=== PATIENT | male | born 1990 | race African-American/Black ===

== ENCOUNTER 2016-10-06 14:27 | Inpatient (IN) | payer MEDICARE ==
--- NOTE | 2016-10-06 14:56 | PDOC ---
Rapid Medical Evaluation Chief Complaint: Blood Sugar Problem Medical Evaluation: Allergies Allergy/AdvReac Type Severity Reaction Status Date / Time No Known Allergies Allergy Verified 10/06/16 14:33 Vital Signs Temp Pulse Resp BP Pulse Ox 98.0 F 121 H 18 121/54 100 10/06/16 14:33 10/06/16 14:33 10/06/16 14:33 10/06/16 14:33 10/06/16 14:33 10/06/16 14:54I have performed a brief in-person evaluation of this patient. The patient presents with a chief complaint of: Pertinent physical exam findings: Fruity breath, L/S CTAB The patient will proceed to the ED for further evaluation. 25 yo IDDM c/o abd pain with weakness. Pt reports his glucose was in the high 300's last evening. Today, he c/o weakness, n/v, dry. abd pain. Pt took insulin 15u (Novolog regular) @~1415hrs. Obtained and sent to the lab by me at 1451 hours are the following: IV NS 1 liter CBC/DIFF UA Cmp BVG
[2016-10-06 15:10] LABS: VENOUS PH 7.41 (7.32-7.42)
[2016-10-06 15:11] LABS: VENOUS BLOOD GAS HCO3 13.7 meq/L (19-25)
[2016-10-06 15:14] LABS: MCHC 32.8 g/dl (32.0-35.9); MEAN CELL VOLUME 91.6 fl (80-96); MEAN PLT VOLUME 8.7 fl (7.5-11.1); PLATELET COUNT 494 K/MM3 (134-434); RDW 12.9 % (11.9-15.9); WHITE BLOOD COUNT 21.5 K/mm3 (4.0-10.0)
[2016-10-06] MEDS ORDERED: SODIUM CHLORIDE 1,000 ML IV STA ×2 (15:15→15:18)
[2016-10-06 15:23] LABS: URINE APPEARANCE CLEAR; URINE BILIRUBIN NEGATIVE (NEGATIVE); URINE COLOR YELLOW; URINE GLUCOSE (UA) 3+ (NEGATIVE); URINE KETONE 2+ (NEGATIVE); URINE LEUK ESTERASE NEGATIVE (NEGATIVE); URINE NITRITE NEGATIVE (NEGATIVE); URINE UROBILINOGEN NEGATIVE E.U./dl (0.2-1.0)
[2016-10-06 15:25] VITALS: BMI 24.2
[2016-10-06 15:32] LABS: URINE BLOOD 2+ (NEGATIVE); URINE PROTEIN 3+ (NEGATIVE)
[2016-10-06] MEDS ORDERED: PIPERACILLIN/TAZOB 3.375 GM/50 ML PRE-DOCKED IV ONE (15:33)
--- NOTE | 2016-10-06 15:33 | PDOC ---
History of Present Illness - General History Source: Patient, Old Records Exam Limitations: No Limitations <Tasneem Hayesfany - Last Filed: 10/06/16 15:30> - General History Source: Patient, Old Records Exam Limitations: No Limitations - History of Present Illness Initial Comments: 10/06/16 15:40 The patient is a 25 year old male with a significant past medical history of diabetes, who presents to the emergency department with elevated blood sugar for 3 days. The patient states that his symptoms are similar to his previous episodes of DKA. The patient reports associated nausea, vomiting, epigastric pain, and subjective fever Tmax 101. The patient denies chest pain, cough, and shortness of breath. PCP: Dr. Jennings [phone] PAST MEDICAL HISTORY: Diabetes PAST SURGICAL HISTORY: No significant history reported FAMILY HISTORY: No pertinent history reported SOCIAL HISTORY: None reported ALLERGIES: NKDA MEDICATIONS: Reviewed <Jermaine Mcadams - Last Filed: 10/06/16 19:01> <Marilyn Ruby - Last Filed: 10/06/16 20:13> - General Chief Complaint: Blood Sugar Problem Stated Complaint: Vomiting Time Seen by Provider: 10/06/16 15:08 Past History - Past Medical History Anemia: No Asthma: No Cancer: No Cardiac Disorders: No CVA: No COPD: No CHF: No Dementia: No Diabetes: Yes (type 1; HAS BEEN IN DKA) GI Disorders: No Disorders: No HTN: No Hypercholesterolemia: No Liver Disease: No Seizures: No Thyroid Disease: No - Surgical History Abdominal Surgery: No Appendectomy: No Cardiac Surgery: No Cholecystectomy: No Lung Surgery: No Neurologic Surgery: No Orthopedic Surgery: No - Immunization History Immunization Up to Date: Yes - Psycho/Social/Smoking Cessation Hx Anxiety: No Suicidal Ideation: No Smoking Status: No Smoking History: Never smoked Have you smoked in the past 12 months: No Number of Cigarettes Smoked Daily: 0 Information on smoking cessation initiated: No Hx Alcohol Use: No Drug/Substance Use Hx: No Substance Use Type: None Hx Substance Use Treatment: No <Maddy Hayes - Last Filed: 10/06/16 15:30> <Jermaine Mcadams - Last Filed: 10/06/16 19:01> <Marilyn Ruby - Last Filed: 10/06/16 20:13> - Past Medical History Allergies/Adverse Reactions: Allergies Allergy/AdvReac Type Severity Reaction Status Date / Time No Known Allergies Allergy Verified 10/06/16 14:33 Home Medications: Ambulatory Orders Insulin (Levemir) [Levemir Flexpen -] 42 units SQ AM 05/07/16 Insulin (LOG) Aspart [NovoLOG -] 0 units SQ TID 10/06/16 Review of Systems - Review of Systems Able to Perform ROS?: Yes Comments:: 10/06/16 15:40 CONSTITUTIONAL: Present: Fever Absent: Chills, diaphoresis, generalized weakness, malaise, loss of appetite HEENT: Absent: rhinorrhea, nasal congestion, throat pain, throat swelling, difficulty swallowing, mouth swelling, ear pain, eye pain, visual Changes CARDIOVASCULAR: Absent: chest pain, syncope, palpitations, irregular heart rate, lightheadedness , peripheral edema RESPIRATORY: Absent: cough, shortness of breath, dyspnea with exertion, orthopnea, wheezing, stridor, hemoptysis GASTROINTESTINAL: Present: Nausea, vomiting, abdominal pain Absent: Abdominal distension, diarrhea, constipation, melena, hematochezia GENITOURINARY: Absent: dysuria, frequency, urgency, hesitancy, hematuria, flank pain, genital pain MUSCULOSKELETAL: Absent: myalgia, arthralgia, joint swelling SKIN: Absent: rash, itching, pallor HEMATOLOGIC/IMMUNOLOGIC: Absent: easy bleeding, easy bruising, lymphadenopathy, frequent infections ENDOCRINE: Absent: unexplained weight gain, unexplained weight loss, heat intolerance, cold intolerance NEUROLOGIC: Absent: headache, focal weakness or paresthesias, dizziness, unsteady gait, seizure, mental status changes, bladder or bowel incontinence PSYCHIATRIC: Absent: anxiety, depression, suicidal or homicidal ideation, hallucinations <Jermaine Mcadams - Last Filed: 10/06/16 19:01> *Physical Exam - Vital Signs Last Vital Signs Temp Pulse Resp BP Pulse Ox 98.0 F 121 H 18 121/54 100 10/06/16 14:33 10/06/16 14:33 10/06/16 14:33 10/06/16 14:33 10/06/16 14:33 <Mdady Hayes - Last Filed: 10/06/16 15:30> - Vital Signs Last Vital Signs Temp Pulse Resp BP Pulse Ox 98.0 F 121 H 18 121/54 100 10/06/16 14:33 10/06/16 14:33 10/06/16 14:33 10/06/16 14:33 10/06/16 14:33 - Physical Exam Comments: 10/06/16 15:40 GENERAL: Well developed, well nourished. Awake and alert. In no acute distress. HEENT: Normocephalic, atraumatic. PERRLA, EOMI. No conjunctival pallor. Sclera are non- icteric. Moist mucous membranes. Oropharynx is clear. NECK: Supple. Full ROM. No JVD. Carotid pulses 2+ and symmetric, without bruits. No thyromegaly. No lymphadenopathy. CARDIOVASCULAR: Tachycardic regular rhythm. No murmurs, rubs, or gallops. Distal pulses are 2+ and symmetric. PULMONARY: No evidence of respiratory distress. Lungs clear to auscultation bilaterally. No wheezing, rales or rhonchi. ABDOMINAL: (+) upper abdominal pain. Soft. Non-distended. No rebound or guarding. No organomegaly. Normoactive bowel sounds. MUSCULOSKELETAL Normal range of motion at all joints. No bony deformities or tenderness. No CVA tenderness. EXTREMITIES: No cyanosis. No clubbing. No edema. No calf tenderness. SKIN: Warm and dry. Normal capillary refill. No rashes. No jaundice. NEUROLOGICAL: Alert, awake, appropriate. Cranial nerves 2-12 intact. No deficits to light touch and temperature in face, upper extremities and lower extremities. No motor deficits in the in face, upper extremities and lower extremities. Normoreflexic in the upper and lower extremities. Normal speech. Toes are downgoing bilaterally. Gait is normal without ataxia. PSYCHIATRIC: Cooperative. Good eye contact. Appropriate mood and affect. <Jermaine Mcadams - Last Filed: 10/06/16 19:01> - Vital Signs Last Vital Signs Temp Pulse Resp BP Pulse Ox 99.4 F 88 18 155/88 100 10/06/16 19:20 10/06/16 19:20 10/06/16 19:20 10/06/16 19:20 10/06/16 19:20 <Marilyn Ruby - Last Filed: 10/06/16 20:13> ED Treatment Course - LABORATORY CBC & Chemistry Diagram: 10/06/16 14:49 10/06/16 14:49 - ADDITIONAL ORDERS Additional order review: Laboratory Results 10/06/16 14:49 VBG pH 7.41 D POC VBG pCO2 22.1 L D POC VBG pO2 35.8 D Mixed VBG HCO3 13.7 L* 10/06/16 14:49 RBC 5.36 D MCV 91.6 MCHC 32.8 RDW 12.9 MPV 8.7 D Neutrophils % Y Lymphocytes % Y - RADIOLOGY Radiology Studies Ordered: Category Date Time Status CHEST X-RAY PORTABLE* [RAD] Stat Radiology 10/06/16 15:16 Ordered <Maddy Hayes - Last Filed: 10/06/16 15:30> - LABORATORY CBC & Chemistry Diagram: 10/06/16 14:49 10/06/16 16:36 - ADDITIONAL ORDERS Additional order review: Laboratory Results 10/06/16 10/06/16 14:49 14:49 VBG pH 7.41 D POC VBG pCO2 22.1 L D POC VBG pO2 35.8 D Mixed VBG HCO3 13.7 L* Urine Color Yellow Urine Appearance Clear Urine pH 6.0 Urine Protein 3+ H Urine Glucose (UA) 3+ H Urine Ketones 2+ H Urine Blood 2+ H Urine Nitrite Negative Urine Bilirubin Negative Urine Urobilinogen Negative Ur Leukocyte Esterase Negative 10/06/16 14:49 RBC 5.36 D MCV 91.6 MCHC 32.8 RDW 12.9 MPV 8.7 D Neutrophils % Y Lymphocytes % Y - RADIOLOGY Radiograph Interpretation: 10/06/16 17:04 EXAM#: TYPE/EXAM: RESULT: [id number] RAD/CHEST X-RAY PORTABLE* Diabetic ketoacidosis. Portable chest x-ray semierect. Since prior chest x-ray dated 05/07, the cardiac silhouette remains within normal limits in size and the lung is clear. Mediastinum and visualized osseous structures appear intact Impression No significant interval change or acute lung disease is present Reported By: Reginaldo Coleman MD 10/06/16 [id number] <Jermaine Mcadams - Last Filed: 10/06/16 19:01> - LABORATORY CBC & Chemistry Diagram: 10/06/16 14:49 10/06/16 16:36 - ADDITIONAL ORDERS Additional order review: Laboratory Results 06/10/06/16 10/06/16 17:00 16:36 16:36 VBG pH POC VBG pCO2 POC VBG pO2 Mixed VBG HCO3 Sodium Cancelled 139 Potassium Cancelled 4.4 Chloride Cancelled 103 Carbon Dioxide Cancelled 17 L D Anion Gap Cancelled 19 H BUN Cancelled 20 H D Creatinine Cancelled 1.5 H D Creat Clearance w eGFR Cancelled 56.57 Random Glucose Cancelled 126 H Lactic Acid Calcium Cancelled 10.3 H D Phosphorus 1.3 L D Magnesium 1.8 Total Bilirubin Cancelled 1.7 H AST Cancelled 29 ALT Cancelled 37 D Alkaline Phosphatase Cancelled 66 Creatine Kinase 246 D Creatine Kinase Index Y CK-MB (CK-2) < 1.000 Troponin I < 0.02 D Total Protein Cancelled 7.9 D Albumin Cancelled 4.5 D Lipase 83 Urine Color Urine Appearance Urine pH Ur Specific [place] Urine Protein Urine Glucose (UA) Urine Ketones Urine Blood Urine Nitrite Urine Bilirubin Urine Urobilinogen Ur Leukocyte Esterase Urine RBC Urine WBC Ur Epithelial Cells Hyaline Casts Granular Casts Urine Mucus Acetone, Qual Cancelled Positive small 1+ 10/06/16 10/06/16 10/06/16 15:55 15:30 14:49 VBG pH 7.41 D POC VBG pCO2 22.1 L D POC VBG pO2 35.8 D Mixed VBG HCO3 13.7 L* Sodium Potassium Chloride Carbon Dioxide Anion Gap BUN Creatinine Creat Clearance w eGFR Random Glucose Lactic Acid 2.0 Calcium Phosphorus Cancelled Magnesium Cancelled Total Bilirubin AST ALT Alkaline Phosphatase Creatine Kinase Creatine Kinase Index CK-MB (CK-2) Troponin I Total Protein Albumin Lipase Cancelled Urine Color Urine Appearance Urine pH Ur Specific [place] Urine Protein Urine Glucose (UA) Urine Ketones Urine Blood Urine Nitrite Urine Bilirubin Urine Urobilinogen Ur Leukocyte Esterase Urine RBC Urine WBC Ur Epithelial Cells Hyaline Casts Granular Casts Urine Mucus Acetone, Qual Cancelled 10/06/16 10/06/16 14:49 14:49 VBG pH POC VBG pCO2 POC VBG pO2 Mixed VBG HCO3 Sodium Cancelled Potassium Cancelled Chloride Cancelled Carbon Dioxide Cancelled Anion Gap Cancelled BUN Cancelled Creatinine Cancelled Creat Clearance w eGFR Cancelled Random Glucose Cancelled Lactic Acid Calcium Cancelled Phosphorus Magnesium Total Bilirubin Cancelled AST Cancelled ALT Cancelled Alkaline Phosphatase Cancelled Creatine Kinase Creatine Kinase Index CK-MB (CK-2) Troponin I Total Protein Cancelled Albumin Cancelled Lipase Urine Color Yellow Urine Appearance Clear Urine pH 6.0 Ur Specific [place] >= 1.030 H Urine Protein 3+ H Urine Glucose (UA) 3+ H Urine Ketones 2+ H Urine Blood 2+ H Urine Nitrite Negative Urine Bilirubin Negative Urine Urobilinogen Negative Ur Leukocyte Esterase Negative Urine RBC 2 Urine WBC 5 Ur Epithelial Cells Rare Hyaline Casts 15 Granular Casts 37 Urine Mucus Rare Acetone, Qual 10/06/16 14:49 RBC 5.36 D MCV 91.6 MCHC 32.8 RDW 12.9 MPV 8.7 D Neutrophils % Y Lymphocytes % Y - Medications Given in the ED: ED Medications Discontinued Medications Generic Name Dose Route Start Last Admin Trade Name Freq PRN Reason Stop Dose Admin Sodium Chloride 1,000 mls @ 1,000 mls/hr 10/06/16 15:15 10/06/16 15:20 Normal Saline - IV 10/06/16 16:14 1,000 mls/hr ASDIR STA Administration Sodium Chloride 1,000 mls @ 1,000 mls/hr 10/06/16 15:18 10/06/16 16:25 Normal Saline - IV 10/06/16 16:17 1,000 mls/hr ASDIR STA Administration Sodium Chloride 2,000 mls @ 1,000 mls/hr 10/06/16 16:33 10/06/16 17:20 Normal Saline - IV 10/06/16 18:32 1,000 mls/hr ASDIR STA Administration Ondansetron HCl 4 mg 10/06/16 17:36 10/06/16 17:38 Zofran Injection IVPUSH 10/06/16 17:37 4 mg ONCE ONE Administration Ondansetron HCl 4 mg 10/06/16 19:36 10/06/16 19:43 Zofran Injection IVPUSH 10/06/16 19:37 4 mg ONCE STA Administration Piperacillin Sod/Tazobactam Sod 3.375 gm 10/06/16 15:33 10/06/16 17:20 Zosyn 3.375gm Ivpb (Pre-Docked) IV 10/06/16 15:34 3.375 gm ONCE ONE Administration Protocol <Marilyn Ruby - Last Filed: 10/06/16 20:13> Medical Decision Making - Medical Decision Making 10/06/16 15:31 25-year-old male with history of diabetes and DKA presents the emergency department with three-day history of nausea, vomiting and abdominal pain and elevated sugar at home. Differential diagnosis includes but is not limited to: DKA, uncontrolled diabetes, electrolyte abnormality, infection, dehydration, toxic/metabolic derangement. Plan: 1. Labs 2. EKG 3. IV fluids for hydration 4. Glycemic control 5. Septic workup 6. Observe and reevaluate <Maddy Hayes - Last Filed: 10/06/16 15:30> - Medical Decision Making 10/06/16 18:[address] Jennings placed. Awaiting call back. 10/06/16 18:[address] Jennings placed. Awaiting call back. 10/06/16 18:[address] Jennings's cell phone. Case discussed. Said to call Dr. Chacon 10/06/16 19:[address] Chacon placed. Awaiting call back. <Jermaine Mcadams - Last Filed: 10/06/16 19:01> - Medical Decision Making 10/06/16 20:06 Second call placed to Dr. Chacon (via answering service) at 20:06 Awaiting call back 10/06/16 20:12 Patient's case discussed with Dr. Chacon <Marilyn Ruby - Last Filed: 10/06/16 20:13> *DC/Admit/Observation/Transfer - Attestations Physician Attestion: 10/06/16 15:32 I, Dr. Maddy Hayes, attest that the scribes documentation that appears above has been prepared under my direction and personally reviewed by me in its entirety. I confirmed that the note above accurately reflects all work, treatment, procedures, and medical decision-making performed by me. <Maddy Hayes - Last Filed: 10/06/16 15:30> - Attestations Scribe Attestion: 10/06/16 15:40 Documentation prepared by Jermaine Mcadams, acting as neuropsychology medical consultant for Maddy Hayes MD. <Jermaine Mcadams - Last Filed: 10/06/16 19:01> <Marilyn Ruby - Last Filed: 10/06/16 20:13> Diagnosis at time of Disposition: Nausea and vomiting, Abdominal pain - Referrals
[2016-10-06 15:50] LABS: GRANULAR CASTS 37 /lpf; URINE HYALINE CAST 15 /lpf; URINE MUCUS RARE; URINE RBC 2 /hpf (0-3); URINE WBC 5 /hpf (3-5)
[2016-10-06] MEDS ORDERED: SODIUM CHLORIDE 2,000 ML IV STA (16:33)
[2016-10-06] MEDS ORDERED: ONDANSETRON 4 MG/2 ML VIAL IVPUSH ONE (17:36)
[2016-10-06] MEDS ORDERED: ONDANSETRON 4 MG/2 ML VIAL ONE ×2 (17:39→19:37)
[2016-10-06 18:04] LABS: ALBUMIN 4.5 g/dl (3.4-5.0); ALK PHOS 66 U/L (45-117); ANION GAP 19 (8-16); BILIRUBIN,TOTAL 1.7 mg/dL (0.2-1.0); CALCIUM 10.3 mg/dL (8.5-10.1); CO2 17 mmol/L (21-32); CREATININE 1.5 mg/dL (0.7-1.3); GLUCOSE,RANDOM 126 mg/dL (74-106); SGOT/AST 29 U/L (15-37); SGPT/ALT 37 U/L (12-78); TOT PROT 7.9 g/dl (6.4-8.2)
[2016-10-06 18:35] LABS: MAGNESIUM 1.8 mg/dL (1.8-2.4); PHOSPHOROUS 1.3 mg/dL (2.5-4.9)
[2016-10-06 18:36] LABS: TROPONIN I < 0.02 ng/ml (0.00-0.05)
[2016-10-06 18:43] LABS: ACETONE SERUM POSITIVE SMALL 1+ (NEGATIVE)
[2016-10-06] MEDS ORDERED: ONDANSETRON 4 MG/2 ML VIAL IVPUSH STA (19:36)
[2016-10-06 20:31] LABS: PLATELET ESTIMATE ADEQUATE (NORMAL)
[2016-10-06] MEDS ORDERED: METOCLOPRAMIDE HCL INJECTION 10 MG/2 ML VIAL ONE (21:40)
[2016-10-06] MEDS ORDERED: METOCLOPRAMIDE HCL INJECTION 10 MG/2 ML VIAL IVPUSH ONE (21:40)
[2016-10-06] MEDS ORDERED: SODIUM CHLORIDE 1,000 ML IV SCH (23:30)
[2016-10-07] LABS: URINE APPEARANCE CLEAR; URINE BILIRUBIN NEGATIVE (NEGATIVE); URINE COLOR STRAW; URINE GLUCOSE (UA) 3+ (NEGATIVE); URINE KETONE 2+ (NEGATIVE); URINE LEUK ESTERASE NEGATIVE (NEGATIVE); URINE NITRITE NEGATIVE (NEGATIVE); URINE UROBILINOGEN NEGATIVE E.U./dl (0.2-1.0)
[2016-10-07 00:10] LABS: URINE BLOOD 1+ (NEGATIVE); URINE PROTEIN 1+ (NEGATIVE)
[2016-10-07 00:15] LABS: URINE MUCUS RARE; URINE RBC <1 /hpf (0-3); URINE WBC 4 /hpf (3-5)
--- NOTE | 2016-10-07 01:32 | CONSULT ---
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) Cardio/Vascular: Yes: Other (tachycardia and lethargy with frequent urination) Pulmonary: Yes: Other (bronchitis) Gastrointestinal: Yes: GERD Hepatobiliary: Yes: Other (none) Renal/: Yes: UTI Infectious Disease: Yes: Other (none) Psych: Yes: Depression Musculoskeletal: Yes: Other (none) Rheumatology: Yes: Other (none) ENT: Yes: Allergic Rhinitis Endocrine: Yes: Diabetes Mellitus Dermatology: Yes: Other (none) - Past Surgical History Past Surgical History: Yes: None - Alcohol/Substance Use Hx Alcohol Use: No History of Substance Use: reports: None - Smoking History Smoking history: Never smoked Have you smoked in the past 12 months: No Aproximately how many cigarettes per day: 0 - Social History History of Recent Travel: No Home Medications - Allergies Allergies/Adverse Reactions: Allergies Allergy/AdvReac Type Severity Reaction Status Date / Time No Known Allergies Allergy Verified 10/06/16 14:33 - Home Medications Home Medications: Ambulatory Orders Insulin (Levemir) [Levemir Flexpen -] 42 units SQ AM 05/07/16 Insulin (LOG) Aspart [NovoLOG -] 0 units SQ TID 10/06/16 Family Disease History - Family Disease History Family Disease History: Diabetes: Mother Review of Systems - Review of Systems Constitutional: reports: Lethargy, Weakness Eyes: reports: Blurred Vision HENT: reports: No Symptoms Neck: reports: No Symptoms Cardiovascular: reports: No Symptoms Respiratory: reports: No Symptoms Gastrointestinal: reports: No Symptoms Genitourinary: reports: No Symptoms Breasts: reports: No Symptoms Reported Musculoskeletal: reports: No Symptoms Integumentary: reports: No Symptoms Neurological: reports: No Symptoms Endocrine: reports: Unexplained Weight Gain Hematology/Lymphatic: reports: No Symptoms Physical Exam Vital Signs: Vital Signs Temperature 98.2 F 10/07/16 00:05 Pulse Rate 93 H 10/07/16 00:05 Respiratory Rate 18 10/07/16 00:05 Blood Pressure 133/71 10/07/16 00:05 O2 Sat by Pulse Oximetry (%) 100 10/07/16 00:05 Constitutional: Yes: Anxious Eyes: Yes: EOM Intact HENT: Yes: Normocephalic, Pharyngeal Erythema Neck: Yes: Trachea Midline Cardiovascular: Yes: Regular Rate and Rhythm Respiratory: Yes: CTA Bilaterally Gastrointestinal: Yes: Hypoactive Bowel Sounds, Tenderness, Epigastrium ...Rectal Exam: Yes: Deferred Renal/: Yes: WNL Breast(s): Yes: WNL Musculoskeletal: Yes: WNL Extremities: Yes: WNL Edema: No Peripheral Pulses WNL: Yes Integumentary: Yes: WNL Wound/Incision: Yes: Clean/Dry Neurological: Yes: WNL, Alert, Oriented ...Motor Strength: WNL Problem List - Problems (1) Abdominal pain Code(s): R10.9 - UNSPECIFIED ABDOMINAL PAIN (2) Nausea and vomiting Code(s): R11.2 - NAUSEA WITH VOMITING, UNSPECIFIED (3) Acute renal failure Code(s): N17.9 - ACUTE KIDNEY FAILURE, UNSPECIFIED (4) DKA (diabetic ketoacidoses) Code(s): E13.10 - OTH DIABETES MELLITUS WITH KETOACIDOSIS WITHOUT COMA Qualifiers: (5) Hyperglycemia Code(s): R73.9 - HYPERGLYCEMIA, UNSPECIFIED Assessment/Plan Current Active Problems Abdominal pain (Acute) Nausea and vomiting (Acute) dka hyperglycemia,uncontrolled diabetes mellitus diet non compliance Abnormal Lab Results 10/06/16 10/06/16 10/06/16 14:49 14:49 14:49 WBC 21.5 H D Hct 49.1 H D Plt Count 494 H D Neutrophils % 87.0 H POC VBG pCO2 22.1 L D Mixed VBG HCO3 13.7 L* Carbon Dioxide Anion Gap BUN Creatinine Random Glucose Calcium Phosphorus Total Bilirubin Ur Specific [place] >= 1.030 H Urine Protein 3+ H Urine Glucose (UA) 3+ H Urine Ketones 2+ H Urine Blood 2+ H 10/06/16 10/06/16 10/06/16 16:36 16:36 23:45 WBC Hct Plt Count Neutrophils % POC VBG pCO2 Mixed VBG HCO3 Carbon Dioxide 17 L D Anion Gap 19 H BUN 20 H D Creatinine 1.5 H D Random Glucose 126 H Calcium 10.3 H D Phosphorus 1.3 L D Total Bilirubin 1.7 H Ur Specific [place] Urine Protein 1+ H D Urine Glucose (UA) 3+ H Urine Ketones 2+ H Urine Blood 1+ H Laboratory Results - last 24 hr 10/06/16 10/06/16 10/06/16 14:49 14:49 14:49 WBC 21.5 H D RBC 5.36 D Hgb 16.1 D Hct 49.1 H D MCV 91.6 MCHC 32.8 RDW 12.9 Plt Count 494 H D MPV 8.7 D Neutrophils % 87.0 H Lymphocytes % 8.0 D Monocytes % 5.0 Platelet Estimate Adequate RBC Morphology Appears normal VBG pH POC VBG pCO2 POC VBG pO2 Mixed VBG HCO3 Sodium Cancelled Potassium Cancelled Chloride Cancelled Carbon Dioxide Cancelled Anion Gap Cancelled BUN Cancelled Creatinine Cancelled Creat Clearance w eGFR Cancelled Random Glucose Cancelled Lactic Acid Calcium Cancelled Phosphorus Magnesium Total Bilirubin Cancelled AST Cancelled ALT Cancelled Alkaline Phosphatase Cancelled Creatine Kinase Creatine Kinase Index CK-MB (CK-2) CK-MB (CK-2) Rel Index Troponin I Total Protein Cancelled Albumin Cancelled Lipase Urine Color Yellow Urine Appearance Clear Urine pH 6.0 Ur Specific [place] >= 1.030 H Urine Protein 3+ H Urine Glucose (UA) 3+ H Urine Ketones 2+ H Urine Blood 2+ H Urine Nitrite Negative Urine Bilirubin Negative Urine Urobilinogen Negative Ur Leukocyte Esterase Negative Urine RBC 2 Urine WBC 5 Ur Epithelial Cells Rare Hyaline Casts 15 Granular Casts 37 Urine Mucus Rare Acetone, Qual 10/06/16 10/06/16 10/06/16 14:49 15:30 15:55 WBC RBC Hgb Hct MCV MCHC RDW Plt Count MPV Neutrophils % Lymphocytes % Monocytes % Platelet Estimate RBC Morphology VBG pH 7.41 D POC VBG pCO2 22.1 L D POC VBG pO2 35.8 D Mixed VBG HCO3 13.7 L* Sodium Potassium Chloride Carbon Dioxide Anion Gap BUN Creatinine Creat Clearance w eGFR Random Glucose Lactic Acid 2.0 Calcium Phosphorus Cancelled Magnesium Cancelled Total Bilirubin AST ALT Alkaline Phosphatase Creatine Kinase Creatine Kinase Index CK-MB (CK-2) CK-MB (CK-2) Rel Index Troponin I Total Protein Albumin Lipase Cancelled Urine Color Urine Appearance Urine pH Ur Specific [place] Urine Protein Urine Glucose (UA) Urine Ketones Urine Blood Urine Nitrite Urine Bilirubin Urine Urobilinogen Ur Leukocyte Esterase Urine RBC Urine WBC Ur Epithelial Cells Hyaline Casts Granular Casts Urine Mucus Acetone, Qual Cancelled 10/06/16 10/06/16 10/06/16 16:36 16:36 16:36 WBC RBC Hgb Hct MCV MCHC RDW Plt Count MPV Neutrophils % Lymphocytes % Monocytes % Platelet Estimate RBC Morphology VBG pH POC VBG pCO2 POC VBG pO2 Mixed VBG HCO3 Sodium 139 Cancelled Potassium 4.4 Cancelled Chloride 103 Cancelled Carbon Dioxide 17 L D Cancelled Anion Gap 19 H Cancelled BUN 20 H D Cancelled Creatinine 1.5 H D Cancelled Creat Clearance w eGFR 56.57 Cancelled Random Glucose 126 H Cancelled Lactic Acid Calcium 10.3 H D Cancelled Phosphorus 1.3 L D Magnesium 1.8 Total Bilirubin 1.7 H Cancelled AST 29 Cancelled ALT 37 D Cancelled Alkaline Phosphatase 66 Cancelled Creatine Kinase 246 D Creatine Kinase Index Y CK-MB (CK-2) < 1.000 CK-MB (CK-2) Rel Index Cancelled Troponin I < 0.02 D Total Protein 7.9 D Cancelled Albumin 4.5 D Cancelled Lipase 83 Urine Color Urine Appearance Urine pH Ur Specific [place] Urine Protein Urine Glucose (UA) Urine Ketones Urine Blood Urine Nitrite Urine Bilirubin Urine Urobilinogen Ur Leukocyte Esterase Urine RBC Urine WBC Ur Epithelial Cells Hyaline Casts Granular Casts Urine Mucus Acetone, Qual Positive small 1+ 10/06/16 10/06/16 17:00 23:45 WBC RBC Hgb Hct MCV MCHC RDW Plt Count MPV Neutrophils % Lymphocytes % Monocytes % Platelet Estimate RBC Morphology VBG pH POC VBG pCO2 POC VBG pO2 Mixed VBG HCO3 Sodium Potassium Chloride Carbon Dioxide Anion Gap BUN Creatinine Creat Clearance w eGFR Random Glucose Lactic Acid Calcium Phosphorus Magnesium Total Bilirubin AST ALT Alkaline Phosphatase Creatine Kinase Creatine Kinase Index CK-MB (CK-2) CK-MB (CK-2) Rel Index Troponin I Total Protein Albumin Lipase Urine Color Straw Urine Appearance Clear Urine pH 5.0 Ur Specific [place] Urine Protein 1+ H D Urine Glucose (UA) 3+ H Urine Ketones 2+ H Urine Blood 1+ H Urine Nitrite Negative Urine Bilirubin Negative Urine Urobilinogen Negative Ur Leukocyte Esterase Negative Urine RBC Urine WBC Ur Epithelial Cells Hyaline Casts Granular Casts Urine Mucus Acetone, Qual Cancelled plan: insulin dose correction of hyperglycemia ivfluid ns @125cchr low dose insulin needed levemir 42 units am novolog sliding scale
[2016-10-07] MEDS ORDERED: PIPERACILLIN/TAZOB 3.375 GM/50 ML PRE-DOCKED IVPB ONE (02:00)
[2016-10-07] MEDS ORDERED: PIPERACILLIN/TAZOB 3.375 GM/50 ML PRE-DOCKED IVPB SCH (02:00)
[2016-10-07] MEDS: INSULIN SLIDING SCALE (NOVOLOG) 1 VIAL SQ SCH ×2 (06:02→07:58)
[2016-10-07 06:38] LABS: MCH 30.8 pg (25.7-33.7); MCHC 31.6 g/dl (32.0-35.9); MEAN CELL VOLUME 97.4 fl (80-96); MEAN PLT VOLUME 8.3 fl (7.5-11.1); PLATELET COUNT 456 K/MM3 (134-434); RDW 13.9 % (11.9-15.9); WHITE BLOOD COUNT 28.3 K/mm3 (4.0-10.0)
[2016-10-07] MEDS ORDERED: INSULIN SLIDING SCALE (NOVOLOG) 1 VIAL SQ SCH (07:00)
[2016-10-07] MEDS ORDERED: INSULIN DETEMIR 100 UNITS/ML MDV SQ SCH (07:00)
[2016-10-07 07:15] LABS: ALBUMIN 4.6 g/dl (3.4-5.0); ANION GAP 27 (8-16); BILIRUBIN,TOTAL 1.3 mg/dL (0.2-1.0); CHOLESTEROL 235 mg/dL (50-200); CO2 7 mmol/L (21-32); CREATININE 1.7 mg/dL (0.7-1.3); SGOT/AST 28 U/L (15-37); SGPT/ALT 38 U/L (12-78); TOT PROT 8.1 g/dl (6.4-8.2)
[2016-10-07 07:16] LABS: ALK PHOS 80 U/L (45-117)
[2016-10-07 07:29] LABS: GLUCOSE,RANDOM 512 mg/dL (74-106)
[2016-10-07] MEDS ORDERED: INSULIN (NOVOLOG) ASPART 100 UNITS/ML 10ML VIAL ONE (07:52)
[2016-10-07] MEDS ORDERED: morphine CARPU-JECT 2 MG/1 ML DISP.SYRIN IVPUSH ONE (07:55)
[2016-10-07] MEDS ORDERED: INSULIN REGULAR 100 UNITS in SODIUM CHLORIDE 99 ML IVPB SCH (09:00)
[2016-10-07] MEDS ORDERED: SODIUM CHLORIDE 1,000 ML IV SCH (09:00)
--- NOTE | 2016-10-07 09:09 | HP ---
Admitting History and Physical - Admission History of Present Illness: The patient is a 25 year old male with a significant past medical history of diabetes, who presents to the emergency department with elevated blood sugar for 3 days. The patient states that his symptoms are similar to his previous episodes of DKA. The patient reports associated nausea, vomiting, epigastric pain, and subjective fever Tmax 101. The patient denies chest pain, cough, and shortness of breath. 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) Cardiovascular: Yes: Other (tachycardia and lethargy with frequent urination) Pulmonary: Yes: Other (bronchitis) Gastrointestinal: Yes: GERD Hepatobiliary: Yes: Other (none) Renal/: Yes: UTI Heme/Onc: Yes: Other (none) Infectious Disease: Yes: Other (none) Psych: Yes: Depression Musculoskeletal: Yes: Other (none) Rheumatology: Yes: Other (none) ENT: Yes: Allergic Rhinitis Endocrine: Yes: Diabetes Mellitus Dermatology: Yes: Other (none) - Past Surgical History Past Surgical History: Yes: None - Smoking History Smoking history: Never smoked Have you smoked in the past 12 months: No Aproximately how many cigarettes per day: 0 - Alcohol/Substance Use Hx Alcohol Use: No History of Substance Use: reports: None - Social History History of Recent Travel: No Home Medications - Allergies Allergies/Adverse Reactions: Allergies Allergy/AdvReac Type Severity Reaction Status Date / Time No Known Allergies Allergy Verified 10/06/16 14:33 - Home Medications Home Medications: Ambulatory Orders Insulin (Levemir) [Levemir Flexpen -] 42 units SQ AM 05/07/16 Insulin (LOG) Aspart [NovoLOG -] 0 units SQ TID 10/06/16 Family Disease History - Family Disease History Family Disease History: Diabetes: Mother Review of Systems - Review of Systems Cardiovascular: denies: Chest Pain Gastrointestinal: reports: Abdominal Pain, Nausea Genitourinary: reports: Frequency Physical Examination Vital Signs: Vital Signs Temperature 97.0 F L 10/07/16 08:09 Pulse Rate 130 H 10/07/16 08:09 Respiratory Rate 20 10/07/16 08:38 Blood Pressure 157/90 10/07/16 08:09 O2 Sat by Pulse Oximetry (%) 100 10/07/16 08:38 Neck: Yes: Supple Cardiovascular: Yes: Regular Rate and Rhythm Respiratory: Yes: Regular, CTA Bilaterally Gastrointestinal: Yes: Normal Bowel Sounds, Soft, Tenderness, Epigastrium Labs: CBC, BMP 10/07/16 06:00 10/07/16 06:00 Imaging - Results Cat Scan: Report Reviewed Problem List - Problems (1) Abdominal pain Assessment/Plan: US PPI GI CONSULT SURGICAL CONSULT Code(s): R10.9 - UNSPECIFIED ABDOMINAL PAIN (2) Nausea and vomiting Assessment/Plan: ABOVE Code(s): R11.2 - NAUSEA WITH VOMITING, UNSPECIFIED (3) Acute renal failure Assessment/Plan: IVF MONITOR Code(s): N17.9 - ACUTE KIDNEY FAILURE, UNSPECIFIED (4) DKA (diabetic ketoacidoses) Assessment/Plan: INSULIN DRIP IVF MONITOR BLOOD SUGARS Code(s): E13.10 - OTH DIABETES MELLITUS WITH KETOACIDOSIS WITHOUT COMA Qualifiers: (5) Leukocytosis (leucocytosis) Assessment/Plan: FOLLOW LABS CULTURES ID CONSULT ABX Code(s): D72.829 - ELEVATED WHITE BLOOD CELL COUNT, UNSPECIFIED
[2016-10-07] MEDS ORDERED: PANTOPRAZOLE SODIUM 100 ML IVPB ONE (09:25)
[2016-10-07] MEDS ORDERED: HEPARIN NA (PORCINE) 5,000 UNITS/ML 1ML VIAL ONE (09:25)
[2016-10-07 09:47] LABS: LDL CHOLESTEROL (ONLY SJRH) 145 mg/dL (5-100)
[2016-10-07] MEDS ORDERED: HEPARIN NA (PORCINE) 5,000 UNITS/ML 1ML VIAL SQ SCH (10:00)
[2016-10-07 10:11] LABS: PLATELET ESTIMATE ADEQUATE (NORMAL)
[2016-10-07] MEDS: PANTOPRAZOLE SODIUM 100 ML IVPB SCH ×2 (10:21→21:59)
--- NOTE | 2016-10-07 11:35 | PN ---
Progress Note (short form) - Note Progress Note: ID Consult dictated DKA Leukocytosis- leukemoid rxn v. possible sepsis Hx MRSA soft tissue infection Pending sepsis work up, empiric ceftriaxone
--- NOTE | 2016-10-07 12:09 | CONSULT ---
Consult Consult Specialty:: ICU Referred by:: Dr. Chacon Reason for Consultation:: DKA - History of Present Illness Chief Complaint: Lethargy, abdominal pain History of Present Illness: Pt. is a 25 y/o male with PMH of IDDM since age 12 who is currently admitted to the ICU for DKA. Pt. states that he began to feel ill approximately 3 days ago. He states he felt weak, and lethargic. He also admitted to epigastric pain, nausea, and vomiting. Reports subjective fevers and chills. Denies chest pain, shortness of breath, palpitations and cough. He states that he noticed his sugar levels were elevated so he presented to the ED for evaluation where he was found to be in DKA. Pt. was started on Levamir and sliding scale insulin. This morning, he was found to have a sugar in the 500's and was admitted to the ICU for an insulin drip. 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) Cardio/Vascular: Yes: Other (tachycardia and lethargy with frequent urination) Pulmonary: Yes: Other (bronchitis) Gastrointestinal: Yes: GERD Hepatobiliary: Yes: Other (none) Renal/: Yes: UTI Infectious Disease: Yes: Other (none) Psych: Yes: Depression Musculoskeletal: Yes: Other (none) Rheumatology: Yes: Other (none) ENT: Yes: Allergic Rhinitis Endocrine: Yes: Diabetes Mellitus Dermatology: Yes: Other (none) - Past Surgical History Past Surgical History: Yes: None - Alcohol/Substance Use Hx Alcohol Use: No History of Substance Use: reports: None - Smoking History Smoking history: Never smoked Have you smoked in the past 12 months: No Aproximately how many cigarettes per day: 0 - Social History History of Recent Travel: No Home Medications - Allergies Allergies/Adverse Reactions: Allergies Allergy/AdvReac Type Severity Reaction Status Date / Time No Known Allergies Allergy Verified 10/06/16 14:33 - Home Medications Home Medications: Ambulatory Orders Insulin (Levemir) [Levemir Flexpen -] 42 units SQ AM 05/07/16 Insulin (LOG) Aspart [NovoLOG -] 0 units SQ TID 10/06/16 Family Disease History - Family Disease History Family Disease History: Diabetes: Mother Review of Systems - Review of Systems Constitutional: reports: Fever (subjective), Lethargy, Weakness. denies: Chills , Night Sweats Eyes: denies: Double Vision, Recent Change in Vision HENT: denies: Difficult Swallowing, Ear Pain, Hearing Loss, Throat Pain Cardiovascular: denies: Chest Pain, Palpitations, Shortness of Breath Respiratory: denies: Cough, SOB Gastrointestinal: reports: Abdominal Pain (epigastric pain), Diarrhea, Nausea, Vomiting Genitourinary: reports: Frequency. denies: Dysuria, Hematuria, Incontinence Musculoskeletal: reports: No Symptoms Integumentary: denies: Bruising, Lesions, Rash Neurological: denies: Change in LOC, Change in Speech, Dizziness, Headache, Numbness Endocrine: reports: Increased Thirst. denies: Flushing, Increased Hunger Hematology/Lymphatic: reports: No Symptoms Psychiatric: reports: Depression (History of depression) Physical Exam Vital Signs: Vital Signs Temperature 97.0 F L 10/07/16 08:09 Pulse Rate 130 H 10/07/16 08:09 Respiratory Rate 20 10/07/16 08:38 Blood Pressure 157/90 10/07/16 08:09 O2 Sat by Pulse Oximetry (%) 100 10/07/16 08:38 Constitutional: Yes: Mild Distress, Other (Alert and oriented x3. Weak, lethargic. Breathing easily.) Cardiovascular: Yes: Regular Rate and Rhythm, Other (S1 and S2 present). No: Gallop, Murmur, Rub Respiratory: Yes: CTA Bilaterally. No: Accessory Muscle Use, Rales, Rhonchi, Wheezes Gastrointestinal: Yes: Normal Bowel Sounds, Soft, Tenderness, Epigastrium. No: Distention, Palpable Mass, Tenderness, Rebound Renal/: Yes: Polyuria Edema: No Neurological: Yes: Alert, Oriented, Cran Nerves II-XII Intact, Lethargy Labs: CBC, BMP 10/07/16 06:00 Problem List - Problems (1) Abdominal pain Code(s): R10.9 - UNSPECIFIED ABDOMINAL PAIN (2) DKA (diabetic ketoacidoses) Code(s): E13.10 - OTH DIABETES MELLITUS WITH KETOACIDOSIS WITHOUT COMA Qualifiers: (3) Leukocytosis (leucocytosis) Code(s): D72.829 - ELEVATED WHITE BLOOD CELL COUNT, UNSPECIFIED Assessment/Plan Pt. is a 25 y/o male with IDDM who presents in DKA. DKA: - Pt. received morning dose of Levamir prior to ICU arrival. Sugar after onset of action is 128. - Hold insulin drip at this time - AG decreasing 27 -->19 - Continue NS @ 125cc/hr - POC FS q1 hr - BMP Q4 hrs until AG closes Leukocytosis: - Per ID leukemoid rxn vs. possible sepsis - Ceftriaxone started empirically for WBC of 28. - ID following ROBI: - IVF - Strict I&O's Abdominal pain: - US shows a 5mm polyp on the gallbladder - Surgery and GI consults initiated. - Zofran prn FEN - NPO - NS @ 125cc/hr - Will replete as needed Prophylaxis - DVT: Heparin 5000 units SQ TID - GI: Protonix 40mg IVPB Daily
[2016-10-07] MEDS: D5W IVPB SCH (12:18)
[2016-10-07] MEDS: CEFTRIAXONE 2 GM/100 ML IVPB SCH (12:18)
[2016-10-07 12:20] LABS: ANION GAP 19 (8-16); CALCIUM 9.8 mg/dL (8.5-10.1); CO2 11 mmol/L (21-32); CREATININE 1.6 mg/dL (0.7-1.3); GLUCOSE,RANDOM 128 mg/dL (74-106); PHOSPHOROUS 2.5 mg/dL (2.5-4.9)
--- NOTE | 2016-10-07 12:48 | CONS ---
DATE OF CONSULTATION: DATE OF DICTATION: 10/07/2016 INFECTIOUS DISEASE CONSULTATION HISTORY OF PRESENT ILLNESS: The patient is a 25-year-old diabetic male with prior history of diabetic ketoacidosis, evaluated for leukocytosis. He presented with a 3-day history of worsening abdominal pain, generalized weakness, and elevated blood sugar. He was found to be in diabetic ketoacidosis. The patient was transferred to the intensive care unit where he was treated with intravenous fluids and insulin. His course has been complicated by marked leukocytosis and white count of 28,000. The patient complained of abdominal pain prior to admission with vomiting. He denies any vomiting of rusty red blood or hematemesis. He denies any diarrhea. No recent febrile illness. He denies any chest pain, shortness of breath, cough, or sputum production. He has had polyuria presumably secondary to uncontrolled diabetes mellitus and some questionable dysuria. No reports of gross hematuria. He denies any skin infections or diabetic foot infections. Of note the patient was hospitalized in 2012 with a soft tissue infection of the left leg, which grew MRSA on culture. PAST MEDICAL HISTORY: Positive for longstanding insulin-dependent diabetes mellitus since age 12, gastroesophageal reflux, and history of left leg abscess MRSA (2013). ALLERGIES: No known drug allergies. MEDICATIONS: Includes Levemir. 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 States he has been working up until the time of his illness. He is a non-smoker and non-drinker. SYSTEMS REVIEW: Neurologic: No loss of consciousness. No seizure activity or focal weakness. Cardiac: Negative chest pain or palpitations. Respiratory: Negative cough or sputum production. Gastrointestinal: As per history of present illness. Genitourinary: As per history of present illness. LABORATORY DATA: White count of 28.3, 95 neutrophils, 1 lymphocyte, hematocrit of 44.9, and platelet count of 456. Glucose of 512, BUN of 22, and creatinine of 1.7. Lactic acid of 2.0. Urinalysis with 4 white cells. Chest x-ray is negative. Blood and urine cultures are pending. PHYSICAL EXAMINATION: General: On examination he is thin, lethargic, in no acute distress. He is having hiccups. Vital Signs: Temperature of 97.0, blood pressure of 157/90, pulse of 125, regular, and respirations of 22 per minute. HEENT: Sclerae are anicteric. Oropharynx is dry; positive fruity breath. Neck: Supple. No palpable nodes. Cardiovascular: Heart sounds tachycardic. S1, S2. Lungs: Clear. Abdomen: Soft. Positive epigastric tenderness to palpation. No mass, rebound, or rigidity. Extremities: Negative for edema. No evidence of skin infection or foot ulcerations or infections. IMPRESSION: 1. Diabetic ketoacidosis. 2. Leukocytosis likely leukemoid reaction. Cannot rule out possible sepsis as precipitating event for diabetic ketoacidosis. 3. History of methicillin-resistant Staphylococcus aureus soft tissue infection. PLAN: Await culture results. Will empirically treat with ceftriaxone 2 grams intravenously piggyback daily. At the present time there does not appear to be a skin infection to raise the possibility of recurrent methicillin-resistant Staphylococcus aureus soft tissue infection. Continue intravenous fluid hydration and insulin. Will follow. Thank you for the kind referral. YENY SABILLON M.D. [id number]
--- NOTE | 2016-10-07 13:39 | EKG ---
Test Reason : Blood Pressure : / mmHG Vent. Rate : 077 BPM Atrial Rate : 077 BPM P-R Int : 142 ms QRS Dur : 098 ms QT Int : 362 ms P-R-T Axes : 026 084 074 degrees QTc Int : 409 ms NORMAL SINUS RHYTHM NORMAL ECG WHEN COMPARED WITH ECG OF 07-MAY-2016 13:14, RI INTERVAL HAS DECREASED T WAVE INVERSION NOW EVIDENT IN ANTERIOR LEADS Confirmed by SASHA MELISSA, MARQUIS ([id number]) on 10/07/2016 1:39:26 PM Referred By: Confirmed By:MARQUIS BAEZ MD
--- NOTE | 2016-10-07 13:46 | PN ---
Teaching Attending Note Name of Resident: Katherine Ng ATTENDING PHYSICIAN STATEMENT I saw and evaluated the patient. I reviewed the resident's note and discussed the case with the resident. I agree with the resident's findings and plan as documented. SUBJECTIVE: Pt seen and examined in the ICU. Given levemir this AM, anion gap improving. OBJECTIVE: Last Vital Signs Temp Pulse Resp BP Pulse Ox 97.6 F 112 H 20 136/86 100 10/07/16 11:00 10/07/16 12:25 10/07/16 12:25 10/07/16 12:25 10/07/16 08:38 Intake & Output 10/04/16 10/05/16 10/06/16 10/07/16 23:59 23:59 23:59 23:59 Intake Total 600 Balance 600 Weight 150 lb Gen: listless, weak HEENT: dry mucous membranes Heart: tachycardic, regular Lung: decreased breath sounds at the bases Abd: soft, nontender Ext: no edema CBC, BMP 10/07/16 06:00 10/07/16 11:45 Active Medications Heparin Sodium (Porcine) (Heparin -) 5,000 unit SQ BID [facility] Last Admin: 10/07/16 09:30 Dose: 5,000 unit Insulin Human Regular 100 (units/ Sodium Chloride) 100 mls @ 6.8 mls/hr IVPB TITR FABIAN; 0.1 UNITS/KG/HR PRN Reason: Protocol Last Admin: 10/07/16 12:19 Dose: Not Given Sodium Chloride (Normal Saline -) 1,000 mls @ 150 mls/hr IV ASDIR [facility] Last Admin: 10/07/16 10:30 Dose: 150 mls/hr Pantoprazole Sodium (Protonix 40mg Ivpb (Pre-Docked)) 100 mls @ 200 mls/hr IVPB BID [facility] Last Admin: 10/07/16 10:21 Dose: 200 mls/hr Ceftriaxone Sodium (Rocephin 2gm Ivpb (Pre-Docked)) 100 mls @ 200 mls/hr IVPB DAILY [facility] Last Admin: 10/07/16 12:18 Dose: 200 mls/hr ASSESSMENT AND PLAN: Diabetic Ketoacidosis Acute Kidney Injury/Dehydration - already received levemir, will monitor BGM hourly for now - aggressive IVF resuscitation - BMP q4h until anion gap cosed - monitor urine output, creatinine - on empiric antibiotics - can d/c antibiotics if cultures negative - DVT prophylaxis
[2016-10-07 15:04] LABS: MCH 30.3 pg (25.7-33.7); MCHC 32.2 g/dl (32.0-35.9); MEAN CELL VOLUME 94.1 fl (80-96); PLATELET COUNT 367 K/MM3 (134-434); RDW 13.3 % (11.9-15.9); WHITE BLOOD COUNT 27.1 K/mm3 (4.0-10.0)
[2016-10-07 15:26] LABS: ANION GAP 16 (8-16); CALCIUM 9.6 mg/dL (8.5-10.1); CO2 16 mmol/L (21-32); CREATININE 1.5 mg/dL (0.7-1.3); GLUCOSE,RANDOM 76 mg/dL (74-106)
[2016-10-07] MEDS ORDERED: DEXTROSE 5%-NORMAL SALINE 1,000 ML IV SCH (15:45)
[2016-10-07] MEDS ORDERED: ONDANSETRON 4 MG/2 ML VIAL IVPB PRN (16:28)
--- NOTE | 2016-10-07 19:29 | CON.GI ---
Consult Consult Specialty:: Gastroenterology Referred by:: Dr Chacon Reason for Consultation:: abdominal pain - History of Present Illness History of Present Illness: Patient seen in the ICU. 25 y/o male with PMH of DKA was doing well until 3 days ago when he developed persisted epigastric pain associated with nausea, vomiting and leukocytosis. He was admitted in the ICU with DKA. 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) Cardio/Vascular: Yes: Other (tachycardia and lethargy with frequent urination) Pulmonary: Yes: Other (bronchitis) Gastrointestinal: Yes: GERD Hepatobiliary: Yes: Other (none) Renal/: Yes: UTI Infectious Disease: Yes: Other (none) Psych: Yes: Depression Musculoskeletal: Yes: Other (none) Rheumatology: Yes: Other (none) ENT: Yes: Allergic Rhinitis Endocrine: Yes: Diabetes Mellitus Dermatology: Yes: Other (none) - Past Surgical History Past Surgical History: Yes: None - Alcohol/Substance Use Hx Alcohol Use: No History of Substance Use: reports: None - Smoking History Smoking history: Never smoked Have you smoked in the past 12 months: No Aproximately how many cigarettes per day: 0 - Social History History of Recent Travel: No Home Medications - Allergies Allergies/Adverse Reactions: Allergies Allergy/AdvReac Type Severity Reaction Status Date / Time No Known Allergies Allergy Verified 10/06/16 14:33 - Home Medications Home Medications: Ambulatory Orders Insulin (Levemir) [Levemir Flexpen -] 42 units SQ AM 05/07/16 Insulin (LOG) Aspart [NovoLOG -] 0 units SQ TID 10/06/16 Family Disease History - Family Disease History Family History: Denies Family Disease History: Diabetes: Mother Review of Systems - Review of Systems Constitutional: denies: Fever Eyes: denies: Blind Spots HENT: denies: Difficult Swallowing Neck: denies: Decreased ROM Cardiovascular: denies: Chest Pain Gastrointestinal: reports: Abdominal Pain. denies: Constipation, Diarrhea Physical Exam-GI Vital Signs: Vital Signs Temperature 98 F 10/07/16 19:07 Pulse Rate 91 H 10/07/16 19:07 Respiratory Rate 14 10/07/16 19:07 Blood Pressure 137/68 10/07/16 19:07 O2 Sat by Pulse Oximetry (%) 100 10/07/16 16:00 Constitutional: Yes: Well Nourished Eyes: Yes: Conjunctiva Clear HENT: Yes: Atraumatic Neck: Yes: Supple Cardiovascular: Yes: Regular Rate and Rhythm Respiratory: Yes: CTA Bilaterally ...Palpate: Yes: Soft. No: Firm/Rigid, Guarding, Hepatomegaly, Mass, Pulsatile Mass, Splenomegaly, Tenderness Labs: CBC, BMP 10/07/16 14:45 Problem List - Problems (1) Abdominal pain Assessment/Plan: r/o cholecystitis R> HIDA scan conitnue IV hydration reglan 10mg q 8 Zofran 4mg every 4 hours Code(s): R10.9 - UNSPECIFIED ABDOMINAL PAIN
[2016-10-07] MEDS ORDERED: ONDANSETRON 4 MG/2 ML VIAL IVPB SCH (19:32)
[2016-10-07 19:58] LABS: ANION GAP 19 (8-16); CALCIUM 9.1 mg/dL (8.5-10.1); CO2 14 mmol/L (21-32); CREATININE 1.3 mg/dL (0.7-1.3); GLUCOSE,RANDOM 190 mg/dL (74-106)
[2016-10-07] MEDS: INSULIN REGULAR 100 UNITS in SODIUM CHLORIDE 99 ML IVPB SCH ×2 (21:02→21:11)
[2016-10-07] MEDS: METOCLOPRAMIDE HCL INJECTION 10 MG/2 ML VIAL IVPB SCH (21:59)
[2016-10-07] MEDS: HEPARIN NA (PORCINE) 5,000 UNITS/ML 1ML VIAL SQ SCH (22:00)
[2016-10-08] MEDS ORDERED: HEMOQUE TEST 1 EACH EACH ONE (01:44)
[2016-10-08] MEDS ORDERED: ONDANSETRON 4 MG/2 ML VIAL ONE (02:19)
[2016-10-08] MEDS: ONDANSETRON 4 MG/2 ML VIAL IVPB PRN ×3 (02:31→21:43)
[2016-10-08 03:02] LABS: URINE MARIJUANA THC POSITIVE ng/ml (CUTOFF=50)
[2016-10-08] MEDS: METOCLOPRAMIDE HCL INJECTION 10 MG/2 ML VIAL IVPB SCH ×2 (05:41→13:49)
[2016-10-08 06:58] LABS: BASOPHIL 0.2 % (0-2.0); MCH 31.2 pg (25.7-33.7); MCHC 33.1 g/dl (32.0-35.9); NEUTROPHILS 77.6 % (42.8-82.8); PLATELET COUNT 300 K/MM3 (134-434); RDW 13.2 % (11.9-15.9); WHITE BLOOD COUNT 15.9 K/mm3 (4.0-10.0)
[2016-10-08 07:28] LABS: ALBUMIN 3.4 g/dl (3.4-5.0); ANION GAP 13 (8-16); CALCIUM 8.9 mg/dL (8.5-10.1); CO2 21 mmol/L (21-32); CREATININE 1.2 mg/dL (0.7-1.3); GLUCOSE,RANDOM 169 mg/dL (74-106); PHOSPHOROUS 2.2 mg/dL (2.5-4.9); SGOT/AST 13 U/L (15-37); SGPT/ALT 25 U/L (12-78)
[2016-10-08 07:29] LABS: ALK PHOS 56 U/L (45-117); BILIRUBIN,TOTAL 1.9 mg/dL (0.2-1.0); TOT PROT 6.1 g/dl (6.4-8.2)
[2016-10-08] MEDS: DEXTROSE 5%-NORMAL SALINE 1,000 ML IV SCH (08:15)
--- NOTE | 2016-10-08 08:26 | PN ---
Physical Exam: SUBJECTIVE: Patient seen and examined at bedside. Pt. is c/o hiccups, nausea and RUQ pain. States he is usually nauseous and with GERD in the mornings. Pt. appears restless OBJECTIVE: Vital Signs Period Temp Pulse Resp BP Sys/Guo Pulse Ox Last 24 Hr 97.6 F-98.7 F 78-113 14-22 112-144/59-86 100-100 GENERAL: The patient is awake, alert, and fully oriented, in mild distress. EYES: PERRL, extraocular movements intact, sclera anicteric, conjunctiva clear. No ptosis. ENT: Dry mucous membranes. NECK: Trachea midline, full range of motion, supple. LUNGS: Breath sounds equal, clear to auscultation bilaterally, no wheezes, no crackles, no accessory muscle use. HEART: Regular rate and rhythm, S1, S2 without murmur, rub or gallop. ABDOMEN: Soft, diffuse tenderness worst in RUQ, nondistended, normoactive bowel sounds, no guarding, no rebound, no hepatosplenomegaly, no masses. EXTREMITIES: 2+ pulses, warm, well-perfused, no edema. NEUROLOGICAL: Cranial nerves II through XII grossly intact. Normal speech, gait not observed. SKIN: Warm, dry, normal turgor, no rashes or lesions noted Laboratory Results - last 24 hr 10/06/16 10/07/16 10/07/16 23:45 00:14 05:32 POC Glucometer > 400 > 400 Urine Color Straw Urine Appearance Clear Urine pH 5.0 Ur Specific [place] 1.020 Urine Protein 1+ H D Urine Glucose (UA) 3+ H Urine Ketones 2+ H Urine Blood 1+ H Urine Nitrite Negative Urine Bilirubin Negative Urine Urobilinogen Negative Ur Leukocyte Esterase Negative Urine RBC <1 Urine WBC 4 Urine Mucus Rare 10/07/16 10/07/16 10/07/16 06:00 06:00 06:00 WBC 28.3 H D RBC 4.60 Hgb 14.2 D Hct 44.9 MCV 97.4 H MCHC 31.6 L RDW 13.9 Plt Count 456 H MPV 8.3 Neutrophils % 95.0 H Lymphocytes % 1.0 L D Monocytes % 0.0 L D Eosinophils % 0.0 Basophils % 0.0 Band Neutrophils 2.0 Differential Comment Manual diff done Platelet Estimate Adequate Sodium 138 Potassium 5.6 H D Chloride 104 Carbon Dioxide 7 L D Anion Gap 27 H BUN 22 H Creatinine 1.7 H Creat Clearance w eGFR 48.96 Random Glucose 512 H* D Hemoglobin A1c % 8.0 H D Calcium 10.0 Total Bilirubin 1.3 H D AST 28 ALT 38 Alkaline Phosphatase 80 D Total Protein 8.1 Albumin 4.6 Triglycerides 132 Cholesterol 235 H Total LDL Cholesterol 145 H HDL Cholesterol 79 H 10/07/16 10/07/16 10/07/16 06:00 11:01 11:45 Sodium 143 Potassium 4.4 D Chloride 113 H Carbon Dioxide 11 L D Anion Gap 19 H BUN 24 H Creatinine 1.6 H POC Glucometer 188.05281 Random Glucose 128 H D Calcium 9.8 Phosphorus 2.5 D Acetone, Qual Positive small 1+ 10/07/16 10/07/16 10/07/16 12:51 14:22 14:45 WBC 27.1 H RBC 4.48 Hgb 13.6 Hct 42.1 MCV 94.1 MCHC 32.2 RDW 13.3 Plt Count 367 MPV 8.0 Neutrophils % Y Lymphocytes % Y Band Neutrophils Cancelled Metamyelocytes Cancelled Myelocytes Cancelled Promyelocytes Cancelled Nucleated RBCs Cancelled Hypersegmented Neuts Cancelled Plasmacytoid Lymphs Cancelled Reactive Lymphocytes Cancelled Blast Cells Cancelled Plasma Cells Cancelled Other Cell Type Cancelled Toxic Granulation Cancelled Dohle Bodies Cancelled Compa Rods Cancelled Polychromasia Cancelled Hypochromic-Microcytic Cancelled Poikilocytosis Cancelled Basophilic Stippling Cancelled Anisocytosis Cancelled Microcytosis Cancelled Macrocytosis Cancelled Spherocytes Cancelled Siderocytes Cancelled Sickle Cells Cancelled Target Cells Cancelled Tear Drop Cells Cancelled Ovalocytes Cancelled Stomatocytes Cancelled Helmet Cells Cancelled [place] Bodies Cancelled [place] Rings Cancelled David Cells Cancelled Acanthocytes (Spur) Cancelled Rouleaux Cancelled Fragmented RBCs Cancelled Schistocytes Cancelled Morphology Comment Cancelled POC Glucometer 145.75351 127.27888 Fluid Tot Cell Count Cancelled 10/07/16 10/07/16 10/07/16 14:45 15:36 16:53 Sodium 144 Potassium 4.3 Chloride 112 H Carbon Dioxide 16 L D Anion Gap 16 BUN 22 H Creatinine 1.5 H POC Glucometer 88.11516 131.83001 Random Glucose 76 D Hemoglobin A1c % Calcium 9.6 10/07/16 10/07/16 10/07/16 18:15 19:41 21:28 Sodium 143 Potassium 4.4 Chloride 110 H Carbon Dioxide 14 L Anion Gap 19 H BUN 20 H Creatinine 1.3 POC Glucometer 221.89630 281.69257 Random Glucose 190 H D Calcium 9.1 10/07/16 10/08/16 10/08/16 23:05 00:41 01:00 POC Glucometer 216.55176 198.06224 Opiates Screen Positive Methadone Screen Negative Barbiturate Screen Negative Phencyclidine Screen Negative Ur Amphetamines Screen Negative MDMA (Ecstasy) Screen Negative Benzodiazepines Screen Negative Cocaine Screen Negative U Marijuana (THC) Screen Positive 10/08/16 10/08/16 05:20 05:20 WBC 15.9 H D RBC 3.94 L Hgb 12.3 Hct 37.0 MCV 94.0 MCHC 33.1 RDW 13.2 Plt Count 300 MPV 8.0 Neutrophils % 77.6 Lymphocytes % 11.4 D Monocytes % 10.8 H D Eosinophils % 0.0 Basophils % 0.2 D Sodium 145 Potassium 3.8 Chloride 111 H Carbon Dioxide 21 D Anion Gap 13 BUN 17 Creatinine 1.2 Creat Clearance w eGFR > 60 Random Glucose 169 H Calcium 8.9 Phosphorus 2.2 L Total Bilirubin 1.9 H D AST 13 L D ALT 25 D Alkaline Phosphatase 56 D Total Protein 6.1 L D Albumin 3.4 D Active Medications Generic Name Dose Route Start Last Admin Trade Name Freq PRN Reason Stop Dose Admin Heparin Sodium (Porcine) 5,000 unit 10/07/16 22:00 10/07/16 22:00 Heparin - SQ 5,000 unit BID FABIAN Administration Pantoprazole Sodium 100 mls @ 200 mls/hr 10/07/16 10:00 10/07/16 21:59 Protonix 40mg Ivpb (Pre-Docked) IVPB 200 mls/hr BID FABIAN Administration Ceftriaxone Sodium 100 mls @ 200 mls/hr 10/07/16 12:15 10/07/16 12:18 Rocephin 2gm Ivpb (Pre-Docked) IVPB 200 mls/hr DAILY FABIAN Administration Insulin Human Regular 100 100 mls @ 6.8 mls/hr 10/07/16 21:08 10/08/16 06:02 units/ Sodium Chloride IVPB 0.02 units/kg/hr TITR FABIAN Titration Protocol 0.1 UNITS/KG/HR Dextrose/Sodium Chloride 1,000 mls @ 100 mls/hr 10/08/16 08:12 D5-Ns - IV ASDIR FABIAN Metoclopramide HCl 10 mg 10/07/16 22:00 10/08/16 05:41 Reglan Injection - IVPB 10 mg TID FABIAN Administration Ondansetron HCl 4 mg 10/08/16 07:30 10/08/16 02:31 Zofran Injection IVPB 4 mg Q4H PRN Administration NAUSEA AND/OR VOMITING ASSESSMENT/PLAN: Pt. is a 25 y/o male with IDDM who presents in DKA. DKA: - Pt. switched back to insulin drip last night for gap of 19 - AG decreasing 19 -->13; will transition back to levomir and SSI - Continue D5 NS @ 100cc/hr - FSACH - diabetic diet Leukocytosis: - Improving - Per ID leukemoid rxn vs. possible sepsis - Ceftriaxone started empirically for WBC of 28. - ID following ROBI: - Improving - IVF - Strict I&O's Abdominal pain: - Hida scan today, r/o hypokinesis of the gallbladder/cholecystitis - Zofran prn for nausea - Advance diet to clears Hiccups: - Pt. tried multiple valsalva maneuvers with no relief of his hiccups - Thorazine 25mg TID ordered. Hold Reglan. - Stop Thorazine when hiccups resolve. FEN - Transition to clears after HIDA (diabetic diet) - D5 NS @ 100cc/hr - Will replete as needed Prophylaxis - DVT: Heparin 5000 units SQ TID - GI: Protonix 40mg IVPB Daily Problem List - Problems (1) Abdominal pain Code(s): R10.9 - UNSPECIFIED ABDOMINAL PAIN (2) DKA (diabetic ketoacidoses) Code(s): E13.10 - OTH DIABETES MELLITUS WITH KETOACIDOSIS WITHOUT COMA Qualifiers: (3) Leukocytosis (leucocytosis) Code(s): D72.829 - ELEVATED WHITE BLOOD CELL COUNT, UNSPECIFIED Visit type - Emergency Visit Emergency Visit: Yes ED Registration Date: 10/06/16 Care time: The patient presented to the Emergency Department on the above date and was hospitalized for further evaluation of their emergent condition. - New Patient This patient is new to me today: No - Critical Care Critical Care patient: Yes Total Critical Care Time (in minutes): 40 Critical Care Statement: The care of this patient involved high complexity decision making to prevent further life threatening deterioration of the patient 's condition and/or to evalute & treat vital organ system(s) failure or risk of failure. - Discharge Referral Referred to [facility] Med P.C.: No
[2016-10-08] MEDS ORDERED: INSULIN DETEMIR 100 UNITS/ML MDV SQ ONE (08:49)
[2016-10-08] MEDS: PANTOPRAZOLE SODIUM 100 ML IVPB SCH ×2 (09:12→21:44)
[2016-10-08] MEDS: HEPARIN NA (PORCINE) 5,000 UNITS/ML 1ML VIAL SQ SCH ×2 (09:13→21:43)
[2016-10-08] MEDS: CEFTRIAXONE 2 GM/100 ML IVPB SCH (09:13)
[2016-10-08] MEDS: D5W IVPB SCH (09:13)
[2016-10-08 11:37] LABS: ANION GAP 14 (8-16); CALCIUM 9.1 mg/dL (8.5-10.1); CO2 19 mmol/L (21-32); CREATININE 1.2 mg/dL (0.7-1.3); GLUCOSE,RANDOM 153 mg/dL (74-106)
--- NOTE | 2016-10-08 13:19 | PN ---
Teaching Attending Note Name of Resident: Katherine Ng ATTENDING PHYSICIAN STATEMENT I saw and evaluated the patient. I reviewed the resident's note and discussed the case with the resident. I agree with the resident's findings and plan as documented. SUBJECTIVE: Patient seen and examined in the ICU. Still with significant nausea. Unable to tolerate PO intake. Pending HIDA scan. No CP or SOB. Intake & Output 10/05/16 10/06/16 10/07/16 10/08/16 23:59 23:59 23:59 23:59 Intake Total 2556.8 1175 Output Total 800 900 Balance 1756.8 275 Weight 150 lb 138 lb 1 oz Last Vital Signs Temp Pulse Resp BP Pulse Ox 99.7 F H 81 18 124/74 100 10/08/16 12:00 10/08/16 12:00 10/08/16 12:00 10/08/16 12:00 10/08/16 08:00 Active Medications Heparin Sodium (Porcine) (Heparin -) 5,000 unit SQ BID [facility] Last Admin: 10/08/16 09:13 Dose: 5,000 unit Pantoprazole Sodium (Protonix 40mg Ivpb (Pre-Docked)) 100 mls @ 200 mls/hr IVPB BID [facility] Last Admin: 10/08/16 09:12 Dose: 200 mls/hr Ceftriaxone Sodium (Rocephin 2gm Ivpb (Pre-Docked)) 100 mls @ 200 mls/hr IVPB DAILY [facility] Last Admin: 10/08/16 09:13 Dose: 200 mls/hr Dextrose/Sodium Chloride (D5-Ns -) 1,000 mls @ 100 mls/hr IV ASDIR [facility] Last Admin: 10/08/16 08:15 Dose: 100 mls/hr Insulin Aspart (Novolog Vial Sliding Scale -) 1 vial SQ ACHS FABIAN PRN Reason: Protocol Metoclopramide HCl (Reglan Injection -) 10 mg IVPB TID [facility] Last Admin: 10/08/16 05:41 Dose: 10 mg Ondansetron HCl (Zofran Injection) 4 mg IVPB Q4H PRN PRN Reason: NAUSEA AND/OR VOMITING Last Admin: 10/08/16 10:49 Dose: 4 mg Gen: Uncomfortable due to nausea HEENT: dry mucous membranes Heart: tachycardic, regular Lung: decreased breath sounds at the bases Abd: soft, nontender Ext: no edema Laboratory Results - last 24 hr 10/06/16 10/07/16 10/07/16 23:45 14:22 14:45 WBC 27.1 H RBC 4.48 Hgb 13.6 Hct 42.1 MCV 94.1 MCHC 32.2 RDW 13.3 Plt Count 367 MPV 8.0 Neutrophils % Y Lymphocytes % Y Monocytes % Eosinophils % Basophils % Band Neutrophils Cancelled Metamyelocytes Cancelled Myelocytes Cancelled Promyelocytes Cancelled Nucleated RBCs Cancelled Hypersegmented Neuts Cancelled Plasmacytoid Lymphs Cancelled Reactive Lymphocytes Cancelled Blast Cells Cancelled Plasma Cells Cancelled Other Cell Type Cancelled Toxic Granulation Cancelled Dohle Bodies Cancelled Compa Rods Cancelled Polychromasia Cancelled Hypochromic-Microcytic Cancelled Poikilocytosis Cancelled Basophilic Stippling Cancelled Anisocytosis Cancelled Microcytosis Cancelled Macrocytosis Cancelled Spherocytes Cancelled Siderocytes Cancelled Sickle Cells Cancelled Target Cells Cancelled Tear Drop Cells Cancelled Ovalocytes Cancelled Stomatocytes Cancelled Helmet Cells Cancelled [place] Bodies Cancelled [place] Rings Cancelled [place] Cells Cancelled Acanthocytes (Spur) Cancelled Rouleaux Cancelled Fragmented RBCs Cancelled Schistocytes Cancelled Morphology Comment Cancelled Sodium Potassium Chloride Carbon Dioxide Anion Gap BUN Creatinine Creat Clearance w eGFR POC Glucometer 127.38161 Random Glucose Calcium Phosphorus Total Bilirubin AST ALT Alkaline Phosphatase Total Protein Albumin Urine Color Straw Urine Appearance Clear Urine pH 5.0 Ur Specific [place] 1.020 Urine Protein 1+ H D Urine Glucose (UA) 3+ H Urine Ketones 2+ H Urine Blood 1+ H Urine Nitrite Negative Urine Bilirubin Negative Urine Urobilinogen Negative Ur Leukocyte Esterase Negative Urine RBC <1 Urine WBC 4 Urine Mucus Rare Fluid Tot Cell Count Cancelled Opiates Screen Methadone Screen Barbiturate Screen Phencyclidine Screen Ur Amphetamines Screen MDMA (Ecstasy) Screen Benzodiazepines Screen Cocaine Screen U Marijuana (THC) Screen 10/07/16 10/07/16 10/07/16 14:45 15:36 16:53 WBC RBC Hgb Hct MCV MCHC RDW Plt Count MPV Neutrophils % Lymphocytes % Monocytes % Eosinophils % Basophils % Band Neutrophils Metamyelocytes Myelocytes Promyelocytes Nucleated RBCs Hypersegmented Neuts Plasmacytoid Lymphs Reactive Lymphocytes Blast Cells Plasma Cells Other Cell Type Toxic Granulation Dohle Bodies Compa Rods Polychromasia Hypochromic-Microcytic Poikilocytosis Basophilic Stippling Anisocytosis Microcytosis Macrocytosis Spherocytes Siderocytes Sickle Cells Target Cells Tear Drop Cells Ovalocytes Stomatocytes Helmet Cells [place] Bodies [place] Rings [place] Cells Acanthocytes (Spur) Rouleaux Fragmented RBCs Schistocytes Morphology Comment Sodium 144 Potassium 4.3 Chloride 112 H Carbon Dioxide 16 L D Anion Gap 16 BUN 22 H Creatinine 1.5 H Creat Clearance w eGFR POC Glucometer 88.00912 131.61921 Random Glucose 76 D Calcium 9.6 Phosphorus Total Bilirubin AST ALT Alkaline Phosphatase Total Protein Albumin Urine Color Urine Appearance Urine pH Ur Specific [place] Urine Protein Urine Glucose (UA) Urine Ketones Urine Blood Urine Nitrite Urine Bilirubin Urine Urobilinogen Ur Leukocyte Esterase Urine RBC Urine WBC Urine Mucus Fluid Tot Cell Count Opiates Screen Methadone Screen Barbiturate Screen Phencyclidine Screen Ur Amphetamines Screen MDMA (Ecstasy) Screen Benzodiazepines Screen Cocaine Screen U Marijuana (THC) Screen 10/07/16 10/07/16 10/07/16 18:15 19:41 21:28 WBC RBC Hgb Hct MCV MCHC RDW Plt Count MPV Neutrophils % Lymphocytes % Monocytes % Eosinophils % Basophils % Band Neutrophils Metamyelocytes Myelocytes Promyelocytes Nucleated RBCs Hypersegmented Neuts Plasmacytoid Lymphs Reactive Lymphocytes Blast Cells Plasma Cells Other Cell Type Toxic Granulation Dohle Bodies Compa Rods Polychromasia Hypochromic-Microcytic Poikilocytosis Basophilic Stippling Anisocytosis Microcytosis Macrocytosis Spherocytes Siderocytes Sickle Cells Target Cells Tear Drop Cells Ovalocytes Stomatocytes Helmet Cells [place] Bodies [place] Rings [place] Cells Acanthocytes (Spur) Rouleaux Fragmented RBCs Schistocytes Morphology Comment Sodium 143 Potassium 4.4 Chloride 110 H Carbon Dioxide 14 L Anion Gap 19 H BUN 20 H Creatinine 1.3 Creat Clearance w eGFR POC Glucometer 221.34433 281.24798 Random Glucose 190 H D Calcium 9.1 Phosphorus Total Bilirubin AST ALT Alkaline Phosphatase Total Protein Albumin Urine Color Urine Appearance Urine pH Ur Specific [place] Urine Protein Urine Glucose (UA) Urine Ketones Urine Blood Urine Nitrite Urine Bilirubin Urine Urobilinogen Ur Leukocyte Esterase Urine RBC Urine WBC Urine Mucus Fluid Tot Cell Count Opiates Screen Methadone Screen Barbiturate Screen Phencyclidine Screen Ur Amphetamines Screen MDMA (Ecstasy) Screen Benzodiazepines Screen Cocaine Screen U Marijuana (THC) Screen 10/07/16 10/08/16 10/08/16 23:05 00:41 01:00 WBC RBC Hgb Hct MCV MCHC RDW Plt Count MPV Neutrophils % Lymphocytes % Monocytes % Eosinophils % Basophils % Band Neutrophils Metamyelocytes Myelocytes Promyelocytes Nucleated RBCs Hypersegmented Neuts Plasmacytoid Lymphs Reactive Lymphocytes Blast Cells Plasma Cells Other Cell Type Toxic Granulation Dohle Bodies Compa Rods Polychromasia Hypochromic-Microcytic Poikilocytosis Basophilic Stippling Anisocytosis Microcytosis Macrocytosis Spherocytes Siderocytes Sickle Cells Target Cells Tear Drop Cells Ovalocytes Stomatocytes Helmet Cells [place] Bodies [place] Rings [place] Cells Acanthocytes (Spur) Rouleaux Fragmented RBCs Schistocytes Morphology Comment Sodium Potassium Chloride Carbon Dioxide Anion Gap BUN Creatinine Creat Clearance w eGFR POC Glucometer 216.31555 198.00662 Random Glucose Calcium Phosphorus Total Bilirubin AST ALT Alkaline Phosphatase Total Protein Albumin Urine Color Urine Appearance Urine pH Ur Specific [place] Urine Protein Urine Glucose (UA) Urine Ketones Urine Blood Urine Nitrite Urine Bilirubin Urine Urobilinogen Ur Leukocyte Esterase Urine RBC Urine WBC Urine Mucus Fluid Tot Cell Count Opiates Screen Positive Methadone Screen Negative Barbiturate Screen Negative Phencyclidine Screen Negative Ur Amphetamines Screen Negative MDMA (Ecstasy) Screen Negative Benzodiazepines Screen Negative Cocaine Screen Negative U Marijuana (THC) Screen Positive 10/08/16 10/08/16 10/08/16 01:52 04:19 05:20 WBC 15.9 H D RBC 3.94 L Hgb 12.3 Hct 37.0 MCV 94.0 MCHC 33.1 RDW 13.2 Plt Count 300 MPV 8.0 Neutrophils % 77.6 Lymphocytes % 11.4 D Monocytes % 10.8 H D Eosinophils % 0.0 Basophils % 0.2 D Band Neutrophils Metamyelocytes Myelocytes Promyelocytes Nucleated RBCs Hypersegmented Neuts Plasmacytoid Lymphs Reactive Lymphocytes Blast Cells Plasma Cells Other Cell Type Toxic Granulation Dohle Bodies Compa Rods Polychromasia Hypochromic-Microcytic Poikilocytosis Basophilic Stippling Anisocytosis Microcytosis Macrocytosis Spherocytes Siderocytes Sickle Cells Target Cells Tear Drop Cells Ovalocytes Stomatocytes Helmet Cells [place] Bodies [place] Rings [place] Cells Acanthocytes (Spur) Rouleaux Fragmented RBCs Schistocytes Morphology Comment Sodium Potassium Chloride Carbon Dioxide Anion Gap BUN Creatinine Creat Clearance w eGFR POC Glucometer 190.60959 198.66744 Random Glucose Calcium Phosphorus Total Bilirubin AST ALT Alkaline Phosphatase Total Protein Albumin Urine Color Urine Appearance Urine pH Ur Specific [place] Urine Protein Urine Glucose (UA) Urine Ketones Urine Blood Urine Nitrite Urine Bilirubin Urine Urobilinogen Ur Leukocyte Esterase Urine RBC Urine WBC Urine Mucus Fluid Tot Cell Count Opiates Screen Methadone Screen Barbiturate Screen Phencyclidine Screen Ur Amphetamines Screen MDMA (Ecstasy) Screen Benzodiazepines Screen Cocaine Screen U Marijuana (THC) Screen 10/08/16 10/08/16 10/08/16 05:20 05:24 07:18 WBC RBC Hgb Hct MCV MCHC RDW Plt Count MPV Neutrophils % Lymphocytes % Monocytes % Eosinophils % Basophils % Band Neutrophils Metamyelocytes Myelocytes Promyelocytes Nucleated RBCs Hypersegmented Neuts Plasmacytoid Lymphs Reactive Lymphocytes Blast Cells Plasma Cells Other Cell Type Toxic Granulation Dohle Bodies Compa Rods Polychromasia Hypochromic-Microcytic Poikilocytosis Basophilic Stippling Anisocytosis Microcytosis Macrocytosis Spherocytes Siderocytes Sickle Cells Target Cells Tear Drop Cells Ovalocytes Stomatocytes Helmet Cells [place] Bodies [place] Rings [place] Cells Acanthocytes (Spur) Rouleaux Fragmented RBCs Schistocytes Morphology Comment Sodium 145 Potassium 3.8 Chloride 111 H Carbon Dioxide 21 D Anion Gap 13 BUN 17 Creatinine 1.2 Creat Clearance w eGFR > 60 POC Glucometer 183.66749 199.01671 Random Glucose 169 H Calcium 8.9 Phosphorus 2.2 L Total Bilirubin 1.9 H D AST 13 L D ALT 25 D Alkaline Phosphatase 56 D Total Protein 6.1 L D Albumin 3.4 D Urine Color Urine Appearance Urine pH Ur Specific [place] Urine Protein Urine Glucose (UA) Urine Ketones Urine Blood Urine Nitrite Urine Bilirubin Urine Urobilinogen Ur Leukocyte Esterase Urine RBC Urine WBC Urine Mucus Fluid Tot Cell Count Opiates Screen Methadone Screen Barbiturate Screen Phencyclidine Screen Ur Amphetamines Screen MDMA (Ecstasy) Screen Benzodiazepines Screen Cocaine Screen U Marijuana (THC) Screen 10/08/16 10/08/16 10/08/16 08:09 09:07 10:13 WBC RBC Hgb Hct MCV MCHC RDW Plt Count MPV Neutrophils % Lymphocytes % Monocytes % Eosinophils % Basophils % Band Neutrophils Metamyelocytes Myelocytes Promyelocytes Nucleated RBCs Hypersegmented Neuts Plasmacytoid Lymphs Reactive Lymphocytes Blast Cells Plasma Cells Other Cell Type Toxic Granulation Dohle Bodies Compa Rods Polychromasia Hypochromic-Microcytic Poikilocytosis Basophilic Stippling Anisocytosis Microcytosis Macrocytosis Spherocytes Siderocytes Sickle Cells Target Cells Tear Drop Cells Ovalocytes Stomatocytes Helmet Cells [place] Bodies [place] Rings [place] Cells Acanthocytes (Spur) Rouleaux Fragmented RBCs Schistocytes Morphology Comment Sodium Potassium Chloride Carbon Dioxide Anion Gap BUN Creatinine Creat Clearance w eGFR POC Glucometer 210.38261 203.53362 181.80395 Random Glucose Calcium Phosphorus Total Bilirubin AST ALT Alkaline Phosphatase Total Protein Albumin Urine Color Urine Appearance Urine pH Ur Specific [place] Urine Protein Urine Glucose (UA) Urine Ketones Urine Blood Urine Nitrite Urine Bilirubin Urine Urobilinogen Ur Leukocyte Esterase Urine RBC Urine WBC Urine Mucus Fluid Tot Cell Count Opiates Screen Methadone Screen Barbiturate Screen Phencyclidine Screen Ur Amphetamines Screen MDMA (Ecstasy) Screen Benzodiazepines Screen Cocaine Screen U Marijuana (THC) Screen 10/08/16 10/08/16 10:40 11:04 WBC RBC Hgb Hct MCV MCHC RDW Plt Count MPV Neutrophils % Lymphocytes % Monocytes % Eosinophils % Basophils % Band Neutrophils Metamyelocytes Myelocytes Promyelocytes Nucleated RBCs Hypersegmented Neuts Plasmacytoid Lymphs Reactive Lymphocytes Blast Cells Plasma Cells Other Cell Type Toxic Granulation Dohle Bodies Compa Rods Polychromasia Hypochromic-Microcytic Poikilocytosis Basophilic Stippling Anisocytosis Microcytosis Macrocytosis Spherocytes Siderocytes Sickle Cells Target Cells Tear Drop Cells Ovalocytes Stomatocytes Helmet Cells [place] Bodies [place] Rings [place] Cells Acanthocytes (Spur) Rouleaux Fragmented RBCs Schistocytes Morphology Comment Sodium 142 Potassium 3.5 Chloride 109 H Carbon Dioxide 19 L Anion Gap 14 BUN 16 Creatinine 1.2 Creat Clearance w eGFR POC Glucometer 169.19532 Random Glucose 153 H Calcium 9.1 Phosphorus Total Bilirubin AST ALT Alkaline Phosphatase Total Protein Albumin Urine Color Urine Appearance Urine pH Ur Specific [place] Urine Protein Urine Glucose (UA) Urine Ketones Urine Blood Urine Nitrite Urine Bilirubin Urine Urobilinogen Ur Leukocyte Esterase Urine RBC Urine WBC Urine Mucus Fluid Tot Cell Count Opiates Screen Methadone Screen Barbiturate Screen Phencyclidine Screen Ur Amphetamines Screen MDMA (Ecstasy) Screen Benzodiazepines Screen Cocaine Screen U Marijuana (THC) Screen ASSESSMENT AND PLAN: Diabetic Ketoacidosis Acute Kidney Injury/Dehydration Suspected Gastroparesis (?) Cholecystitis - IV Insulin - IVF resuscitation - Follow BMP - monitor urine output, creatinine - Noted Empiric antibiotics - can d/c antibiotics if cultures negative - DVT prophylaxis - GI workup ongoing Dr Moise Critical care time spent in reviewing chart, evaluating patient and formulating plan 40 min
--- NOTE | 2016-10-08 13:55 | PN ---
Progress Note, Physician Chief Complaint: NAUSEA,VOMITING, ABDOMINAL PAIN History of Present Illness: IN BED, STILL NAUSEOUS WITH ABDOMINAL PAIN, STILL NPO - Current Medication List Current Medications: Active Medications Heparin Sodium (Porcine) (Heparin -) 5,000 unit SQ BID [facility] Last Admin: 10/08/16 09:13 Dose: 5,000 unit Pantoprazole Sodium (Protonix 40mg Ivpb (Pre-Docked)) 100 mls @ 200 mls/hr IVPB BID [facility] Last Admin: 10/08/16 09:12 Dose: 200 mls/hr Ceftriaxone Sodium (Rocephin 2gm Ivpb (Pre-Docked)) 100 mls @ 200 mls/hr IVPB DAILY [facility] Last Admin: 10/08/16 09:13 Dose: 200 mls/hr Dextrose/Sodium Chloride (D5-Ns -) 1,000 mls @ 100 mls/hr IV ASDIR [facility] Last Admin: 10/08/16 08:15 Dose: 100 mls/hr Insulin Aspart (Novolog Vial Sliding Scale -) 1 vial SQ ACHS [facility] PRN Reason: Protocol Metoclopramide HCl (Reglan Injection -) 10 mg IVPB TID [facility] Last Admin: 10/08/16 13:49 Dose: 10 mg Ondansetron HCl (Zofran Injection) 4 mg IVPB Q4H PRN PRN Reason: NAUSEA AND/OR VOMITING Last Admin: 10/08/16 10:49 Dose: 4 mg - Objective Vital Signs: Vital Signs Temperature 99.7 F H 10/08/16 12:00 Pulse Rate 81 10/08/16 12:00 Respiratory Rate 18 10/08/16 12:00 Blood Pressure 124/74 10/08/16 12:00 O2 Sat by Pulse Oximetry (%) 100 10/08/16 08:00 Constitutional: Yes: Well Nourished, No Distress, Calm Cardiovascular: Yes: Regular Rate and Rhythm Respiratory: Yes: Regular Gastrointestinal: Yes: Normal Bowel Sounds, Tenderness, Epigastrium Extremities: Yes: WNL Edema: No Peripheral Pulses WNL: Yes Labs: CBC, BMP 10/08/16 05:20 10/08/16 10:40 Problem List - Problems (1) Abdominal pain Assessment/Plan: HIDA scan pending results On Pantoprazole Code(s): R10.9 - UNSPECIFIED ABDOMINAL PAIN (2) Nausea and vomiting Assessment/Plan: on Zofran and Reglan Code(s): R11.2 - NAUSEA WITH VOMITING, UNSPECIFIED (3) DKA (diabetic ketoacidoses) Assessment/Plan: Titrating dose of insulin drip Levemir restarted Continue D5 NS @ 100cc/hr Advance diet to clear liquids Code(s): E13.10 - OTH DIABETES MELLITUS WITH KETOACIDOSIS WITHOUT COMA Qualifiers: (4) Leukocytosis (leucocytosis) Assessment/Plan: Improving, leukemoid rxn vs. possible sepsis Ceftriaxone started empirically for WBC of 28, which is improving now with WBC of 15.9 ID consult. Code(s): D72.829 - ELEVATED WHITE BLOOD CELL COUNT, UNSPECIFIED (5) Hiccups Assessment/Plan: Valsalva, knees to chest, ice water gargles, breath holding If intractable- may try pharmacological intervention- muscle relaxers, anticonvulsants or antipsychotics to help relieve the symptoms. Code(s): R06.6 - HICCOUGH Assessment/Plan HIDA results pending Clear liquid diet Continue Zofran and Reglan for Nausea, vomiting, diabetic gastroparesis? Intermittent hiccups-physical maneuvers Continue to monitor Blood glucose Responding to IV abx, source of infection unknown at this time.
[2016-10-08] MEDS: chlorproMAZINE HCL 25 MG TABLET PO SCH ×2 (16:29→21:45)
[2016-10-08] MEDS: INSULIN SLIDING SCALE (NOVOLOG) 1 VIAL SQ SCH ×2 (16:29→21:44)
--- NOTE | 2016-10-08 20:08 | PN ---
Progress Note, Physician History of Present Illness: C/O hiccups No fever/ chills WBC improved Cultures negative - Current Medication List Current Medications: Active Medications Chlorpromazine HCl (Thorazine -) 25 mg PO TID [facility] Last Admin: 10/08/16 16:29 Dose: 25 mg Heparin Sodium (Porcine) (Heparin -) 5,000 unit SQ BID [facility] Last Admin: 10/08/16 09:13 Dose: 5,000 unit Pantoprazole Sodium (Protonix 40mg Ivpb (Pre-Docked)) 100 mls @ 200 mls/hr IVPB BID [facility] Last Admin: 10/08/16 09:12 Dose: 200 mls/hr Dextrose/Sodium Chloride (D5-Ns -) 1,000 mls @ 100 mls/hr IV ASDIR [facility] Last Admin: 10/08/16 08:15 Dose: 100 mls/hr Insulin Aspart (Novolog Vial Sliding Scale -) 1 vial SQ ACHS [facility] PRN Reason: Protocol Last Admin: 10/08/16 16:29 Dose: Not Given Insulin Detemir (Levemir Vial) 42 units SQ AM [facility] Ondansetron HCl (Zofran Injection) 4 mg IVPB Q4H PRN PRN Reason: NAUSEA AND/OR VOMITING Last Admin: 10/08/16 10:49 Dose: 4 mg - Objective Vital Signs: Vital Signs Temperature 99.1 F 10/08/16 18:00 Pulse Rate 79 10/08/16 18:00 Respiratory Rate 14 10/08/16 18:00 Blood Pressure 148/71 10/08/16 18:00 O2 Sat by Pulse Oximetry (%) 100 10/08/16 08:00 Constitutional: Yes: Thin Eyes: Yes: Conjunctiva Clear Cardiovascular: Yes: Regular Rate and Rhythm, S1, S2 Respiratory: Yes: CTA Bilaterally Gastrointestinal: Yes: Normal Bowel Sounds, Soft Edema: No Labs: CBC, BMP 10/08/16 05:20 10/08/16 10:40 Assessment/Plan DKA Leukocytosis- improved D/C antibiotics, observe off
--- NOTE | 2016-10-09 00:43 | PN ---
Progress Note (short form) - Note Progress Note: still with nausea vomiting,weak,blood sugar low to high normal Current Active Problems Abdominal pain (Acute) Hiccups (Acute) Nausea and vomiting (Acute) dka/iddm uncontrolled Abnormal Lab Results 10/08/16 10/08/16 10/08/16 05:20 05:20 10:40 WBC 15.9 H D RBC 3.94 L Monocytes % 10.8 H D Chloride 111 H 109 H Carbon Dioxide 19 L Random Glucose 169 H 153 H Phosphorus 2.2 L Total Bilirubin 1.9 H D AST 13 L D Total Protein 6.1 L D Laboratory Results - last 24 hr 10/07/16 10/08/16 10/08/16 23:05 00:41 01:00 WBC RBC Hgb Hct MCV MCHC RDW Plt Count MPV Neutrophils % Lymphocytes % Monocytes % Eosinophils % Basophils % Sodium Potassium Chloride Carbon Dioxide Anion Gap BUN Creatinine Creat Clearance w eGFR POC Glucometer 216.16151 198.53631 Random Glucose Calcium Phosphorus Total Bilirubin AST ALT Alkaline Phosphatase Total Protein Albumin Opiates Screen Positive Methadone Screen Negative Barbiturate Screen Negative Phencyclidine Screen Negative Ur Amphetamines Screen Negative MDMA (Ecstasy) Screen Negative Benzodiazepines Screen Negative Cocaine Screen Negative U Marijuana (THC) Screen Positive 10/08/16 10/08/16 10/08/16 01:52 04:19 05:20 WBC 15.9 H D RBC 3.94 L Hgb 12.3 Hct 37.0 MCV 94.0 MCHC 33.1 RDW 13.2 Plt Count 300 MPV 8.0 Neutrophils % 77.6 Lymphocytes % 11.4 D Monocytes % 10.8 H D Eosinophils % 0.0 Basophils % 0.2 D Sodium Potassium Chloride Carbon Dioxide Anion Gap BUN Creatinine Creat Clearance w eGFR POC Glucometer 190.66996 198.59184 Random Glucose Calcium Phosphorus Total Bilirubin AST ALT Alkaline Phosphatase Total Protein Albumin Opiates Screen Methadone Screen Barbiturate Screen Phencyclidine Screen Ur Amphetamines Screen MDMA (Ecstasy) Screen Benzodiazepines Screen Cocaine Screen U Marijuana (THC) Screen 10/08/16 10/08/16 10/08/16 05:20 05:24 07:18 WBC RBC Hgb Hct MCV MCHC RDW Plt Count MPV Neutrophils % Lymphocytes % Monocytes % Eosinophils % Basophils % Sodium 145 Potassium 3.8 Chloride 111 H Carbon Dioxide 21 D Anion Gap 13 BUN 17 Creatinine 1.2 Creat Clearance w eGFR > 60 POC Glucometer 183.68451 199.96725 Random Glucose 169 H Calcium 8.9 Phosphorus 2.2 L Total Bilirubin 1.9 H D AST 13 L D ALT 25 D Alkaline Phosphatase 56 D Total Protein 6.1 L D Albumin 3.4 D Opiates Screen Methadone Screen Barbiturate Screen Phencyclidine Screen Ur Amphetamines Screen MDMA (Ecstasy) Screen Benzodiazepines Screen Cocaine Screen U Marijuana (THC) Screen 10/08/16 10/08/16 10/08/16 08:09 09:07 10:13 WBC RBC Hgb Hct MCV MCHC RDW Plt Count MPV Neutrophils % Lymphocytes % Monocytes % Eosinophils % Basophils % Sodium Potassium Chloride Carbon Dioxide Anion Gap BUN Creatinine Creat Clearance w eGFR POC Glucometer 210.85682 203.79104 181.01972 Random Glucose Calcium Phosphorus Total Bilirubin AST ALT Alkaline Phosphatase Total Protein Albumin Opiates Screen Methadone Screen Barbiturate Screen Phencyclidine Screen Ur Amphetamines Screen MDMA (Ecstasy) Screen Benzodiazepines Screen Cocaine Screen U Marijuana (THC) Screen 10/08/16 10/08/16 10/08/16 10:40 11:04 16:26 WBC RBC Hgb Hct MCV MCHC RDW Plt Count MPV Neutrophils % Lymphocytes % Monocytes % Eosinophils % Basophils % Sodium 142 Potassium 3.5 Chloride 109 H Carbon Dioxide 19 L Anion Gap 14 BUN 16 Creatinine 1.2 Creat Clearance w eGFR POC Glucometer 169.77830 110.00058 Random Glucose 153 H Calcium 9.1 Phosphorus Total Bilirubin AST ALT Alkaline Phosphatase Total Protein Albumin Opiates Screen Methadone Screen Barbiturate Screen Phencyclidine Screen Ur Amphetamines Screen MDMA (Ecstasy) Screen Benzodiazepines Screen Cocaine Screen U Marijuana (THC) Screen 10/08/16 21:36 WBC RBC Hgb Hct MCV MCHC RDW Plt Count MPV Neutrophils % Lymphocytes % Monocytes % Eosinophils % Basophils % Sodium Potassium Chloride Carbon Dioxide Anion Gap BUN Creatinine Creat Clearance w eGFR POC Glucometer 127.58367 Random Glucose Calcium Phosphorus Total Bilirubin AST ALT Alkaline Phosphatase Total Protein Albumin Opiates Screen Methadone Screen Barbiturate Screen Phencyclidine Screen Ur Amphetamines Screen MDMA (Ecstasy) Screen Benzodiazepines Screen Cocaine Screen U Marijuana (THC) Screen plan:bgm q1-2 hrs insulin drip reg insulin ivfluid for rehydration repeat cmp Problem List - Problems (1) Abdominal pain Code(s): R10.9 - UNSPECIFIED ABDOMINAL PAIN (2) Nausea and vomiting Code(s): R11.2 - NAUSEA WITH VOMITING, UNSPECIFIED (3) Acute renal failure Code(s): N17.9 - ACUTE KIDNEY FAILURE, UNSPECIFIED (4) DKA (diabetic ketoacidoses) Code(s): E13.10 - OTH DIABETES MELLITUS WITH KETOACIDOSIS WITHOUT COMA Qualifiers: (5) Hyperglycemia Code(s): R73.9 - HYPERGLYCEMIA, UNSPECIFIED
[2016-10-09] MEDS: chlorproMAZINE HCL 25 MG TABLET PO SCH ×2 (06:11→14:50)
[2016-10-09] MEDS: INSULIN SLIDING SCALE (NOVOLOG) 1 VIAL SQ SCH ×3 (06:17→16:57)
[2016-10-09 06:36] LABS: BASOPHIL 0.4 % (0-2.0); EOSINOPHIL 0.5 % (0-4.5); MCH 31.1 pg (25.7-33.7); MCHC 33.6 g/dl (32.0-35.9); MEAN CELL VOLUME 92.6 fl (80-96); MEAN PLT VOLUME 8.2 fl (7.5-11.1); NEUTROPHILS 58.9 % (42.8-82.8); PLATELET COUNT 273 K/MM3 (134-434); RDW 12.6 % (11.9-15.9)
[2016-10-09 06:53] LABS: ALBUMIN 2.8 g/dl (3.4-5.0); ANION GAP 10 (8-16); BILIRUBIN,TOTAL 2.2 mg/dL (0.2-1.0); CALCIUM 8.2 mg/dL (8.5-10.1); CO2 24 mmol/L (21-32); CREATININE 0.9 mg/dL (0.7-1.3); GLUCOSE,RANDOM 191 mg/dL (74-106); SGOT/AST 16 U/L (15-37); SGPT/ALT 20 U/L (12-78); TOT PROT 5.1 g/dl (6.4-8.2)
[2016-10-09 06:54] LABS: ALK PHOS 46 U/L (45-117)
[2016-10-09] MEDS ORDERED: INSULIN DETEMIR 100 UNITS/ML MDV SQ SCH (07:00)
--- NOTE | 2016-10-09 07:10 | PN ---
Physical Exam: SUBJECTIVE: Patient seen and examined at bedside reports feeling much better today and that hiccups have resolved. OBJECTIVE: Vital Signs Period Temp Pulse Resp BP Sys/Guo Pulse Ox Last 24 Hr 97.8 F-99.7 F 70-85 10-18 124-155/61-83 100-100 GENERAL: The patient is awake, alert, and fully oriented, in no acute distress. EYES: PERRL, extraocular movements intact, sclera anicteric, conjunctiva clear. No ptosis. ENT: Dry mucous membranes. NECK: Trachea midline, full range of motion, supple. LUNGS: Breath sounds equal, clear to auscultation bilaterally, no wheezes, no crackles, no accessory muscle use. HEART: Regular rate and rhythm, S1, S2 without murmur, rub or gallop. ABDOMEN: Soft, nontender, nondistended, normoactive bowel sounds, no guarding, no rebound, no hepatosplenomegaly, no masses. EXTREMITIES: 2+ pulses, warm, well-perfused, no edema. NEUROLOGICAL: Cranial nerves II through XII grossly intact. Normal speech, gait not observed. PSYCH: Normal mood, normal affect. SKIN: Warm, dry, normal turgor, no rashes or lesions noted Laboratory Results - last 24 hr 10/08/16 10/08/16 10/08/16 01:52 04:19 05:20 WBC 15.9 H D RBC 3.94 L Hgb 12.3 Hct 37.0 MCV 94.0 MCHC 33.1 RDW 13.2 Plt Count 300 MPV 8.0 Neutrophils % 77.6 Lymphocytes % 11.4 D Monocytes % 10.8 H D Eosinophils % 0.0 Basophils % 0.2 D Sodium Potassium Chloride Carbon Dioxide Anion Gap BUN Creatinine Creat Clearance w eGFR POC Glucometer 190.17000 198.84650 Random Glucose Calcium Phosphorus Total Bilirubin AST ALT Alkaline Phosphatase Total Protein Albumin 10/08/16 10/08/16 10/08/16 05:20 05:24 07:18 WBC RBC Hgb Hct MCV MCHC RDW Plt Count MPV Neutrophils % Lymphocytes % Monocytes % Eosinophils % Basophils % Sodium 145 Potassium 3.8 Chloride 111 H Carbon Dioxide 21 D Anion Gap 13 BUN 17 Creatinine 1.2 Creat Clearance w eGFR > 60 POC Glucometer 183.60050 199.41000 Random Glucose 169 H Calcium 8.9 Phosphorus 2.2 L Total Bilirubin 1.9 H D AST 13 L D ALT 25 D Alkaline Phosphatase 56 D Total Protein 6.1 L D Albumin 3.4 D 10/08/16 10/08/16 10/08/16 08:09 09:07 10:13 WBC RBC Hgb Hct MCV MCHC RDW Plt Count MPV Neutrophils % Lymphocytes % Monocytes % Eosinophils % Basophils % Sodium Potassium Chloride Carbon Dioxide Anion Gap BUN Creatinine Creat Clearance w eGFR POC Glucometer 210.99490 203.90001 181.92114 Random Glucose Calcium Phosphorus Total Bilirubin AST ALT Alkaline Phosphatase Total Protein Albumin 10/08/16 10/08/16 10/08/16 10:40 11:04 16:26 WBC RBC Hgb Hct MCV MCHC RDW Plt Count MPV Neutrophils % Lymphocytes % Monocytes % Eosinophils % Basophils % Sodium 142 Potassium 3.5 Chloride 109 H Carbon Dioxide 19 L Anion Gap 14 BUN 16 Creatinine 1.2 Creat Clearance w eGFR POC Glucometer 169.35071 110.36905 Random Glucose 153 H Calcium 9.1 Phosphorus Total Bilirubin AST ALT Alkaline Phosphatase Total Protein Albumin 10/08/16 10/09/16 10/09/16 21:36 05:20 06:14 WBC 9.0 D RBC 3.46 L Hgb 10.8 L D Hct 32.0 L MCV 92.6 MCHC 33.6 RDW 12.6 Plt Count 273 MPV 8.2 Neutrophils % 58.9 D Lymphocytes % 27.7 D Monocytes % 12.5 H Eosinophils % 0.5 D Basophils % 0.4 Sodium Potassium Chloride Carbon Dioxide Anion Gap BUN Creatinine Creat Clearance w eGFR POC Glucometer 127.45887 243.49690 Random Glucose Calcium Phosphorus Total Bilirubin AST ALT Alkaline Phosphatase Total Protein Albumin Active Medications Generic Name Dose Route Start Last Admin Trade Name Freq PRN Reason Stop Dose Admin Chlorpromazine HCl 25 mg 10/08/16 16:30 10/09/16 06:11 Thorazine - PO 25 mg TID [facility] Administration Heparin Sodium (Porcine) 5,000 unit 10/07/16 22:00 10/08/16 21:43 Heparin - SQ 5,000 unit BID [facility] Administration Pantoprazole Sodium 100 mls @ 200 mls/hr 10/07/16 10:00 10/08/16 21:44 Protonix 40mg Ivpb (Pre-Docked) IVPB 200 mls/hr BID [facility] Administration Dextrose/Sodium Chloride 1,000 mls @ 100 mls/hr 10/08/16 08:12 10/08/16 08:15 D5-Ns - IV 100 mls/hr ASDIR [facility] Administration Insulin Aspart 1 vial 10/08/16 16:30 10/09/16 06:17 Novolog Vial Sliding Scale - SQ 6 units ACHS [facility] Administration Protocol Insulin Detemir 42 units 10/09/16 07:00 10/09/16 06:17 Levemir Vial SQ 42 units AM [facility] Administration Ondansetron HCl 4 mg 10/08/16 07:30 10/08/16 21:43 Zofran Injection IVPB 4 mg Q4H PRN Administration NAUSEA AND/OR VOMITING HIDA Scan: Normal hepatobiliary exam. No evidence of acute cholecystitis. ASSESSMENT/PLAN: Pt. is a 25 y/o male with IDDM who presents in DKA which has now resolved. DKA: - Continue with SQ insulin - AG closed - Continue D5 NS @ 100cc/hr - FSACH - diabetic diet Leukocytosis: - Resolved - Probable leukmoid reaction - Ceftriaxone given empirically for WBC of 28. - ID following ROBI: - Improving - IVF - Strict I&O's Abdominal pain: - Resolved. Most likely d/t DKA - Zofran prn for nausea - Advance diet to clears Hiccups: - Resolved - Discontinue Throrazine after afternoon dose. FEN - Clears - Oral hydration - Will replete as needed Prophylaxis - DVT: Heparin 5000 units SQ TID - GI: Protonix 40mg IVPB Daily Disoposition: Stable from an ICU standpoint. May be transferred to floors Full code Problem List - Problems (1) Abdominal pain Code(s): R10.9 - UNSPECIFIED ABDOMINAL PAIN (2) DKA (diabetic ketoacidoses) Code(s): E13.10 - OTH DIABETES MELLITUS WITH KETOACIDOSIS WITHOUT COMA Qualifiers: (3) Leukocytosis (leucocytosis) Code(s): D72.829 - ELEVATED WHITE BLOOD CELL COUNT, UNSPECIFIED
[2016-10-09] MEDS: DEXTROSE 5%-NORMAL SALINE 1,000 ML IV SCH (08:10)
[2016-10-09] MEDS ORDERED: POTASSIUM CHLORIDE ORAL LIQUID 20 MEQ/15 ML PO ONE ×2 (08:45→16:28)
--- NOTE | 2016-10-09 09:18 | PN ---
Progress Note, Physician History of Present Illness: FEELS BETTER - Current Medication List Current Medications: Active Medications Chlorpromazine HCl (Thorazine -) 25 mg PO TID [facility] Last Admin: 10/09/16 06:11 Dose: 25 mg Heparin Sodium (Porcine) (Heparin -) 5,000 unit SQ BID [facility] Last Admin: 10/08/16 21:43 Dose: 5,000 unit Pantoprazole Sodium (Protonix 40mg Ivpb (Pre-Docked)) 100 mls @ 200 mls/hr IVPB BID [facility] Last Admin: 10/08/16 21:44 Dose: 200 mls/hr Dextrose/Sodium Chloride (D5-Ns -) 1,000 mls @ 100 mls/hr IV ASDIR [facility] Last Admin: 10/09/16 08:10 Dose: 100 mls/hr Potassium Chloride (Potassium Chloride 10 Meq Premix Ivpb -) 100 mls @ 100 mls/ hr IVPB Q60M [facility] Stop: 10/09/16 12:29 Insulin Aspart (Novolog Vial Sliding Scale -) 1 vial SQ ACHS [facility] PRN Reason: Protocol Last Admin: 10/09/16 06:17 Dose: 6 units Insulin Detemir (Levemir Vial) 42 units SQ AM [facility] Last Admin: 10/09/16 06:17 Dose: 42 units Ondansetron HCl (Zofran Injection) 4 mg IVPB Q4H PRN PRN Reason: NAUSEA AND/OR VOMITING Last Admin: 10/08/16 21:43 Dose: 4 mg - Objective Vital Signs: Vital Signs Temperature 98.8 F 10/09/16 08:00 Pulse Rate 83 10/09/16 08:00 Respiratory Rate 16 10/09/16 08:00 Blood Pressure 116/67 10/09/16 08:00 O2 Sat by Pulse Oximetry (%) 100 10/09/16 08:00 Cardiovascular: Yes: Regular Rate and Rhythm Respiratory: Yes: Regular, CTA Bilaterally Gastrointestinal: Yes: Normal Bowel Sounds, Soft Labs: CBC, BMP 10/09/16 05:20 10/09/16 05:20 Problem List - Problems (1) Abdominal pain Assessment/Plan: RESOLVED US NOTED---HIDA NEGATIVE PPI GI CONSULT SURGICAL CONSULT Code(s): R10.9 - UNSPECIFIED ABDOMINAL PAIN (2) Nausea and vomiting Assessment/Plan: ABOVE Code(s): R11.2 - NAUSEA WITH VOMITING, UNSPECIFIED (3) Acute renal failure Assessment/Plan: IMPROVED IVF MONITOR Laboratory Tests 10/06/16 10/07/16 10/09/16 16:36 06:00 05:20 BUN 13 Creatinine 1.5 H D 1.7 H 0.9 D Code(s): N17.9 - ACUTE KIDNEY FAILURE, UNSPECIFIED (4) DKA (diabetic ketoacidoses) Assessment/Plan: OFF INSULIN DRIP IVF MONITOR BLOOD SUGARS ON INSULIN' DIET Code(s): E13.10 - OTH DIABETES MELLITUS WITH KETOACIDOSIS WITHOUT COMA Qualifiers: (5) Leukocytosis (leucocytosis) Assessment/Plan: WBC NL FOLLOW LABS CULTURES Microbiology 10/06/16 15:55 Blood - Peripheral Venous Blood Culture - Preliminary NO GROWTH OBTAINED AFTER 48 HOURS, INCUBATION TO CONTINUE FOR 3 DAYS. 10/06/16 15:55 Blood - Peripheral Venous Blood Culture - Preliminary NO GROWTH OBTAINED AFTER 48 HOURS, INCUBATION TO CONTINUE FOR 3 DAYS. 10/06/16 17:30 Urine - Urine Clean Catch Urine Culture - Final NO GROWTH OBTAINED OFF ABX PER ID Code(s): D72.829 - ELEVATED WHITE BLOOD CELL COUNT, UNSPECIFIED
[2016-10-09] MEDS: PANTOPRAZOLE SODIUM 100 ML IVPB SCH (09:24)
[2016-10-09] MEDS: HEPARIN NA (PORCINE) 5,000 UNITS/ML 1ML VIAL SQ SCH ×2 (09:25→22:03)
[2016-10-09] MEDS ORDERED: KCL 10 MEQ IVPB 100 ML IVPB SCH (09:30)
[2016-10-09 10:10] LABS: FERRITIN 587.882 ng/ml (16.4-293.9)
--- NOTE | 2016-10-09 11:23 | PN ---
Teaching Attending Note Name of Resident: Katherine Ng ATTENDING PHYSICIAN STATEMENT I saw and evaluated the patient. I reviewed the resident's note and discussed the case with the resident. I agree with the resident's findings and plan as documented. SUBJECTIVE: Appears overall better. Tolerating PO intake. Intake & Output 10/06/16 10/07/16 10/08/16 10/09/16 23:59 23:59 23:59 23:59 Intake Total 2556.8 3208 1300 Output Total 800 2150 Balance 1756.8 1058 1300 Weight 150 lb 138 lb 1 oz 138 lb Last Vital Signs Temp Pulse Resp BP Pulse Ox 98.8 F 87 14 136/80 100 10/09/16 10:00 10/09/16 10:00 10/09/16 10:00 10/09/16 10:00 10/09/16 08:00 Active Medications Chlorpromazine HCl (Thorazine -) 25 mg PO TID [facility] Last Admin: 10/09/16 06:11 Dose: 25 mg Heparin Sodium (Porcine) (Heparin -) 5,000 unit SQ BID [facility] Last Admin: 10/09/16 09:25 Dose: 5,000 unit Pantoprazole Sodium (Protonix 40mg Ivpb (Pre-Docked)) 100 mls @ 200 mls/hr IVPB BID [facility] Last Admin: 10/09/16 09:24 Dose: 200 mls/hr Dextrose/Sodium Chloride (D5-Ns -) 1,000 mls @ 100 mls/hr IV ASDIR [facility] Last Admin: 10/09/16 08:10 Dose: 100 mls/hr Insulin Aspart (Novolog Vial Sliding Scale -) 1 vial SQ ACHS [facility] PRN Reason: Protocol Last Admin: 10/09/16 10:54 Dose: 6 units Insulin Detemir (Levemir Vial) 42 units SQ AM [facility] Last Admin: 10/09/16 06:17 Dose: 42 units Ondansetron HCl (Zofran Injection) 4 mg IVPB Q4H PRN PRN Reason: NAUSEA AND/OR VOMITING Last Admin: 10/08/16 21:43 Dose: 4 mg Gen: More comfortable, NAD HEENT: dry mucous membranes Heart: S1S2 regular Lung: Clear Abd: soft, nontender Ext: no edema Laboratory Results - last 24 hr 10/08/16 10/08/16 10/08/16 01:52 04:19 05:24 WBC RBC Hgb Hct MCV MCHC RDW Plt Count MPV Neutrophils % Lymphocytes % Monocytes % Eosinophils % Basophils % Sodium Potassium Chloride Carbon Dioxide Anion Gap BUN Creatinine Creat Clearance w eGFR POC Glucometer 190.34778 198.01644 183.35300 Random Glucose Calcium Ferritin Total Bilirubin AST ALT Alkaline Phosphatase Total Protein Albumin 10/08/16 10/08/16 10/08/16 07:18 08:09 09:07 WBC RBC Hgb Hct MCV MCHC RDW Plt Count MPV Neutrophils % Lymphocytes % Monocytes % Eosinophils % Basophils % Sodium Potassium Chloride Carbon Dioxide Anion Gap BUN Creatinine Creat Clearance w eGFR POC Glucometer 199.76081 210.57693 203.75725 Random Glucose Calcium Ferritin Total Bilirubin AST ALT Alkaline Phosphatase Total Protein Albumin 10/08/16 10/08/16 10/08/16 10:13 10:40 11:04 WBC RBC Hgb Hct MCV MCHC RDW Plt Count MPV Neutrophils % Lymphocytes % Monocytes % Eosinophils % Basophils % Sodium 142 Potassium 3.5 Chloride 109 H Carbon Dioxide 19 L Anion Gap 14 BUN 16 Creatinine 1.2 Creat Clearance w eGFR POC Glucometer 181.56186 169.79128 Random Glucose 153 H Calcium 9.1 Ferritin Total Bilirubin AST ALT Alkaline Phosphatase Total Protein Albumin 10/08/16 10/08/16 10/09/16 16:26 21:36 05:20 WBC 9.0 D RBC 3.46 L Hgb 10.8 L D Hct 32.0 L MCV 92.6 MCHC 33.6 RDW 12.6 Plt Count 273 MPV 8.2 Neutrophils % 58.9 D Lymphocytes % 27.7 D Monocytes % 12.5 H Eosinophils % 0.5 D Basophils % 0.4 Sodium Potassium Chloride Carbon Dioxide Anion Gap BUN Creatinine Creat Clearance w eGFR POC Glucometer 110.26968 127.53395 Random Glucose Calcium Ferritin Total Bilirubin AST ALT Alkaline Phosphatase Total Protein Albumin 10/09/16 10/09/16 05:20 06:14 WBC RBC Hgb Hct MCV MCHC RDW Plt Count MPV Neutrophils % Lymphocytes % Monocytes % Eosinophils % Basophils % Sodium 140 Potassium 3.1 L Chloride 106 Carbon Dioxide 24 D Anion Gap 10 BUN 13 Creatinine 0.9 D Creat Clearance w eGFR > 60 POC Glucometer 243.82782 Random Glucose 191 H D Calcium 8.2 L Ferritin 587.882 H Total Bilirubin 2.2 H AST 16 D ALT 20 Alkaline Phosphatase 46 Total Protein 5.1 L Albumin 2.8 L ASSESSMENT AND PLAN: Diabetic Ketoacidosis Acute Kidney Injury/Dehydration Suspected Gastroparesis (?) Cholecystitis Insulin as ordered Monitor off ABX PO as tolerated OOB to chair Floor Dr Moise
[2016-10-09 14:20] LABS: MCHC 33.5 g/dl (32.0-35.9); MEAN CELL VOLUME 92.6 fl (80-96); PLATELET COUNT 245 K/MM3 (134-434); RDW 12.6 % (11.9-15.9); WHITE BLOOD COUNT 7.6 K/mm3 (4.0-10.0)
[2016-10-09 14:51] LABS: ANION GAP 8 (8-16); CALCIUM 8.5 mg/dL (8.5-10.1); CO2 28 mmol/L (21-32); CREATININE 0.8 mg/dL (0.7-1.3); GLUCOSE,RANDOM 161 mg/dL (74-106)
[2016-10-09] MEDS ORDERED: ONDANSETRON 4 MG/2 ML VIAL IVPB PRN (18:49)
[2016-10-09] MEDS ORDERED: INSULIN SLIDING SCALE (NOVOLOG) 1 VIAL SQ SCH (22:00)
--- NOTE | 2016-10-10 00:04 | PN ---
Progress Note, Physician Chief Complaint: IDDM SP DKA,NO FURTHER VOMITIN G History of Present Illness: IDDM SP DKA,HISTORY OF LABILE DM GASTROPARESIS SYMPTOMS - Current Medication List Current Medications: Active Medications Heparin Sodium (Porcine) (Heparin -) 5,000 unit SQ BID FABIAN Last Admin: 10/09/16 22:03 Dose: 5,000 unit Insulin Aspart (Novolog Vial Sliding Scale -) 1 vial SQ ACHS FABIAN PRN Reason: Protocol Last Admin: 10/09/16 22:03 Dose: 2 units Insulin Detemir (Levemir Vial) 42 units SQ AM FABIAN Ondansetron HCl (Zofran Injection) 4 mg IVPB Q4H PRN PRN Reason: NAUSEA AND/OR VOMITING Pantoprazole Sodium (Protonix -) 40 mg PO DAILY [facility] - Objective Vital Signs: Vital Signs Temperature 98.6 F 10/09/16 22:00 Pulse Rate 83 10/09/16 22:00 Respiratory Rate 18 10/09/16 22:34 Blood Pressure 127/86 10/09/16 22:00 O2 Sat by Pulse Oximetry (%) 100 10/09/16 22:34 Constitutional: Yes: Well Nourished Eyes: Yes: EOM Intact HENT: Yes: Normocephalic Neck: Yes: Trachea Midline Cardiovascular: Yes: Regular Rate and Rhythm Respiratory: Yes: CTA Bilaterally Gastrointestinal: Yes: Normal Bowel Sounds ...Rectal Exam: Yes: Deferred Genitourinary: Yes: WNL Breast(s): Yes: WNL Musculoskeletal: Yes: WNL Extremities: Yes: WNL Edema: No Integumentary: Yes: WNL Neurological: Yes: WNL, Alert Labs: CBC, BMP 10/09/16 13:40 10/09/16 13:40 Problem List - Problems (1) Abdominal pain Code(s): R10.9 - UNSPECIFIED ABDOMINAL PAIN (2) Nausea and vomiting Code(s): R11.2 - NAUSEA WITH VOMITING, UNSPECIFIED (3) Acute renal failure Code(s): N17.9 - ACUTE KIDNEY FAILURE, UNSPECIFIED (4) DKA (diabetic ketoacidoses) Code(s): E13.10 - OTH DIABETES MELLITUS WITH KETOACIDOSIS WITHOUT COMA Qualifiers: (5) Hyperglycemia Code(s): R73.9 - HYPERGLYCEMIA, UNSPECIFIED Assessment/Plan Current Active Problems Abdominal pain (Acute) Hiccups (Acute) Nausea and vomiting (Acute) SP DKA IDDM HYPERGLYCEMIA GASTROPARESIS Abnormal Lab Results 10/09/16 10/09/16 10/09/16 05:20 05:20 13:40 RBC 3.46 L 3.51 L Hgb 10.8 L D 10.9 L Hct 32.0 L 32.5 L MPV 7.0 L D Monocytes % 12.5 H Potassium 3.1 L Random Glucose 191 H D Calcium 8.2 L Ferritin 587.882 H Total Bilirubin 2.2 H Total Protein 5.1 L Albumin 2.8 L 10/09/16 13:40 RBC Hgb Hct MPV Monocytes % Potassium 3.0 L Random Glucose 161 H Calcium Ferritin Total Bilirubin Total Protein Albumin Laboratory Results - last 24 hr 10/06/16 10/06/16 10/09/16 17:21 19:13 05:20 WBC 9.0 D RBC 3.46 L Hgb 10.8 L D Hct 32.0 L MCV 92.6 MCHC 33.6 RDW 12.6 Plt Count 273 MPV 8.2 Neutrophils % 58.9 D Lymphocytes % 27.7 D Monocytes % 12.5 H Eosinophils % 0.5 D Basophils % 0.4 Sodium Potassium Chloride Carbon Dioxide Anion Gap BUN Creatinine Creat Clearance w eGFR POC Glucometer 121.04906 152.86264 Random Glucose Calcium Ferritin Total Bilirubin AST ALT Alkaline Phosphatase Total Protein Albumin 10/09/16 10/09/16 10/09/16 05:20 06:14 10:51 WBC RBC Hgb Hct MCV MCHC RDW Plt Count MPV Neutrophils % Lymphocytes % Monocytes % Eosinophils % Basophils % Sodium 140 Potassium 3.1 L Chloride 106 Carbon Dioxide 24 D Anion Gap 10 BUN 13 Creatinine 0.9 D Creat Clearance w eGFR > 60 POC Glucometer 243.13477 262.33753 Random Glucose 191 H D Calcium 8.2 L Ferritin 587.882 H Total Bilirubin 2.2 H AST 16 D ALT 20 Alkaline Phosphatase 46 Total Protein 5.1 L Albumin 2.8 L 10/09/16 10/09/16 10/09/16 13:40 13:40 16:22 WBC 7.6 RBC 3.51 L Hgb 10.9 L Hct 32.5 L MCV 92.6 MCHC 33.5 RDW 12.6 Plt Count 245 MPV 7.0 L D Neutrophils % Lymphocytes % Monocytes % Eosinophils % Basophils % Sodium 141 Potassium 3.0 L Chloride 105 Carbon Dioxide 28 Anion Gap 8 BUN 8 D Creatinine 0.8 Creat Clearance w eGFR POC Glucometer 149.89599 Random Glucose 161 H Calcium 8.5 Ferritin Total Bilirubin AST ALT Alkaline Phosphatase Total Protein Albumin 10/09/16 22:02 WBC RBC Hgb Hct MCV MCHC RDW Plt Count MPV Neutrophils % Lymphocytes % Monocytes % Eosinophils % Basophils % Sodium Potassium Chloride Carbon Dioxide Anion Gap BUN Creatinine Creat Clearance w eGFR POC Glucometer 166 Random Glucose Calcium Ferritin Total Bilirubin AST ALT Alkaline Phosphatase Total Protein Albumin PLAN: LEVEMIR 42 UNITS AM NOVOLOG ACHS MEALS
[2016-10-10] MEDS ORDERED: INSULIN SLIDING SCALE (NOVOLOG) 1 VIAL SQ SCH (00:05)
[2016-10-10 06:07] LABS: SERUM IRON 188 ug/dL (38-169); TOTAL IRON BINDING CAPACITY < 205 ug/dL (250-450); UIBC < 17 ug/dL (111-343)
[2016-10-10] MEDS ORDERED: INSULIN DETEMIR 100 UNITS/ML MDV SQ SCH (07:00)
[2016-10-10 08:38] LABS: BASOPHIL 0.6 % (0-2.0); EOSINOPHIL 2.2 % (0-4.5); MCHC 33.5 g/dl (32.0-35.9); MEAN CELL VOLUME 92.6 fl (80-96); MEAN PLT VOLUME 8.2 fl (7.5-11.1); NEUTROPHILS 50.5 % (42.8-82.8); PLATELET COUNT 227 K/MM3 (134-434); RDW 12.5 % (11.9-15.9); WHITE BLOOD COUNT 5.1 K/mm3 (4.0-10.0)
[2016-10-10 08:41] LABS: ALBUMIN 2.9 g/dl (3.4-5.0); ANION GAP 9 (8-16); BILIRUBIN,TOTAL 2.3 mg/dL (0.2-1.0); CALCIUM 8.7 mg/dL (8.5-10.1); CO2 30 mmol/L (21-32); CREATININE 0.8 mg/dL (0.7-1.3); GLUCOSE,RANDOM 187 mg/dL (74-106); SGOT/AST 39 U/L (15-37); SGPT/ALT 31 U/L (12-78); TOT PROT 5.2 g/dl (6.4-8.2)
[2016-10-10 08:42] LABS: ALK PHOS 48 U/L (45-117)
--- NOTE | 2016-10-10 09:22 | DS ---
Physical Examination Vital Signs: Vital Signs Temperature 98.2 F 10/10/16 05:32 Pulse Rate 76 10/10/16 05:32 Respiratory Rate 20 10/10/16 05:32 Blood Pressure 134/78 10/10/16 05:32 O2 Sat by Pulse Oximetry (%) 100 10/09/16 22:34 Findings/Remarks: TOLERATING DIET NO PAIN LABS NOTED AND DISCUSSED WITH PT HAS APT WITH DR ORTIZ ON WEDNESDAY Cardiovascular: Yes: Regular Rate and Rhythm Respiratory: Yes: Regular, CTA Bilaterally Gastrointestinal: Yes: Normal Bowel Sounds, Soft. No: Tenderness Labs: CBC, BMP 10/10/16 08:10 10/10/16 08:10 Discharge Summary Reason For Visit: NAUSEA,VOMITING,DEHYDRATION Current Active Problems Abdominal pain (Acute) Hiccups (Acute) Nausea and vomiting (Acute) Hospital Course: - Problems (1) Abdominal pain Assessment/Plan: RESOLVED US NOTED---HIDA NEGATIVE PPI GI CONSULT SURGICAL CONSULT Code(s): R10.9 - UNSPECIFIED ABDOMINAL PAIN (2) Nausea and vomiting Assessment/Plan: ABOVE Code(s): R11.2 - NAUSEA WITH VOMITING, UNSPECIFIED (3) Acute renal failure Assessment/Plan: IMPROVED IVF MONITOR Laboratory Tests 10/06/16 10/07/16 10/09/16 16:36 06:00 05:20 BUN 13 Creatinine 1.5 H D 1.7 H 0.9 D Code(s): N17.9 - ACUTE KIDNEY FAILURE, UNSPECIFIED (4) DKA (diabetic ketoacidoses) Assessment/Plan: OFF INSULIN DRIP IVF MONITOR BLOOD SUGARS ON INSULIN' DIET Code(s): E13.10 - OTH DIABETES MELLITUS WITH KETOACIDOSIS WITHOUT COMA Qualifiers: (5) Leukocytosis (leucocytosis) Assessment/Plan: WBC NL FOLLOW LABS CULTURES Microbiology 10/06/16 15:55 Blood - Peripheral Venous Blood Culture - Preliminary NO GROWTH OBTAINED AFTER 48 HOURS, INCUBATION TO CONTINUE FOR 3 DAYS. 10/06/16 15:55 Blood - Peripheral Venous Blood Culture - Preliminary NO GROWTH OBTAINED AFTER 48 HOURS, INCUBATION TO CONTINUE FOR 3 DAYS. 10/06/16 17:30 Urine - Urine Clean Catch Urine Culture - Final NO GROWTH OBTAINED OFF ABX PER ID Code(s): D72.829 - ELEVATED WHITE BLOOD CELL COUNT, UNSPECIFIED Condition: Improved - Instructions Referrals: Leandro Ortiz MD [Primary Care Provider] - Disposition: HOME - Home Medications Comprehensive Discharge Medication List: Ambulatory Orders Insulin (Levemir) [Levemir Flexpen -] 42 units SQ AM 05/07/16 Insulin (LOG) Aspart [NovoLOG -] 0 units SQ TID 10/06/16 Chlorpromazine [Thorazine -] 25 mg PO TID #30 tablet 10/10/16 Pantoprazole Sodium [Protonix -] 40 mg PO DAILY #30 tab 10/10/16
[2016-10-10 09:42] VITALS: BP 128/76; PULSE 74; TEMP 97.9
[2016-10-10] MEDS ORDERED: PANTOPRAZOLE 40 MG TABLET (FP) PO SCH (10:00)
[2016-10-10] MEDS: HEPARIN NA (PORCINE) 5,000 UNITS/ML 1ML VIAL SQ SCH (11:13)
== END 2016-10-10 11:46 | disposition home or self-care (01) | DRG 420 ==
LOC: JER 14:27 → JERBED 18:58 → JICU 10-07 10:47 → J6S 10-09 21:15
PROVIDERS: ADMIT Family Medicine; ATTEND Family Medicine
DX: E10.10 Type 1 diabetes mellitus with ketoacidosis without coma (principal); R10.9 Unspecified abdominal pain; D72.829 Elevated white blood cell count, unspecified; K31.84 Gastroparesis; E10.43 Type 1 diabetes mellitus with diabetic autonomic (poly)neuropathy; Z79.4 Long term (current) use of insulin; N17.9 Acute kidney failure, unspecified; E86.0 Dehydration; K21.9 Gastro-esophageal reflux disease without esophagitis; Z91.11 Patient's noncompliance with dietary regimen; R06.6 Hiccough
CPT/HCPCS: 36415; 71010-TC; 74176-TC; 76700-TC; 78226-TC; 80048; 80053; 80061; 80307; 81003; 81015; 82009; 82550; 82553; 82728; 82803; 83036; 83540; 83550; 83605; 83690; 83721; 83735; 84100; 84484; 85025; 85027; 87040; 87086; 93005; 93010; 99285-25; A9537; J1644

== ENCOUNTER 2016-10-23 17:05 | Inpatient (IN) | payer MEDICARE, OTHER ==
[2016-10-23] MEDS ORDERED: SODIUM CHLORIDE 2,000 ML IV ONE (18:13)
--- NOTE | 2016-10-23 18:16 | PDOC ---
History of Present Illness - General History Source: Patient Exam Limitations: No Limitations - History of Present Illness Initial Comments: 10/23/16 18:32 The patient is a 25 year old male, with a significant past medical history of diabetes, who presents to the emergency department complaining of nausea and vomiting for approximately 2 days. The patient reports associated periumbilical abdominal pain that is exacerbated before emesis and alleviated after an emetic episode. Patient reports his last emetic episode was prior to presentation. Patient reports his emesis is clear in nature and nonbloody/nonbilious. Patient states he is unable to tolerate solids or fluids. He reports his last normal bowel movement was 2 days ago and denies any melena, hematochezia, diarrhea, or constipation. He denies any dysuria, hematuria, frequency, or urgency. He reports associated weakness, but denies any fever, chills, lightheadedness, or dizziness. He denies any chest pain, shortness of breath, diaphoresis, or palpitations. Patient did not receive antibiotics during his last admission. He denies any recent travel or sick contacts. Patient admits his diabetes is well- controlled. Allergies: None reported Past Surgical History: None reported Social History: Non smoker. No ETOH or drug use. PCP: Dr. Jennings <Taz Tejeda - Last Filed: 10/23/16 20:57> <Landry Seymour - Last Filed: 10/23/16 23:05> - General Chief Complaint: Nausea/Vomiting Stated Complaint: NAUSEA VOMITING Time Seen by Provider: 10/23/16 17:29 Past History <Taz Tejeda - Last Filed: 10/23/16 20:57> - Past Medical History Anemia: No Asthma: No Cancer: No Cardiac Disorders: No CVA: No COPD: No CHF: No Dementia: No Diabetes: Yes (type 1; HAS BEEN IN DKA) GI Disorders: No Disorders: No HTN: No Hypercholesterolemia: No Liver Disease: No Seizures: No Thyroid Disease: No - Surgical History Abdominal Surgery: No Appendectomy: No Cardiac Surgery: No Cholecystectomy: No Lung Surgery: No Neurologic Surgery: No Orthopedic Surgery: No - Immunization History Immunization Up to Date: Yes - Psycho/Social/Smoking Cessation Hx Anxiety: No Suicidal Ideation: No Smoking Status: No Smoking History: Never smoked Have you smoked in the past 12 months: No Number of Cigarettes Smoked Daily: 0 Hx Alcohol Use: No Drug/Substance Use Hx: No Substance Use Type: None Hx Substance Use Treatment: No <WillianhumphreyPavelLandry - Last Filed: 10/23/16 23:05> - Past Medical History Allergies/Adverse Reactions: Allergies Allergy/AdvReac Type Severity Reaction Status Date / Time No Known Allergies Allergy Verified 10/23/16 17:17 Review of Systems - Review of Systems Constitutional: Yes: Weakness. No: Chills, Fever Respiratory: No: Cough, Shortness of Breath Cardiac (ROS): No: Chest Pain ABD/GI: Yes: See HPI, Nausea, Vomiting. No: Constipated, Diarrhea : No: Dysuria Neurological: No: Headache All Other Systems: Reviewed and Negative <Pavel Seymourfaele - Last Filed: 10/23/16 23:05> *Physical Exam - Vital Signs Last Vital Signs Temp Pulse Resp BP Pulse Ox 98.3 F 114 H 20 98/73 100 10/23/16 17:16 10/23/16 17:16 10/23/16 17:16 10/23/16 17:16 10/23/16 17:16 - Physical Exam Comments: 10/23/16 18:32 GENERAL: The patient is awake, alert, and fully oriented, in no acute distress. HEAD: Normal with no signs of trauma. EYES: Pupils equal, round and reactive to light, extraocular movements intact, sclera anicteric, conjunctiva clear with no pallor. ENT: Dry mucous membranes. Ears normal, nares patent, oropharynx clear without exudates. NECK: Normal range of motion, supple without lymphadenopathy, JVD, or masses. LUNGS: Breath sounds equal, clear to auscultation bilaterally. No wheeze/ crackles. HEART: Tachycardic but regular rhythm, normal S1 and S2 without murmur or rub. ABDOMEN: Mild discomfort to palpation epigastrically, but no guarding or rebound Soft/nondistended. BS wnl. No palpable masses. No hepatosplenomegaly. EXTREMITIES: Normal range of motion, no edema. No clubbing or cyanosis. No cords , erythema, or tenderness. NEUROLOGICAL: Cranial nerves II through XII grossly intact. Normal speech, normal gait. PSYCH: Normal mood, normal affect. SKIN: Warm, Dry, normal turgor, no rashes or lesions noted. <Taz Tejeda - Last Filed: 10/23/16 20:57> - Vital Signs Last Vital Signs Temp Pulse Resp BP Pulse Ox 98.3 F 114 H 20 98/73 100 10/23/16 17:16 10/23/16 17:16 10/23/16 17:16 10/23/16 17:16 10/23/16 17:16 <Landry Seymour - Last Filed: 10/23/16 23:05> Heart Score/ECG Review #1 ECG reviewed & interpreted by me at: 19:21 10/23/16 20:08 Sinus tachycardia at 118. WI depressions in the inferior and precordial leads II /III/aVF, V4 through V6. No notable ST changes. intervals otherwise wnl. <Landry Seymour - Last Filed: 10/23/16 23:05> ED Treatment Course - LABORATORY CBC & Chemistry Diagram: 10/23/16 18:20 10/23/16 18:20 - RADIOLOGY Radiograph Interpretation: 10/23/16 20:47 EXAM: CXR INTERPRETED BY: Dr. Coleman REVIEWED BY: Dr. Seymour IMPRESSION: Unremarkable examination. <Taz Tejeda - Last Filed: 10/23/16 20:57> - LABORATORY CBC & Chemistry Diagram: 10/23/16 22:17 10/23/16 22:17 <Landry Seymour - Last Filed: 10/23/16 23:05> Medical Decision Making - Medical Decision Making 10/23/16 20:47 First call placed to Dr. Johnston at 20:47. Awaiting call back. Case discussed with Dr. Dyer at 20:55. <Taz Tejeda - Last Filed: 10/23/16 20:57> - Critical Care Time Total Critical Care Time (minutes): 30 Critical Care Statement: The care of this patient involved high complexity decision making to prevent further life threatening deterioration of the patient 's condition and/or to evalute & treat vital organ system(s) failure or risk of failure. - Medical Decision Making 10/23/16 18:25 A portion of this note was documented by scribe services under my direction. I have reviewed the details of the note, within reason, and agree with the documentation with the following case summary and management plan written by me. 25-year-old male with insulin-dependent diabetes presents with 2 days of intractable nausea/vomiting that is nonbloody and nonbilious, intermittent periumbilical abdominal pain worse before vomiting and relieved with vomiting. Normal nonbloody bowel movement 2 days ago, otherwise not tolerating by mouth. No fevers or chills, no recent travel, didn't receive antibiotics during last admission. No other sick contacts, take his glucose levels have been well controlled, presents for generalized weakness and dehydration. Vitals as noted, afebrile but tachycardic Dry mucosa No jaundice or pallor Epigastric discomfort without guarding or rebound 25-year-old male with insulin-dependent diabetes presents with nausea/vomiting 2 days, dehydration. Question gastritis, rule out pancreatitis or hepatobiliary disease. Lower suspicion for focal infectious process in the abdomen such as appendicitis or diverticulitis, rule out DKA as a complication. Labs, urinalysis Aggressive IV fluid rehydration Antacids, antiemetics, pain control Reassess 10/23/16 19:38 marked leukocytosis of 31.2, diff pending. Given elevated wbc and tachycardia, meets SIRS criteria so sepsis protocol initiated. On review of prior notes, pt has had similar leukocytosis in the past in the setting of n/v and DKA admissions. Resolved with IVF and insulin on those admissions. EKG shows sinus tach at 118 with WI depressions, ? pericarditis. Trop pending to r/o myocardial involvement. Compared to 05/07/16, the inferior WI depressions are UNchanged, which is reassuring. Will perform bedside echo, receiving IVF resuscitation. Clinically otherwise improved after above meds. 10/23/16 20:01 Bedside echo shows evidence of pericardial effusion, no RV collapse. He feels much better after the meds. On further questioning, he does recall an episode 3 days ago where he became SOB walking to his car. CXR, on my prelim evaluation, shows normal cardiac silhouette and mediastinum, clear lungs. 10/23/16 20:32 diff shows left shift and 3% bands, AG 18 with RICHARD Cr 2.7. Normal K, glucose 180. Likely ketosis from acute dehydration/RICHARD, pH normal. Will give insulin, continue aggressive IVF, and recheck labs. Proceed with admission. 10/23/16 20:59 Accepted for inpatient med/surg by Dr. Dyer, covering Vickie. Knows patient. Agrees with management with aggressive IVF, hold insulin ggt for now. Will recheck cbc/comp/lactate. 10/23/16 23:04 wbc to 23, Cr to 1.8, AG to 15, lactate to 1.2. HR now 95. Feels well. Will proceed with med/surg admission as previously planned. <Landry Seymour - Last Filed: 10/23/16 23:05> *DC/Admit/Observation/Transfer - Attestations Scribe Attestion: 10/23/16 18:33 Documentation prepared by Taz Tejeda, acting as medical record assistant for Landry Seymour MD. <Taz Tejeda - Last Filed: 10/23/16 20:57> - Discharge Dispostion Admit: Yes <Landry Seymour - Last Filed: 10/23/16 23:05> Diagnosis at time of Disposition: IDDM (insulin dependent diabetes mellitus) Nausea and vomiting Qualifiers: Vomiting type: unspecified Vomiting Intractability: intractable Qualified Code( s): R11.2 - Nausea with vomiting, unspecified - Discharge Dispostion Condition at time of disposition: Fair - Referrals Referrals: Leandro Jennings MD [Primary Care Provider] -
[2016-10-23] MEDS ORDERED: morphine CARPU-JECT 2 MG/1 ML DISP.SYRIN IVPUSH ONE (18:22)
[2016-10-23] MEDS ORDERED: ONDANSETRON 4 MG/2 ML VIAL IVPUSH ONE (18:22)
[2016-10-23] MEDS ORDERED: FAMOTIDINE 20 MG/50 ML IVPB 50 ML IVPB ONE ×2 (18:22→18:36)
[2016-10-23 18:35] LABS: MCHC 32.7 g/dl (32.0-35.9); MEAN CELL VOLUME 94.7 fl (80-96); MEAN PLT VOLUME 7.7 fl (7.5-11.1); PLATELET COUNT 419 K/MM3 (134-434)
[2016-10-23] MEDS ORDERED: morphine CARPU-JECT 4 MG/1 ML DISP.SYRIN ONE (18:36)
[2016-10-23] MEDS ORDERED: ONDANSETRON 4 MG/2 ML VIAL ONE (18:36)
[2016-10-23 18:39] LABS: WHITE BLOOD COUNT 31.2 K/mm3 (4.0-10.0)
[2016-10-23 18:41] LABS: VENOUS PH 7.41 (7.32-7.42)
[2016-10-23] MEDS ORDERED: morphine CARPU-JECT 4 MG/1 ML DISP.SYRIN IVPUSH ONE (18:43)
[2016-10-23 19:27] LABS: ALBUMIN 5.1 g/dl (3.4-5.0); ANION GAP 18 (8-16); BILIRUBIN,TOTAL 2.2 mg/dL (0.2-1.0); CO2 18 mmol/L (21-32); CREATININE 2.7 mg/dL (0.7-1.3); GLUCOSE,RANDOM 181 mg/dL (74-106); SGOT/AST 35 U/L (15-37); SGPT/ALT 72 U/L (12-78); TOT PROT 9.2 g/dl (6.4-8.2)
[2016-10-23 19:30] LABS: ALK PHOS 97 U/L (45-117); TROPONIN I < 0.02 ng/ml (0.00-0.05)
[2016-10-23 19:50] LABS: PLATELET ESTIMATE ADEQUATE (NORMAL)
[2016-10-23 20:25] LABS: ACETONE SERUM POSITIVE LARGE 3+ (NEGATIVE)
[2016-10-23 20:49] LABS: INR 1.18 (0.82-1.09)
[2016-10-23] MEDS: INSULIN REGULAR HUMAN 100 UNITS/ML *VIAL IVPUSH ONE ×2 (21:22→21:46)
[2016-10-23] MEDS ORDERED: INSULIN REGULAR HUMAN 100 UNITS/ML *VIAL SQ ONE (21:43)
[2016-10-23] MEDS ORDERED: SODIUM CHLORIDE 1,000 ML IV ONE (21:44)
[2016-10-23 21:48] LABS: URINE APPEARANCE CLEAR; URINE BILIRUBIN NEGATIVE (NEGATIVE); URINE COLOR YELLOW; URINE GLUCOSE (UA) 3+ (NEGATIVE); URINE KETONE 1+ (NEGATIVE); URINE LEUK ESTERASE NEGATIVE (NEGATIVE); URINE NITRITE NEGATIVE (NEGATIVE); URINE UROBILINOGEN NEGATIVE E.U./dl (0.2-1.0)
[2016-10-23 22:07] LABS: URINE BLOOD 1+ (NEGATIVE); URINE PROTEIN 2+ (NEGATIVE)
[2016-10-23 22:08] LABS: URINE HYALINE CAST 206 /lpf; URINE MUCUS RARE; URINE RBC 13 /hpf (0-3); URINE WBC 4 /hpf (3-5)
[2016-10-23 22:31] LABS: MCH 31.1 pg (25.7-33.7); MCHC 32.4 g/dl (32.0-35.9); MEAN PLT VOLUME 7.5 fl (7.5-11.1); PLATELET COUNT 277 K/MM3 (134-434); RDW 13.9 % (11.9-15.9)
[2016-10-23 22:54] LABS: ACETONE SERUM POSITIVE LARGE 3+ (NEGATIVE)
[2016-10-23 22:58] LABS: ALBUMIN 3.5 g/dl (3.4-5.0); ANION GAP 15 (8-16); CALCIUM 8.2 mg/dL (8.5-10.1); CO2 19 mmol/L (21-32); CREATININE 1.8 mg/dL (0.7-1.3); GLUCOSE,RANDOM 152 mg/dL (74-106); SGOT/AST 24 U/L (15-37); SGPT/ALT 50 U/L (12-78)
[2016-10-23 23:00] LABS: ALK PHOS 67 U/L (45-117); BILIRUBIN,TOTAL 1.8 mg/dL (0.2-1.0); TOT PROT 6.4 g/dl (6.4-8.2)
[2016-10-24] MEDS: morphine CARPU-JECT 2 MG/1 ML DISP.SYRIN IVPUSH PRN ×3 (00:47→17:24)
[2016-10-24] MEDS: SODIUM CHLORIDE 1,000 ML IV SCH ×3 (00:47→19:26)
[2016-10-24] MEDS: METOCLOPRAMIDE HCL INJECTION 10 MG/2 ML VIAL IVPB SCH ×3 (01:00→17:26)
[2016-10-24 03:58] VITALS: BMI 21.2
[2016-10-24] MEDS ORDERED: ACETAMINOPHEN 325 MG TABLET (FP) PO PRN (10:32)
[2016-10-24] MEDS ORDERED: ONDANSETRON 4 MG/2 ML VIAL IVPB PRN (10:32)
[2016-10-24] MEDS ORDERED: INSULIN (NOVOLOG) ASPART 100 UNITS/ML 10ML VIAL SQ ONE (11:00)
--- NOTE | 2016-10-24 11:26 | HP ---
Admitting History and Physical - Primary Care Physician PCP: Jose Ramon Johnston - Admission Chief Complaint: ABD PAIN/HYPERGLYCEMIA History of Present Illness: The patient is a 25 year old male, with a significant past medical history of diabetes, who presents to the emergency department complaining of nausea and vomiting for approximately 2 days. The patient reports associated periumbilical abdominal pain that is exacerbated before emesis and alleviated after an emetic episode. Patient reports his last emetic episode was prior to presentation. Patient reports his emesis is clear in nature and nonbloody/nonbilious. Patient states he is unable to tolerate solids or fluids. He reports his last normal bowel movement was 2 days ago and denies any melena, hematochezia, diarrhea, or constipation. He denies any dysuria, hematuria, frequency, or urgency. He reports associated weakness, but denies any fever, chills, lightheadedness, or dizziness. He denies any chest pain, shortness of breath, diaphoresis, or palpitations. Patient did not receive antibiotics during his last admission. He denies any recent travel or sick contacts. Patient admits his diabetes is well- controlled. 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) Cardiovascular: Yes: Other (tachycardia and lethargy with frequent urination) Pulmonary: Yes: Other (bronchitis) Gastrointestinal: Yes: GERD Hepatobiliary: Yes: Other (none) Renal/: Yes: UTI Heme/Onc: Yes: Other (none) Infectious Disease: Yes: Other (none) Psych: Yes: Depression Musculoskeletal: Yes: Other (none) Rheumatology: Yes: Other (none) ENT: Yes: Allergic Rhinitis Endocrine: Yes: Diabetes Mellitus Dermatology: Yes: Other (none) - Past Surgical History Past Surgical History: Yes: None - Smoking History Smoking history: Never smoked Have you smoked in the past 12 months: No Aproximately how many cigarettes per day: 0 - Alcohol/Substance Use Hx Alcohol Use: No History of Substance Use: reports: None - Social History History of Recent Travel: No Home Medications - Allergies Allergies/Adverse Reactions: Allergies Allergy/AdvReac Type Severity Reaction Status Date / Time No Known Allergies Allergy Verified 10/23/16 17:17 - Home Medications Home Medications: Ambulatory Orders Insulin Degludec [Tresiba Flextouch U-100] 45 unit SQ DAILY 10/23/16 Insulin Sliding Scale [Novolog Vial Sliding Scale -] See Protocol SQ TID Family Disease History - Family Disease History Family Disease History: Diabetes: Mother Review of Systems Findings/Remarks: ASLEEP, AROUSABLE DENIES PAIN - Review of Systems Constitutional: reports: Loss of Appetite Eyes: reports: No Symptoms HENT: reports: No Symptoms Neck: reports: No Symptoms Cardiovascular: reports: No Symptoms Respiratory: reports: No Symptoms Gastrointestinal: reports: Indigestion, Nausea Genitourinary: reports: No Symptoms Musculoskeletal: reports: No Symptoms Integumentary: reports: No Symptoms Neurological: reports: No Symptoms Endocrine: reports: No Symptoms Hematology/Lymphatic: reports: No Symptoms Psychiatric: reports: Other Physical Examination Vital Signs: Vital Signs Temperature 98.8 F 10/24/16 06:22 Pulse Rate 96 H 10/24/16 09:00 Respiratory Rate 18 10/24/16 09:00 Blood Pressure 138/90 10/24/16 09:00 O2 Sat by Pulse Oximetry (%) 100 10/24/16 09:00 Constitutional: Yes: Mild Distress Eyes: Yes: WNL HENT: Yes: WNL Neck: Yes: WNL Cardiovascular: Yes: WNL Respiratory: Yes: WNL Gastrointestinal: Yes: WNL Renal/: Yes: WNL Musculoskeletal: Yes: WNL Extremities: Yes: WNL Edema: No Peripheral Pulses WNL: Yes Integumentary: Yes: WNL Wound/Incision: Yes: Clean/Dry Neurological: Yes: WNL ...Motor Strength: WNL Psychiatric: Yes: WNL Problem List - Problems (1) IDDM (insulin dependent diabetes mellitus) Code(s): E11.9 - TYPE 2 DIABETES MELLITUS WITHOUT COMPLICATIONS Z79.4 - SHELTER (CURRENT) USE OF INSULIN (2) Nausea and vomiting Code(s): R11.2 - NAUSEA WITH VOMITING, UNSPECIFIED Qualifiers: Vomiting type: unspecified Vomiting Intractability: intractable Qualified Code(s): R11.2 - Nausea with vomiting, unspecified (3) Abdominal pain Code(s): R10.9 - UNSPECIFIED ABDOMINAL PAIN Qualifiers: Abdominal location: generalized Qualified Code(s): R10.84 - Generalized abdominal pain (4) DKA (diabetic ketoacidoses) Code(s): E13.10 - OTH DIABETES MELLITUS WITH KETOACIDOSIS WITHOUT COMA Qualifiers: Diabetes mellitus type: type 2 Diabetes mellitus complication detail: without coma Qualified Code(s): E13.10 - Other specified diabetes mellitus with ketoacidosis without coma (5) Dehydration Code(s): E86.0 - DEHYDRATION Assessment/Plan IVF LABS REVIEWED LEUKOCYTOSIS ID CONSULT CX SSI ENDO CONSULT
[2016-10-24] MEDS ORDERED: INSULIN DETEMIR 100 UNITS/ML MDV SQ ONE (11:41)
[2016-10-24] MEDS: INSULIN DETEMIR 100 UNITS/ML MDV SQ SCH ×2 (11:42→17:27)
[2016-10-24] MEDS: BACLOFEN 10 MG TABLET (FP) PO PRN ×2 (12:09→18:21)
[2016-10-24 12:41] LABS: MCH 31.7 pg (25.7-33.7); MCHC 33.1 g/dl (32.0-35.9); MEAN CELL VOLUME 95.8 fl (80-96); MEAN PLT VOLUME 7.3 fl (7.5-11.1); PLATELET COUNT 231 K/MM3 (134-434); WHITE BLOOD COUNT 15.2 K/mm3 (4.0-10.0)
[2016-10-24 13:03] LABS: ANION GAP 12 (8-16); CO2 22 mmol/L (21-32); CREATININE 1.2 mg/dL (0.7-1.3); GLUCOSE,RANDOM 225 mg/dL (74-106)
--- NOTE | 2016-10-24 16:22 | CON.GI ---
Consult Consult Specialty:: gastroenterology - History of Present Illness History of Present Illness: 25-year-old male with insulin-dependent diabetes presents with 2 days of intractable nausea/vomiting that is nonbloody and nonbilious, intermittent periumbilical abdominal pain worse before vomiting and relieved with vomiting. Normal nonbloody bowel movement 2 days ago, otherwise not tolerating by mouth. No fevers or chills, no recent travel, didn't receive antibiotics during last admission. No other sick contacts, take his glucose levels have been well controlled, presents for generalized weakness and dehydration. 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) Cardio/Vascular: Yes: Other (tachycardia and lethargy with frequent urination) Pulmonary: Yes: Other (bronchitis) Gastrointestinal: Yes: GERD Hepatobiliary: Yes: Other (none) Renal/: Yes: UTI Infectious Disease: Yes: Other (none) Psych: Yes: Depression Musculoskeletal: Yes: Other (none) Rheumatology: Yes: Other (none) ENT: Yes: Allergic Rhinitis Endocrine: Yes: Diabetes Mellitus Dermatology: Yes: Other (none) - Past Surgical History Past Surgical History: Yes: None - Alcohol/Substance Use Hx Alcohol Use: No History of Substance Use: reports: None - Smoking History Smoking history: Never smoked Have you smoked in the past 12 months: No Aproximately how many cigarettes per day: 0 - Social History History of Recent Travel: No Home Medications - Allergies Allergies/Adverse Reactions: Allergies Allergy/AdvReac Type Severity Reaction Status Date / Time No Known Allergies Allergy Verified 10/23/16 17:17 - Home Medications Home Medications: Ambulatory Orders Insulin Degludec [Tresiba Flextouch U-100] 45 unit SQ DAILY 10/23/16 Insulin Sliding Scale [Novolog Vial Sliding Scale -] See Protocol SQ TID Family Disease History - Family Disease History Family Disease History: Diabetes: Mother Physical Exam-GI Vital Signs: Vital Signs Temperature 99.1 F 10/24/16 15:35 Pulse Rate 71 10/24/16 15:35 Respiratory Rate 20 10/24/16 15:35 Blood Pressure 131/69 10/24/16 15:35 O2 Sat by Pulse Oximetry (%) 100 10/24/16 09:00 Labs: CBC, BMP 10/24/16 12:15 10/24/16 12:15 INR, PTT INR 1.18 (0.82-1.09) H 10/23/16 20:20
[2016-10-24] MEDS: INSULIN SLIDING SCALE (NOVOLOG) 1 VIAL SQ SCH ×2 (17:32→21:39)
--- NOTE | 2016-10-24 18:46 | CON.GI ---
Consult Consult Specialty:: gastroenterology Referred by:: Dr Johnston Reason for Consultation:: elevated liver enzymes - History of Present Illness History of Present Illness: 25 male with brittle diabetes, recurrent DKA was recently admitted with same complaints of abdominal pain, DKA, nausea,vomiting and elevated WBC. He alson hasmarijuanin his urine. He denies marijuana use. 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) Cardio/Vascular: Yes: Other (tachycardia and lethargy with frequent urination) Pulmonary: Yes: Other (bronchitis) Gastrointestinal: Yes: GERD Hepatobiliary: Yes: Other (none) Renal/: Yes: UTI Infectious Disease: Yes: Other (none) Psych: Yes: Depression Musculoskeletal: Yes: Other (none) Rheumatology: Yes: Other (none) ENT: Yes: Allergic Rhinitis Endocrine: Yes: Diabetes Mellitus Dermatology: Yes: Other (none) - Past Surgical History Past Surgical History: Yes: None - Alcohol/Substance Use Hx Alcohol Use: No History of Substance Use: reports: None - Smoking History Smoking history: Never smoked Have you smoked in the past 12 months: No Aproximately how many cigarettes per day: 0 - Social History History of Recent Travel: No Home Medications - Allergies Allergies/Adverse Reactions: Allergies Allergy/AdvReac Type Severity Reaction Status Date / Time No Known Allergies Allergy Verified 10/23/16 17:17 - Home Medications Home Medications: Ambulatory Orders Insulin Degludec [Tresiba Flextouch U-100] 45 unit SQ DAILY 10/23/16 Insulin Sliding Scale [Novolog Vial Sliding Scale -] See Protocol SQ TID Family Disease History - Family Disease History Family Disease History: Diabetes: Mother Physical Exam-GI Vital Signs: Vital Signs Temperature 99.1 F 10/24/16 15:35 Pulse Rate 71 10/24/16 15:35 Respiratory Rate 20 10/24/16 15:35 Blood Pressure 131/69 10/24/16 15:35 O2 Sat by Pulse Oximetry (%) 100 10/24/16 09:00 Constitutional: Yes: Well Nourished, Poor Hygeine Eyes: Yes: Occular Prosthesis HENT: Yes: Tonsillar Exudate Neck: Yes: Tenderness Respiratory: Yes: CTA Bilaterally ...Palpate: Yes: Soft. No: Firm/Rigid, Guarding, Hepatomegaly, Mass, Pulsatile Mass, Splenomegaly, Tenderness, Tenderness, Epigastium Labs: CBC, BMP 10/24/16 12:15 10/24/16 12:15 INR, PTT INR 1.18 (0.82-1.09) H 10/23/16 20:20 Problem List - Problems (1) Abdominal pain Assessment/Plan: r/o secondary to mesenteric ischemia secondary to severe dehydration R> continue IV hydration Code(s): R10.9 - UNSPECIFIED ABDOMINAL PAIN Qualifiers: Abdominal location: generalized Qualified Code(s): R10.84 - Generalized abdominal pain (2) Hiccups Assessment/Plan: secondary to gastroparesis R> Regaln 5mg 30 min ac Protonix 40mg bid Code(s): R06.6 - HICCOUGH (3) Elevated liver enzymes Assessment/Plan: secondary to ischemia R> made aware to ff-up to r/o hypercoaguable state Hematology consult for possible hypercoaguable state Code(s): R74.8 - ABNORMAL LEVELS OF OTHER SERUM ENZYMES (4) Hematuria Assessment/Plan: consider urology consult Code(s): R31.9 - HEMATURIA, UNSPECIFIED
[2016-10-24 22:01] LABS: URINE MARIJUANA THC POSITIVE ng/ml (CUTOFF=50)
--- NOTE | 2016-10-25 01:41 | CONSULT ---
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) Cardio/Vascular: Yes: Other (tachycardia and lethargy with frequent urination) Pulmonary: Yes: Other (bronchitis) Gastrointestinal: Yes: GERD Hepatobiliary: Yes: Other (none) Renal/: Yes: UTI Infectious Disease: Yes: Other (none) Psych: Yes: Depression Musculoskeletal: Yes: Other (none) Rheumatology: Yes: Other (none) ENT: Yes: Allergic Rhinitis Endocrine: Yes: Diabetes Mellitus Dermatology: Yes: Other (none) - Past Surgical History Past Surgical History: Yes: None - Alcohol/Substance Use Hx Alcohol Use: No History of Substance Use: reports: None - Smoking History Smoking history: Never smoked Have you smoked in the past 12 months: No Aproximately how many cigarettes per day: 0 - Social History History of Recent Travel: No Home Medications - Allergies Allergies/Adverse Reactions: Allergies Allergy/AdvReac Type Severity Reaction Status Date / Time No Known Allergies Allergy Verified 10/23/16 17:17 - Home Medications Home Medications: Ambulatory Orders Insulin Degludec [Tresiba Flextouch U-100] 45 unit SQ DAILY 10/23/16 Insulin Sliding Scale [Novolog Vial Sliding Scale -] See Protocol SQ TID Family Disease History - Family Disease History Family Disease History: Diabetes: Mother Review of Systems - Review of Systems Constitutional: reports: Lethargy, Weakness Eyes: reports: No Symptoms HENT: reports: No Symptoms Neck: reports: No Symptoms Cardiovascular: reports: No Symptoms Respiratory: reports: No Symptoms Gastrointestinal: reports: Indigestion, Nausea Breasts: reports: No Symptoms Reported Musculoskeletal: reports: No Symptoms Integumentary: reports: No Symptoms Neurological: reports: No Symptoms Endocrine: reports: Increased Thirst, Unexplained Weight Loss Physical Exam Vital Signs: Vital Signs Temperature 98.8 F 07/08/17 18:00 Pulse Rate 77 10/24/16 22:00 Respiratory Rate 20 10/24/16 22:00 Blood Pressure 135/65 10/24/16 22:00 O2 Sat by Pulse Oximetry (%) 100 10/24/16 09:00 Constitutional: Yes: Anxious Eyes: Yes: EOM Intact HENT: Yes: Normocephalic Neck: Yes: Trachea Midline Cardiovascular: Yes: Regular Rate and Rhythm Respiratory: Yes: CTA Bilaterally Gastrointestinal: Yes: Tenderness, Epigastrium ...Rectal Exam: Yes: Deferred Renal/: Yes: WNL Breast(s): Yes: WNL Edema: No Integumentary: Yes: WNL Neurological: Yes: Alert, Oriented Labs: CBC, BMP 10/24/16 12:15 10/24/16 12:15 Problem List - Problems (1) IDDM (insulin dependent diabetes mellitus) Code(s): E11.9 - TYPE 2 DIABETES MELLITUS WITHOUT COMPLICATIONS Z79.4 - FPC (CURRENT) USE OF INSULIN (2) Nausea and vomiting Code(s): R11.2 - NAUSEA WITH VOMITING, UNSPECIFIED Qualifiers: Vomiting type: unspecified Vomiting Intractability: intractable Qualified Code(s): R11.2 - Nausea with vomiting, unspecified (3) Abdominal pain Code(s): R10.9 - UNSPECIFIED ABDOMINAL PAIN Qualifiers: Abdominal location: generalized Qualified Code(s): R10.84 - Generalized abdominal pain (4) DKA (diabetic ketoacidoses) Code(s): E13.10 - OTH DIABETES MELLITUS WITH KETOACIDOSIS WITHOUT COMA Qualifiers: Diabetes mellitus type: type 2 Diabetes mellitus complication detail: without coma Qualified Code(s): E13.10 - Other specified diabetes mellitus with ketoacidosis without coma Assessment/Plan Current Active Problems Elevated liver enzymes (Acute) Hematuria (Acute) IDDM (insulin dependent diabetes mellitus) (Acute) Nausea and vomiting (Acute) Abnormal Lab Results 10/24/16 10/24/16 12:15 12:15 WBC 15.2 H D RBC 3.60 L Hgb 11.4 L D Hct 34.5 L MPV 7.3 L BUN 21 H D Random Glucose 225 H D Calcium 8.0 L Laboratory Results - last 24 hr 10/24/16 10/24/16 10/24/16 01:55 07:23 09:59 WBC RBC Hgb Hct MCV MCH MCHC RDW Plt Count MPV Sodium Potassium Chloride Carbon Dioxide Anion Gap BUN Creatinine POC Glucometer 121 188 251 Random Glucose Calcium Opiates Screen Methadone Screen Barbiturate Screen Phencyclidine Screen Ur Amphetamines Screen MDMA (Ecstasy) Screen Benzodiazepines Screen Cocaine Screen U Marijuana (THC) Screen 10/24/16 10/24/16 10/24/16 12:15 12:15 17:31 WBC 15.2 H D RBC 3.60 L Hgb 11.4 L D Hct 34.5 L MCV 95.8 MCH 31.7 MCHC 33.1 RDW 14.0 Plt Count 231 MPV 7.3 L Sodium 137 Potassium 3.9 Chloride 103 Carbon Dioxide 22 Anion Gap 12 BUN 21 H D Creatinine 1.2 D POC Glucometer 64 Random Glucose 225 H D Calcium 8.0 L Opiates Screen Methadone Screen Barbiturate Screen Phencyclidine Screen Ur Amphetamines Screen MDMA (Ecstasy) Screen Benzodiazepines Screen Cocaine Screen U Marijuana (THC) Screen 10/24/16 10/24/16 10/24/16 18:14 20:30 20:55 WBC RBC Hgb Hct MCV MCH MCHC RDW Plt Count MPV Sodium Potassium Chloride Carbon Dioxide Anion Gap BUN Creatinine POC Glucometer 96 69 Random Glucose Calcium Opiates Screen Positive Methadone Screen Negative Barbiturate Screen Negative Phencyclidine Screen Negative Ur Amphetamines Screen Negative MDMA (Ecstasy) Screen Negative Benzodiazepines Screen Negative Cocaine Screen Negative U Marijuana (THC) Screen Positive plan: continue ivfluid vomiting likely marijuana use patient aware of side effect bgm qid novolog scale levemir 17 units bid dose
[2016-10-25] MEDS: SODIUM CHLORIDE 1,000 ML IV SCH (01:54)
[2016-10-25] MEDS: METOCLOPRAMIDE HCL INJECTION 10 MG/2 ML VIAL IVPB SCH ×3 (01:54→18:10)
[2016-10-25] MEDS ORDERED: DEXTROSE 50%-WATER 50 ML DISP.SYRIN ONE (05:17)
[2016-10-25] MEDS ORDERED: DEXTROSE 50%-WATER - 25 GM/50 ML VIAL IVPUSH ONE (05:30)
[2016-10-25] MEDS: DEXTROSE 5%-NORMAL SALINE 1,000 ML IV SCH ×2 (06:01→21:51)
[2016-10-25 06:09] LABS: MCHC 33.4 g/dl (32.0-35.9); MEAN CELL VOLUME 95.9 fl (80-96); MEAN PLT VOLUME 7.8 fl (7.5-11.1); PLATELET COUNT 231 K/MM3 (134-434); RDW 13.7 % (11.9-15.9); WHITE BLOOD COUNT 7.6 K/mm3 (4.0-10.0)
[2016-10-25] MEDS: INSULIN DETEMIR 100 UNITS/ML MDV SQ SCH ×2 (06:25→17:30)
[2016-10-25] MEDS: INSULIN SLIDING SCALE (NOVOLOG) 1 VIAL SQ SCH ×4 (06:25→21:52)
[2016-10-25 06:30] LABS: ANION GAP 6 (8-16); CALCIUM 8.1 mg/dL (8.5-10.1); CO2 29 mmol/L (21-32); CREATININE 0.8 mg/dL (0.7-1.3)
[2016-10-25 06:34] LABS: GLUCOSE,RANDOM 44 mg/dL (74-106)
[2016-10-25] MEDS ORDERED: KCL 10 MEQ IVPB 100 ML IVPB ONE ×2 (08:30→12:30)
--- NOTE | 2016-10-25 09:55 | PN ---
Progress Note (short form) - Note Progress Note: ID Consult dictated Leukocytosis- likely leukemoid rxn S/P N/V IDDM WBC now WNL, cultures negative Observe off antibiotics
--- NOTE | 2016-10-25 11:40 | PN ---
GI Progress Note Subjective: patient naty made aware not to smoke marijuan as he develops cyclic vomiting syndrome leading to DKA and severe dehydration and possible mesenteric ischemia , he was made to understand that this could be life threatening - Objective Vital Signs: Vital Signs Temperature 97.8 F 10/25/16 06:00 Pulse Rate 77 10/25/16 06:00 Respiratory Rate 20 10/25/16 06:00 Blood Pressure 141/68 10/25/16 06:00 O2 Sat by Pulse Oximetry (%) 100 10/24/16 09:00 Constitutional: Well Nourished Eyes: Yes: Conjunctiva Clear HENT: Yes: Atraumatic Neck: Yes: Supple Cardiovascular: Yes: Regular Rate and Rhythm Respiratory: Yes: CTA Bilaterally ...Palpate: Yes: Soft. No: Firm/Rigid, Guarding, Hepatomegaly, Mass, Pulsatile Mass, Splenomegaly, Tenderness Labs: CBC, BMP 10/25/16 05:30 10/25/16 05:30 INR, PTT INR 1.18 (0.82-1.09) H 10/23/16 20:20 Problem List - Problems (1) Abdominal pain Assessment/Plan: --resolved Code(s): R10.9 - UNSPECIFIED ABDOMINAL PAIN Qualifiers: Abdominal location: generalized Qualified Code(s): R10.84 - Generalized abdominal pain (2) Hiccups Assessment/Plan: --resolved Code(s): R06.6 - HICCOUGH (3) Elevated liver enzymes Assessment/Plan: abdominal ultrasound negative further gi w/u as an out patient the patient was made aware to follow-up Code(s): R74.8 - ABNORMAL LEVELS OF OTHER SERUM ENZYMES (4) Hematuria Assessment/Plan: consider urology consult Code(s): R31.9 - HEMATURIA, UNSPECIFIED
[2016-10-25] MEDS ORDERED: INSULIN (NOVOLOG) ASPART 100 UNITS/ML 10ML VIAL ONE ×4 (12:20→21:26)
--- NOTE | 2016-10-25 12:35 | PN ---
Progress Note, Physician Chief Complaint: AWAKE EATING LUNCH, FEELS BETTER NAD - Current Medication List Current Medications: Active Medications Acetaminophen (Tylenol -) 650 mg PO Q6H PRN PRN Reason: FEVER OR PAIN Baclofen (Lioresal -) 5 mg PO TID PRN PRN Reason: INDIGESTION Last Admin: 10/24/16 18:21 Dose: 5 mg Dextrose/Sodium Chloride (D5-Ns -) 1,000 mls @ 80 mls/hr IV ASDIR [facility] Last Admin: 10/25/16 06:01 Dose: 80 mls/hr Potassium Chloride (Potassium Chloride 10 Meq Premix Ivpb -) 100 mls @ 100 mls/ hr IVPB ONCE ONE Stop: 10/25/16 13:29 Insulin Aspart (Novolog Vial Sliding Scale -) [address] [facility] PRN Reason: Protocol Last Admin: 10/25/16 12:08 Dose: 3 units Insulin Detemir (Levemir Vial) [address] [facility] Last Admin: 10/25/16 06:25 Dose: Not Given Metoclopramide HCl (Reglan Injection -) 10 mg IVPB Q8H-IV FABIAN Last Admin: 10/25/16 10:06 Dose: 10 mg Morphine Sulfate (Morphine Injection -) 2 mg IVPUSH Q4H PRN PRN Reason: PAIN Last Admin: 10/24/16 17:24 Dose: 2 mg Ondansetron HCl (Zofran Injection) 4 mg IVPB Q6H PRN PRN Reason: NAUSEA - Objective Vital Signs: Vital Signs Temperature 97.8 F 10/25/16 06:00 Pulse Rate 77 10/25/16 06:00 Respiratory Rate 20 10/25/16 06:00 Blood Pressure 141/68 10/25/16 06:00 O2 Sat by Pulse Oximetry (%) 100 10/24/16 09:00 Constitutional: Yes: No Distress Eyes: Yes: WNL HENT: Yes: WNL Neck: Yes: WNL Cardiovascular: Yes: WNL Respiratory: Yes: WNL Gastrointestinal: Yes: WNL Genitourinary: Yes: WNL Musculoskeletal: Yes: WNL Extremities: Yes: WNL Edema: No Peripheral Pulses WNL: Yes Integumentary: Yes: WNL Wound/Incision: Yes: Clean/Dry Neurological: Yes: WNL ...Motor Strength: WNL Psychiatric: Yes: WNL Labs: CBC, BMP 10/25/16 05:30 10/25/16 05:30 INR, PTT INR 1.18 (0.82-1.09) H 10/23/16 20:20 Problem List - Problems (1) IDDM (insulin dependent diabetes mellitus) Code(s): E11.9 - TYPE 2 DIABETES MELLITUS WITHOUT COMPLICATIONS 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 (2) Nausea and vomiting Code(s): R11.2 - NAUSEA WITH VOMITING, UNSPECIFIED Qualifiers: Vomiting type: unspecified Vomiting Intractability: intractable Qualified Code(s): R11.2 - Nausea with vomiting, unspecified (3) Abdominal pain Code(s): R10.9 - UNSPECIFIED ABDOMINAL PAIN Qualifiers: Abdominal location: generalized Qualified Code(s): R10.84 - Generalized abdominal pain (4) DKA (diabetic ketoacidoses) Code(s): E13.10 - OTH DIABETES MELLITUS WITH KETOACIDOSIS WITHOUT COMA Qualifiers: Diabetes mellitus type: type 2 Diabetes mellitus complication detail: without coma Qualified Code(s): E13.10 - Other specified diabetes mellitus with ketoacidosis without coma (5) Dehydration Code(s): E86.0 - DEHYDRATION Assessment/Plan PAIN IMPROVED TOLERATED FULL LUNCH IVF MONITOR BGM DC PLANNING TOMORROW
--- NOTE | 2016-10-25 13:54 | CONS ---
DATE OF CONSULTATION: The patient is a 25-year-old insulin-dependent diabetic who is evaluated for leukocytosis. He presented to the hospital on October 23, 2016, with a 2-day history of periumbilical abdominal pain, nausea and vomiting. He was noted to have a white blood cell count of 31,000. The patient had a similar presentation in September. He was admitted to [facility] from October 06 through October 10 with diabetic ketoacidosis. At that time, he had a leukocytosis, which resolved. Sepsis workup was unrevealing. He denies any focal complaint. He denies any sore throat, chest pain, shortness of breath, cough, sputum production, or dysuria. No skin infections or infected foot ulcers. He has been afebrile. Past medical history positive for insulin-dependent diabetes mellitus. No known allergies. SOCIAL HISTORY: Negative tobacco or alcohol use. Toxicology screen positive for opiates and marijuana. SYSTEMS REVIEW: Neurologic: No loss of consciousness, seizure activity, or focal weakness. Cardiac: Negative chest pain or palpitations. Respiratory: Negative cough or sputum production. Gastrointestinal: As per HPI. Genitourinary: Negative for urinary tract infection. LABORATORY DATA: White count on admission 31,000, presently 7.6, hematocrit 34.1, platelet count 231, creatinine 0.8. Urinalysis: 4 white cells. Chest x-ray negative. Blood cultures negative. PHYSICAL EXAMINATION: General: He is awake and alert. He is not acutely toxic appearing. Vital Signs: Temperature 97.8. Blood pressure 141/68. Pulse 77, regular. Respiration 20 per minute. Eyes: Sclerae anicteric. Oropharynx: Negative. Neck: Supple. No palpable nodes. Heart Sounds: S1, S2. Lungs: Clear. Abdomen: Soft. No tenderness elicited. No mass, rebound or rigidity. Extremities: Negative for edema. IMPRESSION: 1. Leukocytosis, likely leukemoid reaction. 2. Status post nausea vomiting, possible diabetic gastroparesis. 3. Insulin-dependent diabetes mellitus. 4. White blood cell count now normal. Cultures negative. Observe off antibiotic therapy. YENY SABILLON M.D. [id number]
[2016-10-25] MEDS ORDERED: INSULIN DETEMIR 100 UNITS/ML MDV SQ ONE (18:54)
[2016-10-26] MEDS: METOCLOPRAMIDE HCL INJECTION 10 MG/2 ML VIAL IVPB SCH ×2 (01:48→10:06)
[2016-10-26 06:26] VITALS: PULSE 80
[2016-10-26] MEDS: DEXTROSE 5%-NORMAL SALINE 1,000 ML IV SCH (06:29)
[2016-10-26] MEDS: INSULIN DETEMIR 100 UNITS/ML MDV SQ SCH (06:29)
[2016-10-26] MEDS: INSULIN SLIDING SCALE (NOVOLOG) 1 VIAL SQ SCH (06:30)
--- NOTE | 2016-10-26 07:58 | DS ---
Physical Examination Vital Signs: Vital Signs Temperature 98.0 F 10/26/16 06:00 Pulse Rate 80 10/26/16 06:00 Respiratory Rate 20 10/26/16 06:00 Blood Pressure 142/82 10/26/16 06:00 O2 Sat by Pulse Oximetry (%) 96 10/25/16 09:00 Constitutional: Yes: No Distress Eyes: Yes: WNL HENT: Yes: WNL Neck: Yes: WNL Cardiovascular: Yes: WNL Respiratory: Yes: WNL Gastrointestinal: Yes: WNL Renal/: Yes: WNL Musculoskeletal: Yes: WNL Extremities: Yes: WNL Edema: No Peripheral Pulses WNL: Yes Integumentary: Yes: WNL Wound/Incision: Yes: Clean/Dry Neurological: Yes: WNL ...Motor Strength: WNL Psychiatric: Yes: WNL Labs: CBC, BMP 10/25/16 05:30 Discharge Summary Reason For Visit: ACUTE RENAL FAILURE, NAUSEA AND VOMITING, DEHYDRAT Current Active Problems Elevated liver enzymes (Acute) Hematuria (Acute) IDDM (insulin dependent diabetes mellitus) (Acute) Nausea and vomiting (Acute) Procedures: Principal: LABS/SONO Hospital Course: ADMITTED FOR HYPERGLYCEMIA/DKA HYPEROSMOLAR WITH DEHYDRATION, IVF GIVEN, INSULIN , ENDO WORKUP AND GI EVAL, F/U OUTPATIENT AFTER IMPROVEMENT Condition: Fair - Instructions Diet, Activity, Other Instructions: SEE DR HYATT 1 WEEK AND PMD ADA Referrals: Leandro Jennings MD [Primary Care Provider] - Disposition: HOME - Home Medications Comprehensive Discharge Medication List: Ambulatory Orders Insulin Degludec [Tresiba Flextouch U-100] 45 unit SQ DAILY 10/23/16 Insulin Sliding Scale [Novolog Vial Sliding Scale -] See Protocol SQ TID Acetaminophen [Tylenol .Regular Strength -] 650 mg PO Q6H PRN #0 tablet Insulin (Levemir) [Levemir Vial] 17 units SQ BIDAC ml 10/26/16 Insulin (Levemir) [Levemir Vial] 20 units SQ BIDAC ml 10/26/16 Insulin Sliding Scale [Novolog Vial Sliding Scale -] 1 vial SQ ACHS units 10/26 Insulin Sliding Scale [Novolog Vial Sliding Scale -] 1 vial SQ ACHS units 10/26 Metoclopramide HCl [Reglan] 5 mg PO TID PRN #60 tablet 10/26/16
[2016-10-26 08:28] LABS: ANION GAP 10 (8-16); CALCIUM 8.5 mg/dL (8.5-10.1); CO2 30 mmol/L (21-32); CREATININE 0.7 mg/dL (0.7-1.3); GLUCOSE,RANDOM 112 mg/dL (74-106); MAGNESIUM 2.2 mg/dL (1.8-2.4)
[2016-10-26] MEDS ORDERED: POTASSIUM CHLORIDE TABS 20 MEQ TABLET.ER (FP) PO ONE (10:00)
[2016-10-26 11:28] VITALS: BP 128/78; TEMP 98.3
--- NOTE | 2016-10-26 13:57 | EKG ---
Test Reason : Blood Pressure : / mmHG Vent. Rate : 118 BPM Atrial Rate : 118 BPM P-R Int : 146 ms QRS Dur : 088 ms QT Int : 288 ms P-R-T Axes : 082 078 063 degrees QTc Int : 403 ms SINUS TACHYCARDIA POSSIBLE ACUTE PERICARDITIS VS. EARLY REPOLARIZATION CHANGES ABNORMAL ECG WHEN COMPARED WITH ECG OF 06-OCT-2016 18:10, VENT. RATE HAS INCREASED BY 41 BPM Confirmed by NICKO ARREGUIN MD ([id number]) on 10/26/2016 1:57:07 PM Referred By: Confirmed By:NICKO ARREGUIN MD
== END 2016-10-26 11:20 | disposition home or self-care (01) | DRG 420 ==
LOC: JER 17:05 → JERBED 23:11 → J5S 23:58
PROVIDERS: ADMIT Family Medicine; ATTEND Family Medicine
DX: E10.10 Type 1 diabetes mellitus with ketoacidosis without coma (principal); Z79.4 Long term (current) use of insulin; E86.0 Dehydration; K21.9 Gastro-esophageal reflux disease without esophagitis; F32.9 Major depressive disorder, single episode, unspecified; R00.0 Tachycardia, unspecified; R06.6 Hiccough; R31.9 Hematuria, unspecified; R10.84 Generalized abdominal pain; F12.90 Cannabis use, unspecified, uncomplicated; E10.43 Type 1 diabetes mellitus with diabetic autonomic (poly)neuropathy; K31.84 Gastroparesis
CPT/HCPCS: 36415; 71010-TC; 76705-TC; 80048; 80053; 80307; 81003; 81015; 82009; 82550; 82803; 83605; 83690; 83735; 84484; 85025; 85027; 85610; 87040; 93005; 93010; 99285-25; J0475

== ENCOUNTER 2018-06-01 17:08 | Inpatient (IN) | payer MEDICARE, OTHER ==
[2018-06-01] MEDS ORDERED: SODIUM CHLORIDE 1,000 ML IV STA ×2 (17:34→19:29)
--- NOTE | 2018-06-01 17:37 | PDOC ---
Rapid Medical Evaluation Time Seen by Provider: 06/01/18 17:33 Medical Evaluation: Allergies Allergy/AdvReac Type Severity Reaction Status Date / Time No Known Allergies Allergy Verified 10/23/16 17:17 06/01/18 17:33 I have performed a brief in-person evaluation of this patient. The patient presents with a chief complaint of:vomiting since last night IDDM c/ o "diabetic complications" Abdominal pain Pertinent physical exam findings:NAD I have ordered the following:Cardiac work up finger stick EKG The patient will proceed to the ED for further evaluation. Discharge Disposition - Diagnosis Nausea and vomiting - Referrals - Patient Instructions - Post Discharge Activity
[2018-06-01 18:01] LABS: BASO % 0.5 % (0-2.0); HEMATOCRIT 46.9 % (35.4-49); HEMOGLOBIN 15.9 GM/dL (11.7-16.9); LYMPH % 3.8 % (8-40); MCH 32.3 pg (25.7-33.7); MEAN CELL VOLUME 95.1 fl (80-96); MEAN PLT VOLUME 7.8 fl (7.5-11.1); MONO % 2.3 % (3.8-10.2); NEUT % 93.4 % (42.8-82.8); PLATELET COUNT 305 K/MM3 (134-434); RBC 4.94 M/mm3 (4.00-5.60); RDW 12.9 % (11.9-15.9); WHITE BLOOD COUNT 23.2 K/mm3 (4.0-10.0)
[2018-06-01 18:13] LABS: INR 1.06 (0.83-1.09); PROTHROMBIN TIME (PATIENT) 12.5 SEC (9.7-13.0)
[2018-06-01 18:16] LABS: ACTIVATED PTT 23.9 SECONDS (25.2-36.5)
[2018-06-01 18:37] LABS: ALK PHOS 90 U/L (45-117); ANION GAP 21 MMOL/L (8-16); BILIRUBIN,TOTAL 1.6 mg/dL (0.2-1); BLOOD UREA NITROGEN 21 mg/dL (7-18); CALCIUM 10.2 mg/dL (8.5-10.1); CHLORIDE 96 mmol/L (98-107); CO2 20 mmol/L (21-32); CREATININE 1.3 mg/dL (0.55-1.3); GLUCOSE,RANDOM 266 mg/dL (74-106); SGPT/ALT 57 U/L (13-61); SODIUM 137 mmol/L (136-145)
[2018-06-01 18:38] LABS: POTASSIUM 4.9 mmol/L (3.5-5.1); SGOT/AST 53 U/L (15-37)
[2018-06-01] MEDS ORDERED: ONDANSETRON 4 MG/2 ML VIAL IVPUSH ONE (19:30)
--- NOTE | 2018-06-01 19:31 | PDOC ---
History of Present Illness - General Chief Complaint: Nausea/Vomiting Stated Complaint: VOMITING/DIARRHEA/R/O DKA Time Seen by Provider: 06/01/18 17:33 History Source: Patient - History of Present Illness Initial Comments: 06/01/18 19:39 27 year old male c/o generalized abdominal pain, nausea and vomiting since last night AFTER EATING FAST FOOD. last vomiting 40 minutes bilious in nature prior to exam.denies chest pain, dizziness,urinary symptoms. + fever tmax 101 at home. History of IDDM Dr. Jennings Past History - Past Medical History Allergies/Adverse Reactions: Allergies Allergy/AdvReac Type Severity Reaction Status Date / Time No Known Allergies Allergy Verified 06/01/18 17:36 Home Medications: Ambulatory Orders Insulin Degludec [Tresiba Flextouch U-100] 45 unit SQ DAILY 10/23/16 Acetaminophen [Tylenol .Regular Strength -] 650 mg PO Q6H PRN #0 tablet Insulin (Levemir) [Levemir Vial] 17 units SQ BIDAC ml 10/26/16 Insulin Sliding Scale [Novolog Vial Sliding Scale -] 1 vial SQ ACHS units 10/26 Metoclopramide HCl [Reglan] 5 mg PO TID PRN #60 tablet 10/26/16 Anemia: No Asthma: No Cancer: No Cardiac Disorders: No CVA: No COPD: No CHF: No Dementia: No Diabetes: Yes (type 1; HAS BEEN IN DKA) GI Disorders: No Disorders: No HTN: No Hypercholesterolemia: No Liver Disease: No Seizures: No Thyroid Disease: No - Surgical History Abdominal Surgery: No Appendectomy: No Cardiac Surgery: No Cholecystectomy: No Lung Surgery: No Neurologic Surgery: No Orthopedic Surgery: No - Immunization History Immunization Up to Date: Yes - Suicide/Smoking/Psychosocial Hx Smoking Status: No Smoking History: Never smoked Have you smoked in the past 12 months: No Number of Cigarettes Smoked Daily: 0 Information on smoking cessation initiated: No Hx Alcohol Use: No Drug/Substance Use Hx: No Substance Use Type: None Hx Substance Use Treatment: No Review of Systems - Review of Systems Able to Perform ROS?: Yes Is the patient limited Kazakh proficient: No Constitutional: No: Symptoms Reported, See HPI, Chills, Diaphoresis, Fever, Loss of Appetite, Malaise, Night Sweats, Weakness, Weight Stable, Unintentional Wgt. Loss, Unexplained wgt Loss, Other *Physical Exam - Vital Signs Last Vital Signs Temp Pulse Resp BP Pulse Ox 98.9 F 99 H 19 131/82 100 06/01/18 17:34 06/01/18 17:34 06/01/18 17:34 06/01/18 17:34 06/01/18 17:34 - Physical Exam General Appearance: Yes: Appropriately Dressed Respiratory/Chest: positive: Normal Breath Sounds Cardiovascular: positive: Tachycardia Gastrointestinal/Abdominal: positive: Normal Bowel Sounds, Soft Musculoskeletal: positive: Normal Inspection Extremity: positive: Other (dry mucosa) Integumentary: positive: Normal Color, Dry, Warm Neurologic: positive: Fully Oriented, Alert, Normal Mood/Affect Moderate Sedation - Procedure Monitoring Vital Signs: Procedure Monitoring Vital Signs Temperature 98.9 F 06/01/18 17:34 Pulse Rate 99 H 06/01/18 17:34 Respiratory Rate 06/01/18 17:34 Blood Pressure 131/82 06/01/18 17:34 O2 Sat by Pulse Oximetry (%) 100 06/01/18 17:34 ED Treatment Course - LABORATORY CBC & Chemistry Diagram: 06/01/18 17:57 06/01/18 17:57 - ADDITIONAL ORDERS Additional order review: Laboratory Results 06/01/18 06/01/18 17:57 17:57 PT with INR 12.50 INR 1.06 PTT (Actin FS) 23.9 L Sodium 137 Potassium 4.9 Chloride 96 L Carbon Dioxide 20 L Anion Gap 21 H BUN 21 H Creatinine 1.3 Creat Clearance w eGFR > 60 Random Glucose 266 H Calcium 10.2 H Total Bilirubin 1.6 H AST 53 H ALT 57 Alkaline Phosphatase 90 Creatine Kinase 190 Creatine Kinase Index 0.5 CK-MB (CK-2) < 1.0 Troponin I < 0.02 Total Protein 9.0 H Albumin 5.0 06/01/18 17:57 RBC 4.94 MCV 95.1 MCHC 34.0 RDW 12.9 MPV 7.8 Neutrophils % 93.4 H Lymphocytes % 3.8 L D Monocytes % 2.3 L Eosinophils % 0.0 D Basophils % 0.5 Progress Note - Progress Note Progress Note: A: DKA; vs sepsis; abdominal pain P: labs blood culture lactic acid acetone IVF admit Medical Decision Making - Medical Decision Making 06/01/18 23:24 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
--- NOTE | 2018-06-01 19:32 | PDOC ---
*Physical Exam - Vital Signs Last Vital Signs Temp Pulse Resp BP Pulse Ox 98.9 F 99 H 19 131/82 100 06/01/18 17:34 06/01/18 17:34 06/01/18 17:34 06/01/18 17:34 06/01/18 17:34 ED Treatment Course - LABORATORY CBC & Chemistry Diagram: 06/01/18 17:57 06/01/18 17:57 - ADDITIONAL ORDERS Additional order review: Laboratory Results 06/01/18 06/01/18 17:57 17:57 PT with INR 12.50 INR 1.06 PTT (Actin FS) 23.9 L Sodium 137 Potassium 4.9 Chloride 96 L Carbon Dioxide 20 L Anion Gap 21 H BUN 21 H Creatinine 1.3 Creat Clearance w eGFR > 60 Random Glucose 266 H Calcium 10.2 H Total Bilirubin 1.6 H AST 53 H ALT 57 Alkaline Phosphatase 90 Creatine Kinase 190 Creatine Kinase Index 0.5 CK-MB (CK-2) < 1.0 Troponin I < 0.02 Total Protein 9.0 H Albumin 5.0 06/01/18 17:57 RBC 4.94 MCV 95.1 MCHC 34.0 RDW 12.9 MPV 7.8 Neutrophils % 93.4 H Lymphocytes % 3.8 L D Monocytes % 2.3 L Eosinophils % 0.0 D Basophils % 0.5 Medical Decision Making - Critical Care Time Total Critical Care Time (minutes): 45 Critical Care Statement: The care of this patient involved high complexity decision making to prevent further life threatening deterioration of the patient 's condition and/or to evaluate & treat vital organ system(s) failure or risk of failure. - Medical Decision Making 06/01/18 19:31 Patient seen by the advanced practice provider under my direct supervision. Ancillary testing reviewed as necessary. I agree with plan as outlined by the advanced practice provider. *DC/Admit/Observation/Transfer Diagnosis at time of Disposition: IDDM (insulin dependent diabetes mellitus) Nausea and vomiting Qualifiers: Vomiting type: bilious vomiting Qualified Code(s): R11.14 - Bilious vomiting DKA (diabetic ketoacidoses) Qualifiers: Diabetes mellitus type: type 1 Diabetes mellitus complication detail: without coma Qualified Code(s): E10.10 - Type 1 diabetes mellitus with ketoacidosis without coma - Referrals Referrals: Leandro Jennings MD [Primary Care Provider] - - Patient Instructions - Post Discharge Activity
[2018-06-01] MEDS ORDERED: ONDANSETRON 4 MG/2 ML VIAL ONE (19:35)
[2018-06-01 20:15] LABS: VENOUS PC02 45.8 mmHg (38-52); VENOUS PH 7.26 (7.32-7.42); VENOUS PO2 21.1 mmHg (28-48)
[2018-06-01] MEDS ORDERED: SODIUM CHLORIDE 1,000 ML IV SCH (21:15)
[2018-06-01] MEDS ORDERED: INSULIN REGULAR 100 UNITS in SODIUM CHLORIDE 99 ML IVPB SCH (21:30)
[2018-06-01] MEDS ORDERED: DEXTROSE 5%-0.2% SALINE - 1,000 ML IV SCH (21:30)
[2018-06-01 21:39] LABS: PLATELET ESTIMATE ADEQUATE
[2018-06-01] MEDS ORDERED: INSULIN REGULAR HUMAN 100 UNITS/ML *VIAL ONE (22:41)
[2018-06-01] MEDS ORDERED: PIPERACILLIN/TAZOB 3.375 GM 3.375 GM in DEXTROSE 5%-WATER - 50 ML IVPB ONE (23:21)
[2018-06-01 23:58] LABS: ANION GAP 13 MMOL/L (8-16); BLOOD UREA NITROGEN 20 mg/dL (7-18); CALCIUM 8.9 mg/dL (8.5-10.1); CHLORIDE 104 mmol/L (98-107); CO2 21 mmol/L (21-32); CREATININE 1.1 mg/dL (0.55-1.3); GLUCOSE,RANDOM 175 mg/dL (74-106); POTASSIUM 4.8 mmol/L (3.5-5.1); SODIUM 138 mmol/L (136-145)
--- NOTE | 2018-06-01 23:59 | HP ---
CHIEF COMPLAINT:abdominal pain, nausea, vomiting and fever of 101 after eating [place] food last night PCP:Dr. Jennings HISTORY OF PRESENT ILLNESS: 27 year old male with history of diabetes mellitus since the age of 12 who presents today with symptoms of generalized abdominal pain, nausea and bilious vomiting since last night after eating [place] food .He reported a fever of [address] scan of abdomen without contrast demonstrated no acute findings. He was found to be in DKA(anion gap 21). He was initiated on IV fluids and insulin drip. Laboratory findings notable for WBC 23.2, abnormal differential, and lactic acid of 2.9.He is currently afebrile and reports feeling much better. He received one dosage of IV zosyn and flagyl in the ER. He denies any symptoms of chest pain or shortness of breath. He is being admitted to the ICU on insulin gtt and for further sepsis workup. Recent Travel:Denies PAST MEDICAL HISTORY: IDDM since age 12 PAST SURGICAL HISTORY:Denies Social History: Smoking:denies Alcohol:denies Drugs: denies Family History: noncontributory Allergies No Known Allergies Allergy (Verified 06/01/18 17:36) HOME MEDICATIONS: Home Medications Medication Instructions Recorded Insulin Degludec [Tresiba 45 unit SQ DAILY 10/23/16 Flextouch U-100] Acetaminophen [Tylenol .Regular 650 mg PO Q6H PRN #0 tablet 10/26/16 Strength -] Insulin (Levemir) [Levemir Vial] 17 units SQ BIDAC ml 10/26/16 Insulin Sliding Scale [Novolog 1 vial SQ ACHS units 10/26/16 Vial Sliding Scale -] Metoclopramide HCl [Reglan] 5 mg PO TID PRN #60 tablet 10/26/16 REVIEW OF SYSTEMS CONSTITUTIONAL: Absent: fever, chills, diaphoresis, generalized weakness, malaise, loss of appetite, weight change HEENT: Absent: rhinorrhea, nasal congestion, throat pain, throat swelling, difficulty swallowing, mouth swelling, ear pain, eye pain, visual changes CARDIOVASCULAR: Absent: chest pain, syncope, palpitations, irregular heart rate, lightheadedness , peripheral edema RESPIRATORY: Absent: cough, shortness of breath, dyspnea with exertion, orthopnea, wheezing, stridor, hemoptysis GASTROINTESTINAL: Absent: abdominal pain, abdominal distension, nausea, vomiting, diarrhea, constipation, melena, hematochezia GENITOURINARY: Absent: dysuria, frequency, urgency, hesitancy, hematuria, flank pain, genital pain MUSCULOSKELETAL: Absent: myalgia, arthralgia, joint swelling, back pain, neck pain SKIN: Absent: rash, itching, pallor HEMATOLOGIC/IMMUNOLOGIC: Absent: easy bleeding, easy bruising, lymphadenopathy, frequent infections ENDOCRINE: Absent: unexplained weight gain, unexplained weight loss, heat intolerance, cold intolerance NEUROLOGIC: Absent: headache, focal weakness or paresthesias, dizziness, unsteady gait, seizure, mental status changes, bladder or bowel incontinence PSYCHIATRIC: Absent: anxiety, depression, suicidal or homicidal ideation, hallucinations. PHYSICAL EXAMINATION Vital Signs - 24 hr 06/01/18 06/01/18 06/01/18 17:34 20:31 21:08 Temperature 98.9 F 99.5 F Pulse Rate 99 H Pulse Rate [ 91 H Right Radial] Respiratory 19 18 Rate Blood Pressure 131/82 Blood Pressure 130/70 [Left Arm] O2 Sat by Pulse 100 100 98 Oximetry (%) GENERAL: awake, alert, and fully oriented, no acute distress HEAD: normal with no signs of trauma EYES: Pupils equal, round and reactive to light, extraocular movements intact EARS, NOSE, THROAT: ears normal, nares patent, oropharynx clear without exudates NECK: Normal range of motion, supple without lymphadenopathy, JVD, or masses. LUNGS: breath sounds equal, clear to auscultation bilaterally. No wheezes, and no crackles. No accessory muscle use. HEART: regular rate and rhythm, normal S1 and S2 without murmur MUSCULOSKELETAL: normal range of motion at all joints. UPPER EXTREMITIES: 2+ pulses, warm, well-perfused. No cyanosis. no clubbing. No peripheral edema. LOWER EXTREMITIES: 2+ pulses, warm, well-perfused. No calf tenderness. no peripheral edema. NEUROLOGICAL: normal speech. PSYCHIATRIC: cooperative. Good eye contact. Appropriate mood and affect. SKIN: warm, dry, normal turgor, no rashes or lesions noted, normal capillary refill. Laboratory Results - last 24 hr 06/01/18 06/01/18 06/01/18 17:57 17:57 17:57 WBC 23.2 H RBC 4.94 Hgb 15.9 Hct 46.9 D MCV 95.1 MCH 32.3 MCHC 34.0 RDW 12.9 Plt Count 305 D MPV 7.8 Absolute Neuts (auto) 21.7 H Neutrophils % 93.4 H Neutrophils % (Manual) 90.0 H Band Neutrophils % 1.0 Lymphocytes % 3.8 L D Lymphocytes % (Manual) 6.0 L Monocytes % 2.3 L Monocytes % (Manual) 3 L Eosinophils % 0.0 D Eosinophils % (Manual) 0.0 Basophils % 0.5 Basophils % (Manual) 0.0 Nucleated RBC % 0 Platelet Estimate Adequate PT with INR 12.50 INR 1.06 PTT (Actin FS) 23.9 L VBG pH POC VBG pCO2 POC VBG pO2 Mixed VBG HCO3 Sodium 137 Potassium 4.9 Chloride 96 L Carbon Dioxide 20 L Anion Gap 21 H BUN 21 H Creatinine 1.3 Creat Clearance w eGFR > 60 POC Glucometer Random Glucose 266 H Lactic Acid Calcium 10.2 H Total Bilirubin 1.6 H AST 53 H ALT 57 Alkaline Phosphatase 90 Creatine Kinase 190 Creatine Kinase Index 0.5 CK-MB (CK-2) < 1.0 Troponin I < 0.02 Total Protein 9.0 H Albumin 5.0 Acetone, Qual 06/01/18 06/01/18 06/01/18 19:54 19:54 19:54 WBC RBC Hgb Hct MCV MCH MCHC RDW Plt Count MPV Absolute Neuts (auto) Neutrophils % Neutrophils % (Manual) Band Neutrophils % Lymphocytes % Lymphocytes % (Manual) Monocytes % Monocytes % (Manual) Eosinophils % Eosinophils % (Manual) Basophils % Basophils % (Manual) Nucleated RBC % Platelet Estimate PT with INR INR PTT (Actin FS) VBG pH 7.26 L D POC VBG pCO2 45.8 D POC VBG pO2 21.1 L Mixed VBG HCO3 20.0 Sodium Potassium Chloride Carbon Dioxide Anion Gap BUN Creatinine Creat Clearance w eGFR POC Glucometer Random Glucose Lactic Acid 2.9 H* Calcium Total Bilirubin AST ALT Alkaline Phosphatase Creatine Kinase Creatine Kinase Index CK-MB (CK-2) Troponin I Total Protein Albumin Acetone, Qual Positive moderate 2+ 06/01/18 21:18 WBC RBC Hgb Hct MCV MCH MCHC RDW Plt Count MPV Absolute Neuts (auto) Neutrophils % Neutrophils % (Manual) Band Neutrophils % Lymphocytes % Lymphocytes % (Manual) Monocytes % Monocytes % (Manual) Eosinophils % Eosinophils % (Manual) Basophils % Basophils % (Manual) Nucleated RBC % Platelet Estimate PT with INR INR PTT (Actin FS) VBG pH POC VBG pCO2 POC VBG pO2 Mixed VBG HCO3 Sodium Potassium Chloride Carbon Dioxide Anion Gap BUN Creatinine Creat Clearance w eGFR POC Glucometer 180 Random Glucose Lactic Acid Calcium Total Bilirubin AST ALT Alkaline Phosphatase Creatine Kinase Creatine Kinase Index CK-MB (CK-2) Troponin I Total Protein Albumin Acetone, Qual ASSESSMENT/PLAN: 27 year old male with history of diabetes mellitus who presents with symptoms of generalized abdominal pain, nausea and bilious vomiting since and fever of 101 last night after eating moroccan food.He was found to have diabetic ketoacidosis and leukocytosis with abnormal differential and elevated lactic acid. He received one dosage of IV zosyn and flagyl. He is being admitted to the ICU for further diabetes management, on insulin drip and sepsis workup. Abdominal Pain/ Leukocytosis Currently reports symptoms have improved. He is currently afebrile. CT scan of abdomen without contrast showed no acute findings. Leukocytosis present with abnormal differntial and lactic acid elevated. Consider obtaining a CT scan of abdomen with IV contrast to exclude acute infectious process. Infectious Disease (Dr. Hawley) consulted. Will defer further management to [facility]. DKA Accucheks [id number]. Continue with insulin gtt and adjust rate with blood glucose.IV fluids infusing. Check hemoglobin a1c. Consider Endocrinology consult. Will defer further management to [facility]. Leukocytosis/?Sepsis In ER received one dosage of IV zosyn and flagyl. No evidence of hypotension, currently afebrile. Check UA/culture. Will defer further management as per [facility]. FEN Advanced to clear liquid diet, continue IV fluids, monitor electrolytes closely DVT Prophylaxis Low risk Visit type - Emergency Visit Emergency Visit: Yes ED Registration Date: 06/01/18 Care time: The patient presented to the Emergency Department on the above date and was hospitalized for further evaluation of their emergent condition. - New Patient This patient is new to me today: Yes Date on this admission: 06/02/18 - Critical Care Critical Care patient: Yes Total Critical Care Time (in minutes): 25
[2018-06-02 01:32] LABS: URINE APPEARANCE CLEAR; URINE BILIRUBIN NEGATIVE (<2.0 mg/dL); URINE COLOR LTYELLOW; URINE GLUCOSE (UA) 3+ (NEGATIVE); URINE KETONE 2+ (NEGATIVE); URINE LEUK ESTERASE NEGATIVE (NEGATIVE); URINE NITRITE NEGATIVE (NEGATIVE); URINE PROTEIN 2+ (NEGATIVE); URINE UROBILINOGEN NEGATIVE mg/dL (0.2-1.0)
[2018-06-02 01:34] LABS: URINE MUCUS RARE
[2018-06-02 02:54] VITALS: BMI 21.6
--- NOTE | 2018-06-02 03:44 | CONSULT ---
Consultation: REQUESTING PROVIDER: CONSULT REQUEST: We have been asked to medically evaluate this patient for DKA and admission to ICU. HISTORY OF PRESENT ILLNESS: 27 yo M with PMHx of IDDM who presents with one day history of generalized abdominal pain, nausea and bilious vomiting. He states that symptoms started after eating [place] one day prior. He endorses a 101 fever measured at home. Initial labs consistent with DKA - pH 7.26, BG 266, AG 21, + Ketones and Bicarb 20. CT scan of abdomen without contrast was negative for any acute abdominal pathology. He was initiated on IV fluids and insulin drip. Laboratory findings notable for WBC 23.2 and lactic acid of 2.9. He is currently afebrile and reports feeling much better. He received one dosage of IV zosyn and flagyl in the ER. At this time he denies CP , [place], SOB, abdominal pain, nausea or vomiting. Recent Travel:Denies PAST MEDICAL HISTORY: IDDM since age 12 PAST SURGICAL HISTORY:Denies Social History: Smoking:denies Alcohol:denies Drugs: denies Family History: Maternal/Paternal grandmothers both with IDDM Allergies No Known Allergies Allergy (Verified 06/01/18 17:36) REVIEW OF SYSTEMS: CONSTITUTIONAL: fever, Absent: chills, diaphoresis, generalized weakness, malaise, loss of appetite, weight change HEENT: Absent: rhinorrhea, nasal congestion, throat pain, throat swelling, difficulty swallowing, mouth swelling, ear pain, eye pain, visual changes CARDIOVASCULAR: Absent: chest pain, syncope, palpitations, irregular heart rate, lightheadedness , peripheral edema RESPIRATORY: Absent: cough, shortness of breath, dyspnea with exertion, orthopnea, wheezing, stridor, hemoptysis GASTROINTESTINAL:abdominal pain,vomiting Absent: , abdominal distension, nausea, diarrhea, constipation, melena, hematochezia GENITOURINARY: Absent: dysuria, frequency, urgency, hesitancy, hematuria, flank pain, genital pain MUSCULOSKELETAL: Absent: myalgia, arthralgia, joint swelling, back pain, neck pain SKIN: Absent: rash, itching, pallor HEMATOLOGIC/IMMUNOLOGIC: Absent: easy bleeding, easy bruising, lymphadenopathy, frequent infections ENDOCRINE: Absent: unexplained weight gain, unexplained weight loss, heat intolerance, cold intolerance NEUROLOGIC: Absent: headache, focal weakness or paresthesias, dizziness, unsteady gait, seizure, mental status changes, bladder or bowel incontinence PSYCHIATRIC: Absent: anxiety, depression, suicidal or homicidal ideation, hallucinations. PHYSICAL EXAMINATION Vital Signs - 24 hr 06/01/18 06/01/18 06/01/18 17:34 20:31 21:08 Temperature 98.9 F 99.5 F Pulse Rate 99 H Pulse Rate [ 91 H Right Radial] Respiratory 19 18 Rate Blood Pressure 131/82 Blood Pressure 130/70 [Left Arm] O2 Sat by Pulse 100 100 98 Oximetry (%) 06/02/18 06/02/18 01:46 02:46 Temperature 98.2 F 98.5 F Pulse Rate 93 H Pulse Rate [ 84 Right Radial] Respiratory 18 15 Rate Blood Pressure 132/75 Blood Pressure 120/55 L [Left Arm] O2 Sat by Pulse 100 98 Oximetry (%) GENERAL: AAOx3, NAD HEAD: NCAT EYES:PERRLA, EOMI, sclera anicteric, conjunctiva clear. No lid lag. EARS, NOSE, THROAT:Dry mucous membranes. NECK: supple without lymphadenopathy, JVD, or masses. LUNGS: CTAB. No wheezes, and no crackles. No accessory muscle use. HEART: RRR, normal S1 and S2 without murmur, rub or gallop. ABDOMEN: Soft, mild generalized tenderness, not distended,NABS, no guarding, no rebound, no masses. No hepatomegaly or splenomegaly. MUSCULOSKELETAL: Normal range of motion at all joints. No bony deformities or tenderness. No CVA tenderness. LOWER EXTREMITIES: 2+ pulses, warm, well-perfused. No calf tenderness. No peripheral edema. NEUROLOGICAL: Cranial nerves II-XII intact. Normal speech. gait not observed. PSYCHIATRIC: Cooperative. Good eye contact. Appropriate mood and affect. SKIN: Warm, dry, normal turgor, no rashes or lesions noted. Laboratory Results - last 24 hr 06/01/18 06/01/18 06/01/18 17:57 17:57 17:57 WBC 23.2 H RBC 4.94 Hgb 15.9 Hct 46.9 D MCV 95.1 MCH 32.3 MCHC 34.0 RDW 12.9 Plt Count 305 D MPV 7.8 Absolute Neuts (auto) 21.7 H Neutrophils % 93.4 H Neutrophils % (Manual) 90.0 H Band Neutrophils % 1.0 Lymphocytes % 3.8 L D Lymphocytes % (Manual) 6.0 L Monocytes % 2.3 L Monocytes % (Manual) 3 L Eosinophils % 0.0 D Eosinophils % (Manual) 0.0 Basophils % 0.5 Basophils % (Manual) 0.0 Nucleated RBC % 0 Platelet Estimate Adequate PT with INR 12.50 INR 1.06 PTT (Actin FS) 23.9 L VBG pH POC VBG pCO2 POC VBG pO2 Mixed VBG HCO3 Sodium 137 Potassium 4.9 Chloride 96 L Carbon Dioxide 20 L Anion Gap 21 H BUN 21 H Creatinine 1.3 Creat Clearance w eGFR > 60 POC Glucometer Random Glucose 266 H Lactic Acid Calcium 10.2 H Total Bilirubin 1.6 H AST 53 H ALT 57 Alkaline Phosphatase 90 Creatine Kinase 190 Creatine Kinase Index 0.5 CK-MB (CK-2) < 1.0 Troponin I < 0.02 Total Protein 9.0 H Albumin 5.0 Urine Color Urine Appearance Urine pH Ur Specific [place] Urine Protein Urine Glucose (UA) Urine Ketones Urine Blood Urine Nitrite Urine Bilirubin Urine Urobilinogen Ur Leukocyte Esterase Urine WBC (Auto) Urine RBC (Auto) Urine Mucus Acetone, Qual 06/01/18 06/01/18 06/01/18 19:54 19:54 19:54 WBC RBC Hgb Hct MCV MCH MCHC RDW Plt Count MPV Absolute Neuts (auto) Neutrophils % Neutrophils % (Manual) Band Neutrophils % Lymphocytes % Lymphocytes % (Manual) Monocytes % Monocytes % (Manual) Eosinophils % Eosinophils % (Manual) Basophils % Basophils % (Manual) Nucleated RBC % Platelet Estimate PT with INR INR PTT (Actin FS) VBG pH 7.26 L D POC VBG pCO2 45.8 D POC VBG pO2 21.1 L Mixed VBG HCO3 20.0 Sodium Potassium Chloride Carbon Dioxide Anion Gap BUN Creatinine Creat Clearance w eGFR POC Glucometer Random Glucose Lactic Acid 2.9 H* Calcium Total Bilirubin AST ALT Alkaline Phosphatase Creatine Kinase Creatine Kinase Index CK-MB (CK-2) Troponin I Total Protein Albumin Urine Color Urine Appearance Urine pH Ur Specific [place] Urine Protein Urine Glucose (UA) Urine Ketones Urine Blood Urine Nitrite Urine Bilirubin Urine Urobilinogen Ur Leukocyte Esterase Urine WBC (Auto) Urine RBC (Auto) Urine Mucus Acetone, Qual Positive moderate 2+ 06/01/18 06/01/18 06/01/18 21:18 23:26 23:28 WBC RBC Hgb Hct MCV MCH MCHC RDW Plt Count MPV Absolute Neuts (auto) Neutrophils % Neutrophils % (Manual) Band Neutrophils % Lymphocytes % Lymphocytes % (Manual) Monocytes % Monocytes % (Manual) Eosinophils % Eosinophils % (Manual) Basophils % Basophils % (Manual) Nucleated RBC % Platelet Estimate PT with INR INR PTT (Actin FS) VBG pH POC VBG pCO2 POC VBG pO2 Mixed VBG HCO3 Sodium 138 Potassium 4.8 Chloride 104 Carbon Dioxide 21 Anion Gap 13 BUN 20 H Creatinine 1.1 Creat Clearance w eGFR > 60 POC Glucometer 180 Random Glucose 175 H Lactic Acid 1.6 Calcium 8.9 Total Bilirubin AST ALT Alkaline Phosphatase Creatine Kinase Creatine Kinase Index CK-MB (CK-2) Troponin I Total Protein Albumin Urine Color Urine Appearance Urine pH Ur Specific [place] Urine Protein Urine Glucose (UA) Urine Ketones Urine Blood Urine Nitrite Urine Bilirubin Urine Urobilinogen Ur Leukocyte Esterase Urine WBC (Auto) Urine RBC (Auto) Urine Mucus Acetone, Qual 06/02/18 06/02/18 06/02/18 01:16 01:25 02:27 WBC RBC Hgb Hct MCV MCH MCHC RDW Plt Count MPV Absolute Neuts (auto) Neutrophils % Neutrophils % (Manual) Band Neutrophils % Lymphocytes % Lymphocytes % (Manual) Monocytes % Monocytes % (Manual) Eosinophils % Eosinophils % (Manual) Basophils % Basophils % (Manual) Nucleated RBC % Platelet Estimate PT with INR INR PTT (Actin FS) VBG pH POC VBG pCO2 POC VBG pO2 Mixed VBG HCO3 Sodium Potassium Chloride Carbon Dioxide Anion Gap BUN Creatinine Creat Clearance w eGFR POC Glucometer 105 57 Random Glucose Lactic Acid Calcium Total Bilirubin AST ALT Alkaline Phosphatase Creatine Kinase Creatine Kinase Index CK-MB (CK-2) Troponin I Total Protein Albumin Urine Color L[place] Urine Appearance Clear Urine pH 5.0 Ur Specific [place] 1.028 Urine Protein 2+ H Urine Glucose (UA) 3+ H Urine Ketones 2+ H Urine Blood Negative Urine Nitrite Negative Urine Bilirubin Negative Urine Urobilinogen Negative Ur Leukocyte Esterase Negative Urine WBC (Auto) 1 Urine RBC (Auto) <1 Urine Mucus Rare Acetone, Qual 06/02/18 03:06 WBC RBC Hgb Hct MCV MCH MCHC RDW Plt Count MPV Absolute Neuts (auto) Neutrophils % Neutrophils % (Manual) Band Neutrophils % Lymphocytes % Lymphocytes % (Manual) Monocytes % Monocytes % (Manual) Eosinophils % Eosinophils % (Manual) Basophils % Basophils % (Manual) Nucleated RBC % Platelet Estimate PT with INR INR PTT (Actin FS) VBG pH POC VBG pCO2 POC VBG pO2 Mixed VBG HCO3 Sodium Potassium Chloride Carbon Dioxide Anion Gap BUN Creatinine Creat Clearance w eGFR POC Glucometer 67 Random Glucose Lactic Acid Calcium Total Bilirubin AST ALT Alkaline Phosphatase Creatine Kinase Creatine Kinase Index CK-MB (CK-2) Troponin I Total Protein Albumin Urine Color Urine Appearance Urine pH Ur Specific [place] Urine Protein Urine Glucose (UA) Urine Ketones Urine Blood Urine Nitrite Urine Bilirubin Urine Urobilinogen Ur Leukocyte Esterase Urine WBC (Auto) Urine RBC (Auto) Urine Mucus Acetone, Qual Active Medications Generic Name Dose Route Start Last Admin Trade Name Freq PRN Reason Stop Dose Admin Chlorhexidine Gluconate 1 applic 06/02/18 22:00 Hibiclens For Decolonization - TP HS FABIAN Sodium Chloride 1,000 mls @ 100 mls/hr 06/01/18 17:34 06/01/18 18:20 Normal Saline - IV 06/02/18 03:33 100 mls/hr .Q10H STA Administration Dextrose/Sodium Chloride 1,000 mls @ 125 mls/hr 06/01/18 21:30 06/01/18 22:53 D5-1/4ns - IV 125 mls/hr ASDIR FABIAN Administration Insulin Human Regular 100 100 mls @ 6.8 mls/hr 06/01/18 21:30 06/01/18 22:54 units/ Sodium Chloride IVPB 0.1 units/kg/hr TITR FABIAN 6.8 mls/hr Administration Protocol 0.1 UNITS/KG/HR Mupirocin 1 applic 06/02/18 10:00 Bactroban Ointment (For Decolonization) - NS 06/07/18 09:59 BID FABIAN ASSESSMENT/PLAN: 27 yo M with PMHx of IDDM who presents with one day history of generalized abdominal pain, nausea and bilious vomiting admitted to ICU for further management of DKA. NEURO: * awake and alert. * no active problems * Will monitor for change in mental status. CV: * No acitve issues. * Monitor BP PULM: * supplemental O2 PRN * Maintain Spo2>90% ENDO: * DKA * Given bolus of regular insulin and started on insulin drip in ER. * NS @ 125 ml.hr. * Will monitor BMP Q4H and FSG Q1H * monitor K and add to fluids once drops below 5.3 * Will switch fluids to D5 1/5NS once sugar reaches 200mg/dl * Once AG closes can transition to SQ short acting insulin; continue insulin drip for 1-2 hrs. * Once eating ISS ACHS and basal insulin. RENAL: * Will continue with D5 1/2NS @100 ml/hr * BMP Q4H ID: * Leukocytosis most likely reactive to acute stress. * UA and blood cultures sent. * Vanco/ Zosyn x1 in ER. * ID consulted. GI: * NPO until AG closes. * ADA diet once eating. * CT abdomen was negative for acute pathology * Zofran for nausea. FEN: * D5 1/2NS @ 100ml/hr * monitor e-lytes and replete PRN * NPO until AG closes. PPx: * Heparin 5000 units SQ TID Dispo: FULL CODE-We will continue to follow the patient in ICU. Thank you for this consultative opportunity. Visit type - Emergency Visit Emergency Visit: Yes ED Registration Date: 06/01/18 Care time: The patient presented to the Emergency Department on the above date and was hospitalized for further evaluation of their emergent condition. - New Patient This patient is new to me today: Yes Date on this admission: 06/02/18 - Critical Care Critical Care patient: Yes Total Critical Care Time (in minutes): 34 Critical Care Statement: The care of this patient involved high complexity decision making to prevent further life threatening deterioration of the patient 's condition and/or to evaluate & treat vital organ system(s) failure or risk of failure.
[2018-06-02 06:13] LABS: ANION GAP 11 MMOL/L (8-16); BLOOD UREA NITROGEN 20 mg/dL (7-18); CALCIUM 7.7 mg/dL (8.5-10.1); CHLORIDE 103 mmol/L (98-107); CO2 23 mmol/L (21-32); CREATININE 1.3 mg/dL (0.55-1.3); POTASSIUM 4.4 mmol/L (3.5-5.1); SODIUM 136 mmol/L (136-145)
[2018-06-02 06:15] LABS: GLUCOSE,RANDOM 335 mg/dL (74-106)
[2018-06-02 06:50] LABS: HEMATOCRIT 33.7 % (35.4-49); HEMOGLOBIN 11.6 GM/dL (11.7-16.9); MCH 32.5 pg (25.7-33.7); MCHC 34.5 g/dl (32.0-35.9); MEAN CELL VOLUME 94.3 fl (80-96); MEAN PLT VOLUME 7.8 fl (7.5-11.1); PLATELET COUNT 231 K/MM3 (134-434); RBC 3.57 M/mm3 (4.00-5.60); RDW 12.8 % (11.9-15.9); WHITE BLOOD COUNT 14.2 K/mm3 (4.0-10.0)
[2018-06-02] MEDS ORDERED: INSULIN (LEVEMIR) 100 UNITS/ML UNITS SQ ONE (07:52)
--- NOTE | 2018-06-02 09:14 | PN ---
Progress Note, Physician - Current Medication List Current Medications: Active Medications Insulin Aspart (Novolog Vial Sliding Scale -) 1 vial SQ ACHS [facility]; Protocol - Objective Vital Signs: Vital Signs Temperature 98.5 F 06/02/18 02:46 Pulse Rate 83 06/02/18 08:59 Respiratory Rate 18 06/02/18 08:59 Blood Pressure 119/76 06/02/18 08:59 O2 Sat by Pulse Oximetry (%) 98 06/02/18 02:46 Labs: CBC, BMP 06/02/18 05:15 06/02/18 05:15 INR, PTT INR 1.06 (0.83-1.09) 06/01/18 17:57
[2018-06-02] MEDS ORDERED: MUPIROCIN 2% TOPICAL OINTMENT FOR DECOLONIZATION NS SCH (10:00)
[2018-06-02 10:22] VITALS: TEMP 98.6
[2018-06-02] MEDS ORDERED: INSULIN SLIDING SCALE (NOVOLOG) 1 VIAL SQ SCH (11:00)
--- NOTE | 2018-06-02 11:09 | PN ---
Teaching Attending Note Name of Resident: Massimo Benoit ATTENDING PHYSICIAN STATEMENT I saw and evaluated the patient. I reviewed the resident's note and discussed the case with the resident. I agree with the resident's findings and plan as documented. SUBJECTIVE: Feels overall better. AG is closed. No GI symptoms. Blood glucose much improved. No CP or SOB. Intake & Output 05/30/18 05/31/18 06/01/18 06/02/18 23:59 23:59 23:59 23:59 Intake Total 557 Balance 557 Weight 150 lb 138 lb 0.15 oz Last Vital Signs Temp Pulse Resp BP Pulse Ox 98.6 F 84 18 126/67 98 06/02/18 10:00 06/02/18 10:00 06/02/18 10:00 06/02/18 10:00 06/02/18 09:00 Active Medications Insulin Aspart (Novolog Vial Sliding Scale -) 1 vial SQ [facility]; Protocol Last Admin: 06/02/18 11:02 Dose: 6 units GENERAL: AAOx3, NAD HEAD: NCAT EYES:PERRLA, EOMI, sclera anicteric, conjunctiva clear. No lid lag. EARS, NOSE, THROAT:Dry mucous membranes. NECK: supple without lymphadenopathy, JVD, or masses. LUNGS: CTAB. No wheezes, and no crackles. No accessory muscle use. HEART: RRR, normal S1 and S2 without murmur, rub or gallop. ABDOMEN: Soft, mild generalized tenderness, not distended,NABS, no guarding, no rebound, no masses. No hepatomegaly or splenomegaly. MUSCULOSKELETAL: Normal range of motion at all joints. No bony deformities or tenderness. No CVA tenderness. LOWER EXTREMITIES: 2+ pulses, warm, well-perfused. No calf tenderness. No peripheral edema. NEUROLOGICAL: Cranial nerves II-XII intact. Normal speech. gait not observed. PSYCHIATRIC: Cooperative. Good eye contact. Appropriate mood and affect. SKIN: Warm, dry, normal turgor, no rashes or lesions noted. Laboratory Results - last 24 hr 06/01/18 06/01/18 06/01/18 17:57 17:57 17:57 WBC 23.2 H RBC 4.94 Hgb 15.9 Hct 46.9 D MCV 95.1 MCH 32.3 MCHC 34.0 RDW 12.9 Plt Count 305 D MPV 7.8 Absolute Neuts (auto) 21.7 H Neutrophils % 93.4 H Neutrophils % (Manual) 90.0 H Band Neutrophils % 1.0 Lymphocytes % 3.8 L D Lymphocytes % (Manual) 6.0 L Monocytes % 2.3 L Monocytes % (Manual) 3 L Eosinophils % 0.0 D Eosinophils % (Manual) 0.0 Basophils % 0.5 Basophils % (Manual) 0.0 Nucleated RBC % 0 Platelet Estimate Adequate PT with INR 12.50 INR 1.06 PTT (Actin FS) 23.9 L VBG pH POC VBG pCO2 POC VBG pO2 Mixed VBG HCO3 Sodium 137 Potassium 4.9 Chloride 96 L Carbon Dioxide 20 L Anion Gap 21 H BUN 21 H Creatinine 1.3 Creat Clearance w eGFR > 60 POC Glucometer Random Glucose 266 H Hemoglobin A1c % Lactic Acid Calcium 10.2 H Total Bilirubin 1.6 H AST 53 H ALT 57 Alkaline Phosphatase 90 Creatine Kinase 190 Creatine Kinase Index 0.5 CK-MB (CK-2) < 1.0 Troponin I < 0.02 Total Protein 9.0 H Albumin 5.0 Urine Color Urine Appearance Urine pH Ur Specific [place] Urine Protein Urine Glucose (UA) Urine Ketones Urine Blood Urine Nitrite Urine Bilirubin Urine Urobilinogen Ur Leukocyte Esterase Urine WBC (Auto) Urine RBC (Auto) Urine Mucus Acetone, Qual 06/01/18 06/01/18 06/01/18 19:54 19:54 19:54 WBC RBC Hgb Hct MCV MCH MCHC RDW Plt Count MPV Absolute Neuts (auto) Neutrophils % Neutrophils % (Manual) Band Neutrophils % Lymphocytes % Lymphocytes % (Manual) Monocytes % Monocytes % (Manual) Eosinophils % Eosinophils % (Manual) Basophils % Basophils % (Manual) Nucleated RBC % Platelet Estimate PT with INR INR PTT (Actin FS) VBG pH 7.26 L D POC VBG pCO2 45.8 D POC VBG pO2 21.1 L Mixed VBG HCO3 20.0 Sodium Potassium Chloride Carbon Dioxide Anion Gap BUN Creatinine Creat Clearance w eGFR POC Glucometer Random Glucose Hemoglobin A1c % Lactic Acid 2.9 H* Calcium Total Bilirubin AST ALT Alkaline Phosphatase Creatine Kinase Creatine Kinase Index CK-MB (CK-2) Troponin I Total Protein Albumin Urine Color Urine Appearance Urine pH Ur Specific [place] Urine Protein Urine Glucose (UA) Urine Ketones Urine Blood Urine Nitrite Urine Bilirubin Urine Urobilinogen Ur Leukocyte Esterase Urine WBC (Auto) Urine RBC (Auto) Urine Mucus Acetone, Qual Positive moderate 2+ 06/01/18 06/01/18 06/01/18 21:18 23:26 23:28 WBC RBC Hgb Hct MCV MCH MCHC RDW Plt Count MPV Absolute Neuts (auto) Neutrophils % Neutrophils % (Manual) Band Neutrophils % Lymphocytes % Lymphocytes % (Manual) Monocytes % Monocytes % (Manual) Eosinophils % Eosinophils % (Manual) Basophils % Basophils % (Manual) Nucleated RBC % Platelet Estimate PT with INR INR PTT (Actin FS) VBG pH POC VBG pCO2 POC VBG pO2 Mixed VBG HCO3 Sodium 138 Potassium 4.8 Chloride 104 Carbon Dioxide 21 Anion Gap 13 BUN 20 H Creatinine 1.1 Creat Clearance w eGFR > 60 POC Glucometer 180 Random Glucose 175 H Hemoglobin A1c % Lactic Acid 1.6 Calcium 8.9 Total Bilirubin AST ALT Alkaline Phosphatase Creatine Kinase Creatine Kinase Index CK-MB (CK-2) Troponin I Total Protein Albumin Urine Color Urine Appearance Urine pH Ur Specific [place] Urine Protein Urine Glucose (UA) Urine Ketones Urine Blood Urine Nitrite Urine Bilirubin Urine Urobilinogen Ur Leukocyte Esterase Urine WBC (Auto) Urine RBC (Auto) Urine Mucus Acetone, Qual 06/02/18 06/02/18 06/02/18 01:16 01:25 02:27 WBC RBC Hgb Hct MCV MCH MCHC RDW Plt Count MPV Absolute Neuts (auto) Neutrophils % Neutrophils % (Manual) Band Neutrophils % Lymphocytes % Lymphocytes % (Manual) Monocytes % Monocytes % (Manual) Eosinophils % Eosinophils % (Manual) Basophils % Basophils % (Manual) Nucleated RBC % Platelet Estimate PT with INR INR PTT (Actin FS) VBG pH POC VBG pCO2 POC VBG pO2 Mixed VBG HCO3 Sodium Potassium Chloride Carbon Dioxide Anion Gap BUN Creatinine Creat Clearance w eGFR POC Glucometer 105 57 Random Glucose Hemoglobin A1c % Lactic Acid Calcium Total Bilirubin AST ALT Alkaline Phosphatase Creatine Kinase Creatine Kinase Index CK-MB (CK-2) Troponin I Total Protein Albumin Urine Color Ltyellow Urine Appearance Clear Urine pH 5.0 Ur Specific [place] 1.028 Urine Protein 2+ H Urine Glucose (UA) 3+ H Urine Ketones 2+ H Urine Blood Negative Urine Nitrite Negative Urine Bilirubin Negative Urine Urobilinogen Negative Ur Leukocyte Esterase Negative Urine WBC (Auto) 1 Urine RBC (Auto) <1 Urine Mucus Rare Acetone, Qual 06/02/18 06/02/18 06/02/18 03:06 05:15 05:15 WBC 14.2 H RBC 3.57 L Hgb 11.6 L Hct 33.7 L D MCV 94.3 MCH 32.5 MCHC 34.5 RDW 12.8 Plt Count 231 D MPV 7.8 Absolute Neuts (auto) Neutrophils % Neutrophils % (Manual) Band Neutrophils % Lymphocytes % Lymphocytes % (Manual) Monocytes % Monocytes % (Manual) Eosinophils % Eosinophils % (Manual) Basophils % Basophils % (Manual) Nucleated RBC % Platelet Estimate PT with INR INR PTT (Actin FS) VBG pH POC VBG pCO2 POC VBG pO2 Mixed VBG HCO3 Sodium 136 Potassium 4.4 Chloride 103 Carbon Dioxide 23 Anion Gap 11 BUN 20 H Creatinine 1.3 Creat Clearance w eGFR > 60 POC Glucometer 67 Random Glucose 335 H* Hemoglobin A1c % Lactic Acid Calcium 7.7 L Total Bilirubin AST ALT Alkaline Phosphatase Creatine Kinase Creatine Kinase Index CK-MB (CK-2) Troponin I Total Protein Albumin Urine Color Urine Appearance Urine pH Ur Specific [place] Urine Protein Urine Glucose (UA) Urine Ketones Urine Blood Urine Nitrite Urine Bilirubin Urine Urobilinogen Ur Leukocyte Esterase Urine WBC (Auto) Urine RBC (Auto) Urine Mucus Acetone, Qual 06/02/18 06/02/18 06/02/18 05:15 05:15 05:18 WBC RBC Hgb Hct MCV MCH MCHC RDW Plt Count MPV Absolute Neuts (auto) Neutrophils % Neutrophils % (Manual) Band Neutrophils % Lymphocytes % Lymphocytes % (Manual) Monocytes % Monocytes % (Manual) Eosinophils % Eosinophils % (Manual) Basophils % Basophils % (Manual) Nucleated RBC % Platelet Estimate PT with INR INR PTT (Actin FS) VBG pH POC VBG pCO2 POC VBG pO2 Mixed VBG HCO3 Sodium Potassium Chloride Carbon Dioxide Anion Gap BUN Creatinine Creat Clearance w eGFR POC Glucometer 317 Random Glucose Hemoglobin A1c % 9.7 H Lactic Acid 0.7 Calcium Total Bilirubin AST ALT Alkaline Phosphatase Creatine Kinase Creatine Kinase Index CK-MB (CK-2) Troponin I Total Protein Albumin Urine Color Urine Appearance Urine pH Ur Specific [place] Urine Protein Urine Glucose (UA) Urine Ketones Urine Blood Urine Nitrite Urine Bilirubin Urine Urobilinogen Ur Leukocyte Esterase Urine WBC (Auto) Urine RBC (Auto) Urine Mucus Acetone, Qual 06/02/18 06/02/18 07:46 10:57 WBC RBC Hgb Hct MCV MCH MCHC RDW Plt Count MPV Absolute Neuts (auto) Neutrophils % Neutrophils % (Manual) Band Neutrophils % Lymphocytes % Lymphocytes % (Manual) Monocytes % Monocytes % (Manual) Eosinophils % Eosinophils % (Manual) Basophils % Basophils % (Manual) Nucleated RBC % Platelet Estimate PT with INR INR PTT (Actin FS) VBG pH POC VBG pCO2 POC VBG pO2 Mixed VBG HCO3 Sodium Potassium Chloride Carbon Dioxide Anion Gap BUN Creatinine Creat Clearance w eGFR POC Glucometer 289 264 Random Glucose Hemoglobin A1c % Lactic Acid Calcium Total Bilirubin AST ALT Alkaline Phosphatase Creatine Kinase Creatine Kinase Index CK-MB (CK-2) Troponin I Total Protein Albumin Urine Color Urine Appearance Urine pH Ur Specific [place] Urine Protein Urine Glucose (UA) Urine Ketones Urine Blood Urine Nitrite Urine Bilirubin Urine Urobilinogen Ur Leukocyte Esterase Urine WBC (Auto) Urine RBC (Auto) Urine Mucus Acetone, Qual ASSESSMENT/PLAN: Resolved DKA DM Leukocytosis: suspected to be reactive SQ insulin Reach out to Dr Jennings to inform of admission and further recommendations PO as tolerated OOB to chair VTE prophylaxis D/C planning Dr Moise
--- NOTE | 2018-06-02 11:25 | PN ---
Physical Exam: SUBJECTIVE: Patient seen and examined Patient was admitted for DKA yesterday. Today, AG closed, BG improved greatly, and has no symptomatic complaint. N/V resolved. OBJECTIVE: Vital Signs Period Temp Pulse Resp BP Sys/Guo Pulse Ox Last 24 Hr 98.2 F-99.5 F 83-99 15-19 113-132/55-82 98-100 GENERAL: The patient is awake, alert, and fully oriented, in no acute distress. HEAD: Normal with no signs of trauma. EYES: PERRL, extraocular movements intact, sclera anicteric, conjunctiva clear. No ptosis. ENT: Ears normal, nares patent, oropharynx clear without exudates, moist mucous membranes. NECK: Trachea midline, full range of motion, supple. LUNGS: Breath sounds equal, clear to auscultation bilaterally, no wheezes, no crackles, no accessory muscle use. HEART: Regular rate and rhythm, S1, S2 without murmur, rub or gallop. ABDOMEN: Soft, nontender, nondistended, normoactive bowel sounds, no guarding, no rebound, no hepatosplenomegaly, no masses. EXTREMITIES: 2+ pulses, warm, well-perfused, no edema. NEUROLOGICAL: Cranial nerves II through XII grossly intact. Normal speech, gait not observed. PSYCH: Normal mood, normal affect. SKIN: Warm, dry, normal turgor, no rashes or lesions noted Laboratory Results - last 24 hr 06/01/18 06/01/18 06/01/18 17:57 17:57 17:57 WBC 23.2 H RBC 4.94 Hgb 15.9 Hct 46.9 D MCV 95.1 MCH 32.3 MCHC 34.0 RDW 12.9 Plt Count 305 D MPV 7.8 Absolute Neuts (auto) 21.7 H Neutrophils % 93.4 H Neutrophils % (Manual) 90.0 H Band Neutrophils % 1.0 Lymphocytes % 3.8 L D Lymphocytes % (Manual) 6.0 L Monocytes % 2.3 L Monocytes % (Manual) 3 L Eosinophils % 0.0 D Eosinophils % (Manual) 0.0 Basophils % 0.5 Basophils % (Manual) 0.0 Nucleated RBC % 0 Platelet Estimate Adequate PT with INR 12.50 INR 1.06 PTT (Actin FS) 23.9 L VBG pH POC VBG pCO2 POC VBG pO2 Mixed VBG HCO3 Sodium 137 Potassium 4.9 Chloride 96 L Carbon Dioxide 20 L Anion Gap 21 H BUN 21 H Creatinine 1.3 Creat Clearance w eGFR > 60 POC Glucometer Random Glucose 266 H Hemoglobin A1c % Lactic Acid Calcium 10.2 H Total Bilirubin 1.6 H AST 53 H ALT 57 Alkaline Phosphatase 90 Creatine Kinase 190 Creatine Kinase Index 0.5 CK-MB (CK-2) < 1.0 Troponin I < 0.02 Total Protein 9.0 H Albumin 5.0 Urine Color Urine Appearance Urine pH Ur Specific [place] Urine Protein Urine Glucose (UA) Urine Ketones Urine Blood Urine Nitrite Urine Bilirubin Urine Urobilinogen Ur Leukocyte Esterase Urine WBC (Auto) Urine RBC (Auto) Urine Mucus Acetone, Qual 06/01/18 06/01/18 06/01/18 19:54 19:54 19:54 WBC RBC Hgb Hct MCV MCH MCHC RDW Plt Count MPV Absolute Neuts (auto) Neutrophils % Neutrophils % (Manual) Band Neutrophils % Lymphocytes % Lymphocytes % (Manual) Monocytes % Monocytes % (Manual) Eosinophils % Eosinophils % (Manual) Basophils % Basophils % (Manual) Nucleated RBC % Platelet Estimate PT with INR INR PTT (Actin FS) VBG pH 7.26 L D POC VBG pCO2 45.8 D POC VBG pO2 21.1 L Mixed VBG HCO3 20.0 Sodium Potassium Chloride Carbon Dioxide Anion Gap BUN Creatinine Creat Clearance w eGFR POC Glucometer Random Glucose Hemoglobin A1c % Lactic Acid 2.9 H* Calcium Total Bilirubin AST ALT Alkaline Phosphatase Creatine Kinase Creatine Kinase Index CK-MB (CK-2) Troponin I Total Protein Albumin Urine Color Urine Appearance Urine pH Ur Specific [place] Urine Protein Urine Glucose (UA) Urine Ketones Urine Blood Urine Nitrite Urine Bilirubin Urine Urobilinogen Ur Leukocyte Esterase Urine WBC (Auto) Urine RBC (Auto) Urine Mucus Acetone, Qual Positive moderate 2+ 06/01/18 06/01/18 06/01/18 21:18 23:26 23:28 WBC RBC Hgb Hct MCV MCH MCHC RDW Plt Count MPV Absolute Neuts (auto) Neutrophils % Neutrophils % (Manual) Band Neutrophils % Lymphocytes % Lymphocytes % (Manual) Monocytes % Monocytes % (Manual) Eosinophils % Eosinophils % (Manual) Basophils % Basophils % (Manual) Nucleated RBC % Platelet Estimate PT with INR INR PTT (Actin FS) VBG pH POC VBG pCO2 POC VBG pO2 Mixed VBG HCO3 Sodium 138 Potassium 4.8 Chloride 104 Carbon Dioxide 21 Anion Gap 13 BUN 20 H Creatinine 1.1 Creat Clearance w eGFR > 60 POC Glucometer 180 Random Glucose 175 H Hemoglobin A1c % Lactic Acid 1.6 Calcium 8.9 Total Bilirubin AST ALT Alkaline Phosphatase Creatine Kinase Creatine Kinase Index CK-MB (CK-2) Troponin I Total Protein Albumin Urine Color Urine Appearance Urine pH Ur Specific [place] Urine Protein Urine Glucose (UA) Urine Ketones Urine Blood Urine Nitrite Urine Bilirubin Urine Urobilinogen Ur Leukocyte Esterase Urine WBC (Auto) Urine RBC (Auto) Urine Mucus Acetone, Qual 06/02/18 06/02/18 06/02/18 01:16 01:25 02:27 WBC RBC Hgb Hct MCV MCH MCHC RDW Plt Count MPV Absolute Neuts (auto) Neutrophils % Neutrophils % (Manual) Band Neutrophils % Lymphocytes % Lymphocytes % (Manual) Monocytes % Monocytes % (Manual) Eosinophils % Eosinophils % (Manual) Basophils % Basophils % (Manual) Nucleated RBC % Platelet Estimate PT with INR INR PTT (Actin FS) VBG pH POC VBG pCO2 POC VBG pO2 Mixed VBG HCO3 Sodium Potassium Chloride Carbon Dioxide Anion Gap BUN Creatinine Creat Clearance w eGFR POC Glucometer 105 57 Random Glucose Hemoglobin A1c % Lactic Acid Calcium Total Bilirubin AST ALT Alkaline Phosphatase Creatine Kinase Creatine Kinase Index CK-MB (CK-2) Troponin I Total Protein Albumin Urine Color Ltyellow Urine Appearance Clear Urine pH 5.0 Ur Specific [place] 1.028 Urine Protein 2+ H Urine Glucose (UA) 3+ H Urine Ketones 2+ H Urine Blood Negative Urine Nitrite Negative Urine Bilirubin Negative Urine Urobilinogen Negative Ur Leukocyte Esterase Negative Urine WBC (Auto) 1 Urine RBC (Auto) <1 Urine Mucus Rare Acetone, Qual 06/02/18 06/02/18 06/02/18 03:06 05:15 05:15 WBC 14.2 H RBC 3.57 L Hgb 11.6 L Hct 33.7 L D MCV 94.3 MCH 32.5 MCHC 34.5 RDW 12.8 Plt Count 231 D MPV 7.8 Absolute Neuts (auto) Neutrophils % Neutrophils % (Manual) Band Neutrophils % Lymphocytes % Lymphocytes % (Manual) Monocytes % Monocytes % (Manual) Eosinophils % Eosinophils % (Manual) Basophils % Basophils % (Manual) Nucleated RBC % Platelet Estimate PT with INR INR PTT (Actin FS) VBG pH POC VBG pCO2 POC VBG pO2 Mixed VBG HCO3 Sodium 136 Potassium 4.4 Chloride 103 Carbon Dioxide 23 Anion Gap 11 BUN 20 H Creatinine 1.3 Creat Clearance w eGFR > 60 POC Glucometer 67 Random Glucose 335 H* Hemoglobin A1c % Lactic Acid Calcium 7.7 L Total Bilirubin AST ALT Alkaline Phosphatase Creatine Kinase Creatine Kinase Index CK-MB (CK-2) Troponin I Total Protein Albumin Urine Color Urine Appearance Urine pH Ur Specific [place] Urine Protein Urine Glucose (UA) Urine Ketones Urine Blood Urine Nitrite Urine Bilirubin Urine Urobilinogen Ur Leukocyte Esterase Urine WBC (Auto) Urine RBC (Auto) Urine Mucus Acetone, Qual 06/02/18 06/02/18 06/02/18 05:15 05:15 05:18 WBC RBC Hgb Hct MCV MCH MCHC RDW Plt Count MPV Absolute Neuts (auto) Neutrophils % Neutrophils % (Manual) Band Neutrophils % Lymphocytes % Lymphocytes % (Manual) Monocytes % Monocytes % (Manual) Eosinophils % Eosinophils % (Manual) Basophils % Basophils % (Manual) Nucleated RBC % Platelet Estimate PT with INR INR PTT (Actin FS) VBG pH POC VBG pCO2 POC VBG pO2 Mixed VBG HCO3 Sodium Potassium Chloride Carbon Dioxide Anion Gap BUN Creatinine Creat Clearance w eGFR POC Glucometer 317 Random Glucose Hemoglobin A1c % 9.7 H Lactic Acid 0.7 Calcium Total Bilirubin AST ALT Alkaline Phosphatase Creatine Kinase Creatine Kinase Index CK-MB (CK-2) Troponin I Total Protein Albumin Urine Color Urine Appearance Urine pH Ur Specific [place] Urine Protein Urine Glucose (UA) Urine Ketones Urine Blood Urine Nitrite Urine Bilirubin Urine Urobilinogen Ur Leukocyte Esterase Urine WBC (Auto) Urine RBC (Auto) Urine Mucus Acetone, Qual 06/02/18 06/02/18 07:46 10:57 WBC RBC Hgb Hct MCV MCH MCHC RDW Plt Count MPV Absolute Neuts (auto) Neutrophils % Neutrophils % (Manual) Band Neutrophils % Lymphocytes % Lymphocytes % (Manual) Monocytes % Monocytes % (Manual) Eosinophils % Eosinophils % (Manual) Basophils % Basophils % (Manual) Nucleated RBC % Platelet Estimate PT with INR INR PTT (Actin FS) VBG pH POC VBG pCO2 POC VBG pO2 Mixed VBG HCO3 Sodium Potassium Chloride Carbon Dioxide Anion Gap BUN Creatinine Creat Clearance w eGFR POC Glucometer 289 264 Random Glucose Hemoglobin A1c % Lactic Acid Calcium Total Bilirubin AST ALT Alkaline Phosphatase Creatine Kinase Creatine Kinase Index CK-MB (CK-2) Troponin I Total Protein Albumin Urine Color Urine Appearance Urine pH Ur Specific [place] Urine Protein Urine Glucose (UA) Urine Ketones Urine Blood Urine Nitrite Urine Bilirubin Urine Urobilinogen Ur Leukocyte Esterase Urine WBC (Auto) Urine RBC (Auto) Urine Mucus Acetone, Qual Active Medications Generic Name Dose Route Start Last Admin Trade Name Freq PRN Reason Stop Dose Admin Insulin Aspart 1 vial 06/02/18 11:00 06/02/18 11:02 Novolog Vial Sliding Scale - SQ 6 units ACHS FABIAN Administration Protocol 27 yo M with PMHx of IDDM who presents with one day history of generalized abdominal pain, nausea and bilious vomiting admitted to ICU for further management of DKA. NEURO: A&O x3 Monitor for mental status changes CV: No hx of cardiac disease Patient has had stable BPs. Tachycardia at presentation likely secondary to lactic acidosis and dehydration secondary to DKA Currently, hemodynamically stable PULM: No respiratory complaints Maintain SpO2 >90% ENDO: Patient presented with DKA. S/p NS 125 ml/hr, insulin drip, D5 1/2 NS. Patient' s AG closed and BGs are better controlled with 40 units of levemir. Patient able to tolerate eating PO DKA; resolved RENAL: No renal complaints ID: Patient presented with leukocytosis that improved substantially. Likely the leukocytosis was secondary to dehydration and reactive given the values of CBC having downward trend the next draw. Lactic acid was elevated but resolved by next day. -Patient received vanco/zosyn x1 in ED after CT abd pelvis was negative for acute abdominal pathologies. GI: Able to tolerate PO, switch to diabetic diet FEN: Monitor electrolytes and replete PRN AG closed PPx: * Heparin 5000 units SQ TID Dispo: FULL CODE- Patient likely to be discharged from the ICU today. Visit type - Emergency Visit Emergency Visit: Yes ED Registration Date: 06/01/18 Care time: The patient presented to the Emergency Department on the above date and was hospitalized for further evaluation of their emergent condition. - New Patient This patient is new to me today: Yes Date on this admission: 06/02/18 - Critical Care Critical Care patient: Yes Total Critical Care Time (in minutes): 36 Critical Care Statement: The care of this patient involved high complexity decision making to prevent further life threatening deterioration of the patient 's condition and/or to evaluate & treat vital organ system(s) failure or risk of failure. - Discharge Referral Referred to [facility] Med [facility].: No
--- NOTE | 2018-06-02 14:13 | DS ---
Physical Examination Vital Signs: Vital Signs Temperature 98.6 F 06/02/18 10:00 Pulse Rate 86 06/02/18 12:00 Respiratory Rate 18 06/02/18 12:00 Blood Pressure 124/74 06/02/18 12:00 O2 Sat by Pulse Oximetry (%) 98 06/02/18 09:00 Constitutional: Yes: Calm Cardiovascular: Yes: Regular Rate and Rhythm, S1, S2 Respiratory: Yes: CTA Bilaterally Gastrointestinal: Yes: Normal Bowel Sounds, Soft Edema: No Neurological: Yes: Alert, Oriented Labs: CBC, BMP 06/02/18 05:15 06/02/18 05:15 Discharge Summary Reason For Visit: INSULIN DEPENDENT DIABETIC MELLITUS, Current Active Problems DKA (diabetic ketoacidoses) (Acute) IDDM (insulin dependent diabetes mellitus) (Acute) Nausea and vomiting (Acute) Hospital Course: CHIEF COMPLAINT:abdominal pain, nausea, vomiting and fever of 101 after eating ind[place] food last night PCP:Dr. Jennings HISTORY OF PRESENT ILLNESS: 27 year old male with history of diabetes mellitus since the age of 12 who presents today with symptoms of generalized abdominal pain, nausea and bilious vomiting since last night after eating [place] food .He reported a fever of [address] scan of abdomen without contrast demonstrated no acute findings. He was found to be in DKA(anion gap 21). He was initiated on IV fluids and insulin drip. Laboratory findings notable for WBC 23.2, abnormal differential, and lactic acid of 2.9.He is currently afebrile and reports feeling much better. He received one dosage of IV zosyn and flagyl in the ER. He denies any symptoms of chest pain or shortness of breath patient was transferred to icu and started on ivf and insulin drip [id number] 9.7 now better labs improved started on levemir Condition: Improved - Instructions Referrals: Leandro Jennings MD [Primary Care Provider] - 1 Week (to repeat lab works) Disposition: HOME - Home Medications Comprehensive Discharge Medication List: Ambulatory Orders Acetaminophen [Tylenol .Regular Strength -] 650 mg PO Q6H PRN #0 tablet Insulin Sliding Scale [Novolog Vial Sliding Scale -] 1 vial SQ ACHS units 10/26 Metoclopramide HCl [Reglan] 5 mg PO TID PRN #60 tablet 10/26/16 Insulin (Levemir) [Levemir Vial] 40 unit SQ DAILY 06/02/18
[2018-06-02 14:39] VITALS: BP 124/67
[2018-06-02 14:55] VITALS: PULSE 82
--- NOTE | 2018-06-02 15:43 | EKG ---
Test Reason : Blood Pressure : / mmHG Vent. Rate : 087 BPM Atrial Rate : 087 BPM P-R Int : 156 ms QRS Dur : 096 ms QT Int : 364 ms P-R-T Axes : 079 079 061 degrees QTc Int : 438 ms NORMAL SINUS RHYTHM NORMAL ECG WHEN COMPARED WITH ECG OF 23-OCT-2016 19:21, ST NO LONGER ELEVATED IN LATERAL LEADS Confirmed by AMBER FLOYD MD ([id number]) on 06/02/2018 3:43:14 PM Referred By: Confirmed By:AMBER FLOYD MD
[2018-06-02] MEDS ORDERED: CHLORHEXIDINE GLUCONATE 4% CLEANSER FOR DECOLONIZATION TP SCH (22:00)
== END 2018-06-02 15:05 | disposition home or self-care (01) | DRG 420 ==
LOC: JER 17:08 → JERBED 22:44 → JICU 06-02 03:10
PROVIDERS: ADMIT Internal Medicine; ATTEND Family Medicine
DX: E11.10 Type 2 diabetes mellitus with ketoacidosis without coma (principal); E87.2 Acidosis; E86.0 Dehydration; Z79.4 Long term (current) use of insulin; R00.0 Tachycardia, unspecified
CPT/HCPCS: 36415; 74177-TC; 80048; 80053; 81003; 81015; 82009; 82550; 82553; 82803; 82962; 83036; 83605; 84484; 85025; 85027; 85610; 85730; 87040; 87086; 93005; 93010; 99284-25; J7030

== ENCOUNTER 2018-06-12 05:36 | Inpatient (IN) | payer OTHER ==
[2018-06-12] MEDS ORDERED: SODIUM CHLORIDE 0.9% 500 ML INFUS.BAG IV ONE ×2 (05:55→06:59)
[2018-06-12] MEDS ORDERED: INSULIN REGULAR HUMAN 100 UNITS/ML *VIAL IVPUSH ONE (05:55)
--- NOTE | 2018-06-12 05:57 | PDOC ---
History of Present Illness - General Chief Complaint: Blood Sugar Problem Stated Complaint: high BLOOD SUGAR Time Seen by Provider: 06/12/18 05:55 History Source: Patient, Family - History of Present Illness Timing/Duration: momentarily Associated Symptoms: reports: malaise, nausea/vomiting, weakness Past History - Travel Traveled outside of the country in the last 30 days: No Close contact w/someone who was outside of country & ill: No - Past Medical History Allergies/Adverse Reactions: Allergies Allergy/AdvReac Type Severity Reaction Status Date / Time No Known Allergies Allergy Verified 06/12/18 06:26 Home Medications: Ambulatory Orders Acetaminophen [Tylenol .Regular Strength -] 650 mg PO Q6H PRN #0 tablet Insulin Sliding Scale [Novolog Vial Sliding Scale -] 1 vial SQ ACHS units 10/26 Metoclopramide HCl [Reglan] 5 mg PO TID PRN #60 tablet 10/26/16 Insulin (Levemir) [Levemir Vial] 40 unit SQ DAILY 06/02/18 Anemia: No Asthma: No Cancer: No Cardiac Disorders: No CVA: No COPD: No CHF: No Dementia: No Diabetes: Yes (type 1; HAS BEEN IN DKA) GI Disorders: No Disorders: No HTN: No Hypercholesterolemia: No Liver Disease: No Seizures: No Thyroid Disease: No - Surgical History Abdominal Surgery: No Appendectomy: No Cardiac Surgery: No Cholecystectomy: No Lung Surgery: No Neurologic Surgery: No Orthopedic Surgery: No - Immunization History Immunization Up to Date: Yes - Suicide/Smoking/Psychosocial Hx Smoking Status: No Smoking History: Unknown if ever smoked Have you smoked in the past 12 months: No Number of Cigarettes Smoked Daily: 0 Hx Alcohol Use: No Drug/Substance Use Hx: No Substance Use Type: Marijuana Hx Substance Use Treatment: No Review of Systems - Review of Systems Able to Perform ROS?: Yes Is the patient limited Sinhala proficient: No Constitutional: Yes: Fever (started last night), Loss of Appetite, Malaise, Weakness. No: Symptoms Reported, See HPI, Chills, Diaphoresis, Night Sweats, Weight Stable, Unintentional Wgt. Loss, Unexplained wgt Loss, Other HEENTM: No: Symptoms Reported, See HPI, Eye Pain, Blurred Vision, Tearing, Recent change in vision, Double Vision, Cataracts, Ear Pain, Ocular Prothesis, Ear Discharge, Nose Pain, Nose Congestion, Tinnitus, Nose Bleeding, Hearing Loss , Throat Pain, Throat Swelling, Mouth Pain, Dental Problems, Difficulty Swallowing, Mouth Swelling, Other Respiratory: No: Symptoms reported, See HPI, Cough, Orthopnea, Shortness of Breath, SOB with Exertion, SOB at Rest, Stridor, Wheezing, Productive cough, Hemoptysis, Other Cardiac (ROS): No: Symptoms Reported, See HPI, Chest Pain, Edema, Irregular Heart Rate, Lightheadedness, Palpitations, Syncope, Chest Tightness, Other ABD/GI: Yes: Vomiting. No: Symptoms Reported, See HPI, Abdominal Distended, Abd. Pain w/ defecation, Blood Streaked Bowels, Constipated, Diarrhea, Difficulty Swallowing, Nausea, Poor Appetite, Poor Fluid Intake, Rectal Bleeding , Indigestion, Abdominal cramping, Tarry Stools, Other Integumentary: No: Symptoms Reported, See HPI, Bruising, Change in Color, Change in Hair/Nails, Dryness, Erythema, Flushing, Lesions, Lumps, Pallor, Pruritus, Rash, Sweating, Other Neurological: No: Symptoms reported, See HPI, Headache, Numbness, Paresthesia, Pre-Existing Deficit, Seizure, Tingling, Tremors, Weakness, Unsteady Gait, Ataxia, Dizziness, Other Psychiatric: No: Anxiety, Depression, Frequent Crying, Stressors, Sleep Pattern Change, Emotional Problems, Mood Swings, Change in Appetite, Other Hematologic/Lymphatic: No: Symptoms Reported, See HPI, Anemia, Blood Clots, Easy Bleeding, Easy Bruising, Bleeding Diathesis, Lymph Node Abnormalities, Swollen Glands, Other *Physical Exam - Vital Signs Last Vital Signs Temp Pulse Resp BP Pulse Ox 98.4 F 120 H 20 147/81 99 06/12/18 05:42 06/12/18 05:42 06/12/18 05:42 06/12/18 05:42 06/12/18 05:42 - Physical Exam General Appearance: Yes: Nourished, Appropriately Dressed, Apparent Distress, Mild Distress, Thin HEENT: positive: EOMI, MARSHA, Normal Voice, TMs Normal, Pharynx Normal, Other ( dry mouth) Neck: positive: Trachea midline, Supple Respiratory/Chest: positive: Lungs Clear, Normal Breath Sounds, Other (heavy breathing; pt is likely metabolic acidosis). 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 Pt is tired. likely DKA) Moderate Sedation - Procedure Monitoring Vital Signs: Procedure Monitoring Vital Signs Temperature 98.4 F 06/12/18 05:42 Pulse Rate 120 H 06/12/18 05:42 Respiratory Rate 20 06/12/18 05:42 Blood Pressure 147/81 06/12/18 05:42 O2 Sat by Pulse Oximetry (%) 99 06/12/18 05:42 ED Treatment Course - LABORATORY CBC & Chemistry Diagram: 06/12/18 12:40 06/12/18 16:55 - ADDITIONAL ORDERS Additional order review: Laboratory Results 06/12/18 05:51 POC Glucometer 441 06/12/18 05:51 POC Glucometer 441 Medical Decision Making - Medical Decision Making 06/12/18 20:15 Pt came with dehydration, tachycardia, elevated blood sugar and likely DKA. I placed IV and sent labs and ordered CXR. Pt was started on 2L NSS bolus and given IV reg insulin 8U and he was signed out to the day team. They can get blood and urine cultures. *DC/Admit/Observation/Transfer Diagnosis at time of Disposition: DKA (diabetic ketoacidoses) - Referrals - Patient Instructions - Post Discharge Activity
[2018-06-12] MEDS ORDERED: INSULIN REGULAR HUMAN 100 UNITS/ML *VIAL ONE ×2 (06:01→06:04)
[2018-06-12 06:28] LABS: BASO % 0.4 % (0-2.0); EOS % 0.1 % (0-4.5); HEMATOCRIT 49.2 % (35.4-49); LYMPH % 3.9 % (8-40); MCH 32.3 pg (25.7-33.7); MCHC 32.5 g/dl (32.0-35.9); MEAN CELL VOLUME 99.2 fl (80-96); MONO % 9.1 % (3.8-10.2); NEUT % 86.5 % (42.8-82.8); PLATELET COUNT 476 K/MM3 (134-434); RBC 4.96 M/mm3 (4.00-5.60); RDW 13.8 % (11.9-15.9)
[2018-06-12 06:36] LABS: WHITE BLOOD COUNT 36.6 K/mm3 (4.0-10.0)
--- NOTE | 2018-06-12 07:28 | PDOC ---
*Physical Exam - Vital Signs Last Vital Signs Temp Pulse Resp BP Pulse Ox 98.4 F 120 H 20 147/81 99 06/12/18 05:42 06/12/18 05:42 06/12/18 05:42 06/12/18 05:42 06/12/18 05:42 ED Treatment Course - LABORATORY CBC & Chemistry Diagram: 06/15/18 06:00 06/15/18 06:00 - ADDITIONAL ORDERS Additional order review: Laboratory Results 06/12/18 05:51 POC Glucometer 441 06/12/18 06/12/18 06:00 05:51 RBC 4.96 MCV 99.2 H MCHC 32.5 RDW 13.8 MPV 8.0 Neutrophils % 86.5 H Lymphocytes % 3.9 L Monocytes % 9.1 D Eosinophils % 0.1 D Basophils % 0.4 POC Glucometer 441 - Medications Given in the ED: ED Medications Discontinued Medications Generic Name Dose Route Start Last Admin Trade Name Freq PRN Reason Stop Dose Admin Insulin Human Regular 8 units 06/12/18 05:55 06/12/18 06:11 Novolin R Vial *For Ivpush Or Iv Drip Only* IVPUSH 06/12/18 05:56 8 units ONCE ONE Administration Sodium Chloride 1,000 ml 06/12/18 05:55 06/12/18 06:11 Normal Saline - IV 06/12/18 05:56 1,000 ml ONCE ONE Administration Sodium Chloride 1,000 ml 06/12/18 06:59 06/12/18 07:10 Normal Saline - IV 06/12/18 07:00 1,000 ml ONCE ONE Administration Medical Decision Making - Medical Decision Making 06/12/18 07:54 27 year old man with a history of DM! who presents with 1 day of nausea, nbnb vomiting, diarrhea and nonproductive cough. The patient reports that he cannot count how many times he vomited but reports 5 episodes of watery diarrhea. The patient notes some shortness of breath when vomiting, but denies chest pain, abdominal pain, dysuria or hematuria. He has no other complaints at bedside. Patient recently admitted 2 weeks ago for DKA ED Course: WBC of 36, lactic 8, bs 400 patient getting 2L ivf will repeat lactic Likely patient is in acute DKA, incited by viral gastroenteritis. Vanc and Zosyn given empirically for wbc of 36 ICU consulted at bedside for evaluation Repeat bs at 282 Insulin drip started at .1mg/kg ABG: pH 7.25/ CO2 Pending repeat BMP 2+ acetone CXR: unremarkable. Dr. Jennings contacted and made aware of patient. Patient admitted to ICU. *DC/Admit/Observation/Transfer Diagnosis at time of Disposition: DKA (diabetic ketoacidoses) - Discharge Dispostion Disposition: HOME Condition at time of disposition: Stable - Prescriptions - Referrals - Patient Instructions - Post Discharge Activity
[2018-06-12] MEDS ORDERED: METOCLOPRAMIDE HCL INJECTION 10 MG/2 ML VIAL IVPUSH ONE (07:39)
[2018-06-12] MEDS ORDERED: ONDANSETRON 4 MG/2 ML VIAL IVPUSH ONE (07:40)
[2018-06-12 07:48] LABS: ALBUMIN 5.2 g/dl (3.4-5.0); ALK PHOS 107 U/L (45-117); ANION GAP 30 MMOL/L (8-16); BILIRUBIN,TOTAL 0.9 mg/dL (0.2-1); BLOOD UREA NITROGEN 21 mg/dL (7-18); CALCIUM 10.4 mg/dL (8.5-10.1); CHLORIDE 95 mmol/L (98-107); CO2 6 mmol/L (21-32); CREATININE 2.1 mg/dL (0.55-1.3); POTASSIUM 5.2 mmol/L (3.5-5.1); SGOT/AST 25 U/L (15-37); SGPT/ALT 42 U/L (13-61); SODIUM 131 mmol/L (136-145); TOT PROT 9.2 g/dl (6.4-8.2)
[2018-06-12] MEDS ORDERED: ONDANSETRON 4 MG/2 ML VIAL ONE ×2 (07:50→13:40)
[2018-06-12 07:58] LABS: GLUCOSE,RANDOM 489 mg/dL (74-106)
[2018-06-12] MEDS ORDERED: CEFTRIAXONE 1 GM in DEXTROSE 5%-WATER - 100 ML IVPB ONE (08:05)
[2018-06-12] MEDS ORDERED: PIPERACILLIN/TAZOB 3.375 GM 3.375 GM in DEXTROSE 5%-WATER - 50 ML IVPB ONE (08:14)
[2018-06-12] MEDS ORDERED: VANCOMYCIN 1,000 MG in DEXTROSE 5%-WATER - 250 ML IVPB ONE ×2 (08:14→08:51)
[2018-06-12] MEDS ORDERED: PIPERACILLIN/TAZOB 3.375 GM 3.375 GM/50 ML BAG IVPB ONE (08:15)
[2018-06-12] MEDS ORDERED: VANCOMYCIN 1 GRAM (PRE-DOCKED) 1,000 MG/250 ML BAG IVPB ONE (08:15)
--- NOTE | 2018-06-12 08:25 | PDOC ---
*Physical Exam - Vital Signs Last Vital Signs Temp Pulse Resp BP Pulse Ox 98.4 F 120 H 20 147/81 99 06/12/18 05:42 06/12/18 05:42 06/12/18 05:42 06/12/18 05:42 06/12/18 05:42 - Physical Exam General Appearance: Yes: Nourished HEENT: positive: Other (dry mucous membranes) Neck: negative: Tender Respiratory/Chest: positive: Lungs Clear, Normal Breath Sounds Cardiovascular: positive: Regular Rhythm, S1, S2, Other (regular tachycardia. ) Gastrointestinal/Abdominal: positive: Normal Bowel Sounds, Flat, Soft. negative : Tender Musculoskeletal: positive: Normal Inspection. negative: CVA Tenderness Extremity: positive: Normal Capillary Refill, Normal Inspection, Normal Range of Motion Integumentary: positive: Normal Color, Dry, Warm Neurologic: positive: Fully Oriented, Alert, Normal Mood/Affect ED Treatment Course - LABORATORY CBC & Chemistry Diagram: 06/12/18 06:00 06/12/18 07:47 - ADDITIONAL ORDERS Additional order review: Laboratory Results 06/12/18 06/12/18 06/12/18 06:00 06:00 05:51 Sodium 131 L Potassium 5.2 H Chloride 95 L Carbon Dioxide 6 L Anion Gap 30 H BUN 21 H Creatinine 2.1 H Creat Clearance w eGFR 37.79 POC Glucometer 441 Random Glucose 489 H* Lactic Acid 8.7 H* Calcium 10.4 H Total Bilirubin 0.9 AST 25 ALT 42 Alkaline Phosphatase 107 Total Protein 9.2 H Albumin 5.2 H 06/12/18 06/12/18 06:00 05:51 RBC 4.96 MCV 99.2 H MCHC 32.5 RDW 13.8 MPV 8.0 Neutrophils % 86.5 H Lymphocytes % 3.9 L Monocytes % 9.1 D Eosinophils % 0.1 D Basophils % 0.4 POC Glucometer 441 - Medications Given in the ED: ED Medications Discontinued Medications Generic Name Dose Route Start Last Admin Trade Name Freq PRN Reason Stop Dose Admin Insulin Human Regular 8 units 06/12/18 05:55 06/12/18 06:11 Novolin R Vial *For Ivpush Or Iv Drip Only* IVPUSH 06/12/18 05:56 8 units ONCE ONE Administration Ondansetron HCl 4 mg 06/12/18 07:40 06/12/18 08:12 Zofran Injection IVPUSH 06/12/18 07:41 4 mg ONCE ONE Administration Sodium Chloride 1,000 ml 06/12/18 05:55 06/12/18 06:11 Normal Saline - IV 06/12/18 05:56 1,000 ml ONCE ONE Administration Sodium Chloride 1,000 ml 06/12/18 06:59 06/12/18 07:10 Normal Saline - IV 06/12/18 07:00 1,000 ml ONCE ONE Administration Medical Decision Making - Medical Decision Making 06/12/18 08:20 27 yo male insulin dependent diabetes (since 12 yo ) here with n/v chills since yesterday. no c/o abd pain prior to vomiting. no urinary sxs. no sick contacts. no cough. has had weight loss and night sweats. states compliant with medications. takes lantus 40 units QAM. 06/12/18 09:[address] chavis. pt h/o noncompliance, was admitted one week ago with dka. ICU consulted. insulin drip started at 6 units/ hr ( weight based 0.1/kg). lactates noted to be 8. given 3 L NS, rpt BMP pending. abx for high wbc given zosyn. vanco. possible sepsis. however lactic likely due to dehydration, acidosis . 06/12/18 10:34 pt potassium decreased to 4.8 given 20 meq Kcl in 1L NS. gap improved from 30 to 23. lactate improved from 8 to 4 after 3 L NS. insulin drip at 6 units / hr. will add dextrose after sugar <200. *DC/Admit/Observation/Transfer Diagnosis at time of Disposition: DKA (diabetic ketoacidoses) - Discharge Dispostion Decision to Admit order: Yes - Referrals Referrals: Leandro Chavis MD [Primary Care Provider] - - Patient Instructions - Post Discharge Activity
[2018-06-12] MEDS ORDERED: INSULIN REGULAR 100 UNITS in SODIUM CHLORIDE 99 ML IVPB SCH ×2 (08:30→11:44)
[2018-06-12] MEDS ORDERED: FAMOTIDINE 20 MG/50 ML IVPB 20 MG/50 ML MG IVPB ONE ×2 (08:31→09:03)
[2018-06-12] MEDS ORDERED: MAG HYDROX/AL HYDROX/SIMETH -MYLANTA- ORAL SUSPENSION PO ONE (08:32)
[2018-06-12 08:33] LABS: LIPASE 86 U/L (73-393)
[2018-06-12 08:43] LABS: ARTERIAL BLD GAS O2 SATURATION 98.3 % (90-98.9); ARTERIAL BLOOD GAS BASE EXCESS -19.1 meq/l (-2-2); ARTERIAL BLOOD GAS PCO2 16.4 mmHg (35-45); ARTERIAL BLOOD GAS pH 7.25 (7.35-7.45); CARBOXYHEMOGLOBIN 1.6 gm% (0.5-2.0)
[2018-06-12] MEDS ORDERED: SODIUM CHLORIDE 1,000 ML IV SCH ×2 (08:45→08:58)
[2018-06-12] MEDS ORDERED: VANCOMYCIN 1,000 MG in SODIUM CHLORIDE 250 ML IVPB ONE (08:55)
[2018-06-12 09:02] LABS: ANION GAP 23 MMOL/L (8-16); BLOOD UREA NITROGEN 19 mg/dL (7-18); CALCIUM 9.1 mg/dL (8.5-10.1); CHLORIDE 108 mmol/L (98-107); CO2 8 mmol/L (21-32); CREATININE 1.8 mg/dL (0.55-1.3); GLUCOSE,RANDOM 293 mg/dL (74-106); MAGNESIUM 2.2 mg/dL (1.8-2.4); PHOSPHOROUS 4.4 mg/dL (2.5-4.9); POTASSIUM 4.8 mmol/L (3.5-5.1); SODIUM 139 mmol/L (136-145)
[2018-06-12] MEDS ORDERED: MAG HYDROX/AL HYDROX/SIMETH 30 ML UNIT-DOSE CUP ONE (09:02)
[2018-06-12 09:03] LABS: ACETONE SERUM POSITIVE MODERATE 2+ (NEGATIVE)
[2018-06-12 09:03] LABS: URINE APPEARANCE CLEAR; URINE BILIRUBIN NEGATIVE (<2.0 mg/dL); URINE COLOR STRAW; URINE GLUCOSE (UA) 3+ (NEGATIVE); URINE KETONE 2+ (NEGATIVE); URINE LEUK ESTERASE NEGATIVE (NEGATIVE); URINE NITRITE NEGATIVE (NEGATIVE); URINE PROTEIN 2+ (NEGATIVE); URINE UROBILINOGEN NEGATIVE mg/dL (0.2-1.0)
[2018-06-12 09:14] LABS: EPI CELLS RARE /HPF (FEW); URINE MUCUS RARE
[2018-06-12] MEDS ORDERED: POTASSIUM CHLORIDE 20 MEQ PREMIX IVPB 100 ML IVPB ONE (09:46)
[2018-06-12] MEDS ORDERED: ACETAMINOPHEN 1000 MG/100 ML VIAL (NON FORMULARY) IVPB ONE (09:54)
[2018-06-12] MEDS ORDERED: ACETAMINOPHEN INJECTION 100 ML IVPB ONE (10:23)
[2018-06-12] MEDS: SODIUM CHLORIDE 0.9%/KCL 20 MEQ/1,000 ML INFUS.BAG IV SCH (10:39)
--- NOTE | 2018-06-12 10:58 | CONSULT ---
Consult - text type - Consultation Consultation Note: Pulm/CCM Pt seen and examined in ED CC: nausea, vomiting Hx obtained from pt and medical record Reason for ICU consult: Diabetic Ketoacidosis, AGMA HPI: Briefly this is a 27 y/o man with IDDM, hx of DKA, most recently ~ 1 month ago, who presents to ED with approx 24hrs of nonbloodly nonbilious emesis, loose stool, and general malaise. In ED pt was awake, alert, hemodynamically stable and afebrile. Labs were notable for BGL of >300, Hco3 6, pH 7.2, AG of 30 , LA 8, Cr 2. WBC was 36. UA was clean, cxr without infiltrate. No other localizing symptoms beside generalize GI. He was started on PipTaz and Vanco. He was given 2+ L of IVF. Insulin bolus and gtt started. Repeat labs improved with downtrending glucose, LA, Cr. Pt relates feeling slightly better. Plan for tx to ICU until AG closed. Denies: LOC, chest pain, shortness of breath, recent sick contacts, travel. ROS: 12 point ROS negative except as per HPI CBC, BMP 06/12/18 06:00 06/12/18 07:47 Urine Test Results Urine Color Straw 06/12/18 08:43 Urine Appearance Clear 06/12/18 08:43 Urine pH 5.0 (5.0-8.0) 06/12/18 08:43 Ur Specific Kimball 1.023 (1.010-1.035) 06/12/18 08:43 Urine Protein 2+ (NEGATIVE) H 06/12/18 08:43 Urine Glucose (UA) 3+ (NEGATIVE) H 06/12/18 08:43 Urine Ketones 2+ (NEGATIVE) H 06/12/18 08:43 Urine Blood 1+ (NEGATIVE) H 06/12/18 08:43 Urine Nitrite Negative (NEGATIVE) 06/12/18 08:43 Urine Bilirubin Negative (<2.0 mg/dL) 06/12/18 08:43 Ur Leukocyte Esterase Negative (NEGATIVE) 06/12/18 08:43 Ur Epithelial Cells Rare /HPF (FEW) 06/12/18 08:43 Urine Mucus Rare 06/12/18 08:43 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 Cardio/Vascular Other Pulmonary Other Gastrointestinal GERD Hepatobiliary Other Renal/ UTI Heme/Onc Other Infectious Disease Other Psych Depression Rheumatology Other ENT Allergic Rhinitis Endocrine Diabetes Mellitus Dermatology Other Past Surgical History Past Surgical History None Social History Smoking history Unknown if ever smoked Have you smoked in the past 12 No months Hx Alcohol Use No History of Substance Use None Usual Living Arrangement With Significant Other,With Child Ambulatory Orders Acetaminophen [Tylenol .Regular Strength -] 650 mg PO Q6H PRN #0 tablet Insulin Sliding Scale [Novolog Vial Sliding Scale -] 1 vial SQ ACHS units 10/26 Metoclopramide HCl [Reglan] 5 mg PO TID PRN #60 tablet 10/26/16 Insulin (Levemir) [Levemir Vial] 40 unit SQ DAILY 06/02/18 Active Medications Insulin Human Regular 100 (units/ Sodium Chloride) 100 mls @ 6.13 mls/hr IVPB TITR FABIAN; Protocol Last Admin: 06/12/18 09:29 Dose: 0.1 units/kg/hr, 6.13 mls/hr Sodium Chloride (Normal Saline -) 1,000 mls @ 100 mls/hr IV ASDIR FABIAN Last Admin: 06/12/18 08:59 Dose: 100 mls/hr Potassium Chloride/Sodium Chloride (Ns+20 Meq Kcl -) 20 meq in 1,000 mls @ 125 mls/hr IV ASDIR FABIAN Last Admin: 06/12/18 10:39 Dose: 125 mls/hr Initial Vital Signs Temp Pulse Resp BP Pulse Ox 98.4 F 120 H 20 147/81 99 06/12/18 05:42 06/12/18 05:42 06/12/18 05:42 06/12/18 05:42 06/12/18 05:42 Intake & Output 06/09/18 06/10/18 06/11/18 06/12/18 23:59 23:59 23:59 23:59 Weight 61.3 kg PE: Gen: Non-toxic appearing young man mild distress HEENT: dry oral mucosa, PERRL, neck supple PULM: mildly tachypneic (2/2 acidosis), clear, no wheezes CV; s1s2, reg, no murmur ABD: slight diffuse tenderness, no rebound, +BS Ext: dry, no edema, warm Neuro: lucid, no focal deficits. A/ 27 y/o man with IDDM presents with DKA in setting of GI infection/viral enteritis vs poor compliance and gastroparesis DKA: -Insulin drip 0.1units/kg/hr --if BG doesnt fall by 50-70 mg/dl in first hr double insulin infusion until BG drops by 50-70 mg/dl --goal B-200mg/dl until AG closes --if BG fall <70 mg/dl hold insulin x15m and bolus D50 IVP --restart insulin at half prior dose and notify prodiver -IV fluids 100-250ml/hr --corrected sodium >140 use d5 1/2NS --corrected sodium <140 use NS --add D5 once BG reaches 250 mg/dl -potassium replacement --K> 5.5mEq/l no replacement --K 4-5 mEq/l add KCl 20 mEq to each liter of IVF --K 3.5-3.9 mEq/l add KCL 20-40 mEq to each liter of IVF --K 3.1-3.4 mEq/l add KCL 40-60 mEq to each liter of IVF --K <3 mEq/l add KCL 40-80 mEq to each liter of IVF (call provider) -BMP q4hrs until AG closes -Once AG closed and ketosis resolved and able to tolerate PO diet transition to insulin sq ROBI: 2/2 dehydration, GI losses -improving with fluid -cont to follow -electrolytes as above. Leukocytosis -f/u culture -can continue Pip/ion, would hold vanco. -Send C.diff in more loose stool GI upset/gastropapesis -bing -michaellan Prophy: -SQH -no indication for stress ulcer prophrachel Fuentes ACNP [id number]
[2018-06-12] MEDS ORDERED: D5-1/2NS+20 MEQ KCL - 20 MEQ/1,000 ML INFUS.BAG IV SCH (11:45)
[2018-06-12] MEDS: D5-1/2NS+20 MEQ KCL - 20 MEQ/1,000 ML INFUS.BAG IV SCH (11:45)
[2018-06-12 12:50] LABS: VENOUS PC02 32.7 mmHg (38-52); VENOUS PH 7.27 (7.32-7.42); VENOUS PO2 26.5 mmHg (28-48)
[2018-06-12 12:51] LABS: BASO % 0.6 % (0-2.0); EOS % 0.1 % (0-4.5); HEMATOCRIT 41.6 % (35.4-49); LYMPH % 4.5 % (8-40); MCH 32.7 pg (25.7-33.7); MCHC 33.8 g/dl (32.0-35.9); MEAN CELL VOLUME 96.6 fl (80-96); MEAN PLT VOLUME 7.3 fl (7.5-11.1); MONO % 6.7 % (3.8-10.2); NEUT % 88.1 % (42.8-82.8); PLATELET COUNT 357 K/MM3 (134-434); RDW 13.2 % (11.9-15.9)
[2018-06-12 13:02] LABS: WHITE BLOOD COUNT 30.1 K/mm3 (4.0-10.0)
[2018-06-12 13:19] LABS: ALK PHOS 73 U/L (45-117); ANION GAP 15 MMOL/L (8-16); BILIRUBIN,TOTAL 0.9 mg/dL (0.2-1); BLOOD UREA NITROGEN 15 mg/dL (7-18); CALCIUM 8.9 mg/dL (8.5-10.1); CHLORIDE 110 mmol/L (98-107); CO2 15 mmol/L (21-32); CREATININE 1.4 mg/dL (0.55-1.3); GLUCOSE,RANDOM 176 mg/dL (74-106); POTASSIUM 5.2 mmol/L (3.5-5.1); SGOT/AST 22 U/L (15-37); SGPT/ALT 34 U/L (13-61); SODIUM 140 mmol/L (136-145); TOT PROT 7.1 g/dl (6.4-8.2)
[2018-06-12 13:55] LABS: ANISOCYTOSIS 1+; MACROCYTOSIS 1+; PLATELET ESTIMATE NORMAL
[2018-06-12 14:41] LABS: ANISOCYTOSIS 0; MACROCYTOSIS 1+; OVALOCYTE 1+; PLATELET ESTIMATE NORMAL; TEAR DROP CELLS 1+
--- NOTE | 2018-06-12 15:21 | PN ---
Progress Note, Physician Chief Complaint: DKA Nausea/ Vomiting History of Present Illness: NATALIE Roque at bedside Still on insulin drip+ IVF - Current Medication List Current Medications: Active Medications Sodium Chloride (Normal Saline -) 1,000 mls @ 100 mls/hr IV ASDIR FABIAN Last Admin: 06/12/18 08:59 Dose: 100 mls/hr Potassium Chloride/Sodium Chloride (Ns+20 Meq Kcl -) 20 meq in 1,000 mls @ 125 mls/hr IV ASDIR FABIAN Last Admin: 06/12/18 10:39 Dose: 125 mls/hr Insulin Human Regular 100 (units/ Sodium Chloride) 100 mls @ 6.13 mls/hr IVPB TITR FABIAN; Protocol Potassium Chloride/Dextrose/Sod Cl (D5-1/2ns+20 Meq Kcl -) 20 meq in 1,000 mls @ 150 mls/hr IV ASDIR FABIAN Last Admin: 06/12/18 11:45 Dose: 150 mls/hr Metoclopramide HCl (Reglan Injection -) 10 mg IVPUSH Q6H PRN PRN Reason: NAUSEA AND/OR VOMITING - Objective Vital Signs: Vital Signs Temperature 99.0 F 06/12/18 09:16 Pulse Rate 85 06/12/18 13:05 Respiratory Rate 20 06/12/18 14:40 Blood Pressure 131/74 06/12/18 13:05 O2 Sat by Pulse Oximetry (%) 99 06/12/18 14:40 Constitutional: Yes: No Distress, Calm, Cachectic Cardiovascular: Yes: Regular Rate and Rhythm Respiratory: Yes: Regular Gastrointestinal: Yes: Soft, Hypoactive Bowel Sounds Genitourinary: Yes: WNL Musculoskeletal: Yes: WNL Extremities: Yes: WNL Edema: No Peripheral Pulses WNL: Yes Neurological: Yes: Alert, Oriented Psychiatric: Yes: Alert, Oriented Labs: CBC, BMP 06/12/18 12:40 06/12/18 12:40 Problem List - Problems (1) DKA (diabetic ketoacidoses) Code(s): E13.10 - OTH DIABETES MELLITUS WITH KETOACIDOSIS WITHOUT COMA Qualifiers: (2) Abdominal pain Code(s): R10.9 - UNSPECIFIED ABDOMINAL PAIN Qualifiers: (3) Dehydration Code(s): E86.0 - DEHYDRATION (4) Nausea and vomiting Code(s): R11.2 - NAUSEA WITH VOMITING, UNSPECIFIED
[2018-06-12] MEDS: METOCLOPRAMIDE HCL INJECTION 10 MG/2 ML VIAL IVPUSH PRN ×2 (16:51→20:30)
[2018-06-12 17:47] LABS: ANION GAP 18 MMOL/L (8-16); BLOOD UREA NITROGEN 14 mg/dL (7-18); CALCIUM 8.8 mg/dL (8.5-10.1); CHLORIDE 109 mmol/L (98-107); CO2 14 mmol/L (21-32); CREATININE 1.3 mg/dL (0.55-1.3); GLUCOSE,RANDOM 191 mg/dL (74-106); POTASSIUM 4.7 mmol/L (3.5-5.1); SODIUM 141 mmol/L (136-145)
--- NOTE | 2018-06-12 17:59 | HP ---
Admitting History and Physical - Primary Care Physician PCP: Leandro Jennings (Oswaldo Iyamoy) - Admission Chief Complaint: Hyperglycemia. Nausea. Vomiting. Abdominal pain History of Present Illness: 27 year old man with IDDM, hx of DKA, most recently approx 1 month ago, who presented to ER with approx 24hrs of nausea, vomiting, abdominal pain, diarrhea and malaise. He is on SQ insulin outpatient, sees PCP Dr Jennings on regular basis. Pt is alert, orient, accompanied by his fiance, In the ER pt was noted to have blood glucose level of >400, Hco3 6, pH 7.2, anion gap of 30, LA 8, BUN 21, Cr 2.1, WBC at 36. 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) Cardiovascular: Yes: Other (tachycardia and lethargy with frequent urination) Pulmonary: Yes: Other (bronchitis) Gastrointestinal: Yes: GERD Hepatobiliary: Yes: Other (none) Renal/: Yes: UTI Heme/Onc: Yes: Other (none) Infectious Disease: Yes: Other (none) Psych: Yes: Depression Musculoskeletal: Yes: Other (none) Rheumatology: Yes: Other (none) ENT: Yes: Allergic Rhinitis Endocrine: Yes: Diabetes Mellitus Dermatology: Yes: Other (none) - Past Surgical History Past Surgical History: Yes: None - Smoking History Smoking history: Current every day smoker Have you smoked in the past 12 months: Yes Aproximately how many cigarettes per day: 0 - Alcohol/Substance Use Hx Alcohol Use: No History of Substance Use: reports: None - Social History History of Recent Travel: No Home Medications - Allergies Allergies/Adverse Reactions: Allergies Allergy/AdvReac Type Severity Reaction Status Date / Time No Known Allergies Allergy Verified 06/12/18 06:26 - Home Medications Home Medications: Ambulatory Orders Acetaminophen [Tylenol .Regular Strength -] 650 mg PO Q6H PRN #0 tablet Insulin Sliding Scale [Novolog Vial Sliding Scale -] 1 vial SQ ACHS units 10/26 Metoclopramide HCl [Reglan] 5 mg PO TID PRN #60 tablet 10/26/16 Insulin (Levemir) [Levemir Vial] 40 unit SQ DAILY 06/02/18 Family Disease History - Family Disease History Family Disease History: Diabetes: Mother Review of Systems - Review of Systems Constitutional: reports: Lethargy, Malaise Eyes: reports: No Symptoms HENT: reports: No Symptoms Neck: reports: No Symptoms Cardiovascular: reports: No Symptoms Respiratory: reports: No Symptoms Gastrointestinal: reports: Abdominal Pain, Diarrhea, Nausea, Vomiting Genitourinary: reports: No Symptoms Breasts: reports: No Symptoms Reported Musculoskeletal: reports: Muscle Weakness Integumentary: reports: No Symptoms Neurological: reports: No Symptoms Endocrine: reports: No Symptoms Hematology/Lymphatic: reports: No Symptoms Psychiatric: reports: No Symptoms Physical Examination Vital Signs: Vital Signs Temperature 99.0 F 06/12/18 09:16 Pulse Rate 85 06/12/18 13:05 Respiratory Rate 20 06/12/18 14:40 Blood Pressure 131/74 06/12/18 13:05 O2 Sat by Pulse Oximetry (%) 99 06/12/18 14:40 Constitutional: Yes: No Distress, Calm, Cachectic Cardiovascular: Yes: Regular Rate and Rhythm Respiratory: Yes: Regular, CTA Bilaterally Gastrointestinal: Yes: Soft, Hypoactive Bowel Sounds Musculoskeletal: Yes: Muscle Weakness Extremities: Yes: WNL Edema: No Peripheral Pulses WNL: Yes Neurological: Yes: Alert, Oriented Psychiatric: Yes: Alert, Oriented Labs: CBC, BMP 06/12/18 12:40 06/12/18 16:55 Imaging - Results Chest X-ray: Report Reviewed Problem List - Problems (1) DKA (diabetic ketoacidoses) Assessment/Plan: -ICU monitoring -Insulin drip -IVF -AG at 15, can initiate PO intake once AG<12 -initiate multidose insulin regimen SQ when patient is able to eat, otherwise continue insulin IV infusion -BGM Q1H -Check electrolytes Q2-4H until stable -Endocrinology consult -replace K+ as needed to keep serum K+ between 4-5 Code(s): E13.10 - OTH DIABETES MELLITUS WITH KETOACIDOSIS WITHOUT COMA Qualifiers: (2) Abdominal pain Assessment/Plan: -resolved Code(s): R10.9 - UNSPECIFIED ABDOMINAL PAIN Qualifiers: (3) Dehydration Assessment/Plan: -IVF -monitor volume status Code(s): E86.0 - DEHYDRATION (4) Nausea and vomiting Assessment/Plan: -vomiting resolved -reglan 10 mg IVP Q6H PRN Code(s): R11.2 - NAUSEA WITH VOMITING, UNSPECIFIED (5) Lactic acidosis Assessment/Plan: -IVF -repeat LA normalized Code(s): E87.2 - ACIDOSIS (6) Leukocytosis (leucocytosis) Assessment/Plan: -BC/UC pending -ID consult -Received Zosyn+Vanco+rocephin in ER -monitor trend Code(s): D72.829 - ELEVATED WHITE BLOOD CELL COUNT, UNSPECIFIED (7) Diarrhea Assessment/Plan: -R/O infectious etiology -Cdiff if diarrhea persist Code(s): R19.7 - DIARRHEA, UNSPECIFIED Assessment/Plan See problem list
[2018-06-12] MEDS ORDERED: ACETAMINOPHEN 325 MG TABLET (FP) PO PRN (18:07)
--- NOTE | 2018-06-12 22:54 | CONSULT ---
Consult Consult Specialty:: endocrine Referred by:: funmilayo mora Reason for Consultation:: dka - History of Present Illness Chief Complaint: nausea and vomiting History of Present Illness: 27 y/o man with IDDM, hx of DKA, who presents to ED with approx 24hrs of emesis , loose stool, and general malaise. In icu he is alert responsive,thirsty, hemodynamically stable and afebrile.He reports taking his sugars and compliant with insulin yet unable to stop the nausea and vomiting since last 2 4 hrs. Labs positive for BGL of >300, Hco3 6, pH 7.2, AG of 30, LA 8, Cr 2. WBC was 36. he faustina hemoptysis,or recent travel. He was started on iv fluids,and antibiotic in ed. He was given 2+ L of IVF. insulin drip was started. 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 PUMP: Yes: Other (tiredness and weakness) Cardio/Vascular: Yes: Other (tachycardia and lethargy with frequent urination) Pulmonary: Yes: Other (bronchitis) Gastrointestinal: Yes: GERD Hepatobiliary: Yes: Other (none) Renal/: Yes: UTI Infectious Disease: Yes: Other (none) Psych: Yes: Depression Musculoskeletal: Yes: Other (none) Rheumatology: Yes: Other (none) ENT: Yes: Allergic Rhinitis Endocrine: Yes: Diabetes Mellitus Dermatology: Yes: Other (none) - Past Surgical History Past Surgical History: Yes: None - Alcohol/Substance Use Hx Alcohol Use: No History of Substance Use: reports: None - Smoking History Smoking history: Unknown if ever smoked Have you smoked in the past 12 months: No Aproximately how many cigarettes per day: 0 - Social History History of Recent Travel: No Home Medications - Allergies Allergies/Adverse Reactions: Allergies Allergy/AdvReac Type Severity Reaction Status Date / Time No Known Allergies Allergy Verified 06/12/18 06:26 - Home Medications Home Medications: Ambulatory Orders Acetaminophen [Tylenol .Regular Strength -] 650 mg PO Q6H PRN #0 tablet Insulin Sliding Scale [Novolog Vial Sliding Scale -] 1 vial SQ ACHS units 10/26 Metoclopramide HCl [Reglan] 5 mg PO TID PRN #60 tablet 10/26/16 Insulin (Levemir) [Levemir Vial] 40 unit SQ DAILY 02/14/19 Family Disease History - Family Disease History Family Disease History: Diabetes: Mother Review of Systems - Review of Systems Constitutional: reports: Lethargy, Weakness Eyes: reports: No Symptoms HENT: reports: No Symptoms Neck: reports: No Symptoms Cardiovascular: reports: No Symptoms Respiratory: reports: No Symptoms Gastrointestinal: reports: Bloating, Constipation, Nausea Genitourinary: reports: No Symptoms Breasts: reports: No Symptoms Reported Musculoskeletal: reports: No Symptoms Integumentary: reports: No Symptoms Neurological: reports: Weakness Endocrine: reports: Unexplained Weight Loss Physical Exam Vital Signs: Vital Signs Temperature 99.0 F 06/12/18 09:16 Pulse Rate 92 H 06/12/18 18:26 Respiratory Rate 20 06/12/18 18:26 Blood Pressure 135/66 06/12/18 18:26 O2 Sat by Pulse Oximetry (%) 100 06/12/18 21:00 Constitutional: Yes: Calm Eyes: Yes: EOM Intact HENT: Yes: Normocephalic Neck: Yes: Trachea Midline Cardiovascular: Yes: Regular Rate and Rhythm Respiratory: Yes: CTA Bilaterally Gastrointestinal: Yes: Soft, Tenderness, Epigastrium ...Rectal Exam: Yes: Deferred Renal/: Yes: WNL Musculoskeletal: Yes: WNL Extremities: Yes: WNL Edema: No Neurological: Yes: Alert, Oriented Labs: CBC, BMP 06/12/18 12:40 06/12/18 16:55 Problem List - Problems (1) DKA (diabetic ketoacidoses) Code(s): E13.10 - OTH DIABETES MELLITUS WITH KETOACIDOSIS WITHOUT COMA Qualifiers: (2) Diarrhea Code(s): R19.7 - DIARRHEA, UNSPECIFIED (3) Abdominal pain Code(s): R10.9 - UNSPECIFIED ABDOMINAL PAIN Qualifiers: (4) Dehydration Code(s): E86.0 - DEHYDRATION (5) Elevated liver enzymes Code(s): R74.8 - ABNORMAL LEVELS OF OTHER SERUM ENZYMES Assessment/Plan Current Active Problems DKA (diabetic ketoacidoses) (Acute) Diarrhea (Acute) Lactic acidosis (Acute) abdominal pain Abnormal Lab Results 06/12/18 06/12/18 06/12/18 06:00 06:00 06:00 WBC 36.6 H* Hct 49.2 H D MCV 99.2 H Plt Count 476 H D MPV Absolute Neuts (auto) 31.7 H Neutrophils % 86.5 H Neutrophils % (Manual) Lymphocytes % 3.9 L Lymphocytes % (Manual) 5.2 L Monocytes % (Manual) ABG pH ABG pCO2 at Pt Temp ABG pO2 at Pt Temp ABG HCO3 ABG Base Excess VBG pH POC VBG pCO2 POC VBG pO2 Mixed VBG HCO3 Methemoglobin Sodium 131 L Potassium 5.2 H Chloride 95 L Carbon Dioxide 6 L Anion Gap 30 H BUN 21 H Creatinine 2.1 H Random Glucose 489 H* Lactic Acid 8.7 H* Calcium 10.4 H Total Protein 9.2 H Albumin 5.2 H Urine Protein Urine Glucose (UA) Urine Ketones Urine Blood 06/12/18 06/12/18 06/12/18 07:47 08:08 08:43 WBC Hct MCV Plt Count MPV Absolute Neuts (auto) Neutrophils % Neutrophils % (Manual) Lymphocytes % Lymphocytes % (Manual) Monocytes % (Manual) ABG pH 7.25 L ABG pCO2 at Pt Temp 16.4 L* ABG pO2 at Pt Temp 121.0 H ABG HCO3 6.9 L* ABG Base Excess -19.1 L* VBG pH POC VBG pCO2 POC VBG pO2 Mixed VBG HCO3 Methemoglobin 0.3 L Sodium Potassium Chloride 108 H Carbon Dioxide 8 L Anion Gap 23 H BUN 19 H Creatinine 1.8 H Random Glucose 293 H Lactic Acid Calcium Total Protein Albumin Urine Protein 2+ H Urine Glucose (UA) 3+ H Urine Ketones 2+ H Urine Blood 1+ H 06/12/18 06/12/18 06/12/18 09:30 12:40 12:40 WBC 30.1 H* Hct MCV 96.6 H Plt Count MPV 7.3 L Absolute Neuts (auto) 26.5 H Neutrophils % 88.1 H Neutrophils % (Manual) 83.0 H Lymphocytes % 4.5 L Lymphocytes % (Manual) 4.0 L D Monocytes % (Manual) 11 H ABG pH ABG pCO2 at Pt Temp ABG pO2 at Pt Temp ABG HCO3 ABG Base Excess VBG pH POC VBG pCO2 POC VBG pO2 Mixed VBG HCO3 Methemoglobin Sodium Potassium 5.2 H Chloride 110 H Carbon Dioxide 15 L Anion Gap BUN Creatinine 1.4 H Random Glucose 176 H Lactic Acid 4.4 H* Calcium Total Protein Albumin Urine Protein Urine Glucose (UA) Urine Ketones Urine Blood 06/12/18 06/12/18 12:40 16:55 WBC Hct MCV Plt Count MPV Absolute Neuts (auto) Neutrophils % Neutrophils % (Manual) Lymphocytes % Lymphocytes % (Manual) Monocytes % (Manual) ABG pH ABG pCO2 at Pt Temp ABG pO2 at Pt Temp ABG HCO3 ABG Base Excess VBG pH 7.27 L POC VBG pCO2 32.7 L D POC VBG pO2 26.5 L Mixed VBG HCO3 14.7 L* Methemoglobin Sodium Potassium Chloride 109 H Carbon Dioxide 14 L Anion Gap 18 H BUN Creatinine Random Glucose 191 H Lactic Acid Calcium Total Protein Albumin Urine Protein Urine Glucose (UA) Urine Ketones Urine Blood Laboratory Results - last 24 hr 06/12/18 06/12/18 06/12/18 05:51 06:00 06:00 WBC 36.6 H* RBC 4.96 Hgb 16.0 Hct 49.2 H D MCV 99.2 H MCH 32.3 MCHC 32.5 RDW 13.8 Plt Count 476 H D MPV 8.0 Absolute Neuts (auto) 31.7 H Neutrophils % 86.5 H Neutrophils % (Manual) 77.3 Band Neutrophils % 7.2 Lymphocytes % 3.9 L Lymphocytes % (Manual) 5.2 L Monocytes % 9.1 D Monocytes % (Manual) 7 D Eosinophils % 0.1 D Eosinophils % (Manual) 0.0 Basophils % 0.4 Basophils % (Manual) 0.0 Myelocytes % (Man) 1 Promyelocytes % (Man) 0 Blast Cells % (Manual) 0 Nucleated RBC % 0 Metamyelocytes 2 Hypochromia 0 Platelet Estimate Normal Polychromasia 0 Poikilocytosis 0 Anisocytosis 0 Microcytosis 0 Macrocytosis 1+ Tear Drop Cells 1+ Ovalocytes 1+ Puncture Site ABG pH ABG pCO2 at Pt Temp ABG pO2 at Pt Temp ABG HCO3 ABG O2 Sat (Measured) ABG O2 Content ABG Base Excess Eric Test VBG pH POC VBG pCO2 POC VBG pO2 Mixed VBG HCO3 Carboxyhemoglobin Methemoglobin Oxygen Flow Rate Sodium 131 L Potassium 5.2 H Chloride 95 L Carbon Dioxide 6 L Anion Gap 30 H BUN 21 H Creatinine 2.1 H Creat Clearance w eGFR 37.79 POC Glucometer 441 Random Glucose 489 H* Lactic Acid Calcium 10.4 H Phosphorus Magnesium Total Bilirubin 0.9 AST 25 ALT 42 Alkaline Phosphatase 107 Total Protein 9.2 H Albumin 5.2 H Lipase Urine Color Urine Appearance Urine pH Ur Specific Shickley Urine Protein Urine Glucose (UA) Urine Ketones Urine Blood Urine Nitrite Urine Bilirubin Urine Urobilinogen Ur Leukocyte Esterase Urine WBC (Auto) Urine RBC (Auto) Ur Epithelial Cells Urine Mucus Acetone, Qual Positive moderate 2+ Influenza A (Rapid) Influenza B (Rapid) 06/12/18 06/12/18 06/12/18 06:00 07:47 07:47 WBC RBC Hgb Hct MCV MCH MCHC RDW Plt Count MPV Absolute Neuts (auto) Neutrophils % Neutrophils % (Manual) Band Neutrophils % Lymphocytes % Lymphocytes % (Manual) Monocytes % Monocytes % (Manual) Eosinophils % Eosinophils % (Manual) Basophils % Basophils % (Manual) Myelocytes % (Man) Promyelocytes % (Man) Blast Cells % (Manual) Nucleated RBC % Metamyelocytes Hypochromia Platelet Estimate Polychromasia Poikilocytosis Anisocytosis Microcytosis Macrocytosis Tear Drop Cells Ovalocytes Puncture Site ABG pH ABG pCO2 at Pt Temp ABG pO2 at Pt Temp ABG HCO3 ABG O2 Sat (Measured) ABG O2 Content ABG Base Excess Eric Test VBG pH POC VBG pCO2 POC VBG pO2 Mixed VBG HCO3 Carboxyhemoglobin Methemoglobin Oxygen Flow Rate Sodium 139 Potassium 4.8 Chloride 108 H Carbon Dioxide 8 L Anion Gap 23 H BUN 19 H Creatinine 1.8 H Creat Clearance w eGFR 45.15 POC Glucometer Random Glucose 293 H Lactic Acid 8.7 H* Calcium 9.1 Phosphorus 4.4 Magnesium 2.2 Total Bilirubin AST ALT Alkaline Phosphatase Total Protein Albumin Lipase 86 Urine Color Urine Appearance Urine pH Ur Specific Shickley Urine Protein Urine Glucose (UA) Urine Ketones Urine Blood Urine Nitrite Urine Bilirubin Urine Urobilinogen Ur Leukocyte Esterase Urine WBC (Auto) Urine RBC (Auto) Ur Epithelial Cells Urine Mucus Acetone, Qual Influenza A (Rapid) Negative Influenza B (Rapid) Negative 06/12/18 06/12/18 06/12/18 08:08 08:43 08:52 WBC RBC Hgb Hct MCV MCH MCHC RDW Plt Count MPV Absolute Neuts (auto) Neutrophils % Neutrophils % (Manual) Band Neutrophils % Lymphocytes % Lymphocytes % (Manual) Monocytes % Monocytes % (Manual) Eosinophils % Eosinophils % (Manual) Basophils % Basophils % (Manual) Myelocytes % (Man) Promyelocytes % (Man) Blast Cells % (Manual) Nucleated RBC % Metamyelocytes Hypochromia Platelet Estimate Polychromasia Poikilocytosis Anisocytosis Microcytosis Macrocytosis Tear Drop Cells Ovalocytes Puncture Site No Result Required. ABG pH 7.25 L ABG pCO2 at Pt Temp 16.4 L* ABG pO2 at Pt Temp 121.0 H ABG HCO3 6.9 L* ABG O2 Sat (Measured) 98.3 ABG O2 Content 17.6 ABG Base Excess -19.1 L* Eric Test No Result Required. VBG pH POC VBG pCO2 POC VBG pO2 Mixed VBG HCO3 Carboxyhemoglobin 1.6 Methemoglobin 0.3 L Oxygen Flow Rate No Result Required. Sodium Potassium Chloride Carbon Dioxide Anion Gap BUN Creatinine Creat Clearance w eGFR POC Glucometer 282 Random Glucose Lactic Acid Calcium Phosphorus Magnesium Total Bilirubin AST ALT Alkaline Phosphatase Total Protein Albumin Lipase Urine Color Straw Urine Appearance Clear Urine pH 5.0 Ur Specific [place]ickley 1.023 Urine Protein 2+ H Urine Glucose (UA) 3+ H Urine Ketones 2+ H Urine Blood 1+ H Urine Nitrite Negative Urine Bilirubin Negative Urine Urobilinogen Negative Ur Leukocyte Esterase Negative Urine WBC (Auto) 1 Urine RBC (Auto) 1 Ur Epithelial Cells Rare Urine Mucus Rare Acetone, Qual Influenza A (Rapid) Influenza B (Rapid) 06/12/18 06/12/18 06/12/18 09:30 10:26 11:32 WBC RBC Hgb Hct MCV MCH MCHC RDW Plt Count MPV Absolute Neuts (auto) Neutrophils % Neutrophils % (Manual) Band Neutrophils % Lymphocytes % Lymphocytes % (Manual) Monocytes % Monocytes % (Manual) Eosinophils % Eosinophils % (Manual) Basophils % Basophils % (Manual) Myelocytes % (Man) Promyelocytes % (Man) Blast Cells % (Manual) Nucleated RBC % Metamyelocytes Hypochromia Platelet Estimate Polychromasia Poikilocytosis Anisocytosis Microcytosis Macrocytosis Tear Drop Cells Ovalocytes Puncture Site ABG pH ABG pCO2 at Pt Temp ABG pO2 at Pt Temp ABG HCO3 ABG O2 Sat (Measured) ABG O2 Content ABG Base Excess Eric Test VBG pH POC VBG pCO2 POC VBG pO2 Mixed VBG HCO3 Carboxyhemoglobin Methemoglobin Oxygen Flow Rate Sodium Potassium Chloride Carbon Dioxide Anion Gap BUN Creatinine Creat Clearance w eGFR POC Glucometer 261 197 Random Glucose Lactic Acid 4.4 H* Calcium Phosphorus Magnesium Total Bilirubin AST ALT Alkaline Phosphatase Total Protein Albumin Lipase Urine Color Urine Appearance Urine pH Ur Specific Shickley Urine Protein Urine Glucose (UA) Urine Ketones Urine Blood Urine Nitrite Urine Bilirubin Urine Urobilinogen Ur Leukocyte Esterase Urine WBC (Auto) Urine RBC (Auto) Ur Epithelial Cells Urine Mucus Acetone, Qual Influenza A (Rapid) Influenza B (Rapid) 06/12/18 06/12/18 06/12/18 12:29 12:40 12:40 WBC 30.1 H* RBC 4.30 Hgb 14.0 Hct 41.6 D MCV 96.6 H MCH 32.7 MCHC 33.8 RDW 13.2 Plt Count 357 D MPV 7.3 L Absolute Neuts (auto) 26.5 H Neutrophils % 88.1 H Neutrophils % (Manual) 83.0 H Band Neutrophils % 1.0 Lymphocytes % 4.5 L Lymphocytes % (Manual) 4.0 L D Monocytes % 6.7 Monocytes % (Manual) 11 H Eosinophils % 0.1 Eosinophils % (Manual) 0.0 Basophils % 0.6 Basophils % (Manual) 0.0 Myelocytes % (Man) 0 D Promyelocytes % (Man) 0 Blast Cells % (Manual) 0 Nucleated RBC % 0 Metamyelocytes 0 D Hypochromia 0 Platelet Estimate Normal Polychromasia 0 Poikilocytosis 0 Anisocytosis 1+ Microcytosis 0 Macrocytosis 1+ Tear Drop Cells Ovalocytes Puncture Site ABG pH ABG pCO2 at Pt Temp ABG pO2 at Pt Temp ABG HCO3 ABG O2 Sat (Measured) ABG O2 Content ABG Base Excess Eric Test VBG pH POC VBG pCO2 POC VBG pO2 Mixed VBG HCO3 Carboxyhemoglobin Methemoglobin Oxygen Flow Rate Sodium 140 Potassium 5.2 H Chloride 110 H Carbon Dioxide 15 L Anion Gap 15 BUN 15 Creatinine 1.4 H Creat Clearance w eGFR > 60 POC Glucometer 169 Random Glucose 176 H Lactic Acid Calcium 8.9 Phosphorus Magnesium Total Bilirubin 0.9 AST 22 ALT 34 Alkaline Phosphatase 73 Total Protein 7.1 Albumin 4.0 Lipase Urine Color Urine Appearance Urine pH Ur Specific [place] Urine Protein Urine Glucose (UA) Urine Ketones Urine Blood Urine Nitrite Urine Bilirubin Urine Urobilinogen Ur Leukocyte Esterase Urine WBC (Auto) Urine RBC (Auto) Ur Epithelial Cells Urine Mucus Acetone, Qual Influenza A (Rapid) Influenza B (Rapid) 06/12/18 06/12/18 06/12/18 12:40 12:40 13:31 WBC RBC Hgb Hct MCV MCH MCHC RDW Plt Count MPV Absolute Neuts (auto) Neutrophils % Neutrophils % (Manual) Band Neutrophils % Lymphocytes % Lymphocytes % (Manual) Monocytes % Monocytes % (Manual) Eosinophils % Eosinophils % (Manual) Basophils % Basophils % (Manual) Myelocytes % (Man) Promyelocytes % (Man) Blast Cells % (Manual) Nucleated RBC % Metamyelocytes Hypochromia Platelet Estimate Polychromasia Poikilocytosis Anisocytosis Microcytosis Macrocytosis Tear Drop Cells Ovalocytes Puncture Site ABG pH ABG pCO2 at Pt Temp ABG pO2 at Pt Temp ABG HCO3 ABG O2 Sat (Measured) ABG O2 Content ABG Base Excess Eric Test VBG pH 7.27 L POC VBG pCO2 32.7 L D POC VBG pO2 26.5 L Mixed VBG HCO3 14.7 L* Carboxyhemoglobin Methemoglobin Oxygen Flow Rate Sodium Potassium Chloride Carbon Dioxide Anion Gap BUN Creatinine Creat Clearance w eGFR POC Glucometer 177 Random Glucose Lactic Acid 1.4 Calcium Phosphorus Magnesium Total Bilirubin AST ALT Alkaline Phosphatase Total Protein Albumin Lipase Urine Color Urine Appearance Urine pH Ur Specific [place] Urine Protein Urine Glucose (UA) Urine Ketones Urine Blood Urine Nitrite Urine Bilirubin Urine Urobilinogen Ur Leukocyte Esterase Urine WBC (Auto) Urine RBC (Auto) Ur Epithelial Cells Urine Mucus Acetone, Qual Influenza A (Rapid) Influenza B (Rapid) 06/12/18 06/12/18 06/12/18 14:38 16:10 16:55 WBC RBC Hgb Hct MCV MCH MCHC RDW Plt Count MPV Absolute Neuts (auto) Neutrophils % Neutrophils % (Manual) Band Neutrophils % Lymphocytes % Lymphocytes % (Manual) Monocytes % Monocytes % (Manual) Eosinophils % Eosinophils % (Manual) Basophils % Basophils % (Manual) Myelocytes % (Man) Promyelocytes % (Man) Blast Cells % (Manual) Nucleated RBC % Metamyelocytes Hypochromia Platelet Estimate Polychromasia Poikilocytosis Anisocytosis Microcytosis Macrocytosis Tear Drop Cells Ovalocytes Puncture Site ABG pH ABG pCO2 at Pt Temp ABG pO2 at Pt Temp ABG HCO3 ABG O2 Sat (Measured) ABG O2 Content ABG Base Excess Eric Test VBG pH POC VBG pCO2 POC VBG pO2 Mixed VBG HCO3 Carboxyhemoglobin Methemoglobin Oxygen Flow Rate Sodium 141 Potassium 4.7 Chloride 109 H Carbon Dioxide 14 L Anion Gap 18 H BUN 14 Creatinine 1.3 Creat Clearance w eGFR > 60 POC Glucometer 189 164 Random Glucose 191 H Lactic Acid Calcium 8.8 Phosphorus Magnesium Total Bilirubin AST ALT Alkaline Phosphatase Total Protein Albumin Lipase Urine Color Urine Appearance Urine pH Ur Specific [place] Urine Protein Urine Glucose (UA) Urine Ketones Urine Blood Urine Nitrite Urine Bilirubin Urine Urobilinogen Ur Leukocyte Esterase Urine WBC (Auto) Urine RBC (Auto) Ur Epithelial Cells Urine Mucus Acetone, Qual Influenza A (Rapid) Influenza B (Rapid) 06/12/18 06/12/18 06/12/18 17:04 18:14 19:55 WBC RBC Hgb Hct MCV MCH MCHC RDW Plt Count MPV Absolute Neuts (auto) Neutrophils % Neutrophils % (Manual) Band Neutrophils % Lymphocytes % Lymphocytes % (Manual) Monocytes % Monocytes % (Manual) Eosinophils % Eosinophils % (Manual) Basophils % Basophils % (Manual) Myelocytes % (Man) Promyelocytes % (Man) Blast Cells % (Manual) Nucleated RBC % Metamyelocytes Hypochromia Platelet Estimate Polychromasia Poikilocytosis Anisocytosis Microcytosis Macrocytosis Tear Drop Cells Ovalocytes Puncture Site ABG pH ABG pCO2 at Pt Temp ABG pO2 at Pt Temp ABG HCO3 ABG O2 Sat (Measured) ABG O2 Content ABG Base Excess Eric Test VBG pH POC VBG pCO2 POC VBG pO2 Mixed VBG HCO3 Carboxyhemoglobin Methemoglobin Oxygen Flow Rate Sodium Potassium Chloride Carbon Dioxide Anion Gap BUN Creatinine Creat Clearance w eGFR POC Glucometer 198 203 166 Random Glucose Lactic Acid Calcium Phosphorus Magnesium Total Bilirubin AST ALT Alkaline Phosphatase Total Protein Albumin Lipase Urine Color Urine Appearance Urine pH Ur Specific [place] Urine Protein Urine Glucose (UA) Urine Ketones Urine Blood Urine Nitrite Urine Bilirubin Urine Urobilinogen Ur Leukocyte Esterase Urine WBC (Auto) Urine RBC (Auto) Ur Epithelial Cells Urine Mucus Acetone, Qual Influenza A (Rapid) Influenza B (Rapid) 06/12/18 06/12/18 20:41 22:14 WBC RBC Hgb Hct MCV MCH MCHC RDW Plt Count MPV Absolute Neuts (auto) Neutrophils % Neutrophils % (Manual) Band Neutrophils % Lymphocytes % Lymphocytes % (Manual) Monocytes % Monocytes % (Manual) Eosinophils % Eosinophils % (Manual) Basophils % Basophils % (Manual) Myelocytes % (Man) Promyelocytes % (Man) Blast Cells % (Manual) Nucleated RBC % Metamyelocytes Hypochromia Platelet Estimate Polychromasia Poikilocytosis Anisocytosis Microcytosis Macrocytosis Tear Drop Cells Ovalocytes Puncture Site ABG pH ABG pCO2 at Pt Temp ABG pO2 at Pt Temp ABG HCO3 ABG O2 Sat (Measured) ABG O2 Content ABG Base Excess Eric Test VBG pH POC VBG pCO2 POC VBG pO2 Mixed VBG HCO3 Carboxyhemoglobin Methemoglobin Oxygen Flow Rate Sodium Potassium Chloride Carbon Dioxide Anion Gap BUN Creatinine Creat Clearance w eGFR POC Glucometer 155 138 Random Glucose Lactic Acid Calcium Phosphorus Magnesium Total Bilirubin AST ALT Alkaline Phosphatase Total Protein Albumin Lipase Urine Color Urine Appearance Urine pH Ur Specific [place] Urine Protein Urine Glucose (UA) Urine Ketones Urine Blood Urine Nitrite Urine Bilirubin Urine Urobilinogen Ur Leukocyte Esterase Urine WBC (Auto) Urine RBC (Auto) Ur Epithelial Cells Urine Mucus Acetone, Qual Influenza A (Rapid) Influenza B (Rapid) plan: bgm q1 hr iv fluid ns @250cc/hr iv antibiotic awaiting cultures gi consult gastroparesis [id number]
[2018-06-13 06:15] LABS: ANION GAP 10 MMOL/L (8-16); BLOOD UREA NITROGEN 12 mg/dL (7-18); CALCIUM 8.4 mg/dL (8.5-10.1); CHLORIDE 110 mmol/L (98-107); CO2 20 mmol/L (21-32); CREATININE 1.1 mg/dL (0.55-1.3); GLUCOSE,RANDOM 124 mg/dL (74-106); POTASSIUM 3.6 mmol/L (3.5-5.1); SODIUM 139 mmol/L (136-145)
[2018-06-13] MEDS: D5-1/2NS+20 MEQ KCL - 20 MEQ/1,000 ML INFUS.BAG IV SCH (07:05)
[2018-06-13 07:46] LABS: HEMATOCRIT 36.7 % (35.4-49); HEMOGLOBIN 12.3 GM/dL (11.7-16.9); MCH 31.9 pg (25.7-33.7); MCHC 33.6 g/dl (32.0-35.9); MEAN CELL VOLUME 95.1 fl (80-96); MEAN PLT VOLUME 7.5 fl (7.5-11.1); PLATELET COUNT 332 K/MM3 (134-434); RBC 3.86 M/mm3 (4.00-5.60); RDW 13.2 % (11.9-15.9); WHITE BLOOD COUNT 14.1 K/mm3 (4.0-10.0)
--- NOTE | 2018-06-13 08:01 | PN ---
Progress Note, Physician History of Present Illness: NO COMPLAINTS THIS AM - Current Medication List Current Medications: Active Medications Acetaminophen (Tylenol -) 650 mg PO Q6H PRN PRN Reason: FEVER Sodium Chloride (Normal Saline -) 1,000 mls @ 100 mls/hr IV ASDIR FABIAN Last Admin: 06/12/18 08:59 Dose: 100 mls/hr Potassium Chloride/Sodium Chloride (Ns+20 Meq Kcl -) 20 meq in 1,000 mls @ 125 mls/hr IV ASDIR FABIAN Last Admin: 06/12/18 10:39 Dose: 125 mls/hr Insulin Human Regular 100 (units/ Sodium Chloride) 100 mls @ 6.13 mls/hr IVPB TITR FABIAN; Protocol Last Admin: 06/13/18 07:16 Dose: 0.1 units/kg/hr, 6.13 mls/hr Potassium Chloride/Dextrose/Sod Cl (D5-1/2ns+20 Meq Kcl -) 20 meq in 1,000 mls @ 150 mls/hr IV ASDIR FABIAN Last Admin: 06/13/18 07:05 Dose: 150 mls/hr Insulin Aspart (Novolog Vial Sliding Scale -) 1 vial SQ TIDAC [facility]; Protocol Metoclopramide HCl (Reglan Injection -) 10 mg IVPUSH Q6H PRN PRN Reason: NAUSEA AND/OR VOMITING Last Admin: 06/12/18 20:30 Dose: 10 mg - Objective Vital Signs: Vital Signs Temperature 99.0 F 06/12/18 09:16 Pulse Rate 82 06/13/18 06:00 Respiratory Rate 14 06/13/18 06:00 Blood Pressure 127/74 06/13/18 06:00 O2 Sat by Pulse Oximetry (%) 100 06/13/18 07:19 Cardiovascular: Yes: Regular Rate and Rhythm Respiratory: Yes: Regular, CTA Bilaterally Gastrointestinal: Yes: Normal Bowel Sounds, Soft. No: Tenderness Labs: CBC, BMP 06/13/18 05:15 06/13/18 05:15 Assessment/Plan - Problems (1) DKA (diabetic ketoacidoses) Assessment/Plan: -ICU monitoring -Insulin drip -IVF -AG at 15, can initiate PO intake once AG<12 -initiate multidose insulin regimen SQ when patient is able to eat, otherwise continue insulin IV infusion -BGM Q1H -Check electrolytes Q2-4H until stable -Endocrinology consult -replace K+ as needed to keep serum K+ between 4-5 Code(s): E13.10 - OTH DIABETES MELLITUS WITH KETOACIDOSIS WITHOUT COMA Qualifiers: (2) Abdominal pain Assessment/Plan: -resolved Code(s): R10.9 - UNSPECIFIED ABDOMINAL PAIN Qualifiers: (3) Dehydration Assessment/Plan: -IVF -monitor volume status Code(s): E86.0 - DEHYDRATION (4) Nausea and vomiting Assessment/Plan: -vomiting resolved -reglan 10 mg IVP Q6H PRN Code(s): R11.2 - NAUSEA WITH VOMITING, UNSPECIFIED (5) Lactic acidosis Assessment/Plan: -IVF -repeat LA normalized Code(s): E87.2 - ACIDOSIS (6) Leukocytosis (leucocytosis) Assessment/Plan: -BC/UC pending -ID consult -Received Zosyn+Vanco+rocephin in ER -monitor trend Code(s): D72.829 - ELEVATED WHITE BLOOD CELL COUNT, UNSPECIFIED (7) Diarrhea Assessment/Plan: -R/O infectious etiology -Cdiff if diarrhea persist Code(s): R19.7 - DIARRHEA, UNSPECIFIED
[2018-06-13] MEDS: SODIUM CHLORIDE 0.9%/KCL 20 MEQ/1,000 ML INFUS.BAG IV SCH (09:23)
--- NOTE | 2018-06-13 09:59 | PN ---
Progress Note (short form) - Note Progress Note: ID consult dictated imp/reccd 27 yo diabetic man admitted 06/12 in DKA- he developed vomiting, and abdominal pain in Ed he ws in DKA cxray and UA were negative notes fever at home no fevers since received one dose of zosyn yesterday am no further antibiotics surrently awaake and alert vomiting has stopped, abdominal pain has resolved reports adherence with insulin as outpt no sick contacts no diarrhea no cough +weight loss DKA no clear source of infection improving off antibiotics would continue same management weight loss- unclear how much reports improvement in hgbAic! agreeable to HIV testing check tsh as well Problem List - Problems (1) DKA (diabetic ketoacidoses) Code(s): E13.10 - OTH DIABETES MELLITUS WITH KETOACIDOSIS WITHOUT COMA Qualifiers: (2) Weight loss Code(s): R63.4 - ABNORMAL WEIGHT LOSS
[2018-06-13] MEDS ORDERED: INSULIN (LEVEMIR) 100 UNITS/ML UNITS SQ ONE (10:15)
[2018-06-13] MEDS ORDERED: INSULIN SLIDING SCALE (NOVOLOG) 1 VIAL SQ SCH ×2 (11:00)
--- NOTE | 2018-06-13 11:26 | PN ---
Physical Exam: SUBJECTIVE: Patient seen and examined Patient was seen and examined by me. The patient has no symptomatic complaints this morning. Per the patient, he denies the following: fever, chills, chest pain, SOB, N/V/D/constipation, and dysuria. Patient states he is back to baseline and will follow up with endo once discharged. No overnight events OBJECTIVE: Vital Signs Period Temp Pulse Resp BP Sys/Guo Pulse Ox Last 24 Hr 98 F 11-102 13-25 122-135/66-81 99-100 GENERAL: The patient is awake, alert, and fully oriented, in no acute distress. HEAD: Normal with no signs of trauma. EYES: PERRL, extraocular movements intact, sclera anicteric, conjunctiva clear. No ptosis. ENT: Ears normal, nares patent, oropharynx clear without exudates, moist mucous membranes. NECK: Trachea midline, full range of motion, supple. LUNGS: Breath sounds equal, clear to auscultation bilaterally, no wheezes, no crackles, no accessory muscle use. HEART: Regular rate and rhythm, S1, S2 without murmur, rub or gallop. ABDOMEN: Soft, nontender, nondistended, normoactive bowel sounds, no guarding, no rebound, no hepatosplenomegaly, no masses. EXTREMITIES: 2+ pulses, warm, well-perfused, no edema. NEUROLOGICAL: Cranial nerves II through XII grossly intact. Normal speech, gait not observed. PSYCH: Normal mood, normal affect. SKIN: Warm, dry, normal turgor, no rashes or lesions noted Laboratory Results - last 24 hr 06/12/18 06/12/18 06/12/18 06:00 11:32 12:29 WBC RBC Hgb Hct MCV MCH MCHC RDW Plt Count MPV Absolute Neuts (auto) Neutrophils % Neutrophils % (Manual) 77.3 Band Neutrophils % 7.2 Lymphocytes % Lymphocytes % (Manual) 5.2 L Monocytes % Monocytes % (Manual) 7 D Eosinophils % Eosinophils % (Manual) 0.0 Basophils % Basophils % (Manual) 0.0 Myelocytes % (Man) 1 Promyelocytes % (Man) 0 Blast Cells % (Manual) 0 Nucleated RBC % Metamyelocytes 2 Hypochromia 0 Platelet Estimate Normal Polychromasia 0 Poikilocytosis 0 Anisocytosis 0 Microcytosis 0 Macrocytosis 1+ Tear Drop Cells 1+ Ovalocytes 1+ VBG pH POC VBG pCO2 POC VBG pO2 Mixed VBG HCO3 Sodium Potassium Chloride Carbon Dioxide Anion Gap BUN Creatinine Creat Clearance w eGFR POC Glucometer 197 169 Random Glucose Hemoglobin A1c % Lactic Acid Calcium Total Bilirubin AST ALT Alkaline Phosphatase Total Protein Albumin 06/12/18 06/12/18 06/12/18 12:40 12:40 12:40 WBC 30.1 H* RBC 4.30 Hgb 14.0 Hct 41.6 D MCV 96.6 H MCH 32.7 MCHC 33.8 RDW 13.2 Plt Count 357 D MPV 7.3 L Absolute Neuts (auto) 26.5 H Neutrophils % 88.1 H Neutrophils % (Manual) 83.0 H Band Neutrophils % 1.0 Lymphocytes % 4.5 L Lymphocytes % (Manual) 4.0 L D Monocytes % 6.7 Monocytes % (Manual) 11 H Eosinophils % 0.1 Eosinophils % (Manual) 0.0 Basophils % 0.6 Basophils % (Manual) 0.0 Myelocytes % (Man) 0 D Promyelocytes % (Man) 0 Blast Cells % (Manual) 0 Nucleated RBC % 0 Metamyelocytes 0 D Hypochromia 0 Platelet Estimate Normal Polychromasia 0 Poikilocytosis 0 Anisocytosis 1+ Microcytosis 0 Macrocytosis 1+ Tear Drop Cells Ovalocytes VBG pH POC VBG pCO2 POC VBG pO2 Mixed VBG HCO3 Sodium 140 Potassium 5.2 H Chloride 110 H Carbon Dioxide 15 L Anion Gap 15 BUN 15 Creatinine 1.4 H Creat Clearance w eGFR > 60 POC Glucometer Random Glucose 176 H Hemoglobin A1c % Lactic Acid 1.4 Calcium 8.9 Total Bilirubin 0.9 AST 22 ALT 34 Alkaline Phosphatase 73 Total Protein 7.1 Albumin 4.0 06/12/18 06/12/18 06/12/18 12:40 13:31 14:38 WBC RBC Hgb Hct MCV MCH MCHC RDW Plt Count MPV Absolute Neuts (auto) Neutrophils % Neutrophils % (Manual) Band Neutrophils % Lymphocytes % Lymphocytes % (Manual) Monocytes % Monocytes % (Manual) Eosinophils % Eosinophils % (Manual) Basophils % Basophils % (Manual) Myelocytes % (Man) Promyelocytes % (Man) Blast Cells % (Manual) Nucleated RBC % Metamyelocytes Hypochromia Platelet Estimate Polychromasia Poikilocytosis Anisocytosis Microcytosis Macrocytosis Tear Drop Cells Ovalocytes VBG pH 7.27 L POC VBG pCO2 32.7 L D POC VBG pO2 26.5 L Mixed VBG HCO3 14.7 L* Sodium Potassium Chloride Carbon Dioxide Anion Gap BUN Creatinine Creat Clearance w eGFR POC Glucometer 177 189 Random Glucose Hemoglobin A1c % Lactic Acid Calcium Total Bilirubin AST ALT Alkaline Phosphatase Total Protein Albumin 06/12/18 06/12/18 06/12/18 16:10 16:55 17:04 WBC RBC Hgb Hct MCV MCH MCHC RDW Plt Count MPV Absolute Neuts (auto) Neutrophils % Neutrophils % (Manual) Band Neutrophils % Lymphocytes % Lymphocytes % (Manual) Monocytes % Monocytes % (Manual) Eosinophils % Eosinophils % (Manual) Basophils % Basophils % (Manual) Myelocytes % (Man) Promyelocytes % (Man) Blast Cells % (Manual) Nucleated RBC % Metamyelocytes Hypochromia Platelet Estimate Polychromasia Poikilocytosis Anisocytosis Microcytosis Macrocytosis Tear Drop Cells Ovalocytes VBG pH POC VBG pCO2 POC VBG pO2 Mixed VBG HCO3 Sodium 141 Potassium 4.7 Chloride 109 H Carbon Dioxide 14 L Anion Gap 18 H BUN 14 Creatinine 1.3 Creat Clearance w eGFR > 60 POC Glucometer 164 198 Random Glucose 191 H Hemoglobin A1c % Lactic Acid Calcium 8.8 Total Bilirubin AST ALT Alkaline Phosphatase Total Protein Albumin 06/12/18 06/12/18 06/12/18 18:14 19:55 20:41 WBC RBC Hgb Hct MCV MCH MCHC RDW Plt Count MPV Absolute Neuts (auto) Neutrophils % Neutrophils % (Manual) Band Neutrophils % Lymphocytes % Lymphocytes % (Manual) Monocytes % Monocytes % (Manual) Eosinophils % Eosinophils % (Manual) Basophils % Basophils % (Manual) Myelocytes % (Man) Promyelocytes % (Man) Blast Cells % (Manual) Nucleated RBC % Metamyelocytes Hypochromia Platelet Estimate Polychromasia Poikilocytosis Anisocytosis Microcytosis Macrocytosis Tear Drop Cells Ovalocytes VBG pH POC VBG pCO2 POC VBG pO2 Mixed VBG HCO3 Sodium Potassium Chloride Carbon Dioxide Anion Gap BUN Creatinine Creat Clearance w eGFR POC Glucometer 203 166 155 Random Glucose Hemoglobin A1c % Lactic Acid Calcium Total Bilirubin AST ALT Alkaline Phosphatase Total Protein Albumin 06/12/18 06/12/18 06/12/18 22:14 23:04 23:57 WBC RBC Hgb Hct MCV MCH MCHC RDW Plt Count MPV Absolute Neuts (auto) Neutrophils % Neutrophils % (Manual) Band Neutrophils % Lymphocytes % Lymphocytes % (Manual) Monocytes % Monocytes % (Manual) Eosinophils % Eosinophils % (Manual) Basophils % Basophils % (Manual) Myelocytes % (Man) Promyelocytes % (Man) Blast Cells % (Manual) Nucleated RBC % Metamyelocytes Hypochromia Platelet Estimate Polychromasia Poikilocytosis Anisocytosis Microcytosis Macrocytosis Tear Drop Cells Ovalocytes VBG pH POC VBG pCO2 POC VBG pO2 Mixed VBG HCO3 Sodium Potassium Chloride Carbon Dioxide Anion Gap BUN Creatinine Creat Clearance w eGFR POC Glucometer 138 146 126 Random Glucose Hemoglobin A1c % Lactic Acid Calcium Total Bilirubin AST ALT Alkaline Phosphatase Total Protein Albumin 06/13/18 06/13/18 06/13/18 01:24 02:06 04:04 WBC RBC Hgb Hct MCV MCH MCHC RDW Plt Count MPV Absolute Neuts (auto) Neutrophils % Neutrophils % (Manual) Band Neutrophils % Lymphocytes % Lymphocytes % (Manual) Monocytes % Monocytes % (Manual) Eosinophils % Eosinophils % (Manual) Basophils % Basophils % (Manual) Myelocytes % (Man) Promyelocytes % (Man) Blast Cells % (Manual) Nucleated RBC % Metamyelocytes Hypochromia Platelet Estimate Polychromasia Poikilocytosis Anisocytosis Microcytosis Macrocytosis Tear Drop Cells Ovalocytes VBG pH POC VBG pCO2 POC VBG pO2 Mixed VBG HCO3 Sodium Potassium Chloride Carbon Dioxide Anion Gap BUN Creatinine Creat Clearance w eGFR POC Glucometer 137 134 103 Random Glucose Hemoglobin A1c % Lactic Acid Calcium Total Bilirubin AST ALT Alkaline Phosphatase Total Protein Albumin 06/13/18 06/13/18 06/13/18 05:15 05:15 05:15 WBC 14.1 H RBC 3.86 L Hgb 12.3 Hct 36.7 MCV 95.1 MCH 31.9 MCHC 33.6 RDW 13.2 Plt Count 332 MPV 7.5 Absolute Neuts (auto) Neutrophils % Neutrophils % (Manual) Band Neutrophils % Lymphocytes % Lymphocytes % (Manual) Monocytes % Monocytes % (Manual) Eosinophils % Eosinophils % (Manual) Basophils % Basophils % (Manual) Myelocytes % (Man) Promyelocytes % (Man) Blast Cells % (Manual) Nucleated RBC % Metamyelocytes Hypochromia Platelet Estimate Polychromasia Poikilocytosis Anisocytosis Microcytosis Macrocytosis Tear Drop Cells Ovalocytes VBG pH POC VBG pCO2 POC VBG pO2 Mixed VBG HCO3 Sodium 139 Potassium 3.6 Chloride 110 H Carbon Dioxide 20 L Anion Gap 10 BUN 12 Creatinine 1.1 Creat Clearance w eGFR > 60 POC Glucometer Random Glucose 124 H Hemoglobin A1c % 9.7 H Lactic Acid Calcium 8.4 L Total Bilirubin AST ALT Alkaline Phosphatase Total Protein Albumin 06/13/18 06/13/18 06/13/18 05:34 07:13 09:01 WBC RBC Hgb Hct MCV MCH MCHC RDW Plt Count MPV Absolute Neuts (auto) Neutrophils % Neutrophils % (Manual) Band Neutrophils % Lymphocytes % Lymphocytes % (Manual) Monocytes % Monocytes % (Manual) Eosinophils % Eosinophils % (Manual) Basophils % Basophils % (Manual) Myelocytes % (Man) Promyelocytes % (Man) Blast Cells % (Manual) Nucleated RBC % Metamyelocytes Hypochromia Platelet Estimate Polychromasia Poikilocytosis Anisocytosis Microcytosis Macrocytosis Tear Drop Cells Ovalocytes VBG pH POC VBG pCO2 POC VBG pO2 Mixed VBG HCO3 Sodium Potassium Chloride Carbon Dioxide Anion Gap BUN Creatinine Creat Clearance w eGFR POC Glucometer 118 145 163 Random Glucose Hemoglobin A1c % Lactic Acid Calcium Total Bilirubin AST ALT Alkaline Phosphatase Total Protein Albumin 06/13/18 10:53 WBC RBC Hgb Hct MCV MCH MCHC RDW Plt Count MPV Absolute Neuts (auto) Neutrophils % Neutrophils % (Manual) Band Neutrophils % Lymphocytes % Lymphocytes % (Manual) Monocytes % Monocytes % (Manual) Eosinophils % Eosinophils % (Manual) Basophils % Basophils % (Manual) Myelocytes % (Man) Promyelocytes % (Man) Blast Cells % (Manual) Nucleated RBC % Metamyelocytes Hypochromia Platelet Estimate Polychromasia Poikilocytosis Anisocytosis Microcytosis Macrocytosis Tear Drop Cells Ovalocytes VBG pH POC VBG pCO2 POC VBG pO2 Mixed VBG HCO3 Sodium Potassium Chloride Carbon Dioxide Anion Gap BUN Creatinine Creat Clearance w eGFR POC Glucometer 237 Random Glucose Hemoglobin A1c % Lactic Acid Calcium Total Bilirubin AST ALT Alkaline Phosphatase Total Protein Albumin Active Medications Generic Name Dose Route Start Last Admin Trade Name Freq PRN Reason Stop Dose Admin Acetaminophen 650 mg 06/12/18 18:07 Tylenol - PO Q6H PRN FEVER Insulin Human Regular 100 100 mls @ 6.13 mls/hr 06/12/18 11:44 06/13/18 07:16 units/ Sodium Chloride IVPB 0.1 units/kg/hr TITR FABIAN 6.13 mls/hr Administration Protocol 0.1 UNITS/KG/HR Potassium Chloride/Dextrose/Sod Cl 20 meq in 1,000 mls @ 150 mls/hr 06/12/18 11:45 06/13/18 07:05 D5-1/2ns+20 Meq Kcl - IV 150 mls/hr ASDIR FABIAN Administration Insulin Aspart 1 vial 06/13/18 11:00 Novolog Vial Sliding Scale - SQ TIDAC FABIAN Protocol Metoclopramide HCl 10 mg 06/12/18 13:43 06/12/18 20:30 Reglan Injection - IVPUSH 10 mg Q6H PRN Administration NAUSEA AND/OR VOMITING ASSESSMENT/PLAN: 27 yo M with a hx of IDDM with recurrent DKA episodes admitted for DKA Neuro: Alert and oriented x3. -Monitor for mental status changes Cardio: RRR without murmurs or gallops. -Continue monitoring in the ICU Respiratory: No SOB or increased WOB. -Continue to encourage IS. Endocrine: DKA: patient currently on 0.1 units/kg/hr. Gap closed, bicarb resolved. Patient' s will be transitioned to his home dose of levemir 40 units. Patient is tolerating PO diet well. Will DC D5 1/2 NS. Placed on sliding scale. -Continue to monitor BG with BGM Renal: ROBI on presentation, now resolved. Patient will be DCd from fluids ROBI likely secondary to dehydration ID: Leukocytosis with downtrend. 36-->30-->14. Leukocytosis likely secondary to reactive and dehydration. Patient admitted to having URI symptoms prior to N/V episodes. Currently, flu negative and CXR within normal limits. GI: Patient's N/V resolved. zofran prn, reglan. Dispo: To be transferred from the ICU today to floors. Visit type - Emergency Visit Emergency Visit: Yes ED Registration Date: 06/12/18 Care time: The patient presented to the Emergency Department on the above date and was hospitalized for further evaluation of their emergent condition. - New Patient This patient is new to me today: Yes Date on this admission: 06/13/18 - Critical Care Critical Care patient: Yes Total Critical Care Time (in minutes): 36 Critical Care Statement: The care of this patient involved high complexity decision making to prevent further life threatening deterioration of the patient 's condition and/or to evaluate & treat vital organ system(s) failure or risk of failure. - Discharge Referral Referred to [facility] No
--- NOTE | 2018-06-13 12:40 | CONS ---
DATE OF CONSULTATION: DATE OF DICTATION: 06/13/2018 INFECTIOUS DISEASE CONSULTATION REQUESTED BY: John Chacon MD DICTATED BY: Chacho Juarez MD This is a 27-year-old man with a history of insulin-dependent diabetes since age 12. He was recently in the hospital early May from the to June 02 for DKA which was felt to be secondary to dietary discretion. He was discharged home. He reports doing well at home until this weekend. He ate some pizza on Wednesday night. On Wednesday, he had diminished appetite. By Wednesday night, he had vomiting, and he came to the ER Wednesday morning complaining of abdominal pain, an episode of fever to 101.5 at home. He was noted to be in DKA in the emergency room. He had a white count of 36.6, hemoglobin of 16. At the time of discharge, his hemoglobin was 11.6. His bicarbonate was 6, and he had an anion gap of 30 with positive ketones. He was treated with IV fluids insulin, and admitted to the ICU. As well, he had blood cultures drawn and received a dose of piperacillin and Tazobactam. I am asked to see him for further evaluation. He is resting comfortably at this point. He has stopped vomiting. He has no abdominal pain. He denies any cough. He denies any dysuria. He has no diarrhea. He has had no fever since admission. He has no known drug allergies. SOCIAL HISTORY: He does not smoke cigarettes, but he does smoke marijuana. 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 Reports being HIV tested 1 year ago and being HIV negative at that time. He denies any marijuana use on the weekend of his admission. PAST MEDICAL HISTORY: Notable for diabetes with a history as well of GERD in the past. SURGICAL HISTORY: Negative. He has a remote history of MRSA from 2013. MEDICATIONS: As an outpatient include Reglan, insulin, Levemir. Reports taking his insulin daily. He does not use a pump. REVIEW OF SYSTEMS: He has no visual complaints. He has not seen an paper tube cutter. He has no complaint for the fatigue. He has not seen a land development manager. Abdominal pain is resolved. He has no vomiting. He has no diarrhea. He has no cough or shortness of breath. Notable for weight loss. He states his appetite is good and he is unclear why he is losing weight. He also reports improvement in his hemoglobin A1c. These 2 admissions were prior to these admissions in May. His last admission was in March of 2017. PHYSICAL EXAMINATION: General: Pleasant young man in no acute distress. He is awake and alert. Vital Signs: Temperature is 98, pulse is 80, blood pressure is 126/73, respiratory rate is 16, saturating 100% on room air. HEENT: He is normocephalic. His eyes are anicteric. Neck: Supple. Lungs: Clear to auscultation. Heart: Regular rate and rhythm. Abdomen: Soft, nontender. Extremities: Without edema. Skin: He has no skin rash or skin breakdown. LABORATORY DATA: White count on admission was 36.6, this morning is 14, hemoglobin is now 12.3 with platelets of 332. Chemistries are notable for a BUN of 12 and creatinine of 1.1. LFTs are normal. His blood cultures are negative after 24 hours, and urine culture is negative. Urinalysis is negative as well. Chest x-ray within infiltrate. IN SUMMARY: This is a 27-year-old man with: 1. Diabetic ketoacidosis, no clear source of infection, improving off antibiotics, would continue the same management. 2. Weight loss, unclear how much, unclear if this is all related to his diabetes, but a little unusual as he reports improvement in hemoglobin A1c. He is agreeable to human immunodeficiency virus testing, which we will order and we will check a TSH as well. Further recommendations to follow. CHACHO JUAREZ M.D. [id number]
[2018-06-13] MEDS: INSULIN SLIDING SCALE (NOVOLOG) 1 VIAL SQ SCH ×2 (12:53→18:46)
[2018-06-13] MEDS ORDERED: FLU VACCINE QUAD 60 MCG/0.5 ML (MDV 18-19) IM ONE (13:00)
--- NOTE | 2018-06-13 13:07 | PN ---
Teaching Attending Note Name of Resident: Massimo Benoit ATTENDING PHYSICIAN STATEMENT I saw and evaluated the patient. I reviewed the resident's note and discussed the case with the resident. I agree with the resident's findings and plan as documented. SUBJECTIVE: Patient seen and examined in the ICU. Awake and alert. Remains on low dose IV Insulin. No CP or SOB. No GI symptoms. Intake & Output 06/10/18 06/11/18 06/12/18 06/13/18 23:59 23:59 23:59 23:59 Intake Total 1050 1733 Output Total 800 Balance 1050 933 Weight 119 lb Last Vital Signs Temp Pulse Resp BP Pulse Ox 98 F 78 16 128/73 100 06/13/18 10:00 06/13/18 12:50 06/13/18 12:50 06/13/18 12:50 06/13/18 07:19 Active Medications Acetaminophen (Tylenol -) 650 mg PO Q6H PRN PRN Reason: FEVER Insulin Aspart (Novolog Vial Sliding Scale -) 1 vial SQ [facility]; Protocol Last Admin: 06/13/18 12:53 Dose: 4 units Metoclopramide HCl (Reglan Injection -) 10 mg IVPUSH Q6H PRN PRN Reason: NAUSEA AND/OR VOMITING Last Admin: 06/12/18 20:30 Dose: 10 mg Gen: Awake and alert, NAD HEENT: dry oral mucosa, PERRL, neck supple PULM: clear, no wheezes CV; s1s2, reg, no murmur ABD: no tenderness, no rebound, +BS Ext: dry, no edema, warm Neuro: lno focal deficits. Laboratory Results - last 24 hr 06/12/18 06/12/18 06/12/18 06:00 12:40 12:40 WBC 30.1 H* RBC 4.30 Hgb 14.0 Hct 41.6 D MCV 96.6 H MCH 32.7 MCHC 33.8 RDW 13.2 Plt Count 357 D MPV 7.3 L Absolute Neuts (auto) 26.5 H Neutrophils % 88.1 H Neutrophils % (Manual) 77.3 83.0 H Band Neutrophils % 7.2 1.0 Lymphocytes % 4.5 L Lymphocytes % (Manual) 5.2 L 4.0 L D Monocytes % 6.7 Monocytes % (Manual) 7 D 11 H Eosinophils % 0.1 Eosinophils % (Manual) 0.0 0.0 Basophils % 0.6 Basophils % (Manual) 0.0 0.0 Myelocytes % (Man) 1 0 D Promyelocytes % (Man) 0 0 Blast Cells % (Manual) 0 0 Nucleated RBC % 0 Metamyelocytes 2 0 D Hypochromia 0 0 Platelet Estimate Normal Normal Polychromasia 0 0 Poikilocytosis 0 0 Anisocytosis 0 1+ Microcytosis 0 0 Macrocytosis 1+ 1+ Tear Drop Cells 1+ Ovalocytes 1+ VBG pH POC VBG pCO2 POC VBG pO2 Mixed VBG HCO3 Sodium 140 Potassium 5.2 H Chloride 110 H Carbon Dioxide 15 L Anion Gap 15 BUN 15 Creatinine 1.4 H Creat Clearance w eGFR > 60 POC Glucometer Random Glucose 176 H Hemoglobin A1c % Lactic Acid Calcium 8.9 Total Bilirubin 0.9 AST 22 ALT 34 Alkaline Phosphatase 73 Total Protein 7.1 Albumin 4.0 06/12/18 06/12/18 06/12/18 12:40 12:40 13:31 WBC RBC Hgb Hct MCV MCH MCHC RDW Plt Count MPV Absolute Neuts (auto) Neutrophils % Neutrophils % (Manual) Band Neutrophils % Lymphocytes % Lymphocytes % (Manual) Monocytes % Monocytes % (Manual) Eosinophils % Eosinophils % (Manual) Basophils % Basophils % (Manual) Myelocytes % (Man) Promyelocytes % (Man) Blast Cells % (Manual) Nucleated RBC % Metamyelocytes Hypochromia Platelet Estimate Polychromasia Poikilocytosis Anisocytosis Microcytosis Macrocytosis Tear Drop Cells Ovalocytes VBG pH 7.27 L POC VBG pCO2 32.7 L D POC VBG pO2 26.5 L Mixed VBG HCO3 14.7 L* Sodium Potassium Chloride Carbon Dioxide Anion Gap BUN Creatinine Creat Clearance w eGFR POC Glucometer 177 Random Glucose Hemoglobin A1c % Lactic Acid 1.4 Calcium Total Bilirubin AST ALT Alkaline Phosphatase Total Protein Albumin 06/12/18 06/12/18 06/12/18 14:38 16:10 16:55 WBC RBC Hgb Hct MCV MCH MCHC RDW Plt Count MPV Absolute Neuts (auto) Neutrophils % Neutrophils % (Manual) Band Neutrophils % Lymphocytes % Lymphocytes % (Manual) Monocytes % Monocytes % (Manual) Eosinophils % Eosinophils % (Manual) Basophils % Basophils % (Manual) Myelocytes % (Man) Promyelocytes % (Man) Blast Cells % (Manual) Nucleated RBC % Metamyelocytes Hypochromia Platelet Estimate Polychromasia Poikilocytosis Anisocytosis Microcytosis Macrocytosis Tear Drop Cells Ovalocytes VBG pH POC VBG pCO2 POC VBG pO2 Mixed VBG HCO3 Sodium 141 Potassium 4.7 Chloride 109 H Carbon Dioxide 14 L Anion Gap 18 H BUN 14 Creatinine 1.3 Creat Clearance w eGFR > 60 POC Glucometer 189 164 Random Glucose 191 H Hemoglobin A1c % Lactic Acid Calcium 8.8 Total Bilirubin AST ALT Alkaline Phosphatase Total Protein Albumin 06/12/18 06/12/18 06/12/18 17:04 18:14 19:55 WBC RBC Hgb Hct MCV MCH MCHC RDW Plt Count MPV Absolute Neuts (auto) Neutrophils % Neutrophils % (Manual) Band Neutrophils % Lymphocytes % Lymphocytes % (Manual) Monocytes % Monocytes % (Manual) Eosinophils % Eosinophils % (Manual) Basophils % Basophils % (Manual) Myelocytes % (Man) Promyelocytes % (Man) Blast Cells % (Manual) Nucleated RBC % Metamyelocytes Hypochromia Platelet Estimate Polychromasia Poikilocytosis Anisocytosis Microcytosis Macrocytosis Tear Drop Cells Ovalocytes VBG pH POC VBG pCO2 POC VBG pO2 Mixed VBG HCO3 Sodium Potassium Chloride Carbon Dioxide Anion Gap BUN Creatinine Creat Clearance w eGFR POC Glucometer 198 203 166 Random Glucose Hemoglobin A1c % Lactic Acid Calcium Total Bilirubin AST ALT Alkaline Phosphatase Total Protein Albumin 06/12/18 06/12/18 06/12/18 20:41 22:14 23:04 WBC RBC Hgb Hct MCV MCH MCHC RDW Plt Count MPV Absolute Neuts (auto) Neutrophils % Neutrophils % (Manual) Band Neutrophils % Lymphocytes % Lymphocytes % (Manual) Monocytes % Monocytes % (Manual) Eosinophils % Eosinophils % (Manual) Basophils % Basophils % (Manual) Myelocytes % (Man) Promyelocytes % (Man) Blast Cells % (Manual) Nucleated RBC % Metamyelocytes Hypochromia Platelet Estimate Polychromasia Poikilocytosis Anisocytosis Microcytosis Macrocytosis Tear Drop Cells Ovalocytes VBG pH POC VBG pCO2 POC VBG pO2 Mixed VBG HCO3 Sodium Potassium Chloride Carbon Dioxide Anion Gap BUN Creatinine Creat Clearance w eGFR POC Glucometer 155 138 146 Random Glucose Hemoglobin A1c % Lactic Acid Calcium Total Bilirubin AST ALT Alkaline Phosphatase Total Protein Albumin 06/12/18 06/13/18 06/13/18 23:57 01:24 02:06 WBC RBC Hgb Hct MCV MCH MCHC RDW Plt Count MPV Absolute Neuts (auto) Neutrophils % Neutrophils % (Manual) Band Neutrophils % Lymphocytes % Lymphocytes % (Manual) Monocytes % Monocytes % (Manual) Eosinophils % Eosinophils % (Manual) Basophils % Basophils % (Manual) Myelocytes % (Man) Promyelocytes % (Man) Blast Cells % (Manual) Nucleated RBC % Metamyelocytes Hypochromia Platelet Estimate Polychromasia Poikilocytosis Anisocytosis Microcytosis Macrocytosis Tear Drop Cells Ovalocytes VBG pH POC VBG pCO2 POC VBG pO2 Mixed VBG HCO3 Sodium Potassium Chloride Carbon Dioxide Anion Gap BUN Creatinine Creat Clearance w eGFR POC Glucometer 126 137 134 Random Glucose Hemoglobin A1c % Lactic Acid Calcium Total Bilirubin AST ALT Alkaline Phosphatase Total Protein Albumin 06/13/18 06/13/18 06/13/18 04:04 05:15 05:15 WBC RBC Hgb Hct MCV MCH MCHC RDW Plt Count MPV Absolute Neuts (auto) Neutrophils % Neutrophils % (Manual) Band Neutrophils % Lymphocytes % Lymphocytes % (Manual) Monocytes % Monocytes % (Manual) Eosinophils % Eosinophils % (Manual) Basophils % Basophils % (Manual) Myelocytes % (Man) Promyelocytes % (Man) Blast Cells % (Manual) Nucleated RBC % Metamyelocytes Hypochromia Platelet Estimate Polychromasia Poikilocytosis Anisocytosis Microcytosis Macrocytosis Tear Drop Cells Ovalocytes VBG pH POC VBG pCO2 POC VBG pO2 Mixed VBG HCO3 Sodium 139 Potassium 3.6 Chloride 110 H Carbon Dioxide 20 L Anion Gap 10 BUN 12 Creatinine 1.1 Creat Clearance w eGFR > 60 POC Glucometer 103 Random Glucose 124 H Hemoglobin A1c % 9.7 H Lactic Acid Calcium 8.4 L Total Bilirubin AST ALT Alkaline Phosphatase Total Protein Albumin 06/13/18 06/13/18 06/13/18 05:15 05:34 07:13 WBC 14.1 H RBC 3.86 L Hgb 12.3 Hct 36.7 MCV 95.1 MCH 31.9 MCHC 33.6 RDW 13.2 Plt Count 332 MPV 7.5 Absolute Neuts (auto) Neutrophils % Neutrophils % (Manual) Band Neutrophils % Lymphocytes % Lymphocytes % (Manual) Monocytes % Monocytes % (Manual) Eosinophils % Eosinophils % (Manual) Basophils % Basophils % (Manual) Myelocytes % (Man) Promyelocytes % (Man) Blast Cells % (Manual) Nucleated RBC % Metamyelocytes Hypochromia Platelet Estimate Polychromasia Poikilocytosis Anisocytosis Microcytosis Macrocytosis Tear Drop Cells Ovalocytes VBG pH POC VBG pCO2 POC VBG pO2 Mixed VBG HCO3 Sodium Potassium Chloride Carbon Dioxide Anion Gap BUN Creatinine Creat Clearance w eGFR POC Glucometer 118 145 Random Glucose Hemoglobin A1c % Lactic Acid Calcium Total Bilirubin AST ALT Alkaline Phosphatase Total Protein Albumin 06/13/18 06/13/18 06/13/18 09:01 10:53 12:38 WBC RBC Hgb Hct MCV MCH MCHC RDW Plt Count MPV Absolute Neuts (auto) Neutrophils % Neutrophils % (Manual) Band Neutrophils % Lymphocytes % Lymphocytes % (Manual) Monocytes % Monocytes % (Manual) Eosinophils % Eosinophils % (Manual) Basophils % Basophils % (Manual) Myelocytes % (Man) Promyelocytes % (Man) Blast Cells % (Manual) Nucleated RBC % Metamyelocytes Hypochromia Platelet Estimate Polychromasia Poikilocytosis Anisocytosis Microcytosis Macrocytosis Tear Drop Cells Ovalocytes VBG pH POC VBG pCO2 POC VBG pO2 Mixed VBG HCO3 Sodium Potassium Chloride Carbon Dioxide Anion Gap BUN Creatinine Creat Clearance w eGFR POC Glucometer 163 237 242 Random Glucose Hemoglobin A1c % Lactic Acid Calcium Total Bilirubin AST ALT Alkaline Phosphatase Total Protein Albumin IMP: DKA in setting of GI infection/viral enteritis vs poor compliance and gastroparesis IDDM SQ insulin and D/C IV insulin drip PO as tolerated O2 as needed OOB to chair IVF Monitor off ABX Dr Moise
[2018-06-13] MEDS ORDERED: METOCLOPRAMIDE HCL INJECTION 10 MG/2 ML VIAL IVPUSH PRN (22:04)
[2018-06-13] MEDS ORDERED: ACETAMINOPHEN 325 MG TABLET (FP) PO PRN (22:04)
--- NOTE | 2018-06-13 23:28 | PN ---
Progress Note (short form) - Note Progress Note: improved clinically tolerating diet Current Active Problems DKA (diabetic ketoacidoses) (Acute) Diarrhea (Acute) Lactic acidosis (Acute) Weight loss (Acute) Abnormal Lab Results 06/13/18 06/13/18 06/13/18 05:15 05:15 05:15 WBC 14.1 H RBC 3.86 L Chloride 110 H Carbon Dioxide 20 L Random Glucose 124 H Hemoglobin A1c % 9.7 H Calcium 8.4 L plan: levemir 20 units am levemir 10 units hs bgm novolog coverage Problem List - Problems (1) DKA (diabetic ketoacidoses) Code(s): E13.10 - OTH DIABETES MELLITUS WITH KETOACIDOSIS WITHOUT COMA Qualifiers: (2) Diarrhea Code(s): R19.7 - DIARRHEA, UNSPECIFIED (3) Abdominal pain Code(s): R10.9 - UNSPECIFIED ABDOMINAL PAIN Qualifiers: (4) Dehydration Code(s): E86.0 - DEHYDRATION (5) Elevated liver enzymes Code(s): R74.8 - ABNORMAL LEVELS OF OTHER SERUM ENZYMES
[2018-06-14] MEDS ORDERED: INSULIN (LEVEMIR) 100 UNITS/ML UNITS SQ SCH ×3 (07:00→22:00)
[2018-06-14] MEDS: INSULIN SLIDING SCALE (NOVOLOG) 1 VIAL SQ SCH ×4 (07:08→21:17)
[2018-06-14] MEDS ORDERED: INSULIN (NOVOLOG) ASPART 100 UNITS/ML 10ML VIAL ONE ×2 (12:45→18:36)
[2018-06-14 12:58] VITALS: BMI 21.7
--- NOTE | 2018-06-14 15:03 | PN ---
Progress Note (short form) - Note Progress Note: feels well no complaints Vital Signs Period Temp Pulse Resp BP Sys/Guo Pulse Ox Last 24 Hr 98.7 F-99 F 74-76 18-18 124-132/74-77 100-100 cor-rrr lungs clear abd soft,nt ext no edema CBC, BMP 06/13/18 05:15 06/13/18 05:15 Microbiology 06/12/18 07:47 Blood - Peripheral Venous Blood Culture - Preliminary NO GROWTH OBTAINED AFTER 48 HOURS, INCUBATION TO CONTINUE FOR 3 DAYS. 06/12/18 07:47 Blood - Peripheral Venous Blood Culture - Preliminary NO GROWTH OBTAINED AFTER 48 HOURS, INCUBATION TO CONTINUE FOR 3 DAYS. 06/12/18 08:41 Urine - Urine Clean Catch Urine Culture - Final NO GROWTH OBTAINED a/p DKA resolved no clear source of infection improving off antibiotics would continue same management weight loss- unclear how much reports improvement in hgbAic! agreeable to HIV testing-HIV negative TSH normal f/u with endocrine Problem List - Problems (1) DKA (diabetic ketoacidoses) Code(s): E13.10 - OTH DIABETES MELLITUS WITH KETOACIDOSIS WITHOUT COMA Qualifiers: (2) Weight loss Code(s): R63.4 - ABNORMAL WEIGHT LOSS
--- NOTE | 2018-06-14 15:12 | PN ---
Progress Note, Physician Chief Complaint: AWAKE ALERT EVENTS AND NOTES REVIEWED NAD TODAY BGM OF 35 THIS AM - Current Medication List Current Medications: Active Medications Acetaminophen (Tylenol -) 650 mg PO Q6H PRN PRN Reason: FEVER Insulin Aspart (Novolog Vial Sliding Scale -) 1 vial SQ [facility]; Protocol Last Admin: 06/14/18 12:39 Dose: 6 units Insulin Detemir (Levemir Vial) 20 units SQ DAILY@0700 [facility] Last Admin: 06/14/18 07:08 Dose: Not Given Insulin Detemir (Levemir Vial) 10 units SQ [facility] Metoclopramide HCl (Reglan Injection -) 10 mg IVPUSH Q6H PRN PRN Reason: NAUSEA AND/OR VOMITING - Objective Vital Signs: Vital Signs Temperature 98.7 F 06/13/18 22:55 Pulse Rate 74 06/13/18 22:55 Respiratory Rate 18 06/13/18 22:55 Blood Pressure 124/74 06/13/18 22:55 O2 Sat by Pulse Oximetry (%) 100 06/14/18 09:00 Constitutional: Yes: No Distress Eyes: Yes: WNL HENT: Yes: WNL Neck: Yes: WNL Cardiovascular: Yes: WNL Respiratory: Yes: WNL Gastrointestinal: Yes: WNL Genitourinary: Yes: WNL Musculoskeletal: Yes: WNL Extremities: Yes: WNL Peripheral Pulses WNL: Yes Integumentary: Yes: WNL Wound/Incision: Yes: Clean/Dry Neurological: Yes: WNL ...Motor Strength: WNL Psychiatric: Yes: WNL Labs: CBC, BMP 06/13/18 05:15 06/13/18 05:15 Problem List - Problems (1) DKA (diabetic ketoacidoses) Code(s): E13.10 - OTH DIABETES MELLITUS WITH KETOACIDOSIS WITHOUT COMA Qualifiers: (2) Lactic acidosis Code(s): E87.2 - ACIDOSIS (3) Nausea and vomiting Code(s): R11.2 - NAUSEA WITH VOMITING, UNSPECIFIED (4) Noncompliance Code(s): Z91.19 - PATIENT'S NONCOMPLIANCE W OTH MEDICAL TREATMENT AND REGIMEN Assessment/Plan ENDOCRINOLOGY FOLLOW UP APPRECIATED DIETARY CONSULT FOR ADA COMPLIANCE CHECK LABS AND BGM OOB TO CHAIR
--- NOTE | 2018-06-15 00:18 | PN ---
Progress Note, Physician Chief Complaint: poor appetite, feel full fast - Current Medication List Current Medications: Active Medications Acetaminophen (Tylenol -) 650 mg PO Q6H PRN PRN Reason: FEVER Insulin Aspart (Novolog Vial Sliding Scale -) 1 vial SQ ACHS [facility]; Protocol Last Admin: 06/14/18 21:17 Dose: 8 units Insulin Detemir (Levemir Vial) 15 units SQ DAILY@0700 [facility] Metoclopramide HCl (Reglan Injection -) 10 mg IVPUSH Q6H PRN PRN Reason: NAUSEA AND/OR VOMITING - Objective Vital Signs: Vital Signs Temperature 97.3 F L 06/14/18 16:30 Pulse Rate 82 06/14/18 16:30 Respiratory Rate 20 06/14/18 16:30 Blood Pressure 114/80 06/14/18 16:30 O2 Sat by Pulse Oximetry (%) 100 06/14/18 21:00 Constitutional: Yes: Calm Eyes: Yes: EOM Intact HENT: Yes: Normocephalic Neck: Yes: Trachea Midline Cardiovascular: Yes: Regular Rate and Rhythm Respiratory: Yes: CTA Bilaterally Gastrointestinal: Yes: Normal Bowel Sounds, Tenderness, Epigastrium ...Rectal Exam: Yes: Deferred Genitourinary: Yes: WNL Musculoskeletal: Yes: WNL Extremities: Yes: WNL Integumentary: Yes: WNL Neurological: Yes: Alert, Oriented Labs: CBC, BMP 06/13/18 05:15 06/13/18 05:15 Problem List - Problems (1) DKA (diabetic ketoacidoses) Code(s): E13.10 - OTH DIABETES MELLITUS WITH KETOACIDOSIS WITHOUT COMA Qualifiers: (2) Diarrhea Code(s): R19.7 - DIARRHEA, UNSPECIFIED (3) Abdominal pain Code(s): R10.9 - UNSPECIFIED ABDOMINAL PAIN Qualifiers: (4) Dehydration Code(s): E86.0 - DEHYDRATION (5) Elevated liver enzymes Code(s): R74.8 - ABNORMAL LEVELS OF OTHER SERUM ENZYMES Assessment/Plan Current Active Problems DKA (diabetic ketoacidoses) (Acute) Diarrhea (Acute) Lactic acidosis (Acute) Weight loss (Acute) Laboratory Results - last 24 hr 06/14/18 06/14/18 06/14/18 06:30 06:30 06:54 POC Glucometer 35 TSH 0.94 HIV 1&2 Antibody Screen Negative HIV P24 Antigen Negative 06/14/18 06/14/18 06/14/18 07:31 11:22 16:33 POC Glucometer 129 230 179 TSH HIV 1&2 Antibody Screen HIV P24 Antigen 06/14/18 21:15 POC Glucometer 307 TSH HIV 1&2 Antibody Screen HIV P24 Antigen plan:gi consult gastroparesis levemir 20 units/day bgm achs
[2018-06-15 06:10] LABS: HEMATOCRIT 33.9 % (35.4-49); HEMOGLOBIN 11.9 GM/dL (11.7-16.9); MCH 33.1 pg (25.7-33.7); MEAN CELL VOLUME 94.4 fl (80-96); PLATELET COUNT 296 K/MM3 (134-434); RBC 3.59 M/mm3 (4.00-5.60); WHITE BLOOD COUNT 6.1 K/mm3 (4.0-10.0)
[2018-06-15] MEDS: INSULIN SLIDING SCALE (NOVOLOG) 1 VIAL SQ SCH ×2 (06:14→12:33)
[2018-06-15 06:33] LABS: ANION GAP 7 MMOL/L (8-16); BLOOD UREA NITROGEN 12 mg/dL (7-18); CALCIUM 8.7 mg/dL (8.5-10.1); CHLORIDE 104 mmol/L (98-107); CO2 29 mmol/L (21-32); CREATININE 0.9 mg/dL (0.55-1.3); GLUCOSE,RANDOM 161 mg/dL (74-106); MAGNESIUM 2.1 mg/dL (1.8-2.4); PHOSPHOROUS 4.3 mg/dL (2.5-4.9); POTASSIUM 3.9 mmol/L (3.5-5.1); SODIUM 140 mmol/L (136-145)
[2018-06-15] MEDS ORDERED: INSULIN (LEVEMIR) 100 UNITS/ML UNITS SQ SCH (07:00)
--- NOTE | 2018-06-15 08:02 | CON.GI ---
Consult Consult Specialty:: GI Referred by:: Dr. Leandro Jennings Reason for Consultation:: Gastroparesis - History of Present Illness Chief Complaint: Nausea after eating History of Present Illness: Patient is a 27 y/o male with past medical history of DM and was admitted for DKA. On admission patient was experiencing abdominal pain accompanied with nause and vomiting. I was consulted to see the patient for gastroparesis. Patient states experiencing feelings of nausea after eating for 2 years. Patient says the symptoms started after he experienced DKA 2 years ago. Patient also admits to smoking marijuana every other day for two years. Complains of 18lb weight loss in 1 month. Denies vomiting, abdominal pain, diarrhea, blood in stool. - History Source History Provided By: Patient Limitations to Obtaining History: No Limitations - Past Medical History OUT PATIENT THERAPIST: Yes: Other (tiredness and weakness) Cardio/Vascular: Yes: Other (tachycardia and lethargy with frequent urination) Pulmonary: Yes: Other (bronchitis) Gastrointestinal: Yes: GERD Hepatobiliary: Yes: Other (none) Renal/: Yes: UTI Infectious Disease: Yes: Other (none) Psych: Yes: Depression Musculoskeletal: Yes: Other (none) Rheumatology: Yes: Other (none) ENT: Yes: Allergic Rhinitis Endocrine: Yes: Diabetes Mellitus Dermatology: Yes: Other (none) - Past Surgical History Past Surgical History: Yes: None - Alcohol/Substance Use Hx Alcohol Use: No History of Substance Use: reports: None - Smoking History Smoking history: Unknown if ever smoked Have you smoked in the past 12 months: No Aproximately how many cigarettes per day: 0 - Social History History of Recent Travel: No Home Medications - Allergies Allergies/Adverse Reactions: Allergies Allergy/AdvReac Type Severity Reaction Status Date / Time No Known Allergies Allergy Verified 06/12/18 06:26 - Home Medications Home Medications: Ambulatory Orders Acetaminophen [Tylenol .Regular Strength -] 650 mg PO Q6H PRN #0 tablet Insulin Sliding Scale [Novolog Vial Sliding Scale -] 1 vial SQ ACHS units 10/26 Metoclopramide HCl [Reglan] 5 mg PO TID PRN #60 tablet 10/26/16 Insulin (Levemir) [Levemir Vial] 40 unit SQ DAILY 06/02/18 Family Disease History - Family Disease History Family Disease History: Diabetes: Mother Review of Systems - Review of Systems Constitutional: reports: No Symptoms Eyes: reports: No Symptoms HENT: reports: No Symptoms Neck: reports: No Symptoms Cardiovascular: reports: No Symptoms Respiratory: reports: No Symptoms Gastrointestinal: reports: Nausea Genitourinary: reports: No Symptoms Breasts: reports: No Symptoms Reported Musculoskeletal: reports: No Symptoms Integumentary: reports: No Symptoms Neurological: reports: No Symptoms Endocrine: reports: No Symptoms Hematology/Lymphatic: reports: No Symptoms Psychiatric: reports: No Symptoms Physical Exam-GI Vital Signs: Vital Signs Temperature 97.7 F 06/15/18 06:00 Pulse Rate 72 06/15/18 06:00 Respiratory Rate 20 06/15/18 06:00 Blood Pressure 124/71 06/15/18 06:00 O2 Sat by Pulse Oximetry (%) 100 06/14/18 21:00 Constitutional: Yes: Well Nourished, No Distress, Calm Eyes: Yes: Conjunctiva Clear HENT: Yes: Atraumatic Cardiovascular: Yes: Regular Rate and Rhythm Respiratory: Yes: Regular, CTA Bilaterally Gastrointestinal Inspection: Yes: WNL. No: Ascites, Distention, Hernia, Scars, Other ...Auscultate: Yes: Normoactive Bowel Sounds. No: Hyperactive Bowel Sounds, Hypoactive Bowel Sounds, No Bowel Sounds, Other ...Palpate: Yes: Soft, Other. No: Firm/Rigid, Guarding, Hepatomegaly, Mass, Pulsatile Mass, Splenomegaly, Tenderness, Tenderness, Epigastium, Tenderness, Rebound ...Percussion: Yes: Tympanitic. No: Dullness, Fluid Wave, Other Neurological: Yes: Alert, Oriented Labs: CBC, BMP 06/15/18 06:00 06/15/18 06:00 Active Medications Generic Name Dose Route Start Last Admin Trade Name Freq PRN Reason Stop Dose Admin Acetaminophen 650 mg 06/13/18 22:04 Tylenol - PO Q6H PRN FEVER Insulin Aspart 1 vial 06/14/18 16:30 06/15/18 06:14 Novolog Vial Sliding Scale - SQ 2 units ACHS [facility] Administration Protocol Insulin Detemir 25 units 06/15/18 07:00 06/15/18 06:13 Levemir Vial SQ 25 units DAILY@0700 [facility] Administration Metoclopramide HCl 10 mg 06/13/18 22:04 Reglan Injection - IVPUSH Q6H PRN NAUSEA AND/OR VOMITING Problem List - Problems (1) Gastroparesis Assessment/Plan: R> Reglan 5mg PO TID 30 min before meals >explained to patient to have 6 small meals daily instead of 3 regular sized meals >instructed to follow up as outpatient for further GI management Code(s): K31.84 - GASTROPARESIS
[2018-06-15] MEDS ORDERED: METOCLOPRAMIDE HCL 10 MG TABLET (FP) PO SCH (11:00)
[2018-06-15 11:11] VITALS: BP 123/66; PULSE 75; TEMP 98.1
--- NOTE | 2018-06-15 11:39 | DS ---
Physical Examination Vital Signs: Vital Signs Temperature 98.1 F 06/15/18 10:00 Pulse Rate 75 06/15/18 10:00 Respiratory Rate 20 06/15/18 10:00 Blood Pressure 123/66 06/15/18 10:00 O2 Sat by Pulse Oximetry (%) 100 06/14/18 21:00 Findings/Remarks: Patient is a 27 y/o male with past medical history of DM who was admitted for DKA. On admission random glucose 489, WBC 36.6, LA 8.7, AG 30. Patient was started on insulin drip and admitted to ICU. Blood sugars have become more stablizied, WBC has trended down and AG 7. GI was consulted due to gastroparesis and patient started on reglan 5mg TID AC. Patient currently denies abdominal pain, nausea, vomiting. Constitutional: Yes: Well Nourished, No Distress, Calm Eyes: Yes: Conjunctiva Clear HENT: Yes: Atraumatic Neck: Yes: Supple Cardiovascular: Yes: Regular Rate and Rhythm Respiratory: Yes: Regular, CTA Bilaterally Gastrointestinal: Yes: Normal Bowel Sounds, Soft, Other (non tender) Musculoskeletal: Yes: WNL Extremities: Yes: WNL Edema: No Neurological: Yes: Alert, Oriented Psychiatric: Yes: Alert, Oriented Labs: CBC, BMP 06/15/18 06:00 06/15/18 06:00 Discharge Summary Reason For Visit: DIABETIC KETOACIDOSIS Current Active Problems DKA (diabetic ketoacidoses) (Acute) Diarrhea (Acute) Gastroparesis (Acute) Lactic acidosis (Acute) Nausea (Acute) Weight loss (Acute) Procedures: Principal: CXR Hospital Course: see progress notes CBC,CMP WBC 6.1 K/mm3 (4.0-10.0) 06/15/18 06:00 RBC 3.59 M/mm3 (4.00-5.60) L 06/15/18 06:00 Hgb 11.9 GM/dL (11.7-16.9) 06/15/18 06:00 Hct 33.9 % (35.4-49) L 06/15/18 06:00 MCV 94.4 fl (80-96) 06/15/18 06:00 MCH 33.1 pg (25.7-33.7) 06/15/18 06:00 MCHC 35.0 g/dl (32.0-35.9) 06/15/18 06:00 RDW 13.0 % (11.9-15.9) 06/15/18 06:00 Plt Count 296 K/MM3 (134-434) 06/15/18 06:00 MPV 7.0 fl (7.5-11.1) L 06/15/18 06:00 Absolute Neuts (auto) 26.5 K/mm3 (1.5-8.0) H 06/12/18 12:40 Neutrophils % 88.1 % (42.8-82.8) H 06/12/18 12:40 Neutrophils % (Manual) 83.0 % (42.8-82.8) H 06/12/18 12:40 Band Neutrophils % 1.0 % 06/12/18 12:40 Lymphocytes % 4.5 % (8-40) L 06/12/18 12:40 Lymphocytes % (Manual) 4.0 % (8-40) L D 06/12/18 12:40 Monocytes % 6.7 % (3.8-10.2) 06/12/18 12:40 Monocytes % (Manual) 11 % (3.8-10.2) H 06/12/18 12:40 Eosinophils % 0.1 % (0-4.5) 06/12/18 12:40 Eosinophils % (Manual) 0.0 % (0-4.5) 06/12/18 12:40 Basophils % 0.6 % (0-2.0) 06/12/18 12:40 Basophils % (Manual) 0.0 % (0-2.0) 06/12/18 12:40 Myelocytes % (Man) 0 % (0-2) D 06/12/18 12:40 Promyelocytes % (Man) 0 % (0-2) 06/12/18 12:40 Blast Cells % (Manual) 0 % (0-0) 06/12/18 12:40 Nucleated RBC % 0 % (0-0) 06/12/18 12:40 Metamyelocytes 0 % (0-2) D 06/12/18 12:40 Hypochromia 0 06/12/18 12:40 Platelet Estimate Normal 06/12/18 12:40 Polychromasia 0 06/12/18 12:40 Poikilocytosis 0 06/12/18 12:40 Anisocytosis 1+ 06/12/18 12:40 Microcytosis 0 06/12/18 12:40 Macrocytosis 1+ 06/12/18 12:40 Tear Drop Cells 1+ 06/12/18 06:00 Ovalocytes 1+ 06/12/18 06:00 Sodium 140 mmol/L (136-145) 06/15/18 06:00 Potassium 3.9 mmol/L (3.5-5.1) 06/15/18 06:00 Chloride 104 mmol/L (98-107) 06/15/18 06:00 Carbon Dioxide 29 mmol/L (21-32) 06/15/18 06:00 Anion Gap 7 MMOL/L (8-16) L 06/15/18 06:00 BUN 12 mg/dL (7-18) 06/15/18 06:00 Creatinine 0.9 mg/dL (0.55-1.3) 06/15/18 06:00 Creat Clearance w eGFR > 60 (>60) 06/15/18 06:00 POC Glucometer 308 UNITS (80-120) 06/15/18 11:19 Random Glucose 161 mg/dL (74-106) H 06/15/18 06:00 Hemoglobin A1c % 9.7 % (4.2-6.3) H 06/13/18 05:15 Lactic Acid 1.4 mmol/L (0.4-2.0) 06/12/18 12:40 Calcium 8.7 mg/dL (8.5-10.1) 06/15/18 06:00 Phosphorus 4.3 mg/dL (2.5-4.9) 06/15/18 06:00 Magnesium 2.1 mg/dL (1.8-2.4) 06/15/18 06:00 Total Bilirubin 0.9 mg/dL (0.2-1) 06/12/18 12:40 AST 22 U/L (15-37) 06/12/18 12:40 ALT 34 U/L (13-61) 06/12/18 12:40 Alkaline Phosphatase 73 U/L (45-117) 06/12/18 12:40 Total Protein 7.1 g/dl (6.4-8.2) 06/12/18 12:40 Albumin 4.0 g/dl (3.4-5.0) 06/12/18 12:40 Lipase 86 U/L (73-393) 06/12/18 07:47 TSH 0.94 uIU/ml (0.358-3.74) 06/14/18 06:30 Microbiology 06/12/18 07:47 Blood - Peripheral Venous Blood Culture - Preliminary NO GROWTH OBTAINED AFTER 72 HOURS, INCUBATION TO CONTINUE FOR 2 DAYS. 06/12/18 07:47 Blood - Peripheral Venous Blood Culture - Preliminary NO GROWTH OBTAINED AFTER 72 HOURS, INCUBATION TO CONTINUE FOR 2 DAYS. 06/12/18 08:41 Urine - Urine Clean Catch Urine Culture - Final NO GROWTH OBTAINED Laboratory Results - last 24 hr 06/14/18 06/14/18 06/14/18 11:22 16:33 21:15 WBC RBC Hgb Hct MCV MCH MCHC RDW Plt Count MPV Sodium Potassium Chloride Carbon Dioxide Anion Gap BUN Creatinine Creat Clearance w eGFR POC Glucometer 230 179 307 Random Glucose Calcium Phosphorus Magnesium 06/15/18 06/15/18 06/15/18 05:56 06:00 06:00 WBC 6.1 RBC 3.59 L Hgb 11.9 Hct 33.9 L MCV 94.4 MCH 33.1 MCHC 35.0 RDW 13.0 Plt Count 296 MPV 7.0 L Sodium 140 Potassium 3.9 Chloride 104 Carbon Dioxide 29 Anion Gap 7 L BUN 12 Creatinine 0.9 Creat Clearance w eGFR > 60 POC Glucometer 196 Random Glucose 161 H Calcium 8.7 Phosphorus 4.3 Magnesium 2.1 06/15/18 11:19 WBC RBC Hgb Hct MCV MCH MCHC RDW Plt Count MPV Sodium Potassium Chloride Carbon Dioxide Anion Gap BUN Creatinine Creat Clearance w eGFR POC Glucometer 308 Random Glucose Calcium Phosphorus Magnesium Active Medications Generic Name Dose Route Start Last Admin Trade Name Freq PRN Reason Stop Dose Admin Acetaminophen 650 mg 06/13/18 22:04 Tylenol - PO Q6H PRN FEVER Insulin Aspart 1 vial 06/14/18 16:30 06/15/18 06:14 Novolog Vial Sliding Scale - SQ 2 units ACHS [facility] Administration Protocol Insulin Detemir 25 units 06/15/18 07:00 06/15/18 06:13 Levemir Vial SQ 25 units DAILY@0700 [facility] Administration Metoclopramide HCl 5 mg 06/15/18 11:00 06/15/18 11:32 Reglan - PO 5 mg TIDAC FABIAN Administration Condition: Stable - Instructions Diet, Activity, Other Instructions: Patient to follow up with PMD in 1 week Follow up with GI Dr Dougherty in 2 weeks continue with meds as prescribed continue with diabetic diet if develop abdominal pain with nausea or vomiting, chest pain, SOB return to ER Referrals: Leandro Jennings MD [Primary Care Provider] - Gt Dougherty MD [Staff Physician] - Disposition: HOME - Home Medications Comprehensive Discharge Medication List: Ambulatory Orders Acetaminophen [Tylenol .Regular Strength -] 650 mg PO Q6H PRN #0 tablet Insulin Sliding Scale [Novolog Vial Sliding Scale -] 1 vial SQ ACHS units 10/26 Metoclopramide HCl [Reglan] 5 mg PO TID PRN #60 tablet 10/26/16 Insulin (Levemir) [Levemir Vial] 40 unit SQ DAILY 06/02/18
== END 2018-06-15 13:18 | disposition home or self-care (01) | DRG 420 ==
LOC: JER 05:36 → JERBED 09:16 → JICU 13:37 → J8W 06-13 22:09
PROVIDERS: ADMIT Family Medicine; ATTEND Family Medicine
DX: E11.10 Type 2 diabetes mellitus with ketoacidosis without coma (principal); N17.9 Acute kidney failure, unspecified; A08.4 Viral intestinal infection, unspecified; E11.43 Type 2 diabetes mellitus with diabetic autonomic (poly)neuropathy; K31.84 Gastroparesis; E86.0 Dehydration; D72.829 Elevated white blood cell count, unspecified; R64 Cachexia; E87.2 Acidosis; Z79.4 Long term (current) use of insulin; Z68.21 Body mass index [BMI] 21.0-21.9, adult; Z91.14 Patient's other noncompliance with medication regimen
CPT/HCPCS: 36415; 36600; 71045-TC-FY; 80048; 80053; 81003; 81015; 82009; 82375; 82803; 82962; 83036; 83050; 83605; 83690; 83735; 84100; 84443; 85025; 85027; 87040; 87086; 87389; 87804; 90688; 99285-25; G0008; J0131; J7030

== ENCOUNTER 2020-01-14 13:14 | Emergency (ER) | payer OTHER ==
[2020-01-14 13:21] VITALS: BMI 25.0
--- NOTE | 2020-01-14 13:24 | PDOC ---
History of Present Illness - General Chief Complaint: Nausea/Vomiting Stated Complaint: ABD PAIN /VOMITING Time Seen by Provider: 01/14/20 13:23 - History of Present Illness Initial Comments: 29 YOM h/o T1DBM presents with nausea and vomiting since 5 AM. Patient reports he woke up at 5 am, became nauseas, took his insulin, became more nauseas and eventually started vomiting. Vomit is yellow/green in color, no blood. Patient reports been taking BS lately but it has remained below 250s. Patient smokes marijuana 2-3 times per day, smoked last time last night, does not claim hot showers improve sx. Denies CP, SOB, diarrhea, fever, chills, cough, recent sick contacts. Constitutional: No Weight Change, No Fever, No Chills, No Night Sweats, No Fatigue, No Malaise ENT/Mouth: No Hearing Changes, No Ear Pain, No Nasal Congestion, No Sinus Pain, No Hoarseness, No sore throat, No Rhinorrhea, No Swallowing Difficulty Eyes: No Eye Pain, No Swelling, No Redness, No Foreign Body, No Discharge, No Vision Changes Cardiovascular: No Chest Pain, No SOB, No PND, No Dyspnea on Exertion, No Orthopnea, No Claudication, No Edema, No Palpitations Respiratory: No Cough, No Sputum, No Wheezing, No Smoke Exposure, No Dyspnea Gastrointestinal: + Nausea, + Vomiting, No Diarrhea, No Constipation, No Pain, No Heartburn, No Anorexia, No Dysphagia, No Hematochezia, No Melena, No Flatulence, No Jaundice Genitourinary: No Dysmenorrhea, No DUB, No Dyspareunia, No Dysuria, No Urinary Frequency, No Hematuria, No Urinary Incontinence, No Urgency, No Flank Pain, No Urinary Flow Changes, No Hesitancy Musculoskeletal: No Arthralgias, No Myalgias, No Joint Swelling, No Joint Stiffness, No Back Pain, No Neck Pain, No Injury History Skin: No Skin Lesions, No Pruritis, No Hair Changes, No Breast/Skin Changes, No Nipple Discharge Neuro: No Weakness, No Numbness, No Paresthesias, No Loss of Consciousness, No Syncope, No Dizziness, No Headache, No Coordination Changes, No Recent Falls Psych: No Anxiety/Panic, No Depression, No Insomnia, No Personality Changes, No Delusions, No Rumination, No SI/HI/AH/VH, No Social Issues, No Memory Changes, No Violence/Abuse Hx., No Eating Concerns Heme/Lymph: No Bruising, No Bleeding, No Transfusions History, No Lymphadenopathy Endocrine: No Polyuria, No Polydipsia, No Temperature Intolerance Past History - Medical History Allergies/Adverse Reactions: Allergies Allergy/AdvReac Type Severity Reaction Status Date / Time No Known Allergies Allergy Verified 01/14/20 13:21 Home Medications: Ambulatory Orders Acetaminophen [Tylenol .Regular Strength -] 650 mg PO Q6H PRN #0 tablet 10/26/16 Metoclopramide HCl [Reglan] 5 mg PO TID PRN #60 tablet 10/26/16 Insulin Sliding Scale [Novolog Vial Sliding Scale -] 1 vial SQ ACHS #100 units 06/15/18 Metoclopramide HCl [Reglan -] 5 mg PO TIDAC #90 tablet 06/15/18 Insulin (Levemir) [Levemir Vial] 30 units SQ DAILY@0700 01/14/20 Anemia: No Asthma: No Cancer: No Cardiac Disorders: No CVA: No COPD: No CHF: No Dementia: No Diabetes: Yes (type 1; HAS BEEN IN DKA) GI Disorders: No Disorders: No HTN: No Hypercholesterolemia: No Liver Disease: No Seizures: No Thyroid Disease: No - Surgical History Abdominal Surgery: No Appendectomy: No Cardiac Surgery: No Cholecystectomy: No Lung Surgery: No Neurologic Surgery: No Orthopedic Surgery: No - Immunization History Immunization Up to Date: Yes - Psycho-Social/Smoking History Smoking Status: No Smoking History: Never smoked Have you smoked in the past 12 months: No Number of Cigarettes Smoked Daily: 0 *Physical Exam - Vital Signs Last Vital Signs Temp Pulse Resp BP Pulse Ox 98.4 F 83 18 128/73 99 01/14/20 13:19 01/14/20 13:19 01/14/20 13:19 01/14/20 13:19 01/14/20 13:19 - Physical Exam General Appearance: Yes: Nourished, Appropriately Dressed, Other (patient sitting upright, vomiting periodically) HEENT: positive: EOMI, MARSHA, Normal ENT Inspection, Normal Voice, Symmetrical, TMs Normal, Pharynx Normal Neck: positive: Trachea midline, Normal Thyroid Respiratory/Chest: positive: Lungs Clear, Normal Breath Sounds Cardiovascular: positive: Regular Rhythm, Regular Rate, S1, S2 Gastrointestinal/Abdominal: positive: Normal Bowel Sounds, Tender, Flat, Soft Musculoskeletal: positive: Normal Inspection Extremity: positive: Normal Capillary Refill, Normal Inspection Integumentary: positive: Normal Color, Dry, Warm 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, Fully Oriented, Alert, Normal Mood/Affect, Normal Response, Motor Strength 08/21 ED Treatment Course - LABORATORY CBC & Chemistry Diagram: 01/14/20 13:30 01/14/20 13:30 Medical Decision Making - Medical Decision Making 29 YOM h/o T1DBM presents with abdominal pain and nausea since this AM - vitals wnl - exam significant for epigastric tenderness - significant marijuana use - BG 140 - cbc, cmp, zofran, fluids, famotidine, maalox, tylenol reassess: - labs unremarkable - sx refractory to above meds, will trial haldol reassess: - patient feels better with haldol - able to tolerate PO - will DC patient to f/u Discharge - Discharge Information Problems reviewed: Yes Clinical Impression/Diagnosis: Vomiting - Admission No - Follow up/Referral Referrals: Leandro Jennings MD [Primary Care Provider] - - Patient Discharge Instructions Patient Printed Discharge Instructions: DI for Vomiting -- Adult Additional Instructions: You were seen in the ER for vomiting, you received labs and medications. Your labs were unremarkable. You reported feeling better after taking medications and we observed that you were able to tolerate drinking water by mouth. Return to the emergency department if: You see blood in your vomit or your bowel movements. You have sudden, severe pain in your chest and upper abdomen after hard vomiting or retching. You have swelling in your neck and chest. You are dizzy, cold, and thirsty and your eyes and mouth are dry. You are urinating very little or not at all. You have muscle weakness, leg cramps, and trouble breathing. Your heart is beating much faster than normal. You continue to vomit for more than 48 hours. You do not need to eat solid foods if you don't feel like it. You can start with easy to tolerate foods like clear liquids and toast. You may continue to take your home medications as usual. You may want to limit your intake of marijuana as this is known to cause spells of nausea and vomiting. Contact your healthcare provider if: You have frequent dry heaves (vomiting but nothing comes out). Your nausea and vomiting does not get better or go away after you use medicine. You have questions or concerns about your condition or treatment. - Post Discharge Activity
[2020-01-14] MEDS ORDERED: ONDANSETRON 4 MG/2 ML VIAL IVPUSH ONE ×2 (13:30→14:58)
[2020-01-14] MEDS ORDERED: LACTATED RINGERS SOLUTION 1000 ML INFUS.BAG IV ONE (13:30)
[2020-01-14 13:57] LABS: HEMATOCRIT 40.4 % (35.4-49); HEMOGLOBIN 13.5 GM/dL (11.7-16.9); LYMPH % 6.1 % (8-40); MCH 32.3 pg (25.7-33.7); MCHC 33.5 g/dl (32.0-35.9); MEAN CELL VOLUME 96.3 fl (80-96); MEAN PLT VOLUME 8.2 fl (7.5-11.1); MONO % 3.9 % (3.8-10.2); PLATELET COUNT 244 K/MM3 (134-434); RDW 12.9 % (11.9-15.9); WHITE BLOOD COUNT 14.3 K/mm3 (4.0-10.0)
[2020-01-14 14:24] LABS: ALBUMIN 4.6 g/dl (3.4-5.0); BILIRUBIN,TOTAL 0.8 mg/dL (0.2-1); BLOOD UREA NITROGEN 17.4 mg/dL (7-18); CALCIUM 10.6 mg/dL (8.5-10.1); POTASSIUM 3.4 mmol/L (3.5-5.1); TOT PROT 7.8 g/dl (6.4-8.2)
--- NOTE | 2020-01-14 14:33 | PDOC ---
Documentation entered by Cori Lopez SCRIBE, acting as scribe for Addy De La Paz MD. Addy De La Paz MD: This documentation has been prepared by the dotibJohn hernandez Lincy, SCRIBE, under my direction and personally reviewed by me in its entirety. I confirm that the documentation accurately reflects all work, treatment, procedures, and medical decision making performed by me. Attending Attestation - Resident Resident Name: Walter Montgomery - ED Attending Attestation I have performed the following: I have examined & evaluated the patient, The case was reviewed & discussed with the resident, I agree w/resident's findings & plan, Exceptions are as noted - HPI HPI: 01/14/20 14:00 The patient is a 29-year-old male with a past medical history significant for DM type I who presents to the emergency department with nausea and vomiting since 5:00 am today. The patient reports he woke up feeling nauseous, subsequently had multiple episodes of yellow/greenish emesis. The patient reports daily use of marijuana, last use was last night. Denies fever, chills, cough, chest pain, shortness of breath, or abdominal pain. - Physicial Exam PE: 01/14/20 14:36 See resident exam - Medical Decision Making 01/14/20 14:36 29 M with N+V. Suspect CHS vs gastroparesis. Pt also with h/o DKA but fingerstick normal today. - Labs - GI cocktail 01/14/20 15:41 Labs unremarkable Pt reassessed after GI meds - still nauseous and vomiting Will administer haldol 2.5mg IV for presumed CHS Pt tolerating fluids after haldol Pt is well appearing, with normal vitals. Clinically stable for DC at this time. I discussed the physical exam findings, ancillary test results and final diagnoses with the patient. I answered all of the patient's questions. The patient was satisfied with the care received and felt comfortable with the discharge plan and treatment plan. The patient agrees to follow up with the primary care physician within 24-72 hours. Discharge - Discharge Information Problems reviewed: Yes Clinical Impression/Diagnosis: Vomiting, Nausea, Cannabinoid hyperemesis syndrome - Follow up/Referral Referrals: Leandro Jennings MD [Primary Care Provider] - - Patient Discharge Instructions Patient Printed Discharge Instructions: DI for Vomiting -- Adult Additional Instructions: You were seen in the ER for vomiting, you received labs and medications. Your labs were unremarkable. You reported feeling better after taking medications and we observed that you were able to tolerate drinking water by mouth. Return to the emergency department if: You see blood in your vomit or your bowel movements. You have sudden, severe pain in your chest and upper abdomen after hard vomiting or retching. You have swelling in your neck and chest. You are dizzy, cold, and thirsty and your eyes and mouth are dry. You are urinating very little or not at all. You have muscle weakness, leg cramps, and trouble breathing. Your heart is beating much faster than normal. You continue to vomit for more than 48 hours. You do not need to eat solid foods if you don't feel like it. You can start with easy to tolerate foods like clear liquids and toast. You may continue to take your home medications as usual. You may want to limit your intake of marijuana as this is known to cause spells of nausea and vomiting. Contact your healthcare provider if: You have frequent dry heaves (vomiting but nothing comes out). Your nausea and vomiting does not get better or go away after you use medicine. You have questions or concerns about your condition or treatment. - Post Discharge Activity
[2020-01-14] MEDS ORDERED: MAG HYDROX/AL HYDROX/SIMETH 30 ML UNIT-DOSE CUP PO ONE (14:58)
[2020-01-14] MEDS ORDERED: ACETAMINOPHEN 1000 MG/100 ML VIAL (NON FORMULARY) IVPB ONE (14:58)
[2020-01-14] MEDS ORDERED: FAMOTIDINE 20 MG/50 ML IVPB 20 MG/50 ML MG IVPB ONE ×2 (14:58→15:48)
[2020-01-14] MEDS ORDERED: ACETAMINOPHEN INJECTION 100 ML IVPB ONE (15:16)
[2020-01-14] MEDS ORDERED: MAG HYDROX/AL HYDROX/SIMETH 30 ML UNIT-DOSE CUP ONE (15:16)
[2020-01-14] MEDS ORDERED: HALOPERIDOL LACTATE 5 MG/ML IV ONE (15:40)
[2020-01-14] MEDS ORDERED: HALOPERIDOL LACTATE 5 MG/ML ONE (15:43)
[2020-01-14] MEDS ORDERED: HALOPERIDOL LACTATE 5 MG/ML IM ONE (16:25)
[2020-01-14 17:21] VITALS: BP 136/70; PULSE 72; TEMP 98.8
--- NOTE | 2020-01-15 14:06 | EKG ---
Test Reason : Blood Pressure : / mmHG Vent. Rate : 076 BPM Atrial Rate : 076 BPM P-R Int : 172 ms QRS Dur : 108 ms QT Int : 366 ms P-R-T Axes : 036 083 065 degrees QTc Int : 411 ms NORMAL SINUS RHYTHM NONSPECIFIC T WAVE ABNORMALITY ABNORMAL ECG WHEN COMPARED WITH ECG OF 01-JUN-2018 19:40, T WAVE VARIATION Confirmed by NICKO ARREGUIN MD ([id number]) on 01/15/2020 2:05:33 PM Referred By: Confirmed By:NICKO ARREGUIN MD
== END 2020-01-14 17:50 | disposition home or self-care (01) ==
LOC: SUPCPDRO 13:14 → JER 13:14
PROC: 3E0333Z Introduction of Anti-inflammatory into Peripheral Vein, Percutaneous Approach (ICD-10-PCS; principal; 2020-01-14)
PROC: 3E033GC Introduction of Other Therapeutic Substance into Peripheral Vein, Percutaneous Approach (ICD-10-PCS; 2020-01-14)
PROC: 3E023GC Introduction of Other Therapeutic Substance into Muscle, Percutaneous Approach (ICD-10-PCS; 2020-01-14)
DX: R11.10 Vomiting, unspecified (principal)
CPT/HCPCS: 36415; 80053; 82962; 83690; 85025; 93005; 93010; 99284-25; J0131

== ENCOUNTER 2020-06-11 04:31 | Day surgery (SDC) | payer OTHER ==
[2020-06-07 09:44] VITALS: BMI 23.2
[2020-06-11 09:04] VITALS: TEMP 98.6
[2020-06-11 09:54] VITALS: BP 139/84; PULSE 75
== END 2020-06-11 10:05 | disposition home or self-care (01) ==
LOC: JASU-ENDO 04:31
PROVIDERS: ATTEND Internal Medicine Gastroenterology
PROC: 0DB48ZX Excision of Esophagogastric Junction, Via Natural or Artificial Opening Endoscopic, Diagnostic (ICD-10-PCS; principal; 2020-06-11 08:30)
DX: K44.9 Diaphragmatic hernia without obstruction or gangrene (principal)
CPT/HCPCS: 88305-TC; 88312-TC

== ENCOUNTER 2020-06-18 04:09 | Day surgery (SDC) | payer OTHER ==
[2020-06-18 07:40] VITALS: BMI 24.7
[2020-06-18] MEDS ORDERED: SIMETHICONE 40 MG/0.6 ML BOTTLE ONE (08:21)
[2020-06-18 08:30] VITALS: TEMP 97.7
[2020-06-18 11:28] VITALS: BP 130/79; PULSE 71
== END 2020-06-18 09:20 | disposition home or self-care (01) ==
LOC: JASU-ENDO 04:09
PROVIDERS: ATTEND Internal Medicine Gastroenterology
PROC: 0DJD8ZZ Inspection of Lower Intestinal Tract, Via Natural or Artificial Opening Endoscopic (ICD-10-PCS; principal; 2020-06-18 08:00)
DX: K64.8 Other hemorrhoids (principal)

== ENCOUNTER 2021-03-19 10:45 | Inpatient (IN) | payer OTHER ==
[2021-03-19 11:34] VITALS: BMI 22.2
[2021-03-19] MEDS ORDERED: ONDANSETRON 4 MG/2 ML VIAL IVPB ONE (11:41)
[2021-03-19] MEDS ORDERED: SODIUM CHLORIDE 0.9% 500 ML INFUS.BAG IV ONE ×2 (11:41→13:04)
[2021-03-19] MEDS ORDERED: ONDANSETRON 4 MG/2 ML VIAL ONE (12:12)
[2021-03-19 12:28] LABS: BASO % 0.2 % (0-2.0); HEMATOCRIT 42.3 % (35.4-49); LYMPH % 3.4 % (8-40); MCH 31.2 pg (25.7-33.7); MEAN CELL VOLUME 94.8 fl (80-96); MEAN PLT VOLUME 7.9 fl (7.5-11.1); MONO % 3.6 % (3.8-10.2); NEUT % 92.8 % (42.8-82.8); PLATELET COUNT 314 10^3/uL (134-434); RBC 4.47 M/mm3 (4.00-5.60); RDW 13.1 % (11.9-15.9); WHITE BLOOD COUNT 16.4 K/mm3 (4.0-10.0)
[2021-03-19 12:47] LABS: CHLORIDE 100 mmol/L (98-107); SODIUM 138 mmol/L (136-145)
[2021-03-19 12:50] LABS: ALBUMIN 4.5 g/dl (3.4-5.0); ANION GAP 18 MMOL/L (8-16); BLOOD UREA NITROGEN 27.5 mg/dL (7-18); CALCIUM 10.1 mg/dL (8.5-10.1); CO2 20 mmol/L (21-32); GLUCOSE,RANDOM 184 mg/dL (74-106)
[2021-03-19 12:53] LABS: ANISOCYTOSIS 0; HELMET CELLS 0; HOWELL-JOLLY BODIES 0; MACROCYTOSIS 0; OVALOCYTE 0; PLATELET ESTIMATE NORMAL; ROULEAU 0; SGOT/AST 31 U/L (15-37); SGPT/ALT 47 U/L (13-61); SICKELED CELLS 0; TARGET CELLS 0; TEAR DROP CELLS 0; TOXIC GRANULATION 0
[2021-03-19 12:54] LABS: BILIRUBIN,TOTAL 1.6 mg/dL (0.2-1)
[2021-03-19 12:55] LABS: TOT PROT 7.8 g/dl (6.4-8.2)
[2021-03-19 12:56] LABS: ALK PHOS 89 U/L (45-117)
[2021-03-19] MEDS ORDERED: SODIUM CHLORIDE 0.9%/KCL 20 MEQ/1,000 ML INFUS.BAG IV SCH (13:00)
[2021-03-19] MEDS ORDERED: INSULIN REGULAR 100 UNITS in SODIUM CHLORIDE 99 ML IVPB SCH ×2 (13:00→15:00)
[2021-03-19] MEDS ORDERED: FOLIC ACID 1 MG TABLET (FP) PO ONE (13:04)
[2021-03-19] MEDS ORDERED: THIAMINE HCL 200 MG/2 ML VIAL IVPB ONE (13:04)
[2021-03-19] MEDS ORDERED: THIAMINE HCL 200 MG/2 ML VIAL ONE (13:09)
[2021-03-19] MEDS ORDERED: FOLIC ACID 1 MG TABLET (FP) ONE (13:09)
[2021-03-19 13:50] LABS: VENOUS BASE EXCESS -9.4 mmol/L (-2-2); VENOUS O2 SATURATION 51.8 % (70-80); VENOUS PCO2 38.4 mmHg (38-52); VENOUS PH 7.262 (7.310-7.410)
[2021-03-19 14:18] LABS: CALCIUM 9.4 mg/dL (8.5-10.1)
[2021-03-19 14:19] LABS: BLOOD UREA NITROGEN 25.2 mg/dL (7-18)
[2021-03-19 14:21] LABS: CREATININE 1.1 mg/dL (0.55-1.3)
[2021-03-19 14:23] LABS: BILIRUBIN,TOTAL 1.4 mg/dL (0.2-1); TOT PROT 7.6 g/dl (6.4-8.2)
[2021-03-19] MEDS ORDERED: DEXTROSE 50%-WATER - 25 GM/50 ML VIAL IVPUSH PRN (14:25)
[2021-03-19] MEDS ORDERED: PIPERACILLIN/TAZOB 3.375 GM 3.375 GM in DEXTROSE 5%-WATER - 50 ML IVPB ONE (14:28)
[2021-03-19] MEDS ORDERED: PIPERACILLIN/TAZOB 3.375 GM 3.375 GM/50 ML BAG IVPB ONE (14:53)
[2021-03-19] MEDS: D5-1/2NS+40 MEQ KCL - 40 MEQ/1,000 ML INFUS.BAG IV SCH (15:25)
[2021-03-19 17:28] LABS: BLOOD UREA NITROGEN 25.3 mg/dL (7-18); CALCIUM 9.1 mg/dL (8.5-10.1)
[2021-03-19 17:31] LABS: CREATININE 1.2 mg/dL (0.55-1.3)
[2021-03-19 19:29] LABS: BLOOD UREA NITROGEN 25.2 mg/dL (7-18); CALCIUM 8.9 mg/dL (8.5-10.1)
[2021-03-19 19:32] LABS: CREATININE 1.1 mg/dL (0.55-1.3)
[2021-03-19] MEDS: INSULIN SLIDING SCALE (NOVOLOG) 1 VIAL SQ SCH ×2 (20:50→22:45)
[2021-03-19] MEDS: INSULIN (LEVEMIR) 100 UNITS/ML UNITS SQ SCH ×2 (20:50→22:45)
[2021-03-19 21:54] LABS: CALCIUM 8.9 mg/dL (8.5-10.1)
[2021-03-19 21:55] LABS: BLOOD UREA NITROGEN 22.8 mg/dL (7-18)
[2021-03-19 21:58] LABS: CREATININE 1.2 mg/dL (0.55-1.3)
[2021-03-19] MEDS ORDERED: MUPIROCIN 2% TOPICAL OINTMENT FOR DECOLONIZATION NS SCH (22:00)
[2021-03-19] MEDS ORDERED: CHLORHEXIDINE GLUCONATE 4% CLEANSER FOR DECOLONIZATION TP SCH (22:00)
[2021-03-19] MEDS: CHLORHEXIDINE GLUCONATE 4% CLEANSER FOR DECOLONIZATION TP SCH (22:45)
[2021-03-19] MEDS: HEPARIN NA (PORCINE) 5,000 UNITS/ML 1ML VIAL SQ SCH (22:45)
[2021-03-19] MEDS: MUPIROCIN 2% TOPICAL OINTMENT FOR DECOLONIZATION NS SCH (22:45)
[2021-03-20 00:14] LABS: CALCIUM 8.4 mg/dL (8.5-10.1)
[2021-03-20 00:15] LABS: BLOOD UREA NITROGEN 20.1 mg/dL (7-18)
[2021-03-20 00:18] LABS: CREATININE 1.1 mg/dL (0.55-1.3)
[2021-03-20] MEDS: HEPARIN NA (PORCINE) 5,000 UNITS/ML 1ML VIAL SQ SCH ×3 (06:06→21:21)
[2021-03-20] MEDS: INSULIN (LEVEMIR) 100 UNITS/ML UNITS SQ SCH ×2 (06:08→22:35)
[2021-03-20] MEDS: INSULIN SLIDING SCALE (NOVOLOG) 1 VIAL SQ SCH ×4 (06:09→22:35)
[2021-03-20 07:34] LABS: BASO % 0.3 % (0-2.0); EOS % 0.4 % (0-4.5); HEMATOCRIT 36.8 % (35.4-49); HEMOGLOBIN 12.1 GM/dL (11.7-16.9); LYMPH % 17.7 % (8-40); MCH 31.7 pg (25.7-33.7); MEAN PLT VOLUME 7.7 fl (7.5-11.1); MONO % 8.4 % (3.8-10.2); NEUT % 73.2 % (42.8-82.8); PLATELET COUNT 272 10^3/uL (134-434); RBC 3.83 M/mm3 (4.00-5.60); WHITE BLOOD COUNT 13.4 K/mm3 (4.0-10.0)
[2021-03-20 07:59] LABS: CALCIUM 8.9 mg/dL (8.5-10.1)
[2021-03-20 08:00] LABS: BLOOD UREA NITROGEN 18.3 mg/dL (7-18); MAGNESIUM 2.2 mg/dL (1.8-2.4)
[2021-03-20 08:03] LABS: CREATININE 0.9 mg/dL (0.55-1.3); PHOSPHOROUS 3.2 mg/dL (2.5-4.9)
[2021-03-20] MEDS: MUPIROCIN 2% TOPICAL OINTMENT FOR DECOLONIZATION NS SCH ×2 (09:51→21:21)
[2021-03-20] MEDS ORDERED: ENOXAPARIN NA (PORCINE) 40 MG/0.4 ML DISP.SYRIN SQ SCH (10:00)
[2021-03-20] MEDS: D5-1/2NS+40 MEQ KCL - 40 MEQ/1,000 ML INFUS.BAG IV SCH (16:41)
[2021-03-20] MEDS ORDERED: FLU VACC QS2021-22(6MOS UP)/PF 60 MCG/0.5 ML SYRINGE IM ONE (18:38)
[2021-03-20] MEDS: CHLORHEXIDINE GLUCONATE 4% CLEANSER FOR DECOLONIZATION TP SCH (21:21)
[2021-03-21] MEDS: METOCLOPRAMIDE HCL 10 MG/10 ML UNIT DOSE CUP PO SCH ×2 (07:15→11:24)
[2021-03-21] MEDS: HEPARIN NA (PORCINE) 5,000 UNITS/ML 1ML VIAL SQ SCH ×2 (07:15→14:27)
[2021-03-21] MEDS: INSULIN (LEVEMIR) 100 UNITS/ML UNITS SQ SCH (07:15)
[2021-03-21] MEDS: INSULIN SLIDING SCALE (NOVOLOG) 1 VIAL SQ SCH ×2 (07:15→11:20)
[2021-03-21 07:48] LABS: CALCIUM 9.6 mg/dL (8.5-10.1)
[2021-03-21 07:49] LABS: ALBUMIN 3.4 g/dl (3.4-5.0); BLOOD UREA NITROGEN 14.1 mg/dL (7-18)
[2021-03-21 07:52] LABS: CREATININE 0.9 mg/dL (0.55-1.3)
[2021-03-21 07:53] LABS: TOT PROT 6.6 g/dl (6.4-8.2)
[2021-03-21] MEDS: MUPIROCIN 2% TOPICAL OINTMENT FOR DECOLONIZATION NS SCH (10:00)
[2021-03-21 14:15] VITALS: BP 152/72; PULSE 67; TEMP 97.8
== END 2021-03-21 14:57 | disposition home or self-care (01) | DRG 420 ==
LOC: JER 10:45 → JERBED 15:51 → JICU 18:05
PROVIDERS: ADMIT Family Medicine; ATTEND Family Medicine
DX: E11.10 Type 2 diabetes mellitus with ketoacidosis without coma (principal); E11.43 Type 2 diabetes mellitus with diabetic autonomic (poly)neuropathy; K31.84 Gastroparesis; K21.9 Gastro-esophageal reflux disease without esophagitis
CPT/HCPCS: 36415; 71046-TC-FY; 74177-TC; 80048; 80053; 82010; 82803; 82962; 83605; 83690; 83735; 84100; 85025; 87040; 90686; 93005; 93010; 99283-25; C9803; G0008; J1644; U0003; U0005

== ENCOUNTER 2023-06-28 19:56 | Inpatient (IN) | payer OTHER ==
[2023-06-28] MEDS ORDERED: ONDANSETRON 4 MG/2 ML VIAL ONE (21:55)
[2023-06-28 22:00] LABS: VENOUS BASE EXCESS -10.9 mmol/L (-2-2); VENOUS O2 SATURATION 42.3 % (70-80); VENOUS PCO2 28.9 mmHg (38-52); VENOUS PH 7.299 (7.310-7.410)
[2023-06-28 22:01] LABS: HEMATOCRIT 43.3 % (35.4-49); HEMOGLOBIN 14.4 GM/dL (11.7-16.9); MCH 31.4 pg (25.7-33.7); MCHC 33.2 g/dl (32.0-35.9); MEAN CELL VOLUME 94.7 fl (80-96); MEAN PLT VOLUME 7.5 fl (7.5-11.1); PLATELET COUNT 321 10^3/uL (134-434); RBC 4.58 M/mm3 (4.00-5.60); RDW 12.7 % (11.9-15.9); WHITE BLOOD COUNT 20.9 K/mm3 (4.0-10.0)
[2023-06-28] MEDS: ONDANSETRON 4 MG/2 ML VIAL IVPUSH ONE (22:15)
[2023-06-28] MEDS: LACTATED RINGERS SOLUTION 1000 ML INFUS.BAG IV ONE ×2 (22:15→23:54)
[2023-06-28 22:22] LABS: POTASSIUM 4.3 mmol/L (3.5-5.1)
[2023-06-28 22:24] LABS: ALBUMIN 4.3 g/dl (3.4-5.0); BLOOD UREA NITROGEN 16.1 mg/dL (7-18); CALCIUM 10.1 mg/dL (8.5-10.1); MAGNESIUM 2.1 mg/dL (1.8-2.4)
[2023-06-28 22:27] LABS: CREATININE 1.3 mg/dL (0.55-1.3)
[2023-06-28 22:29] LABS: BILIRUBIN,TOTAL 1.7 mg/dL (0.2-1); TOT PROT 8.2 g/dl (6.4-8.2)
[2023-06-28 22:42] LABS: EPI CELLS 1 /uL (0-25.1); HYALINE CASTS 0 /uL (0-3.1); PH,URINE 5.5 (5.0-8.0); URINE APPEARANCE CLEAR; URINE BACTERIA 3 /uL (0-1359); URINE BILIRUBIN NEGATIVE (NEGATIVE); URINE COLOR YELLOW; URINE GLUCOSE (UA) 3+ (NEGATIVE); URINE KETONE 4+ (NEGATIVE); URINE LEUK ESTERASE NEGATIVE (NEGATIVE); URINE NITRITE NEGATIVE (NEGATIVE); URINE PROTEIN 2+ (NEGATIVE); URINE RBC 11 /uL (0-23.9); URINE UROBILINOGEN 0.2 mg/dL (0.2-1.0); URINE WBC 4 /uL (0-25.8)
[2023-06-28] MEDS ORDERED: INSULIN (NOVOLOG) ASPART 100 UNITS/ML 10ML VIAL ONE (22:49)
[2023-06-28] MEDS ORDERED: INSULIN (LEVEMIR) 100 UNITS/ML UNITS SQ ONE (22:49)
[2023-06-28 23:10] LABS: ANISOCYTOSIS 0; MACROCYTOSIS 0; PLATELET ESTIMATE NORMAL
[2023-06-28 23:22] LABS: POTASSIUM 4.6 mmol/L (3.5-5.1)
[2023-06-28 23:23] LABS: BLOOD UREA NITROGEN 15.7 mg/dL (7-18); CALCIUM 9.4 mg/dL (8.5-10.1)
[2023-06-28 23:27] LABS: CREATININE 1.1 mg/dL (0.55-1.3)
[2023-06-28] MEDS: D5-NS + 20 MEQ KCL - 20 MEQ/1,000 ML INFUS.BAG IV SCH (23:53)
[2023-06-28] MEDS: LACTATED RINGERS SOLUTION 1,000 ML/1,000 ML INFUS.BAG IV STA (23:54)
[2023-06-28] MEDS: INSULIN REGULAR 100 UNITS in SODIUM CHLORIDE 99 ML IVPB SCH (23:54)
[2023-06-29] MEDS ORDERED: ACETAMINOPHEN INJECTION 100 ML IVPB ONE ×2 (00:27→06:27)
[2023-06-29] MEDS: ACETAMINOPHEN 1000 MG/100 ML BAG IVPB ONE ×3 (00:34→16:53)
[2023-06-29] MEDS: morphine CARPU-JECT 2 MG/1 ML DISP.SYRIN IVPUSH ONE (00:34)
[2023-06-29] MEDS: INSULIN REGULAR 100 UNITS in SODIUM CHLORIDE 99 ML IVPB SCH ×5 (00:35→11:23)
[2023-06-29 01:21] VITALS: BMI 22.5
[2023-06-29] MEDS: INSULIN REGULAR HUMAN 100 UNITS/ML *VIAL* (FOR IVP) IVPUSH ONE (01:40)
[2023-06-29 04:38] LABS: POTASSIUM 4.2 mmol/L (3.5-5.1)
[2023-06-29 04:40] LABS: CALCIUM 9.4 mg/dL (8.5-10.1)
[2023-06-29 04:41] LABS: ALBUMIN 3.7 g/dl (3.4-5.0); BLOOD UREA NITROGEN 17.4 mg/dL (7-18)
[2023-06-29 04:44] LABS: CREATININE 1.2 mg/dL (0.55-1.3)
[2023-06-29 04:46] LABS: BILIRUBIN,TOTAL 1.4 mg/dL (0.2-1); TOT PROT 6.7 g/dl (6.4-8.2)
[2023-06-29] MEDS: ONDANSETRON 4 MG/2 ML VIAL IVPUSH PRN (06:33)
[2023-06-29 07:36] LABS: BASO % 0.3 % (0-2.0); HEMATOCRIT 37.5 % (35.4-49); HEMOGLOBIN 12.7 GM/dL (11.7-16.9); LYMPH % 11.2 % (8-40); MCH 31.7 pg (25.7-33.7); MEAN CELL VOLUME 93.5 fl (80-96); MEAN PLT VOLUME 7.7 fl (7.5-11.1); MONO % 8.2 % (3.8-10.2); NEUT % 80.3 % (42.8-82.8); PLATELET COUNT 273 10^3/uL (134-434); RBC 4.01 M/mm3 (4.00-5.60); RDW 12.6 % (11.9-15.9)
[2023-06-29 07:59] LABS: POTASSIUM 4.2 mmol/L (3.5-5.1)
[2023-06-29 08:05] LABS: CALCIUM 9.2 mg/dL (8.5-10.1)
[2023-06-29 08:06] LABS: ALBUMIN 3.8 g/dl (3.4-5.0); BLOOD UREA NITROGEN 16.7 mg/dL (7-18); MAGNESIUM 1.9 mg/dL (1.8-2.4)
[2023-06-29 08:09] LABS: CREATININE 1.2 mg/dL (0.55-1.3); PHOSPHOROUS 3.4 mg/dL (2.5-4.9)
[2023-06-29 08:10] LABS: BILIRUBIN,TOTAL 1.5 mg/dL (0.2-1); TOT PROT 6.7 g/dl (6.4-8.2)
[2023-06-29] MEDS: ENOXAPARIN NA (PORCINE) 40 MG/0.4 ML DISP.SYRIN SQ SCH (09:33)
[2023-06-29] MEDS: MAG HYDROX/AL HYDROX/SIMETH 30 ML UNIT-DOSE CUP PO ONE (09:33)
[2023-06-29] MEDS: MUPIROCIN 2% TOPICAL OINTMENT FOR DECOLONIZATION NS SCH (09:34)
[2023-06-29] MEDS: D5-NS + 20 MEQ KCL - 20 MEQ/1,000 ML INFUS.BAG IV SCH (10:12)
[2023-06-29] MEDS: INSULIN (LEVEMIR) 100 UNITS/ML UNITS SQ ONE (10:16)
[2023-06-29] MEDS: INSULIN ASPART SLIDING SCALE (NOVOLOG) 1 VIAL SQ SCH (11:23)
[2023-06-29] MEDS ORDERED: INSULIN (NOVOLOG) ASPART 100 UNITS/ML 10ML VIAL ONE (16:09)
[2023-06-29] MEDS: ACETAMINOPHEN 325 MG TABLET (FP) PO PRN (16:11)
[2023-06-29] MEDS: METOCLOPRAMIDE HCL INJECTION 10 MG/2 ML VIAL IVPUSH ONE (19:03)
[2023-06-29] MEDS: CHLORHEXIDINE GLUCONATE 4% CLEANSER FOR DECOLONIZATION TP SCH (21:28)
[2023-06-29] MEDS: INSULIN (LEVEMIR) 100 UNITS/ML UNITS SQ SCH (21:29)
[2023-06-29] MEDS ORDERED: INSULIN (LEVEMIR) 100 UNITS/ML UNITS SQ ONE (23:39)
[2023-06-30 07:20] LABS: HEMATOCRIT 37.2 % (35.4-49); HEMOGLOBIN 12.3 GM/dL (11.7-16.9); MCH 31.7 pg (25.7-33.7); MCHC 33.1 g/dl (32.0-35.9); MEAN CELL VOLUME 95.7 fl (80-96); MEAN PLT VOLUME 7.5 fl (7.5-11.1); PLATELET COUNT 264 10^3/uL (134-434); RBC 3.88 M/mm3 (4.00-5.60); RDW 12.1 % (11.9-15.9); WHITE BLOOD COUNT 10.1 K/mm3 (4.0-10.0)
[2023-06-30 07:43] LABS: POTASSIUM 3.8 mmol/L (3.5-5.1)
[2023-06-30 07:55] LABS: BLOOD UREA NITROGEN 19.2 mg/dL (7-18); CALCIUM 9.1 mg/dL (8.5-10.1)
[2023-06-30 07:59] LABS: CREATININE 0.9 mg/dL (0.55-1.3)
[2023-06-30] MEDS ORDERED: INSULIN (NOVOLOG) ASPART 100 UNITS/ML 10ML VIAL ONE (09:31)
[2023-06-30] MEDS ORDERED: INSULIN (LEVEMIR) 100 UNITS/ML UNITS SQ ONE (09:31)
[2023-06-30 12:18] VITALS: BP 138/79; PULSE 81; RESP 13; TEMP 98.3
== END 2023-06-30 14:06 | disposition home or self-care (01) | DRG 420 ==
LOC: JER 19:56 → JERBED 22:35 → JICU 06-29 00:51
PROVIDERS: ADMIT Family Medicine; ATTEND Family Medicine
DX: E10.10 Type 1 diabetes mellitus with ketoacidosis without coma (principal); E10.43 Type 1 diabetes mellitus with diabetic autonomic (poly)neuropathy; K31.84 Gastroparesis; E86.0 Dehydration; K21.9 Gastro-esophageal reflux disease without esophagitis; F32.A Depression, unspecified; Z79.4 Long term (current) use of insulin
CPT/HCPCS: 0241U-QW; 36415; 71046-TC-FY; 80048; 80053; 81003; 82010; 82803; 82962; 83036; 83690; 83735; 84100; 85025; 85027; 87086; 93005; 93010; 99285-25; J0131

== ENCOUNTER 2023-07-03 12:52 | Emergency (ER) | payer OTHER ==
[2023-07-03 13:00] VITALS: RESP 19; BMI 23.3
[2023-07-03] MEDS: morphine CARPU-JECT 2 MG/1 ML DISP.SYRIN IVPUSH ONE (14:15)
[2023-07-03 14:22] LABS: BASO % 0.3 % (0-2.0); EOS % 1.3 % (0-4.5); HEMOGLOBIN 12.8 GM/dL (11.7-16.9); LYMPH % 29.4 % (8-40); MCH 32.1 pg (25.7-33.7); MCHC 33.8 g/dl (32.0-35.9); MEAN CELL VOLUME 94.9 fl (80-96); MEAN PLT VOLUME 7.4 fl (7.5-11.1); MONO % 7.9 % (3.8-10.2); NEUT % 61.1 % (42.8-82.8); PLATELET COUNT 288 10^3/uL (134-434); RDW 12.3 % (11.9-15.9); WHITE BLOOD COUNT 7.9 K/mm3 (4.0-10.0)
[2023-07-03 14:53] LABS: POTASSIUM 3.6 mmol/L (3.5-5.1)
[2023-07-03 14:55] LABS: CALCIUM 9.9 mg/dL (8.5-10.1)
[2023-07-03 15:00] LABS: TOT PROT 7.4 g/dl (6.4-8.2)
[2023-07-03 16:08] LABS: VENOUS O2 SATURATION 48.7 % (70-80); VENOUS PCO2 56.3 mmHg (38-52); VENOUS PH 7.305 (7.310-7.410)
[2023-07-03] MEDS: SODIUM CHLORIDE 0.9% 500 ML INFUS.BAG IV ONE (16:32)
[2023-07-03 17:03] LABS: URINE APPEARANCE Clear; URINE BILIRUBIN Negative (NEGATIVE); URINE COLOR Yellow; URINE GLUCOSE (UA) >=1000 (NEGATIVE); URINE KETONE Negative (NEGATIVE); URINE LEUK ESTERASE Negative (NEGATIVE); URINE NITRITE Negative (NEGATIVE); URINE PROTEIN Negative (NEGATIVE)
[2023-07-03 17:48] VITALS: BP 122/78; PULSE 72; TEMP 98.6
== END 2023-07-03 17:48 | disposition home or self-care (01) ==
LOC: JER 12:52
PROC: 3E033NZ Introduction of Analgesics, Hypnotics, Sedatives into Peripheral Vein, Percutaneous Approach (ICD-10-PCS; principal; 2023-07-03)
DX: R22.0 Localized swelling, mass and lump, head (principal); K11.21 Acute sialoadenitis
CPT/HCPCS: 36415; 70491-TC; 80053; 81003; 82803; 82962; 85025; 87086; 99285-25; Q9967